=== PATIENT | male | born 1960 | race Caucasian/White ===

== ENCOUNTER 2019-03-26 18:13 | Emergency (ER) | payer MEDICARE ==
[2019-03-26] MEDS ORDERED: methylPREDNISolone SOD SUCCI 125 MG/2 ML VIAL IV STA (19:03)
[2019-03-26] MEDS ORDERED: SODIUM CHLORIDE 0.9% 500 ML 500 ML IV STA (19:03)
[2019-03-26] MEDS ORDERED: ALBUTEROL NEBULIZED 2.5 MG/3 ML INHALATION STA (19:03)
[2019-03-26] MEDS ORDERED: IPRATROPIUM 0.5 MG/2.5 ML NEBU INHALATION STA (19:03)
--- NOTE | 2019-03-26 19:06 | ED ---
General Adult HPI - General Chief complaint: Upper Respiratory Infection Stated complaint: tightness in chest, congestion Time Seen by Provider: 03/26/19 18:43 Source: patient Mode of arrival: ambulatory Limitations: no limitations - History of Present Illness Initial comments: 58-year-old male patient presents to the emergency department today for evalu ation of shortness of breath and cough for the last week. Patient states symptoms have been worsening over the last couple of days. States he is coughing up clear to yellow sputum. Denies any hemoptysis. Patient states he is having substernal chest pain with this. States the pain does radiate through to his back. States he feel short of breath especially with activity. Does have history of COPD. States he did not do any breathing treatments today. States he does still smoke cigarettes. Denies any personal cardiac history. States he has had chills, but denies fever. Patient denies any recent rash, abdominal pain, nausea, vomiting, diarrhea, constipation, numbness, tingling, dizziness, weakness, hematuria, dysuria, urinary urgency, urinary frequency, headache, visual changes, or any other complaints. - Related Data Home Medications Medication Instructions Recorded Confirmed Aspirin/Acetaminophen/Caffeine 1 - 2 tab PO DAILY PRN 03/26/19 03/26/19 [Excedrin Migraine Caplet] Budesonide/Formoterol Fumarate 2 puff INHALATION RT-BID 03/26/19 03/26/19 [Symbicort 160-4.5 Mcg Inhaler] Carisoprodol [Soma] 350 mg PO BID 03/26/19 03/26/19 Fluticasone/Umeclidin/Vilanter 1 puff INHALATION RT-DAILY 03/26/19 03/26/19 [Trelegy Ellipta 100-62.5-25] Gabapentin [Neurontin] 300 mg PO TID 03/26/19 03/26/19 Morphine Sulfate ER [Ms Contin] 30 mg PO Q12H 03/26/19 03/26/19 Morphine Sulfate [Ms Contin] 60 mg PO Q12H 03/26/19 03/26/19 oxyCODONE-APAP 10-325MG [Percocet 1 tab PO TID PRN 03/26/19 03/26/19 10-325 mg] Previous Rx's Medication Instructions Recorded Azithromycin [Zithromax Z-pack] 0 mg PO DIRECTED #6 tab 10/04/19 predniSONE 50 mg PO DAILY #5 tablet 03/26/19 Allergies Allergy/AdvReac Type Severity Reaction Status Date / Time No Known Allergies Allergy Verified 03/26/19 20:48 Review of Systems ROS Statement: Those systems with pertinent positive or pertinent negative responses have been documented in the HPI. ROS Other: All systems not noted in ROS Statement are negative. Past Medical History Past Medical History: Cancer Additional Past Medical History / Comment(s): lung History of Any Multi-Drug Resistant Organisms: None Reported Additional Past Surgical History / Comment(s): right upper lobectomy d/t CA, multiple surgeries on right hand d/t accident Past Psychological History: No Psychological Hx Reported Smoking Status: Current every day smoker Past Alcohol Use History: None Reported Past Drug Use History: None Reported General Exam Limitations: no limitations General appearance: alert, in no apparent distress, other (Physical well- developed, well-nourished adult male patient in no acute distress. Vital signs upon presentation are temperature 98.1F, pulse 76, respirations 18, blood pressure 101/69, pulse ox 93% on room air.) Eye exam: Present: normal appearance, PERRL, EOMI. Absent: scleral icterus, conjunctival injection, periorbital swelling ENT exam: Present: normal exam, normal oropharynx, mucous membranes moist Respiratory exam: Present: wheezes (Tight expiratory and inspiratory wheezing noted in the posterior lung mendes). Absent: normal lung sounds bilaterally, respiratory distress, rales, rhonchi, stridor Cardiovascular Exam: Present: regular rate, normal rhythm, normal heart sounds. Absent: systolic murmur, diastolic murmur, rubs, gallop, clicks GI/Abdominal exam: Present: soft, normal bowel sounds. Absent: distended, tenderness, guarding, rebound, rigid Neurological exam: Present: alert, oriented X3, CN II-XII intact Psychiatric exam: Present: normal affect, normal mood Skin exam: Present: warm, dry, intact, normal color. Absent: rash Course Vital Signs 03/26/19 03/26/19 03/26/19 18:32 18:52 19:22 Temperature 98.1 F Pulse Rate 76 64 Respiratory 18 20 Rate Blood Pressure 101/69 O2 Sat by Pulse 93 L Oximetry 03/26/19 03/26/19 03/26/19 19:36 19:56 20:56 Temperature Pulse Rate 68 86 73 Respiratory 20 20 Rate Blood Pressure 102/55 105/61 O2 Sat by Pulse 90 L 94 L Oximetry 03/26/19 03/26/19 22:00 23:08 Temperature 98.4 F 98.9 F Pulse Rate 66 76 Respiratory 22 18 Rate Blood Pressure 104/60 106/68 O2 Sat by Pulse 93 L 90 L Oximetry EKG Findings - EKG Comments: EKG Findings:: EKG obtained at 1936 shows normal sinus rhythm with a ventricular rate of 71, GA interval 166, QRS duration 74, QT 378, QTC 410. No evidence of ST elevation or depression. Medical Decision Making - Medical Decision Making 58-year-old male patient presented to the emergency department today for chandra luation of shortness of breath and wheezing. Patient states his been sick over the last week with worsening symptoms over the last 2 days. Physical examination did reveal inspiratory and expiratory wheezing in the posterior lung mendes. Labs reviewed and revealed normal white blood cell count. Oxygen saturation was between 90 and 93% on room air. X-ray did reveal pneumonia or recurrent tumor to the right lung. Patient be treated for COPD exacerbation and pneumonia. Given a azithromycin, prednisone burst, and instructed to do breathing treatments at home every 4 hours. He is instructed to follow-up with his lean engineer for further evaluation and review of x-ray abnormalities. He is instructed to follow-up with his primary care physician for recheck in 1-2 days. Return parameters were discussed in detail. He verbalizes understanding and agrees with this plan. Case was discussed with my attending physician Dr. Telles who agreed with my impression and plan. - Lab Data Result diagrams: 03/26/19 19:41 03/26/19 19:41 Lab Results 03/26/19 03/26/19 03/26/19 Range/Units 19:41 19:41 19:41 WBC 10.3 (3.8-10.6) k/uL RBC 3.86 L (4.30-5.90) m/uL Hgb 11.8 L (13.0-17.5) gm/dL Hct 37.8 L (39.0-53.0) % MCV 97.9 (80.0-100.0) fL MCH 30.5 (25.0-35.0) pg MCHC 31.2 (31.0-37.0) g/dL RDW 13.9 (11.5-15.5) % Plt Count 269 (150-450) k/uL Neutrophils % 83 % Lymphocytes % 8 % Monocytes % 6 % Eosinophils % 1 % Basophils % 1 % Neutrophils # 8.6 H (1.3-7.7) k/uL Lymphocytes # 0.9 L (1.0-4.8) k/uL Monocytes # 0.6 (0-1.0) k/uL Eosinophils # 0.1 (0-0.7) k/uL Basophils # 0.1 (0-0.2) k/uL PT 10.0 (9.0-12.0) sec INR 0.9 (<1.2) APTT 29.9 (22.0-30.0) sec D-Dimer 0.37 (<0.60) mg/L FEU Sodium 138 (137-145) mmol/L Potassium 3.7 (3.5-5.1) mmol/L Chloride 99 (98-107) mmol/L Carbon Dioxide 28 (22-30) mmol/L Anion Gap 11 mmol/L BUN 23 H (9-20) mg/dL Creatinine 1.06 (0.66-1.25) mg/dL Est GFR (CKD-EPI)AfAm 90 (>60 ml/min/1.73 sqM) Est GFR (CKD-EPI)NonAf 78 (>60 ml/min/1.73 sqM) Glucose 105 H (74-99) mg/dL Calcium 9.0 (8.4-10.2) mg/dL Total Bilirubin 0.4 (0.2-1.3) mg/dL AST 14 L (17-59) U/L ALT 16 L (21-72) U/L Alkaline Phosphatase 64 (38-126) U/L Troponin I (0.000-0.034) ng/mL Total Protein 6.6 (6.3-8.2) g/dL Albumin 3.6 (3.5-5.0) g/dL 03/26/19 Range/Units 19:41 WBC (3.8-10.6) k/uL RBC (4.30-5.90) m/uL Hgb (13.0-17.5) gm/dL Hct (39.0-53.0) % MCV (80.0-100.0) fL MCH (25.0-35.0) pg MCHC (31.0-37.0) g/dL RDW (11.5-15.5) % Plt Count (150-450) k/uL Neutrophils % % Lymphocytes % % Monocytes % % Eosinophils % % Basophils % % Neutrophils # (1.3-7.7) k/uL Lymphocytes # (1.0-4.8) k/uL Monocytes # (0-1.0) k/uL Eosinophils # (0-0.7) k/uL Basophils # (0-0.2) k/uL PT (9.0-12.0) sec INR (<1.2) APTT (22.0-30.0) sec D-Dimer (<0.60) mg/L FEU Sodium (137-145) mmol/L Potassium (3.5-5.1) mmol/L Chloride (98-107) mmol/L Carbon Dioxide (22-30) mmol/L Anion Gap mmol/L BUN (9-20) mg/dL Creatinine (0.66-1.25) mg/dL Est GFR (CKD-EPI)AfAm (>60 ml/min/1.73 sqM) Est GFR (CKD-EPI)NonAf (>60 ml/min/1.73 sqM) Glucose (74-99) mg/dL Calcium (8.4-10.2) mg/dL Total Bilirubin (0.2-1.3) mg/dL AST (17-59) U/L ALT (21-72) U/L Alkaline Phosphatase (38-126) U/L Troponin I <0.012 (0.000-0.034) ng/mL Total Protein (6.3-8.2) g/dL Albumin (3.5-5.0) g/dL - Radiology Data Radiology results: report reviewed, image reviewed Two-view x-ray of the chest is obtained. Report was reviewed in its entirety. Impression by Dr. Hernandez shows increasing pulmonary interstitial edema on the right lung compared to last exam. I would consider possibilities of acute pneumonia as well as recurrent tumor. No gross heart failure. Disposition Clinical Impression: COPD exacerbation, Pneumonia Disposition: HOME SELF-CARE Condition: Good Instructions (If sedation given, give patient instructions): COPD (Chronic Obstructive Pulmonary Disease) (ED), Pneumonia (ED) Additional Instructions: Do breathing treatments every 4 hours as needed. Complete steroid and antibiotic prescription in full. Follow-up with your lean engineer for further evaluation of abnormalities on your x-ray. Return to the emergency department immediately for any new, worsening, or concerning symptoms. Prescriptions: predniSONE 50 mg PO DAILY #5 tablet Azithromycin [Zithromax Z-pack] 0 mg PO DIRECTED #6 tab Is patient prescribed a controlled substance at d/c from ED?: No Referrals: Royal Cochran MD [Primary Care Provider] - 1-2 days Time of Disposition: 22:54
--- NOTE | 2019-03-26 19:29 | XR ---
EXAMINATION TYPE: XR chest 2V DATE OF EXAM: 03/26/2019 COMPARISON: 08/28/2018 HISTORY: Chest tightness. Cough. TECHNIQUE: Frontal and lateral views of the chest are obtained. FINDINGS: There is extensive coarse infiltrate in the right lung. There is slight coarsening of inte rstitial markings in the left lung. Heart and mediastinum are shifted to the right side. There are heller rgical clips apparently from right upper lobectomy. Heart size is normal. There is no heart failure. IMPRESSION: Increasing pulmonary interstitial edema in the right lung compared to last exam. I would consider possibilities of acute pneumonia as well as recurrent tumor. No gross heart failure.
[2019-03-26] MEDS ORDERED: cefTRIAXone IN SWFI 1,000 MG/10 ML SYRINGE IVP STA (19:45)
[2019-03-26 20:19] LABS: Basophils # (A) 0.1 k/uL (0-0.2); Basophils % (A) 1 %; Eosinophils # (A) 0.1 k/uL (0-0.7); Eosinophils % (A) 1 %; HCT 37.8 % (39.0-53.0); HGB 11.8 gm/dL (13.0-17.5); Lymphocytes # (A) 0.9 k/uL (1.0-4.8); Lymphocytes % (A) 8 %; MCH 30.5 pg (25.0-35.0); MCHC 31.2 g/dL (31.0-37.0); MCV 97.9 fL (80.0-100.0); Mean Platelet Volume 7.3; Monocytes # (A) 0.6 k/uL (0-1.0); Monocytes % (A) 6 %; Neutrophils # (A) 8.6 k/uL (1.3-7.7); Neutrophils % (A) 83 %; Platelet Count 269 k/uL (150-450); RBC 3.86 m/uL (4.30-5.90); RDW 13.9 % (11.5-15.5); WBC 10.3 k/uL (3.8-10.6)
[2019-03-26 20:31] LABS: D-Dimer 0.37 mg/L FEU (<0.60); INR 0.9 (<1.2); Partial Thromboplastin Time 29.9 sec (22.0-30.0)
[2019-03-26 20:34] LABS: Albumin 3.6 g/dL (3.5-5.0); Potassium 3.7 mmol/L (3.5-5.1); Total Bilirubin 0.4 mg/dL (0.2-1.3); Total Protein 6.6 g/dL (6.3-8.2)
[2019-03-26] MEDS ORDERED: AZITHROMYCIN 500 MG in SODIUM CHLORIDE 0.9% 250 ML IVPB ONE (22:15)
[2019-03-26] MEDS ORDERED: AZITHROMYCIN 500 MG TAB PO STA (22:52)
[2019-03-26 23:11] VITALS: BP 106/68; PULSE 76; RESP 18; TEMP 98.9
== END 2019-03-26 23:14 | disposition home or self-care (01) ==
LOC: EC 18:13
DX: J44.1 Chronic obstructive pulmonary disease with (acute) exacerbation (principal); J18.9 Pneumonia, unspecified organism; F17.210 Nicotine dependence, cigarettes, uncomplicated; Z79.51 Long term (current) use of inhaled steroids; Z79.891 Long term (current) use of opiate analgesic; Z79.82 Long term (current) use of aspirin; Z79.899 Other long term (current) drug therapy; Z85.118 Personal history of other malignant neoplasm of bronchus and lung; Z90.2 Acquired absence of lung [part of]
CPT/HCPCS: 36415; 94640; 93005; 85379; 80053; 84484; 85025; 85610; 85730; 87040; 71046; 99284; 96374; 96375; 96361; J2930; J0696

== ENCOUNTER 2019-11-02 12:38 | Inpatient (IN) | payer MEDICARE ==
[2019-11-02] MEDS ORDERED: SODIUM CHLORIDE 0.9% 1,000 ML IV STA ×2 (13:01)
[2019-11-02] MEDS ORDERED: ALBUTEROL HFA INHALER INHALATION STA (13:01)
[2019-11-02] MEDS ORDERED: PANTOPRAZOLE 40 MG/10 ML VIAL IVP STA (13:02)
--- NOTE | 2019-11-02 13:26 | ED ---
General Adult HPI - General Chief complaint: Shortness of Breath Stated complaint: Coughing blood Time Seen by Provider: 11/02/19 12:54 Source: patient, RN notes reviewed, old records reviewed Limitations: no limitations - History of Present Illness Initial comments: This Patient is a 58-year-old male with a history of lung cancer with history of lobectomy with presents the emergency room today with worsening difficulty breathing the past week, and reports that he's been vomiting up coffee ground emesis. He also states that he's had a general productive cough of yellow-green sputum. Patient reports that he wears oxygen at night than during the day. He states that he has some mild epigastric pain. He denies any recent fevers or chills. Patient reports that his finisher cold rolling Dr. Peters. Patient reports he is not currently undergoing any treatment for history of lung cancer with chemotherapy or radiation. - Related Data Home Medications Medication Instructions Recorded Confirmed Aspirin/Acetaminophen/Caffeine 1 - 2 tab PO DAILY PRN 03/26/19 03/26/19 [Excedrin Migraine Caplet] Budesonide/Formoterol Fumarate 2 puff INHALATION RT-BID 03/26/19 03/26/19 [Symbicort 160-4.5 Mcg Inhaler] Carisoprodol [Soma] 350 mg PO BID 03/26/19 03/26/19 Fluticasone/Umeclidin/Vilanter 1 puff INHALATION RT-DAILY 03/26/19 03/26/19 [Trelegy Ellipta 100-62.5-25] Gabapentin [Neurontin] 300 mg PO TID 03/26/19 03/26/19 Morphine Sulfate ER [Ms Contin] 30 mg PO Q12H 03/26/19 03/26/19 Morphine Sulfate [Ms Contin] 60 mg PO Q12H 03/26/19 03/26/19 oxyCODONE-APAP 10-325MG [Percocet 1 tab PO TID PRN 03/26/19 03/26/19 10-325 mg] Previous Rx's Medication Instructions Recorded Azithromycin [Zithromax Z-pack] 0 mg PO DIRECTED #6 tab 03/26/19 predniSONE 50 mg PO DAILY #5 tablet 03/26/19 Allergies Allergy/AdvReac Type Severity Reaction Status Date / Time No Known Allergies Allergy Verified 05/12/20 12:45 Review of Systems ROS Statement: Those systems with pertinent positive or pertinent negative responses have been documented in the HPI. ROS Other: All systems not noted in ROS Statement are negative. Past Medical History Past Medical History: Cancer Additional Past Medical History / Comment(s): lung History of Any Multi-Drug Resistant Organisms: None Reported Additional Past Surgical History / Comment(s): right upper lobectomy d/t CA, multiple surgeries on right hand d/t accident Past Psychological History: No Psychological Hx Reported Smoking Status: Current every day smoker Past Alcohol Use History: None Reported Past Drug Use History: None Reported General Exam - General Exam Comments Initial Comments: Very thin appearing 58-year-old male. Cachectic. Alert and oriented 3. Pleasant. Limitations: no limitations General appearance: alert, in no apparent distress Head exam: Present: atraumatic, normocephalic, normal inspection Eye exam: Present: normal appearance, PERRL, EOMI. Absent: scleral icterus, conjunctival injection, periorbital swelling ENT exam: Present: normal exam, mucous membranes moist Neck exam: Present: normal inspection. Absent: tenderness, meningismus, lymphadenopathy Respiratory exam: Present: decreased breath sounds (decreased lower lung lobe. ). Absent: normal lung sounds bilaterally, respiratory distress, wheezes, rales, rhonchi, stridor Cardiovascular Exam: Present: regular rate, normal rhythm, normal heart sounds. Absent: systolic murmur, diastolic murmur, rubs, gallop, clicks GI/Abdominal exam: Present: soft, normal bowel sounds. Absent: distended, tenderness, guarding, rebound, rigid Extremities exam: Present: normal inspection, full ROM, normal capillary refill. Absent: tenderness, pedal edema, joint swelling, calf tenderness Back exam: Present: normal inspection Neurological exam: Present: alert, oriented X3, CN II-XII intact Psychiatric exam: Present: normal affect, normal mood Skin exam: Present: warm, dry, intact, normal color. Absent: rash Course Vital Signs 11/02/19 11/02/19 12:40 12:45 Temperature 98.7 F Pulse Rate 92 Respiratory 18 20 Rate Blood Pressure 96/67 O2 Sat by Pulse 85 L Oximetry Medical Decision Making - Medical Decision Making 58-year-old male history of lung cancer presents today with worsening dyspnea, and Patient also complains of some episodes of bloody emesis. He's had no vomiting emergency room today. Patient was found to have a pulse ox of 85% on room air prior to arrival and went as low as 80% while in the room and talking. Patient was started on a 4 L of oxygen nasal cannula and oxygen saturation has been normal this time and 90%. Patient has this productive cough with yellow screen sputum. Stat CT chest injury was completed with history of cancer to her initially to rule out PE. There is no evidence of pulmonary embolus and but multiple focal areas of pneumonia. Patient does have evidence of leukocytosis,. Started on Rocephin and azithromycin. Patient was swabbed for COVID at this time and blood cultures were completed. He also is a current smoker and states he is planning to quit today. In regards to the bloody emesis patient's hemoglobin is stable at 11. We will repeat CBCs. He was given a dose of Protonix emergency department has had no nausea or vomiting. At this time with Patient CTs findings of multiple areas of consolidation Patient will be admitted for pneumonia started on Rocephin and azithromycin with consults to Dr. Peters his finisher cold rolling. - Lab Data Result diagrams: 11/02/19 13:21 11/02/19 13:21 Lab Results 11/02/19 11/02/19 11/02/19 Range/Units 13:21 13:21 13:21 WBC 14.8 H (3.8-10.6) k/uL RBC 3.82 L (4.30-5.90) m/uL Hgb 11.6 L (13.0-17.5) gm/dL Hct 36.4 L (39.0-53.0) % MCV 95.4 (80.0-100.0) fL MCH 30.5 (25.0-35.0) pg MCHC 32.0 (31.0-37.0) g/dL RDW 13.2 (11.5-15.5) % Plt Count 402 (150-450) k/uL Neutrophils % 91 % Lymphocytes % 5 % Monocytes % 2 % Eosinophils % 1 % Basophils % 1 % Neutrophils # 13.5 H (1.3-7.7) k/uL Lymphocytes # 0.7 L (1.0-4.8) k/uL Monocytes # 0.3 (0-1.0) k/uL Eosinophils # 0.2 (0-0.7) k/uL Basophils # 0.1 (0-0.2) k/uL PT 10.1 (9.0-12.0) sec INR 1.0 (<1.2) APTT 30.2 H (22.0-30.0) sec Sodium 136 L (137-145) mmol/L Potassium 4.1 (3.5-5.1) mmol/L Chloride 98 (98-107) mmol/L Carbon Dioxide 28 (22-30) mmol/L Anion Gap 10 mmol/L BUN 38 H (9-20) mg/dL Creatinine 1.44 H (0.66-1.25) mg/dL Est GFR (CKD-EPI)AfAm 61 (>60 ml/min/1.73 sqM) Est GFR (CKD-EPI)NonAf 53 (>60 ml/min/1.73 sqM) Glucose 106 H (74-99) mg/dL Plasma Lactic Acid Alber (0.7-2.0) mmol/L Calcium 9.3 (8.4-10.2) mg/dL Magnesium 1.5 L (1.6-2.3) mg/dL Total Bilirubin 0.4 (0.2-1.3) mg/dL AST 18 (17-59) U/L ALT 8 (4-49) U/L Alkaline Phosphatase 64 (38-126) U/L Troponin I (0.000-0.034) ng/mL NT-Pro-B Natriuret Pep pg/mL Total Protein 7.0 (6.3-8.2) g/dL Albumin 3.8 (3.5-5.0) g/dL 11/02/19 11/02/19 11/02/19 Range/Units 13:21 13:21 13:21 WBC (3.8-10.6) k/uL RBC (4.30-5.90) m/uL Hgb (13.0-17.5) gm/dL Hct (39.0-53.0) % MCV (80.0-100.0) fL MCH (25.0-35.0) pg MCHC (31.0-37.0) g/dL RDW (11.5-15.5) % Plt Count (150-450) k/uL Neutrophils % % Lymphocytes % % Monocytes % % Eosinophils % % Basophils % % Neutrophils # (1.3-7.7) k/uL Lymphocytes # (1.0-4.8) k/uL Monocytes # (0-1.0) k/uL Eosinophils # (0-0.7) k/uL Basophils # (0-0.2) k/uL PT (9.0-12.0) sec INR (<1.2) APTT (22.0-30.0) sec Sodium (137-145) mmol/L Potassium (3.5-5.1) mmol/L Chloride (98-107) mmol/L Carbon Dioxide (22-30) mmol/L Anion Gap mmol/L BUN (9-20) mg/dL Creatinine (0.66-1.25) mg/dL Est GFR (CKD-EPI)AfAm (>60 ml/min/1.73 sqM) Est GFR (CKD-EPI)NonAf (>60 ml/min/1.73 sqM) Glucose (74-99) mg/dL Plasma Lactic Acid Alber 1.3 (0.7-2.0) mmol/L Calcium (8.4-10.2) mg/dL Magnesium (1.6-2.3) mg/dL Total Bilirubin (0.2-1.3) mg/dL AST (17-59) U/L ALT (4-49) U/L Alkaline Phosphatase (38-126) U/L Troponin I <0.012 (0.000-0.034) ng/mL NT-Pro-B Natriuret Pep 106 pg/mL Total Protein (6.3-8.2) g/dL Albumin (3.5-5.0) g/dL 11/02/19 13:58 EKG performed at 1344 shows normal sinus rhythm minimal criteria for LVH. Nonspecific ST and T wave abnormality. Abnormal EKG. Ventricular rate of 74 beats were minute period. Intervals 178 ms. QS duration is 80 ms. QT QTc is 390/432 ms. - Radiology Data Radiology results: report reviewed No diagnostic evidence of bony rambles in. Chronic appearing deformity of the right hemithorax with numerous areas of consolidation on the right lung and left lower lobe. Some of this may be chronic however there is no prior CT scans available for comparison. Underlying pneumonia or neoplasm not excluded, correlate clinically. Chest x-ray shows chronic changes and right-sided volume loss with new right mid upper lung infiltrate or edema. Correlate clinically. Disposition Clinical Impression: Multifocal pneumonia, Hx of cancer of lung, History of hematemesis, Hypoxia Disposition: ADMITTED IP TO THIS HOSP Condition: Stable Is patient prescribed a controlled substance at d/c from ED?: No Referrals: Royal Cochran MD [Primary Care Provider] - 1-2 days Time of Disposition: 15:20
[2019-11-02 13:47] LABS: Basophils # (A) 0.1 k/uL (0-0.2); Basophils % (A) 1 %; Eosinophils # (A) 0.2 k/uL (0-0.7); Eosinophils % (A) 1 %; HCT 36.4 % (39.0-53.0); HGB 11.6 gm/dL (13.0-17.5); Lymphocytes # (A) 0.7 k/uL (1.0-4.8); Lymphocytes % (A) 5 %; MCH 30.5 pg (25.0-35.0); MCV 95.4 fL (80.0-100.0); Mean Platelet Volume 8.1; Monocytes # (A) 0.3 k/uL (0-1.0); Monocytes % (A) 2 %; Neutrophils # (A) 13.5 k/uL (1.3-7.7); Neutrophils % (A) 91 %; Platelet Count 402 k/uL (150-450); RBC 3.82 m/uL (4.30-5.90); RDW 13.2 % (11.5-15.5); WBC 14.8 k/uL (3.8-10.6)
[2019-11-02 13:58] LABS: Albumin 3.8 g/dL (3.5-5.0); Calcium 9.3 mg/dL (8.4-10.2); Magnesium 1.5 mg/dL (1.6-2.3); Potassium 4.1 mmol/L (3.5-5.1); Total Bilirubin 0.4 mg/dL (0.2-1.3)
--- NOTE | 2019-11-02 14:28 | XR ---
EXAMINATION TYPE: XR chest 2V DATE OF EXAM: 11/02/2019 COMPARISON: Same day CTA chest study. Prior chest x-ray April 23, 2019. HISTORY: History of lung cancer with hypoxia. TECHNIQUE: Frontal and lateral views of the chest are obtained. FINDINGS: There is prompt chronic parenchymal fibrotic changes with right-sided volume loss and righ t upper lung deformity are all redemonstrated. No new pleural effusion or pneumothorax definitively s een. Increased opacity right upper to midlung on current study. The cardiac silhouette size remains w ithin normal limits. Stimulator device in the right supraclavicular region redemonstrated. IMPRESSION: Chronic changes and right-sided volume loss with new right mid to upper lung acute infil trate and/or edema. Correlate clinically.
[2019-11-02 14:31] LABS: Partial Thromboplastin Time 30.2 sec (22.0-30.0); Prothrombin Time 10.1 sec (9.0-12.0)
[2019-11-02] MEDS ORDERED: AZITHROMYCIN 500 MG in SODIUM CHLORIDE 0.9% 250 ML IVPB STA (14:32)
[2019-11-02] MEDS ORDERED: cefTRIAXone IN SWFI 1,000 MG/10 ML SYRINGE IVP STA (14:32)
--- NOTE | 2019-11-02 14:33 | CT ---
EXAMINATION TYPE: CT chest angio for PE DATE OF EXAM: 11/02/2019 COMPARISON: None HISTORY: cough, lung CA CT DLP: 180.3 mGycm Automated exposure control for dose reduction was used. CONTRAST: CT Chest for pulmonary embolism performed with with IV Contrast, patient injected with 100 mL of Isov ue 370. FINDINGS: There is partial resection or deformity of the right hemithorax. Bilateral emphysematous ch anges are seen. Area of consolidation involving the right lung apex noted. Additional areas of right perihilar consolidation are seen. No prior exams are available for comparison. Subsegmental consolida tions are seen involving both lungs. Basilar bronchiectasis noted. Coronary artery calcification noted. Heart size is normal. Aorta of normal caliber. There is normal e nhancement of the pulmonary arteries bilaterally. Large bulla favored at the right lung apex overt ca vitation. Bronchiectasis noted bilaterally greater on the right. Groundglass changes diffusely throug hout the right lung. Bilateral hilar adenopathy greater on the right measuring short axis of 1.4 cm. Degenerative changes of the vertebral column noted. Hypodensity left kidney is indeterminate and only partially included on exam. Subpleural nodularity right upper lobe measuring 1 cm noted. IMPRESSION: 1. No diagnostic evidence of pulmonary embolism. 2. Chronic appearing deformity of the right hemithorax with numerous areas of consolidation in the ri ght lung and left lower lobe. Some of this may be chronic but there are no prior CT scans available f or comparison. Underlying pneumonia or neoplasm not excluded correlate clinically. 3. Diffuse COPD.
[2019-11-02] MEDS ORDERED: SODIUM CHLORIDE 0.9% 1,000 ML IV ONE ×2 (15:07→20:38)
[2019-11-02] MEDS ORDERED: IBUPROFEN 400 MG TAB PO PRN (15:21)
[2019-11-02] MEDS ORDERED: NALOXONE 0.4 MG/ML 1 ML VIAL IV PRN (15:21)
[2019-11-02] MEDS ORDERED: ACETAMINOPHEN TAB 325 MG TAB PO PRN (15:21)
[2019-11-02] MEDS ORDERED: ONDANSETRON 4 MG/2 ML VIAL IVP PRN (15:21)
[2019-11-02 18:02] LABS: HCT 33.5 % (39.0-53.0); HGB 10.4 gm/dL (13.0-17.5); Hypochromasia Moderate; MCH 30.5 pg (25.0-35.0); MCHC 31.1 g/dL (31.0-37.0); MCV 98.3 fL (80.0-100.0); Mean Platelet Volume 7.9; Platelet Count 355 k/uL (150-450); RBC 3.41 m/uL (4.30-5.90); RDW 13.3 % (11.5-15.5); WBC 13.2 k/uL (3.8-10.6)
[2019-11-02] MEDS: MORPHINE SULFATE 4 MG/ML SYRINGE IV PRN (18:20)
[2019-11-02] MEDS ORDERED: SODIUM CHLORIDE 0.9% 500 ML 500 ML IV ONE (20:38)
[2019-11-03] MEDS ORDERED: IPRATROPIUM-ALBUTEROL 3 ML NEB INHALATION PRN (01:05)
--- NOTE | 2019-11-03 01:25 | P.HPIM ---
History of Present Illness H&P Date: 11/02/19 Chief Complaint: Shortness of breath and blood in the vomit Patient is a 58-year-old male with a known history of lung cancer status post right upper lobectomy and currently everyday smoker came to ER with complaints of worsening shortness of breath for the past 1 week. Patient also having nausea and episodes of vomiting with dark-colored blood for the past 1 month. Patient has been having symptoms for the past few weeks and states that he delayed coming to the hospital. Patient is also having decreased appetite. Patient complains of cough with yellowish to greenish sputum production. Denied any fever or chills. Does have mild epigastric pain. No complaints of chest pain. Denied any dysuria or hematuria. No headache or dizziness or lightheadedness. Patient states that he is having generalized weakness otherwise. COVID-19 swab was sent. Laboratory data showed WBC 14.8, hemoglobin 11.6, lymphocytes 0.7, sodium 136, BUN 38, creatinine 1.44, magnesium 1.5, troponin x1- and proBNP 106. CT angiogram of the chest showed diffuse COPD. No diagnostic evidence of pulmonary embolism. Chronic appearing deformity of the right hemithorax with numerous areas of consolidation in the right lung and left lower lobe. Some of this may be chronic but there is no prior CT scans available for comparison. Underlying pneumonia or neoplasm not excluded correlate clinically. Chest x-ray showed chronic changes and right-sided volume loss with new right mid to upper lung acute infiltrate or edema. Correlate clinically. Review of Systems Constitutional: Patient denies any fever or chills . generalized weakness and weight loss. Abdomen: Nausea vomiting and abdominal pain.No diarrhea. Cardiovascular: Patient denies any chest pain or short of breath no palpitations. Respiratory:y cough with production. + shortness of breath Neurologic: Patient denied any numbness or tingling. Patient does have dizziness and headache and ringing ears. Musculoskeletal: Patient denies any complaints of joint swelling or deformity. Skin: Negative Psychiatric: Negative Endocrine: No heat or cold intolerance. No recent weight gain. Genitourinary: No dysuria or hematuria. All other 14 point ROS negative except the above Past Medical History Past Medical History: Cancer Additional Past Medical History / Comment(s): lung History of Any Multi-Drug Resistant Organisms: None Reported Additional Past Surgical History / Comment(s): right upper lobectomy d/t CA, multiple surgeries on right hand d/t accident Past Psychological History: No Psychological Hx Reported Smoking Status: Current every day smoker Past Alcohol Use History: None Reported Past Drug Use History: None Reported Medications and Allergies Home Medications Medication Instructions Recorded Confirmed Type Carisoprodol [Soma] 350 mg PO BID 03/26/19 11/02/19 History Fluticasone/Umeclidin/Vilanter 1 puff INHALATION RT-DAILY 03/26/19 11/02/19 History [Trelegy Ellipta 100-62.5-25] Gabapentin [Neurontin] 300 mg PO TID 03/26/19 11/02/19 History Morphine Sulfate ER [Ms Contin] 30 mg PO TID 03/26/19 11/02/19 History Morphine Sulfate [Ms Contin] 60 mg PO TID 03/26/19 11/02/19 History oxyCODONE-APAP 10-325MG [Percocet 1 tab PO TID PRN 03/26/19 11/02/19 History 10-325 mg] Topiramate [Topamax] 100 mg PO HS 11/02/19 11/02/19 History Allergies Allergy/AdvReac Type Severity Reaction Status Date / Time No Known Allergies Allergy Verified 11/02/19 20:48 Physical Exam Vitals: Vital Signs Temp Pulse Pulse Resp BP BP Pulse Ox 11/02/19 16:30 68 18 97/71 97 11/02/19 16:00 68 18 97/71 97 11/02/19 15:00 97.5 F L 68 55 L 18 105/63 90 L 11/02/19 14:45 68 18 96/70 97 11/02/19 13:45 66 20 92/64 97 11/02/19 12:45 20 11/02/19 12:40 98.7 F 92 18 96/67 85 L Intake and Output 11/02/19 11/02/19 11/02/19 06:59 14:59 22:59 Other: Weight 45.359 kg 45.359 kg PHYSICAL EXAMINATION: Patient is lying in the bed comfortably, no acute distress, awake alert and oriented.Cachectic. HEENT: Normocephalic. Neck is supple. Pupils reactive. Nostrils clear. Oral cavity is moist. Ears reveal no drainage. Neck reveals no JVD, carotid bruits, or thyromegaly. CHEST EXAMINATION: Trachea is central. Symmetrical expansion.Bibasilar diminished air entry. No wheezing. Scattered rhonchi. CARDIAC: Normal S1, S2 with no gallops. No murmurs ABDOMEN: Soft. Nontender.Bowel sounds normal. No organomegaly. No abdominal bruits. Extremities: reveal no edema. No clubbing or cyanosis Neurologically awake, alert, oriented x3 with well-coordinated movements. No focal deficits noted Skin: No rash or skin lesions. Psychiatric: Coperative. Nonsuicidal Musculoskeletal: No joint swelling or deformity. Normal range of motion. Results CBC & Chem 7: 11/02/19 17:04 11/02/19 13:21 Labs: Abnormal Lab Results - Last 24 Hours (Table) 11/02/19 11/02/19 11/02/19 Range/Units 13:21 13:21 13:21 WBC 14.8 H (3.8-10.6) k/uL RBC 3.82 L (4.30-5.90) m/uL Hgb 11.6 L (13.0-17.5) gm/dL Hct 36.4 L (39.0-53.0) % Neutrophils # 13.5 H (1.3-7.7) k/uL Lymphocytes # 0.7 L (1.0-4.8) k/uL APTT 30.2 H (22.0-30.0) sec Sodium 136 L (137-145) mmol/L BUN 38 H (9-20) mg/dL Creatinine 1.44 H (0.66-1.25) mg/dL Glucose 106 H (74-99) mg/dL Magnesium 1.5 L (1.6-2.3) mg/dL 11/02/19 Range/Units 17:04 WBC 13.2 H (3.8-10.6) k/uL RBC 3.41 L (4.30-5.90) m/uL Hgb 10.4 L (13.0-17.5) gm/dL Hct 33.5 L (39.0-53.0) % Neutrophils # (1.3-7.7) k/uL Lymphocytes # (1.0-4.8) k/uL APTT (22.0-30.0) sec Sodium (137-145) mmol/L BUN (9-20) mg/dL Creatinine (0.66-1.25) mg/dL Glucose (74-99) mg/dL Magnesium (1.6-2.3) mg/dL Thrombosis Risk Factor Assmnt - DVT/VTE Prophylaxis DVT/VTE Prophylaxis: Pharmacologic Prophylaxis ordered Assessment and Plan Assessment: Right lung and left lower lung consolidation due to pneumonia. Underlying malignancy cannot be excluded. History of lung cancer status post right lobectomy Acute kidney injury likely prerenal. Ongoing nicotine addiction COPD not in exacerbation Nausea vomiting and coffee-ground emesis. Possible gastritis. Moderate protein calorie malnutrition. DVT prophylaxis. Plan: Patient was given a dose of ceftriaxone and azithromycin in the ER. Continue with antibiotics and oxygen therapy. Duo nebs and follow-up closely. Pulmonary was consulted. Patient will be continued on PPI. Symptomatic management for nausea and vomiting. Follow-up COVID-19 test report. Denies any exposure to COVID-19 patients.Follow-up blood cultures. Further recommendations based on the clinical course. Prognosis is guarded with multiple medical problems and comorbid conditions. Time with Patient: Greater than 30
[2019-11-03] MEDS: oxyCODONE-APAP 10-325MG 1 EACH TAB PO PRN ×2 (01:35→09:54)
[2019-11-03] MEDS: MAGNESIUM SULFATE-D5W PMX 1 GM in DEXTROSE/WATER 1 100ML.BAG IVPB SCH ×2 (01:35→02:46)
[2019-11-03] MEDS: AZITHROMYCIN 500 MG TAB PO SCH (07:12)
[2019-11-03] MEDS: GABAPENTIN 300 MG CAP PO SCH ×3 (07:12→21:37)
[2019-11-03] MEDS: HEPARIN SODIUM,PORCINE 5,000 UNIT/ML 1 ML VIAL SQ SCH ×3 (07:12→22:50)
[2019-11-03] MEDS: PANTOPRAZOLE 40 MG/10 ML VIAL IV SCH (07:12)
[2019-11-03] MEDS: MORPHINE SULFATE 4 MG/ML SYRINGE IV PRN ×3 (07:20→20:19)
[2019-11-03 07:27] LABS: Basophils % (A) 0 %; Eosinophils % (A) 0 %; HCT 30.6 % (39.0-53.0); HGB 9.2 gm/dL (13.0-17.5); Hypochromasia Moderate; Lymphocytes # (A) 0.7 k/uL (1.0-4.8); Lymphocytes % (A) 8 %; MCH 29.7 pg (25.0-35.0); MCHC 30.2 g/dL (31.0-37.0); MCV 98.3 fL (80.0-100.0); Mean Platelet Volume 7.7; Monocytes # (A) 0.3 k/uL (0-1.0); Monocytes % (A) 4 %; Neutrophils # (A) 7.3 k/uL (1.3-7.7); Neutrophils % (A) 86 %; Platelet Count 280 k/uL (150-450); RBC 3.11 m/uL (4.30-5.90); RDW 13.1 % (11.5-15.5); WBC 8.4 k/uL (3.8-10.6)
[2019-11-03 08:00] LABS: African American GFR (CKD) >90 (>60 ml/min/1.73 sqM); Anion Gap 7 mmol/L; Blood Urea Nitrogen 18 mg/dL (9-20); Calcium 7.7 mg/dL (8.4-10.2); Carbon Dioxide 23 mmol/L (22-30); Chloride 108 mmol/L (98-107); Glucose 91 mg/dL (74-99); Non-African American GFR(CKD) >90 (>60 ml/min/1.73 sqM); Sodium 138 mmol/L (137-145)
[2019-11-03] MEDS: ALBUTEROL HFA INHALER INHALATION SCH ×2 (08:30→11:46)
[2019-11-03] MEDS: TIOTROPIUM 18 MCG/PUFF INHALER INHALATION SCH (08:30)
[2019-11-03] MEDS: SYMBICORT 80-4.5 MCG INHALER INHALATION SCH ×2 (08:30→20:10)
[2019-11-03] MEDS ORDERED: CEFEPIME 2 GM in SODIUM CHLORIDE 0.9% 100 ML IVPB SCH (09:00)
[2019-11-03 13:40] VITALS: BMI 15.2
--- NOTE | 2019-11-03 13:42 | P.CNPUL ---
History of Present Illness Consult date: 11/02/19 Reason for consult: dyspnea History of present illness: This is a 58-year-old male patient with history of non-small cell lung cancer and advanced COPD. The patient is very well-known to me. The patient undergone a previous right upper lobe resection at was no more than 20 years ago. Since then, his course has been complicated by recurrent pneumonias and COPD exacerbations. Note that the patient has not had any significant tumor recurren ce. He is worse condition was back in 2014 and at that time the patient extensive bilateral pneumonia right more than left and he had respiratory failure requiring BiPAP for respiratory support. He was treated extensively with antibiotics and he required PICC line insertion for IV antibiotic therapy. Infectious disease. He was subsequently admitted for complications of pneumonias and ultimately this condition stabilized. Repeat CAT scan of the chest x-ray showed no evidence of any tumor recurrence. I also performed a bronchoscopy on this patient and there were no endobronchial tumors or lesions identified back then. His previous cultures have grown E. coli and Haemophilus back in 2014. He has been followed up on a regular basis with me the office. I was going to help evaluation with him back in September and at that time the patient was doing well. He was utilizing Trelegy Ellipta as maintenance in addition to DuoNeb nebulized treatments around the clock. He takes MS Contin 30 mg twice a day and Percocet 10/325 for pain control. On 11/02/2019, the patient underwent another telehealth evaluation through our office and he had several complaints. For the last couple of days and maybe even longer, he's been having sweats at nighttime, shortness of breath, poor appetite, worsened weight loss, as well as both coughing up dark blood and vomiting up dark blood. Also, he admits to vomiting up bright red blood. for that reason, the patient was referred to the ED Where the initial blood work showed a white cell count of 14.8 with a hemoglobin and a hemoglobin of 11.6 and the patient had an acute kidney injury with a creatinine of 1.44 and the sodium level of 136, bilirubin was 0.4 with normal LFTs, normal troponin I, normal proBNP level, partial resection/deformity of the right hemithorax related to a previous right upper lobe resection. It showed bilateral emphysematous changes. It is of consolidation involving the right lung apex was seen. Additional areas of right perihilar consolidation was also seen. Sinuses segmental consolidations also involving both lungs. There was bibasilar bronchiectatic changes noted. With several areas of consolidation in the right lung and the left lower lobe, the patient was admitted with the diagnosis of pneumonia and it only consultation was requested accordingly. He is currently afebrile. He remains on 4 L of oxygen by nasal cannula with a pulse ox 97%. He does not usually use oxygen on a regular basis. Review of Systems Comprehensive General Adult ROS Reported by Patient Constitutional Constitutional: no fever, no night sweats, no significant weight gain, no significant weight loss, exercise intolerance Eyes Eyes: no dry eyes, no vision change, no irritation ENMT Ears: no difficulty hearing, no ear pain Nose: no frequent nosebleeds, no nose problems, no sinus problems Mouth/Throat: no sore throat, no bleeding gums, no snoring, no dry mouth, no mouth ulcers, no oral abnormalities, no teeth problems Cardiovascular Cardiovascular: no chest pain, no arm pain on exertion, no shortness of breath when lying down, no palpitations, no known heart murmur, shortness of breath whe n walking Respiratory Respiratory: shortness of breathin addition to cough and congestion and worse juliana shortness of breath Gastrointestinal Gastrointestinal: no abdominal pain, no nausea, no vomiting, no constipation, normal appetite, no diarrhea, not vomiting blood, no dyspepsia, no GERD Genitourinary Genitourinary: no incontinence, no difficulty urinating, no hematuria, no increased frequency Musculoskeletal Musculoskeletal: no muscle aches, no muscle weakness, no swelling in the extremities, arthralgias/joint pain, back pain Integumentary Skin: no abnormal mole, no jaundice, no rashes, no laceration Neurologic Neurologic: no loss of consciousness, no weakness, no numbness, no seizures, no dizziness, no migraines, no headaches, no tremor Psychiatric Psych: no depression, no sleep disturbances, feeling safe in a relationship, no alcohol abuse, no anxiety, no hallucinations, no suicidal thoughts Endocrine Endocrine: no fatigue Hematologic/Lymphatic Hematologic/Lymphatic no swollen glands, no bruising, no excessive bleeding Allergic/Immunologic Allergy/Immunologic: no runny nose, no sinus pressure, no itching, no hives, no frequent sneezing Past Medical History Past Medical History: Cancer Additional Past Medical History / Comment(s): history of non-small cell lung cancer with a previous right upper lobe resection, advanced emphysema, chest deformity related to previous thoracic surgery, chronic pain Involving the back in addition to brachial plexus disorder related to previous thoracic surgery. History of Any Multi-Drug Resistant Organisms: None Reported Additional Past Surgical History / Comment(s): right upper lobectomy d/t CA, multiple surgeries on right hand d/t accident Past Psychological History: No Psychological Hx Reported Smoking Status: Current every day smoker Past Alcohol Use History: None Reported Past Drug Use History: None Reported Medications and Allergies Home Medications Medication Instructions Recorded Confirmed Type Carisoprodol [Soma] 350 mg PO BID 03/26/19 11/02/19 History Fluticasone/Umeclidin/Vilanter 1 puff INHALATION RT-DAILY 03/26/19 11/02/19 History [Trelegy Ellipta 100-62.5-25] Gabapentin [Neurontin] 300 mg PO TID 03/26/19 11/02/19 History Morphine Sulfate ER [Ms Contin] 30 mg PO TID 03/26/19 11/02/19 History Morphine Sulfate [Ms Contin] 60 mg PO TID 03/26/19 11/02/19 History oxyCODONE-APAP 10-325MG [Percocet 1 tab PO TID PRN 03/26/19 11/02/19 History 10-325 mg] Topiramate [Topamax] 100 mg PO HS 11/02/19 11/02/19 History Allergies Allergy/AdvReac Type Severity Reaction Status Date / Time No Known Allergies Allergy Verified 11/02/19 20:48 Physical Exam Vitals: Vital Signs Temp Pulse Pulse Resp BP BP Pulse Ox 11/02/19 16:30 68 18 97/71 97 11/02/19 16:00 68 18 97/71 97 11/02/19 15:00 97.5 F L 68 55 L 18 105/63 90 L 11/02/19 14:45 68 18 96/70 97 11/02/19 13:45 66 20 92/64 97 11/02/19 12:45 20 11/02/19 12:40 98.7 F 92 18 96/67 85 L Intake and Output 11/02/19 11/02/19 11/02/19 06:59 14:59 22:59 Other: Weight 45.359 kg 45.359 kg General Appearance no diaphoresis, no respiratory distress, speech not interrupted by breaths, no pallor, not cachectic, dyspnea, appears ill, malnourished HEENT no pursed lip breathing, no jugular venous distention, no mucous membrane cyanosis, no perioral cyanosis, mallampati classification: class 1 Chest no retractions, no sternocleidomastoid muscle contractions, no supraclavicular retractions, no intercostal retractions, there isdecreased air movement, there is hyperinflation, barrel chest, decreased air movement, rhonchi (chest wall deformity), and there is marked diminished breath sounds bilaterally. Heart no right ventricular heave, no distant heart sounds, no s3 gallop, (norm al) jugular vein: jugular venous distention: by 0cm GI bowel sounds: hyperactive (borborygmi), bowel sounds: diminished or absent Extremities no cyanosis, no clubbing, no edema (chronic contractures and deformity of the right upper extremity related to brachial plexopathy.) Neurologic no decreased mental status, no somnolence, no confusion Skin General Appearance normal, (normal) normal except as noted Results - Laboratory Findings CBC and BMP: 11/03/19 06:46 11/03/19 06:46 PT/INR, D-dimer PT 10.1 sec (9.0-12.0) 11/02/19 13:21 INR 1.0 (<1.2) 11/02/19 13:21 Abnormal lab findings: Abnormal Labs 11/02/19 11/02/19 11/02/19 13:21 13:21 13:21 WBC 14.8 H RBC 3.82 L Hgb 11.6 L Hct 36.4 L Neutrophils # 13.5 H Lymphocytes # 0.7 L APTT 30.2 H Sodium 136 L BUN 38 H Creatinine 1.44 H Glucose 106 H Magnesium 1.5 L 11/02/19 17:04 WBC 13.2 H RBC 3.41 L Hgb 10.4 L Hct 33.5 L Neutrophils # Lymphocytes # APTT Sodium BUN Creatinine Glucose Magnesium - Diagnostic Findings Chest x-ray: image reviewed CT scan - chest: image reviewed Assessment and Plan Plan: Assessment & Plan 1 bilateral pneumonia. The patient has various areas of consolidation involving the right lung and left lower lobe and this obviously raises concern for pneumonia. Note that the comparison was not done with a previous CAT scan of the chest. Nevertheless, based on clinical presentation, pneumonia suspected as the patient has previous history of recurrent lung infections and pneumonias. He has advanced COPD with diffuse bilateral emphysematous change with severe obstructive airflow limitation and remote history of lung cancer without any recurrence. Reviewed the chest x-ray. Reviewed the CAT scan of the chest. The patient will need broad-spectrum antibiotics. 2 severe chronic obstructive pulmonary disease, an FEV1 of 41% of predicted, and the patient is on Trelegy Ellipta his latest spirometric evaluation showed that the FEV1 is at 36%, yet again, consistent with severe COPD. 3 non-small cell lung cancer (Right), he remains in remission status post right upper lobe resection back in 2006 4 chronic back pain along with kyphoscoliosis of the spine and the patient has a pain stimulator in place. The patient is on Percocet. He is also taking MS Contin. 5 brachial plexus disorder, involving the right upper extremity related to lung cancer and radiation therapy and surgery. plan Obtain sputum Gram stain and culture Compared to CAT scan with previous CAT scan of the chest as well as done probably through [facility] system Check pro calcitonin level cover the patient a combination of cefepime and Levaquin IV Solu-Medrol DuoNeb nebulized treatments around the clock Covid 19 analysis through nasopharyngeal swab We'll continue to follow
--- NOTE | 2019-11-03 13:45 | P.PN ---
Subjective Progress Note Date: 11/03/19 This is a 58-year-old male patient with history of non-small cell lung cancer and advanced COPD. The patient is very well-known to me. The patient undergone a previous right upper lobe resection at was no more than 20 years ago. Since then, his course has been complicated by recurrent pneumonias and COPD exacerbations. Note that the patient has not had any significant tumor recurrence. He is worse condition was back in 2014 and at that time the patient extensive bilateral pneumonia right more than left and he had respiratory failure requiring BiPAP for respiratory support. He was treated extensively with antibiotics and he required PICC line insertion for IV antibiotic therapy. Infectious disease. He was subsequently admitted for complications of pneumonias and ultimately this condition stabilized. Repeat CAT scan of the chest x-ray showed no evidence of any tumor recurrence. I also performed a bronchoscopy on this patient and there were no endobronchial tumors or lesions identified back then. His previous cultures have grown E. coli and Haemophilus back in 2014. He has been followed up on a regular basis with me the office. I was going to help evaluation with him back in September and at that time the patient was doing well. He was utilizing Trelegy Ellipta as maintenance in addition to DuoNeb nebulized treatments around the clock. He takes MS Contin 30 mg twice a day and Percocet 10/325 for pain control. On 11/02/2019, the patient underwent another telehealth evaluation through our office and he had several complaints. For the last couple of days and maybe even longer, he's been having sweats at nighttime, shortness of breath, poor appetite, worsened weight loss, as well as both coughing up dark blood and vomiting up dark blood. Also, he admits to vomiting up bright red blood. for that reason, the patient was referred to the ED Where the initial blood work showed a white cell count of 14.8 with a hemoglobin and a hemoglobin of 11.6 and the patient had an acute kidney injury with a creatinine of 1.44 and the sodium level of 136, bilirubin was 0.4 with normal LFTs, normal troponin I, normal proBNP level, partial resection/deformity of the right hemithorax related to a previous right upper lobe resection. It showed bilateral emphysematous changes. It is of consolidation involving the right lung apex was seen. Additional areas of right perihilar consolidation was also seen. Sinuses segmental consolidations also involving both lungs. There was bibasilar bronchiectatic changes noted. With several areas of consolidation in the right lung and the left lower lobe, the patient was admitted with the diagnosis of pneumonia and it only consultation was requested accordingly. He is currently afebrile. He remains on 4 L of oxygen by nasal cannula with a pulse ox 97%. He does not usually use oxygen on a regular basis. On 11/03/2019, the patient is being seen for a follow-up. He is currently covered with broad-spectrum antibiotics. Covid 19 evaluation. Nasopharyngeal swab came back negative. The patient is covered with broad-spectrum anti biotics. The patient is currently on a combination of cefepime and Zithromax. He is afebrile. He is hemodynamically stable. Pro-calcitonin level is pending for now. The white cell count is improving is down to 8.4. The rest of the blood work and electrodes are all within normal limits. CAT scan of the chest was again reviewed. No other significant events otherwise for now. No nausea. No vomiting. No emesis. He feels weak. His creatinine is improving and the patient's creatinine is down to 0.9. Objective - Vital Signs Vital signs: Vital Signs Temp 97.7 F 11/03/19 07:00 Pulse 66 11/03/19 07:00 Resp 16 11/03/19 07:00 BP 107/69 11/03/19 07:00 Pulse Ox 97 11/03/19 07:00 Intake & Output 11/02/19 11/03/19 11/03/19 18:59 06:59 18:59 Intake Total 200 Balance 200 Weight 45.359 kg 45.359 kg Intake: IV 200 Magnesium Sulfate-D5w Pmx 200 1 gm In Dextrose/Water 1 100ml.bag @ 100 mls/hr IVPB Q1H [facility] Rx#: [id number] Other: # Voids 3 - Exam General Appearance no diaphoresis, no respiratory distress, speech not interrupted by breaths, no pallor, not cachectic, dyspnea, appears ill, malnourished HEENT no pursed lip breathing, no jugular venous distention, no mucous membrane cyanosis, no perioral cyanosis, mallampati classification: class 1 Chest no retractions, no sternocleidomastoid muscle contractions, no supraclavicular retractions, no intercostal retractions, there isdecreased air movement, there is hyperinflation, barrel chest, decreased air movement, rhonchi (chest wall deformity), and there is marked diminished breath sounds bilaterally. Heart no right ventricular heave, no distant heart sounds, no s3 gallop, (normal) jugular vein: jugular venous distention: by 0cm GI bowel sounds: hyperactive (borborygmi), bowel sounds: diminished or absent Extremities no cyanosis, no clubbing, no edema (chronic contractures and deformity of the right upper extremity related to brachial plexopathy.) Neurologic no decreased mental status, no somnolence, no confusion Skin General Appearance normal, (normal) normal except as noted - Labs CBC & Chem 7: 11/03/19 06:46 11/03/19 06:46 Labs: Abnormal Lab Results - Last 24 Hours (Table) 11/02/19 11/02/19 11/02/19 Range/Units 13:21 13:21 13:21 WBC 14.8 H (3.8-10.6) k/uL RBC 3.82 L (4.30-5.90) m/uL Hgb 11.6 L (13.0-17.5) gm/dL Hct 36.4 L (39.0-53.0) % MCHC (31.0-37.0) g/dL Neutrophils # 13.5 H (1.3-7.7) k/uL Lymphocytes # 0.7 L (1.0-4.8) k/uL APTT 30.2 H (22.0-30.0) sec Sodium 136 L (137-145) mmol/L Chloride (98-107) mmol/L BUN 38 H (9-20) mg/dL Creatinine 1.44 H (0.66-1.25) mg/dL Glucose 106 H (74-99) mg/dL Calcium (8.4-10.2) mg/dL Magnesium 1.5 L (1.6-2.3) mg/dL 11/02/19 11/03/19 11/03/19 Range/Units 17:04 06:46 06:46 WBC 13.2 H (3.8-10.6) k/uL RBC 3.41 L 3.11 L (4.30-5.90) m/uL Hgb 10.4 L 9.2 L (13.0-17.5) gm/dL Hct 33.5 L 30.6 L (39.0-53.0) % MCHC 30.2 L (31.0-37.0) g/dL Neutrophils # (1.3-7.7) k/uL Lymphocytes # 0.7 L (1.0-4.8) k/uL APTT (22.0-30.0) sec Sodium (137-145) mmol/L Chloride 108 H (98-107) mmol/L BUN (9-20) mg/dL Creatinine (0.66-1.25) mg/dL Glucose (74-99) mg/dL Calcium 7.7 L (8.4-10.2) mg/dL Magnesium (1.6-2.3) mg/dL Assessment and Plan Plan: Assessment & Plan 1 bilateral pneumonia. The patient has various areas of consolidation involving the right lung and left lower lobe and this obviously raises concern for pneumonia. Note that the comparison was not done with a previous CAT scan of the chest. Nevertheless, based on clinical presentation, pneumonia suspected as the patient has previous history of recurrent lung infections and pneumonias. He has advanced COPD with diffuse bilateral emphysematous change with severe obstructive airflow limitation and remote history of lung cancer without any recurrence. Reviewed the chest x-ray. Reviewed the CAT scan of the chest. The patient will need broad-spectrum antibiotics. 2 severe chronic obstructive pulmonary disease, an FEV1 of 41% of predicted, and the patient is on Trelegy Ellipta his latest spirometric evaluation showed that the FEV1 is at 36%, yet again, consistent with severe COPD. 3 non-small cell lung cancer (Right), he remains in remission status post right upper lobe resection back in 2006 4 chronic back pain along with kyphoscoliosis of the spine and the patient has a pain stimulator in place. The patient is on Percocet. He is also taking MS Contin. 5 brachial plexus disorder, involving the right upper extremity related to lung cancer and radiation therapy and surgery. 6 acute kidney injury, improved and the creatinine is normalized. 7 leukocytosis, improved plan Obtain sputum Gram stain and culture Compared to CAT scan with previous CAT scan of the chest as well as done probably through [facility] system Awaiting the pro-calcitonin level Continue the combination of cefepime and Zithromax Start the patient IV Solu Medrol 40 mg every 8 hours May start DuoNeb nebulized treatments around the clock and stop the Ventolin HFA Continue Spiriva Covid 19 analysis was negative We'll continue to follow
--- NOTE | 2019-11-03 14:26 | CDI ---
Documentation Clarification Form Date: 11/03/2019 02:14:14 PM From: Porsha BaileyANDREW blevins, CCDS Admit Date: 11/02/2019 04:01:00 PM Patient Name: Twyla Lockett Visit Number: [id number] Discharge Date: ATTENTION: The Clinical Documentation Specialists (CDI) and [facility] Coding Staff appreciate your assistance in clarifying documentation. Please respond to the clarification below the line at the bottom and electronically sign. The CDI & [facility] Coding staff will review the response and follow-up if needed. Please note: Queries are made part of the Legal Health Record. If you have any questions, please contact the author of this message via ITS. Dr. Medardo Peters: The patient presented with the following respiratory symptoms: SOB & coughing blood. Per the 11/01 ED note: "Patient reports that he wears oxygen at night than during the day." Per the 11/01 Pulmonary Consult: "He remains on 4 L of oxygen by nasal cannula with a pulse ox 97%. He does not usually use oxygen on a regular basis." History/Risk Factors: RUL Lung cancer status post lobectomy & radiation. Tobacco use: Current smoker. Home oxygen: Possibly uses O2 at night per ED note. Clinical Indicators: Presented to the ED on 11/01 with the above symptoms, diagnosed with pneumonia & acute renal failure, lung neoplasm is not ruled out. COVID 11/01: Negative. Vital signs: BP 96/67, PO 85 RA LAB 11/01: WBC 14.8^, Neut 14.5^, CO2 (28). Treatment: O2 2-4Lnc, INH Albuterol, IV fluid bolus: 1,000 mls@999/hr x4, IV fluid 1000mls@130/hr, IV Protonix, IV Azithromycin, IV Rocephin, IV Morphine. In your professional opinion, can you please clarify if these findings signify one of the following conditions? Chronic Respiratory Failure Other Diagnosis, please specify Unable to determine Specificity: If known, further specify (if known): With hypercapnia? (pCO2 >50 and pH <7.35) With hypoxia? (pO2 <60 mm Hg or SpO2 <91% on room air) (Last Query Form Revision: February 2019) Chronic hypoxic respiratory failure MTDD
[2019-11-03] MEDS: methylPREDNISolone SOD SUCCI 40 MG/ML 1 ML VIAL IV SCH ×2 (15:04→22:51)
[2019-11-03] MEDS: TOPIRAMATE 100 MG TAB PO SCH (20:19)
[2019-11-04] MEDS: MORPHINE SULFATE 4 MG/ML SYRINGE IV PRN ×5 (00:37→20:18)
[2019-11-04] MEDS: SYMBICORT 80-4.5 MCG INHALER INHALATION SCH ×2 (07:22→19:17)
[2019-11-04] MEDS: TIOTROPIUM 18 MCG/PUFF INHALER INHALATION SCH (07:23)
[2019-11-04] MEDS: CEFEPIME 2 GM in SODIUM CHLORIDE 0.9% 100 ML IVPB SCH (07:49)
[2019-11-04] MEDS: PANTOPRAZOLE 40 MG/10 ML VIAL IV SCH (07:49)
[2019-11-04] MEDS: GABAPENTIN 300 MG CAP PO SCH ×3 (07:50→20:18)
[2019-11-04] MEDS: AZITHROMYCIN 500 MG TAB PO SCH (07:50)
[2019-11-04] MEDS: methylPREDNISolone SOD SUCCI 40 MG/ML 1 ML VIAL IV SCH ×3 (07:50→23:50)
[2019-11-04] MEDS: HEPARIN SODIUM,PORCINE 5,000 UNIT/ML 1 ML VIAL SQ SCH ×3 (07:50→23:50)
--- NOTE | 2019-11-04 10:10 | P.PN ---
Subjective Progress Note Date: 11/03/19 Principal diagnosis: bilateral pneumonia Nausea vomiting and coffee-ground emesis improved. Patient is a 58-year-old male with a known history of lung cancer status post right upper lobectomy and currently everyday smoker came to ER with complaints of worsening shortness of breath for the past 1 week. Patient also having nausea and episodes of vomiting with dark-colored blood for the past 1 month. Patient has been having symptoms for the past few weeks and states that he delayed coming to the hospital. Patient is also having decreased appetite. Patient complains of cough with yellowish to greenish sputum production. Denied any fever or chills. Does have mild epigastric pain. No complaints of chest pain. Denied any dysuria or hematuria. No headache or dizziness or lightheadedness. Patient states that he is having generalized weakness otherwise. COVID-19 swab was sent. Laboratory data showed WBC 14.8, hemoglobin 11.6, lymphocytes 0.7, sodium 136, BUN 38, creatinine 1.44, magnesium 1.5, troponin x1- and proBNP 106. CT angiogram of the chest showed diffuse COPD. No diagnostic evidence of pulmonary embolism. Chronic appearing deformity of the right hemithorax with numerous areas of consolidation in the right lung and left lower lobe. Some of this may be chronic but there is no prior CT scans available for comparison. Underlying pneumonia or neoplasm not excluded correlate clinically. Chest x-ray showed chronic changes and right-sided volume loss with new right mid to upper lung acute infiltrate or edema. Correlate clinically. 11/03/2019 Patient is currently lying in the bed comfortably. Nausea and vomiting improved. Otherwise patient still having loss of appetite and not tolerating very well. Patient is currently on broad-spectrum antibiotics for multifocal pneumonia. Patient does have history of lung cancer status post resection and radiation. Currently on antibiotics in the form of cefepime and Zithromax. Patient has been afebrile. WBC count is improving to 8.4. No complaints of abdominal pain or diarrhea. No chest pain or worsening shortness of breath. They'll function improved as well. Pulmonary is on board. Current medications reviewed. Objective - Vital Signs Vital signs: Vital Signs Temp 98.4 F 11/03/19 19:20 Pulse 83 11/03/19 19:20 Resp 18 11/03/19 19:20 BP 109/69 11/03/19 19:20 Pulse Ox 93 L 11/03/19 19:20 Intake & Output 11/03/19 11/03/19 11/04/19 06:59 18:59 06:59 Intake Total 200 Output Total 590 Balance 200 -590 Weight 45.359 kg Intake: IV 200 Magnesium Sulfate-D5w Pmx 200 1 gm In Dextrose/Water 1 100ml.bag @ 100 mls/hr IVPB Q1H [facility] Rx#: [id number] Output: Urine 590 Other: # Voids 2 - Exam PHYSICAL EXAMINATION: Patient is lying in the bed comfortably, no acute distress, awake alert and oriented.. HEENT: Normocephalic. Neck is supple. Pupils reactive. Nostrils clear. Oral cavity is moist. Ears reveal no drainage. Neck reveals no JVD, carotid bruits, or thyromegaly. CHEST EXAMINATION: Trachea is central. Symmetrical expansion.minimal left basilar crackles. Lung mendes clear to auscultation and percussion. CARDIAC: Normal S1, S2 with no gallops. No murmurs ABDOMEN: Soft. Bowel sounds normal. No organomegaly. No abdominal bruits. Extremities: reveal no edema. No clubbing or cyanosis Neurologically awake, alert, oriented x3 with well-coordinated movements. No focal deficits noted Skin: No rash or skin lesions. Psychiatric: Coperative. Nonsuicidal Musculoskeletal: No joint swelling or deformity. Normal range of motion. - Labs CBC & Chem 7: 11/03/19 06:46 11/03/19 06:46 Labs: Abnormal Lab Results - Last 24 Hours (Table) 11/03/19 11/03/19 11/03/19 Range/Units 06:46 06:46 06:46 RBC 3.11 L (4.30-5.90) m/uL Hgb 9.2 L (13.0-17.5) gm/dL Hct 30.6 L (39.0-53.0) % MCHC 30.2 L (31.0-37.0) g/dL Lymphocytes # 0.7 L (1.0-4.8) k/uL Chloride 108 H (98-107) mmol/L Calcium 7.7 L (8.4-10.2) mg/dL Procalcitonin 6.65 H (0.02-0.09) ng/mL Microbiology - Last 24 Hours (Table) 11/02/19 13:21 Blood Culture - Preliminary Blood No Growth after 24 hours Assessment and Plan Assessment: Right lung and left lower lung consolidation due to pneumonia. Underlying malignancy cannot be excluded. History of lung cancer status post right lobectomy Acute kidney injury likely prerenal. Ongoing nicotine addiction COPD not in exacerbation Nausea vomiting and coffee-ground emesis. Possible gastritis. Moderate protein calorie malnutrition. DVT prophylaxis. Plan: Patient was given a dose of ceftriaxone and azithromycin in the ER. Continue with antibiotics in the form of cefepime and azithromycin and oxygen therapy. Duo nebs and follow-up closely. Pulmonary is on boardd. Patient will be continued on PPI. Symptomatic management for nausea and vomiting. covid 19 test is negative.. Denies any exposure to COVID-19 patients.Follow-up blood cultures.encourage oral intake. Ambulation. Further recommendations based on the clinical course. Prognosis is guarded with multiple medical problems and comorbid conditions. Time with Patient: Greater than 30
[2019-11-04] MEDS: IPRATROPIUM-ALBUTEROL 3 ML NEB INHALATION PRN ×2 (11:09→19:17)
--- NOTE | 2019-11-04 12:48 | P.PN ---
Subjective Progress Note Date: 11/04/19 Principal diagnosis: Shortness of breath This is a 58-year-old male patient with history of non-small cell lung cancer and advanced COPD. The patient is very well-known to me. The patient undergone a previous right upper lobe resection at was no more than 20 years ago. Since then, his course has been complicated by recurrent pneumonias and COPD exacerbations. Note that the patient has not had any significant tumor recurrence. He is worse condition was back in 2014 and at that time the patient extensive bilateral pneumonia right more than left and he had respiratory fa ilure requiring BiPAP for respiratory support. He was treated extensively with antibiotics and he required PICC line insertion for IV antibiotic therapy. Infectious disease. He was subsequently admitted for complications of pneumonias and ultimately this condition stabilized. Repeat CAT scan of the chest x-ray showed no evidence of any tumor recurrence. I also performed a bronchoscopy on this patient and there were no endobronchial tumors or lesions identified back then. His previous cultures have grown E. coli and Haemophilus back in 2014. He has been followed up on a regular basis with me the office. I was going to help evaluation with him back in September and at that time the patient was doing well. He was utilizing Trelegy Ellipta as maintenance in addition to DuoNeb nebulized treatments around the clock. He takes MS Contin 30 mg twice a day and Percocet 10/325 for pain control. On 11/02/2019, the patient underwent another telehealth evaluation through our office and he had several complaints. For the last couple of days and maybe even longer, he's been having sweats at n ighttime, shortness of breath, poor appetite, worsened weight loss, as well as both coughing up dark blood and vomiting up dark blood. Also, he admits to vomiting up bright red blood. for that reason, the patient was referred to the ED Where the initial blood work showed a white cell count of 14.8 with a hemoglobin and a hemoglobin of 11.6 and the patient had an acute kidney injury with a creatinine of 1.44 and the sodium level of 136, bilirubin was 0.4 with normal LFTs, normal troponin I, normal proBNP level, partial resection/deformity of the right hemithorax related to a previous right upper lobe resection. It showed bilateral emphysematous changes. It is of consolidation involving the right lung apex was seen. Additional areas of right perihilar consolidation was also seen. Sinuses segmental consolidations also involving both lungs. There was bibasilar bronchiectatic changes noted. With several areas of consolidation in the right lung and the left lower lobe, the patient was admitted with the diagnosis of pneumonia and it only consultation was requested accordingly. He is currently afebrile. He remains on 4 L of oxygen by nasal cannula with a pulse ox 97%. He does not usually use oxygen on a regular basis. On 11/03/2019, the patient is being seen for a follow-up. He is currently covered with broad-spectrum antibiotics. Covid 19 evaluation. Nasopharyngeal swab came back negative. The patient is covered with broad-spectrum antibiotics. The patient is currently on a combination of cefepime and Zithromax. He is afebrile. He is hemodynamically stable. Pro-calcitonin level is pending for now. The white cell count is improving is down to 8.4. The rest of the blood work and electrodes are all within normal limits. CAT scan of the chest was again reviewed. No other significant events otherwise for now. No nausea. No vomiting. No emesis. He feels weak. His creatinine is improving and the patient's creatinine is down to 0.9. On 11/04/2019 patient is seen in follow-up on vaginal medical floor, he sitting up in the chair, appears to be in no acute distress, his breathing is comfortable, is on 4 L of oxygen with pulse ox of 98%, hemodynamically stable, he is afebrile, and combination of cefepime, and azithromycin, IV steroids, and inhalers. Covid 19 was negative, his pro-calcitonin level came back elevated at 6.65 consistent with bacterial pneumonia, has not been able to produce a sputum sample yet, blood cultures are negative, today's labs reveal improving with blood cell, with white blood cell count of 8.4, hemoglobin of 9.2, B1 of 18 and creatinine 0.90. And unremarkable electrolytes. No nausea or vomiting, patient is tolerating oral intake, no nausea or vomiting, no altered mentation, minimal left basilar crackles on today's exam, no significant wheezing or congestion. Objective - Vital Signs Vital signs: Vital Signs Temp 98.1 F 11/04/19 07:01 Pulse 56 L 11/04/19 11:18 Resp 16 11/04/19 07:01 BP 133/77 05/14/20 07:01 Pulse Ox 98 11/04/19 07:01 Intake & Output 11/03/19 11/04/19 11/04/19 18:59 06:59 18:59 Intake Total 0 Output Total 590 Balance -590 0 Weight 45.359 kg Intake: Oral 0 Output: Urine 590 Other: # Voids 2 2 - Exam GENERAL EXAM: Alert, very pleasant, 58-year-old cachectic white male on 4 L of oxygen and the pulse ox of 98%, comfortable in no apparent distress. HEAD: Normocephalic/atraumatic. EYES: Normal reaction of pupils, equal size. Conjunctiva pink, sclera white. NOSE: Clear with pink turbinates. THROAT: No erythema or exudates. NECK: No masses, no JVD, no thyroid enlargement, no adenopathy. CHEST: No chest wall deformity. Symmetrical expansion. LUNGS: Equal air entry with left basilar crackles, but no wheeze, rhonchi or dullness. CVS: Regular rate and rhythm, normal S1 and S2, no gallops, no murmurs, no rubs ABDOMEN: Soft, nontender. No hepatosplenomegaly, normal bowel sounds, no guarding or rigidity. EXTREMITIES: No clubbing, no edema, no cyanosis, 2+ pulses and upper and lower extremities. MUSCULOSKELETAL: Muscle strength and tone normal. SPINE: No scoliosis or deformity SKIN: No rashes CENTRAL NERVOUS SYSTEM: Alert and oriented -3. No focal deficits, tone is normal in all 4 extremities. PSYCHIATRIC: Alert and oriented -3. Appropriate affect. Intact judgment and insight. - Labs CBC & Chem 7: 11/03/19 06:46 11/03/19 06:46 Labs: Abnormal Lab Results - Last 24 Hours (Table) 11/03/19 Range/Units 06:46 Procalcitonin 6.65 H (0.02-0.09) ng/mL Microbiology - Last 24 Hours (Table) 11/02/19 13:21 Blood Culture - Preliminary Blood No Growth after 24 hours Assessment and Plan Plan: Assessment: 1 bilateral pneumonia. The patient has various areas of consolidation involving the right lung and left lower lobe and this obviously raises concern for pneumonia. Note that the comparison was not done with a previous CAT scan of located within [facility] chest. Nevertheless, based on clinical presentation, pneumonia suspected as the patient has previous history of recurrent lung infections and pneumonias. He has advanced COPD with diffuse bilateral emphysematous change with severe obstructive airflow limitation and remote history of lung cancer without any recurrence. Reviewed the chest x-ray. Reviewed the CAT scan of the chest. The patient will need broad-spectrum antibiotics. 2 severe chronic obstructive pulmonary disease, an FEV1 of 41% of predicted, and the patient is on Trelegy Ellipta his latest spirometric evaluation showed that the FEV1 is at 36%, yet again, consistent with severe COPD. 3 non-small cell lung cancer (Right), he remains in remission status post right upper lobe resection back in 2006 4 chronic back pain along with kyphoscoliosis of the spine and the patient has a pain stimulator in place. The patient is on Percocet. He is also taking MS Contin. 5 brachial plexus disorder, involving the right upper extremity related to lung cancer and radiation therapy and surgery. 6 acute kidney injury, improved and the creatinine is normalized. 7 leukocytosis, improved Plan: Continue current antibiotic coverage, we'll send a sputum culture, patient is afebrile, no altered mentation, no worsening dyspnea, no hemoptysis. Continue inhalers, including Spiriva and Symbicort. Follow-up chest x-ray in the [facility], will follow pro-calcitonin trend. I performed a history & physical examination of the patient and discussed their management with my nurse practitioner, Mariam Jiménez. I reviewed the nurse practitioner's note and agree with the documented findings and plan of care. Lung sounds are positive for diminished breath sounds. The findings and the impression was discussed with the patient. I attest to the documentation by the nurse practitioner. Time with Patient: Less than 30
--- NOTE | 2019-11-04 14:25 | P.PN ---
Subjective Progress Note Date: 11/04/19 Principal diagnosis: bilateral pneumonia Nausea vomiting and coffee-ground emesis improved. Patient is a 58-year-old male with a known history of lung cancer status post right upper lobectomy and currently everyday smoker came to ER with complaints of worsening shortness of breath for the past 1 week. Patient also having nausea and episodes of vomiting with dark-colored blood for the past 1 month. Patient has been having symptoms for the past few weeks and states that he d elayed coming to the hospital. Patient is also having decreased appetite. Patient complains of cough with yellowish to greenish sputum production. Denied any fever or chills. Does have mild epigastric pain. No complaints of chest pain. Denied any dysuria or hematuria. No headache or dizziness or lightheadedness. Patient states that he is having generalized weakness otherwise. COVID-19 swab was sent. Laboratory data showed WBC 14.8, hemoglobin 11.6, lymphocytes 0.7, sodium 136, BUN 38, creatinine 1.44, magnesium 1.5, troponin x1- and proBNP 106. CT angiogram of the chest showed diffuse COPD. No diagnostic evidence of pulmonary embolism. Chronic appearing deformity of the right hemithorax with numerous areas of consolidation in the right lung and left lower lobe. Some of this may be chronic but there is no prior CT scans available for comparison. Underlying pneumonia or neoplasm not excluded correlate clinically. Chest x-ray showed chronic changes and right-sided volume loss with new right mid to upper lung acute infiltrate or edema. Correlate clinically. 11/03/2019 Patient is currently lying in the bed comfortably. Nausea and vomiting improved. Otherwise patient still having loss of appetite and not tolerating very well. Patient is currently on broad-spectrum antibiotics for multifocal pneumonia. Patient does have history of lung cancer status post resection and radiation. Currently on antibiotics in the form of cefepime and Zithromax. Patient has been afebrile. WBC count is improving to 8.4. No complaints of abdominal pain or diarrhea. No chest pain or worsening shortness of breath. They'll function improved as well. Pulmonary is on board. Current medications reviewed. 11/04/2019 Patient is seen and evaluated and follow-up currently sitting up in the chair and remains on 4 L of oxygen via nasal cannula. Patient states he was occasionally using oxygen at home. Patient continues to have some shortness of breath with exertion although is slightly improved from yesterday. His white count trending down and is currently 8.4. Patient's sodium improved in 138 today. Creatinine also improved and is currently 0.90. Covid 19 testing was do ne and was negative. Pulmonary following closely. Patient continues on IV steroids along with Zithromax and cefepime and to continue at this time. Instructed the patient to increase activity as tolerated. Currently no reports of chest pain, worsening shortness of breath, or palpitations. Patient is afebrile. No reports of nausea or vomiting and patient is tolerating diet. Objective - Vital Signs Vital signs: Vital Signs Temp 98.1 F 11/04/19 07:01 Pulse 56 L 11/04/19 11:18 Resp 16 11/04/19 07:01 BP 133/77 11/04/19 07:01 Pulse Ox 98 11/04/19 07:01 Intake & Output 11/03/19 11/04/19 11/04/19 18:59 06:59 18:59 Intake Total 0 Output Total 590 Balance -590 0 Weight 45.359 kg Intake: Oral 0 Output: Urine 590 Other: # Voids 2 2 - Exam Patient is sitting up in the chair comfortably, no acute distress, awake alert and oriented.. HEENT: Normocephalic. Neck is supple. Pupils reactive. Nostrils clear. Oral cavity is moist. Ears reveal no drainage. Neck reveals no JVD, carotid bruits, or thyromegaly. CHEST EXAMINATION: Trachea is central. Symmetrical expansion.minimal left basilar crackles. Lung mendes clear to auscultation and percussion. CARDIAC: Normal S1, S2 with no gallops. No murmurs ABDOMEN: Soft. Bowel sounds normal. No organomegaly. No abdominal bruits. Extremities: reveal no edema. No clubbing or cyanosis Neurologically awake, alert, oriented x3 with well-coordinated movements. No focal deficits noted Skin: No rash or skin lesions. Psychiatric: Cooperative. Non-suicidal Musculoskeletal: No joint swelling or deformity. Normal range of motion. - Labs CBC & Chem 7: 11/03/19 06:46 11/03/19 06:46 Labs: Abnormal Lab Results - Last 24 Hours (Table) 11/03/19 Range/Units 06:46 Procalcitonin 6.65 H (0.02-0.09) ng/mL Microbiology - Last 24 Hours (Table) 11/02/19 13:21 Blood Culture - Preliminary Blood No Growth after 24 hours Assessment and Plan Assessment: Right lung and left lower lung consolidation due to pneumonia. Underlying malignancy cannot be excluded. History of lung cancer status post right lobectomy Acute kidney injury likely prerenal, improved Covid 19 testing negative Ongoing nicotine addiction COPD not in exacerbation Nausea vomiting and coffee-ground emesis. Possible gastritis, improved Moderate protein calorie malnutrition. DVT prophylaxis. Plan: Continue with antibiotics in the form of cefepime and azithromycin and oxygen therapy. Duo nebs and follow-up closely. Pulmonary is following. Patient will be continued on PPI. covid 19 test is negative.. Denies any exposure to COVID-19 patients.Follow-up blood cultures remain negative. Continue to encourage oral intake and increase activity as tolerated. Further recommendations based on the clinical course. Prognosis is guarded with multiple medical problems and comorbid conditions.
[2019-11-04] MEDS: oxyCODONE-APAP 10-325MG 1 EACH TAB PO PRN (14:56)
[2019-11-04] MEDS: TOPIRAMATE 100 MG TAB PO SCH (20:18)
[2019-11-05] MEDS: oxyCODONE-APAP 10-325MG 1 EACH TAB PO PRN ×3 (00:20→19:45)
[2019-11-05] MEDS: MORPHINE SULFATE 4 MG/ML SYRINGE IV PRN ×5 (00:20→19:46)
--- NOTE | 2019-11-05 07:15 | XR ---
EXAMINATION TYPE: XR chest 1V portable DATE OF EXAM: 11/05/2019 COMPARISON: 11/02/2019 HISTORY: Cough TECHNIQUE: Single frontal view of the chest is obtained. FINDINGS: There is prompt chronic parenchymal fibrotic changes with right- sided volume loss and rig ht upper lung deformity are all redemonstrated. No new pleural effusion or pneumothorax definitively seen. Increased opacity right upper to midlung on current study. The cardiac silhouette size remains within normal limits. Stimulator device in the right supraclavicular region redemonstrated. IMPRESSION: 1. Stable chronic changes correlate for chronic interstitial lung disease. Superimposed interstitial pneumonitis not excluded. 2. Nodular right apical pleural thickening could be postinflammatory. Neoplastic process not excluded . No significant interval change.
[2019-11-05] MEDS: methylPREDNISolone SOD SUCCI 40 MG/ML 1 ML VIAL IV SCH ×2 (07:35→15:35)
[2019-11-05] MEDS: HEPARIN SODIUM,PORCINE 5,000 UNIT/ML 1 ML VIAL SQ SCH ×2 (07:35→15:35)
[2019-11-05] MEDS: AZITHROMYCIN 500 MG TAB PO SCH (07:36)
[2019-11-05] MEDS: PANTOPRAZOLE 40 MG/10 ML VIAL IV SCH (07:36)
[2019-11-05] MEDS: CEFEPIME 2 GM in SODIUM CHLORIDE 0.9% 100 ML IVPB SCH (07:36)
[2019-11-05] MEDS: GABAPENTIN 300 MG CAP PO SCH ×3 (07:36→21:29)
[2019-11-05] MEDS: SYMBICORT 80-4.5 MCG INHALER INHALATION SCH ×2 (07:50→19:34)
[2019-11-05] MEDS: IPRATROPIUM-ALBUTEROL 3 ML NEB INHALATION PRN ×3 (07:50→16:10)
[2019-11-05] MEDS: TIOTROPIUM 18 MCG/PUFF INHALER INHALATION SCH (07:50)
--- NOTE | 2019-11-05 11:41 | P.PN ---
Subjective Progress Note Date: 11/05/19 Principal diagnosis: Bilateral pneumonia This is a 58-year-old male patient with history of non-small cell lung cancer and advanced COPD. The patient is very well-known to me. The patient undergone a previous right upper lobe resection at was no more than 20 years ago. Since then, his course has been complicated by recurrent pneumonias and COPD exacerbations. Note that the patient has not had any significant tumor recurrence. He is worse condition was back in 2014 and at that time the patient extensive bilateral pneumonia right more than left and he had respiratory fa ilure requiring BiPAP for respiratory support. He was treated extensively with antibiotics and he required PICC line insertion for IV antibiotic therapy. Infectious disease. He was subsequently admitted for complications of pneumonias and ultimately this condition stabilized. Repeat CAT scan of the chest x-ray showed no evidence of any tumor recurrence. I also performed a bronchoscopy on this patient and there were no endobronchial tumors or lesions identified back then. His previous cultures have grown E. coli and Haemophilus back in 2014. He has been followed up on a regular basis with me the office. I was going to help evaluation with him back in September and at that time the patient was doing well. He was utilizing Trelegy Ellipta as maintenance in addition to DuoNeb nebulized treatments around the clock. He takes MS Contin 30 mg twice a day and Percocet 10/325 for pain control. On 11/02/2019, the patient underwent another telehealth evaluation through our office and he had several complaints. For the last couple of days and maybe even longer, he's been having sweats at n ighttime, shortness of breath, poor appetite, worsened weight loss, as well as both coughing up dark blood and vomiting up dark blood. Also, he admits to vomiting up bright red blood. for that reason, the patient was referred to the ED Where the initial blood work showed a white cell count of 14.8 with a hemoglobin and a hemoglobin of 11.6 and the patient had an acute kidney injury with a creatinine of 1.44 and the sodium level of 136, bilirubin was 0.4 with normal LFTs, normal troponin I, normal proBNP level, partial resection/deformity of the right hemithorax related to a previous right upper lobe resection. It showed bilateral emphysematous changes. It is of consolidation involving the right lung apex was seen. Additional areas of right perihilar consolidation was also seen. Sinuses segmental consolidations also involving both lungs. There was bibasilar bronchiectatic changes noted. With several areas of consolidation in the right lung and the left lower lobe, the patient was admitted with the diagnosis of pneumonia and it only consultation was requested accordingly. He is currently afebrile. He remains on 4 L of oxygen by nasal cannula with a pulse ox 97%. He does not usually use oxygen on a regular basis. On 11/03/2019, the patient is being seen for a follow-up. He is currently covered with broad-spectrum antibiotics. Covid 19 evaluation. Nasopharyngeal swab came back negative. The patient is covered with broad-spectrum antibiotics. The patient is currently on a combination of cefepime and Zithromax. He is afebrile. He is hemodynamically stable. Pro-calcitonin level is pending for now. The white cell count is improving is down to 8.4. The rest of the blood work and electrodes are all within normal limits. CAT scan of the chest was again reviewed. No other significant events otherwise for now. No nausea. No vomiting. No emesis. He feels weak. His creatinine is improving and the patient's creatinine is down to 0.9. On 11/04/2019 patient is seen in follow-up on vaginal medical floor, he sitting up in the chair, appears to be in no acute distress, his breathing is comfortable, is on 4 L of oxygen with pulse ox of 98%, hemodynamically stable, he is afebrile, and combination of cefepime, and azithromycin, IV steroids, and inhalers. Covid 19 was negative, his pro-calcitonin level came back elevated at 6.65 consistent with bacterial pneumonia, has not been able to produce a sputum sample yet, blood cultures are negative, today's labs reveal improving with blood cell, with white blood cell count of 8.4, hemoglobin of 9.2, B1 of 18 and creatinine 0.90. And unremarkable electrolytes. No nausea or vomiting, patient is tolerating oral intake, no nausea or vomiting, no altered mentation, minimal left basilar crackles on today's exam, no significant wheezing or congestion. The patient was seen today 11/05/2019 in follow-up on the regular medical floor. He is awake and alert in no acute distress. He is currently sitting up in a chair at the bedside. Breathing better today compared to yesterday. Chest x- ray revealed stable chronic changes correlated for chronic interstitial lung disease. Superimposed interstitial pneumonitis not excluded. There is nodular right apical pleural thickening. Blood culture reveals no growth. He's been maintained on cefepime and azithromycin along with DuoNeb inhalations, Symbicort, Spiriva, IV Solu-Medrol. Objective - Vital Signs Vital signs: Vital Signs Temp 98.0 F 11/05/19 07:00 Pulse 64 11/05/19 11:33 Resp 16 11/05/19 08:00 BP 160/75 11/05/19 07:00 Pulse Ox 100 11/05/19 07:00 Intake & Output 11/04/19 11/05/19 11/05/19 18:59 06:59 18:59 Intake Total 120 Output Total 590 Balance 120 -590 Weight 45.359 kg Intake: Oral 120 Output: Urine 590 Other: # Voids 1 2 - Exam GENERAL EXAM: Alert, very pleasant, 58-year-old cachectic male patient on 4 L of oxygen and the pulse ox of 100%, comfortable in no apparent distress. HEAD: Normocephalic/atraumatic. EYES: Normal reaction of pupils, equal size. Conjunctiva pink, sclera white. NOSE: Clear with pink turbinates. THROAT: No erythema or exudates. NECK: No masses, no JVD, no thyroid enlargement, no adenopathy. CHEST: No chest wall deformity. Symmetrical expansion. LUNGS: Equal air entry with left basilar crackles, but no wheeze, rhonchi or du llness. CVS: Regular rate and rhythm, normal S1 and S2, no gallops, no murmurs, no rubs ABDOMEN: Soft, nontender. No hepatosplenomegaly, normal bowel sounds, no guarding or rigidity. EXTREMITIES: No clubbing, no edema, no cyanosis, 2+ pulses and upper and lower extremities. MUSCULOSKELETAL: Muscle strength and tone normal. SPINE: No scoliosis or deformity SKIN: No rashes CENTRAL NERVOUS SYSTEM: No focal deficits, tone is normal in all 4 extremities. PSYCHIATRIC: Alert and oriented -3. Appropriate affect. Intact judgment and insight. - Labs CBC & Chem 7: 11/03/19 06:46 11/03/19 06:46 Labs: Microbiology - Last 24 Hours (Table) 11/02/19 13:21 Blood Culture - Preliminary Blood No Growth after 48 hours Assessment and Plan Assessment: 1 bilateral pneumonia. The patient has various areas of consolidation involving the right lung and left lower lobe and this obviously raises concern for pneumonia. Note that the comparison was not done with a previous CAT scan of t he chest. Nevertheless, based on clinical presentation, pneumonia suspected as the patient has previous history of recurrent lung infections and pneumonias. He has advanced COPD with diffuse bilateral emphysematous change with severe obstructive airflow limitation and remote history of lung cancer without any recurrence. 2 severe chronic obstructive pulmonary disease, an FEV1 of 41% of predicted, and the patient is on Trelegy Ellipta his latest spirometric evaluation showed that the FEV1 is at 36%, yet again, consistent with severe COPD. 3 non-small cell lung cancer (Right), he remains in remission status post right upper lobe resection back in 2006 4 chronic back pain along with kyphoscoliosis of the spine and the patient has a pain stimulator in place. The patient is on Percocet. He is also taking MS Contin. 5 brachial plexus disorder, involving the right upper extremity related to lung cancer and radiation therapy and surgery. 6 acute kidney injury, improved and the creatinine is normalized. 7 leukocytosis, improved Plan: The patient was seen and evaluated by Dr. Peters Chest x-ray reviewed Patient is improved clinically Titrate down the FiO2 as tolerated Continue antibiotics and bronchodilators Repeat pro-calcitonin in the a.m. Probable discharge in the a.m. We'll continue to follow I, the cosigning physician, performed a history & physical examination of the patient. Lungs sounds with left basilar crackles. Maintaining good O2 satur ations in the 90s on 4 L/m per nasal cannula. I discussed the assessment and plan of care with my nurse practitioner, Twyla Jennings. I attest to the above note as dictated by her.
--- NOTE | 2019-11-05 11:50 | P.PN ---
Subjective Progress Note Date: 11/05/19 Principal diagnosis: bilateral pneumonia Nausea vomiting and coffee-ground emesis improved. Patient is a 58-year-old male with a known history of lung cancer status post right upper lobectomy and currently everyday smoker came to ER with complaints of worsening shortness of breath for the past 1 week. Patient also having nausea and episodes of vomiting with dark-colored blood for the past 1 month. Patient has been having symptoms for the past few weeks and states that he d elayed coming to the hospital. Patient is also having decreased appetite. Patient complains of cough with yellowish to greenish sputum production. Denied any fever or chills. Does have mild epigastric pain. No complaints of chest pain. Denied any dysuria or hematuria. No headache or dizziness or lightheadedness. Patient states that he is having generalized weakness otherwise. COVID-19 swab was sent. Laboratory data showed WBC 14.8, hemoglobin 11.6, lymphocytes 0.7, sodium 136, BUN 38, creatinine 1.44, magnesium 1.5, troponin x1- and proBNP 106. CT angiogram of the chest showed diffuse COPD. No diagnostic evidence of pulmonary embolism. Chronic appearing deformity of the right hemithorax with numerous areas of consolidation in the right lung and left lower lobe. Some of this may be chronic but there is no prior CT scans available for comparison. Underlying pneumonia or neoplasm not excluded correlate clinically. Chest x-ray showed chronic changes and right-sided volume loss with new right mid to upper lung acute infiltrate or edema. Correlate clinically. 11/03/2019 Patient is currently lying in the bed comfortably. Nausea and vomiting improved. Otherwise patient still having loss of appetite and not tolerating very well. Patient is currently on broad-spectrum antibiotics for multifocal pneumonia. Patient does have history of lung cancer status post resection and radiation. Currently on antibiotics in the form of cefepime and Zithromax. Patient has been afebrile. WBC count is improving to 8.4. No complaints of abdominal pain or diarrhea. No chest pain or worsening shortness of breath. They'll function improved as well. Pulmonary is on board. Current medications reviewed. 11/04/2019 Patient is seen and evaluated and follow-up currently sitting up in the chair and remains on 4 L of oxygen via nasal cannula. Patient states he was occasionally using oxygen at home. Patient continues to have some shortness of breath with exertion although is slightly improved from yesterday. His white count trending down and is currently 8.4. Patient's sodium improved in 138 today. Creatinine also improved and is currently 0.90. Covid 19 testing was do ne and was negative. Pulmonary following closely. Patient continues on IV steroids along with Zithromax and cefepime and to continue at this time. Instructed the patient to increase activity as tolerated. Currently no reports of chest pain, worsening shortness of breath, or palpitations. Patient is afebrile. No reports of nausea or vomiting and patient is tolerating diet. 11/05/2019 Patient is sitting up in the chair status post just showering. Patient has been increasing activity slowly although continues to be slightly dyspneic upon exertion. Instructed the patient to continue increasing activity as tolerated and wean off oxygen as he currently remains on 4 L via nasal cannula. Pulmonary following closely. Patient continues on IV cefepime along with oral Zithromax and will continue at this time. IV steroids have been titrated down and will likely transition to oral prednisone taper upon discharge. Currently no reports of chest pain, worsening shortness of breath, or palpitations. Patient is afebrile. No reports of nausea or vomiting and patient is tolerating a regular diet. Will continue to monitor closely. Objective - Vital Signs Vital signs: Vital Signs Temp 98.0 F 11/05/19 07:00 Pulse 64 11/05/19 11:33 Resp 16 11/05/19 08:00 BP 160/75 11/05/19 07:00 Pulse Ox 100 11/05/19 07:00 Intake & Output 11/04/19 11/05/19 11/05/19 18:59 06:59 18:59 Intake Total 120 Output Total 590 Balance 120 -590 Weight 45.359 kg Intake: Oral 120 Output: Urine 590 Other: # Voids 1 2 - Exam Patient is sitting up in the chair comfortably, no acute distress, awake alert and oriented.. HEENT: Normocephalic. Neck is supple. Pupils reactive. Nostrils clear. Oral cavity is moist. Ears reveal no drainage. Neck reveals no JVD, carotid bruits, or thyromegaly. CHEST EXAMINATION: Trachea is central. Symmetrical expansion.minimal left basilar crackles. No wheezing or rhonchi noted. CARDIAC: Normal S1, S2 with no gallops. No murmurs ABDOMEN: Soft. Bowel sounds normal. No organomegaly. No abdominal bruits. Extremities: reveal no edema. No clubbing or cyanosis Neurologically awake, alert, oriented x3 with well-coordinated movements. No focal deficits noted Skin: No rash or skin lesions. Psychiatric: Cooperative. Non-suicidal Musculoskeletal: No joint swelling or deformity. Normal range of motion. - Labs CBC & Chem 7: 11/03/19 06:46 11/03/19 06:46 Labs: Microbiology - Last 24 Hours (Table) 11/02/19 13:21 Blood Culture - Preliminary Blood No Growth after 48 hours Assessment and Plan Assessment: Right lung and left lower lung consolidation due to pneumonia. Underlying malignancy cannot be excluded. History of lung cancer status post right lobectomy Acute kidney injury likely prerenal, improved Covid 19 testing negative Ongoing nicotine addiction COPD not in exacerbation Nausea vomiting and coffee-ground emesis. Possible gastritis, improved Moderate protein calorie malnutrition. DVT prophylaxis. Plan: Continue with antibiotics in the form of cefepime and azithromycin and oxygen therapy. Duo nebs and follow-up closely. Pulmonary is following. Patient will be continued on PPI. covid 19 test is negative. Continue to encourage oral intake and increase activity as tolerated. Further recommendations based on the clinical course. Prognosis is guarded with multiple medical problems and comorbid conditions. Possible discharge in 24 hours.
[2019-11-05] MEDS: TOPIRAMATE 100 MG TAB PO SCH (21:29)
[2019-11-06] MEDS: HEPARIN SODIUM,PORCINE 5,000 UNIT/ML 1 ML VIAL SQ SCH ×3 (00:06→14:45)
[2019-11-06] MEDS: methylPREDNISolone SOD SUCCI 40 MG/ML 1 ML VIAL IV SCH ×3 (00:06→14:45)
[2019-11-06] MEDS: MORPHINE SULFATE 4 MG/ML SYRINGE IV PRN ×4 (01:06→14:45)
[2019-11-06] MEDS: IPRATROPIUM-ALBUTEROL 3 ML NEB INHALATION PRN ×3 (07:34→15:20)
[2019-11-06] MEDS: SYMBICORT 80-4.5 MCG INHALER INHALATION SCH (07:34)
[2019-11-06] MEDS: TIOTROPIUM 18 MCG/PUFF INHALER INHALATION SCH (07:35)
[2019-11-06] MEDS: AZITHROMYCIN 500 MG TAB PO SCH (07:52)
[2019-11-06] MEDS: PANTOPRAZOLE 40 MG/10 ML VIAL IV SCH (07:52)
[2019-11-06] MEDS: GABAPENTIN 300 MG CAP PO SCH ×2 (07:52→14:44)
[2019-11-06 07:53] LABS: Basophils % (A) 0 %; Eosinophils % (A) 1 %; HCT 30.8 % (39.0-53.0); HGB 9.4 gm/dL (13.0-17.5); Hypochromasia Slight; Lymphocytes # (A) 0.5 k/uL (1.0-4.8); Lymphocytes % (A) 9 %; MCH 29.7 pg (25.0-35.0); MCHC 30.4 g/dL (31.0-37.0); MCV 97.5 fL (80.0-100.0); Mean Platelet Volume 8.3; Monocytes # (A) 0.3 k/uL (0-1.0); Monocytes % (A) 4 %; Neutrophils # (A) 5.2 k/uL (1.3-7.7); Neutrophils % (A) 85 %; Platelet Count 336 k/uL (150-450); RBC 3.16 m/uL (4.30-5.90); RDW 13.3 % (11.5-15.5); WBC 6.2 k/uL (3.8-10.6)
[2019-11-06] MEDS: CEFEPIME 2 GM in SODIUM CHLORIDE 0.9% 100 ML IVPB SCH (07:53)
[2019-11-06 08:04] LABS: African American GFR (CKD) >90 (>60 ml/min/1.73 sqM); Anion Gap 6 mmol/L; Blood Urea Nitrogen 26 mg/dL (9-20); Calcium 9.1 mg/dL (8.4-10.2); Carbon Dioxide 28 mmol/L (22-30); Chloride 105 mmol/L (98-107); Glucose 100 mg/dL (74-99); Non-African American GFR(CKD) >90 (>60 ml/min/1.73 sqM); Potassium 4.7 mmol/L (3.5-5.1); Sodium 139 mmol/L (137-145)
[2019-11-06 09:52] VITALS: BP 155/78; RESP 17; TEMP 98.1
--- NOTE | 2019-11-06 11:05 | P.PN ---
Subjective Progress Note Date: 11/06/19 Principal diagnosis: Bilateral pneumonia This is a 58-year-old male patient with history of non-small cell lung cancer and advanced COPD. The patient is very well-known to me. The patient undergone a previous right upper lobe resection at was no more than 20 years ago. Since then, his course has been complicated by recurrent pneumonias and COPD exacerbations. Note that the patient has not had any significant tumor recurrence. He is worse condition was back in 2014 and at that time the patient extensive bilateral pneumonia right more than left and he had respiratory fa ilure requiring BiPAP for respiratory support. He was treated extensively with antibiotics and he required PICC line insertion for IV antibiotic therapy. Infectious disease. He was subsequently admitted for complications of pneumonias and ultimately this condition stabilized. Repeat CAT scan of the chest x-ray showed no evidence of any tumor recurrence. I also performed a bronchoscopy on this patient and there were no endobronchial tumors or lesions identified back then. His previous cultures have grown E. coli and Haemophilus back in 2014. He has been followed up on a regular basis with me the office. I was going to help evaluation with him back in September and at that time the patient was doing well. He was utilizing Trelegy Ellipta as maintenance in addition to DuoNeb nebulized treatments around the clock. He takes MS Contin 30 mg twice a day and Percocet 10/325 for pain control. On 11/02/2019, the patient underwent another telehealth evaluation through our office and he had several complaints. For the last couple of days and maybe even longer, he's been having sweats at n ighttime, shortness of breath, poor appetite, worsened weight loss, as well as both coughing up dark blood and vomiting up dark blood. Also, he admits to vomiting up bright red blood. for that reason, the patient was referred to the ED Where the initial blood work showed a white cell count of 14.8 with a hemoglobin and a hemoglobin of 11.6 and the patient had an acute kidney injury with a creatinine of 1.44 and the sodium level of 136, bilirubin was 0.4 with normal LFTs, normal troponin I, normal proBNP level, partial resection/deformity of the right hemithorax related to a previous right upper lobe resection. It showed bilateral emphysematous changes. It is of consolidation involving the right lung apex was seen. Additional areas of right perihilar consolidation was also seen. Sinuses segmental consolidations also involving both lungs. There was bibasilar bronchiectatic changes noted. With several areas of consolidation in the right lung and the left lower lobe, the patient was admitted with the diagnosis of pneumonia and it only consultation was requested accordingly. He is currently afebrile. He remains on 4 L of oxygen by nasal cannula with a pulse ox 97%. He does not usually use oxygen on a regular basis. On 11/03/2019, the patient is being seen for a follow-up. He is currently covered with broad-spectrum antibiotics. Covid 19 evaluation. Nasopharyngeal swab came back negative. The patient is covered with broad-spectrum antibiotics. The patient is currently on a combination of cefepime and Zithromax. He is afebrile. He is hemodynamically stable. Pro-calcitonin level is pending for now. The white cell count is improving is down to 8.4. The rest of the blood work and electrodes are all within normal limits. CAT scan of the chest was again reviewed. No other significant events otherwise for now. No nausea. No vomiting. No emesis. He feels weak. His creatinine is improving and the patient's creatinine is down to 0.9. On 11/04/2019 patient is seen in follow-up on vaginal medical floor, he sitting up in the chair, appears to be in no acute distress, his breathing is comfortable, is on 4 L of oxygen with pulse ox of 98%, hemodynamically stable, he is afebrile, and combination of cefepime, and azithromycin, IV steroids, and inhalers. Covid 19 was negative, his pro-calcitonin level came back elevated at 6.65 consistent with bacterial pneumonia, has not been able to produce a sputum sample yet, blood cultures are negative, today's labs reveal improving with blood cell, with white blood cell count of 8.4, hemoglobin of 9.2, B1 of 18 and creatinine 0.90. And unremarkable electrolytes. No nausea or vomiting, patient is tolerating oral intake, no nausea or vomiting, no altered mentation, minimal left basilar crackles on today's exam, no significant wheezing or congestion. The patient was seen today 11/05/2019 in follow-up on the regular medical floor. He is awake and alert in no acute distress. He is currently sitting up in a chair at the bedside. Breathing better today compared to yesterday. Chest x- ray revealed stable chronic changes correlated for chronic interstitial lung disease. Superimposed interstitial pneumonitis not excluded. There is nodular right apical pleural thickening. Blood culture reveals no growth. He's been maintained on cefepime and azithromycin along with DuoNeb inhalations, Symbicort, Spiriva, IV Solu-Medrol. The patient is seen today 11/06/2019 in follow-up on the regular medical floor. He is currently sitting up in a chair at the bedside. Awake and alert in no acute distress. Maintaining good O2 saturations in the high 90s on 4 L/m per nasal cannula. He is afebrile. Blood cultures reveal no growth. White count 6.2. Hemoglobin 9.4. Sodium 139. Potassium 4.7. Creatinine 0.70. Pro- calcitonin down to 2.08. He is continued on cefepime and a Zithromax. Continued on Symbicort, Spiriva, DuoNeb's and IV Solu-Medrol. Objective - Vital Signs Vital signs: Vital Signs Temp 98.1 F 11/06/19 08:32 Pulse 61 11/06/19 08:32 Resp 17 11/06/19 08:32 BP 155/78 11/06/19 08:32 Pulse Ox 98 11/06/19 08:32 Intake & Output 11/05/19 11/06/19 11/06/19 18:59 06:59 18:59 Intake Total 120 200 Output Total 590 590 Balance -470 -390 Intake: Oral 120 200 Output: Urine 590 590 Other: # Voids 3 1 - Exam GENERAL EXAM: Alert, very pleasant, 58-year-old cachectic male patient on 4 L of oxygen and the pulse ox of 98%, comfortable in no apparent distress. HEAD: Normocephalic/atraumatic. EYES: Normal reaction of pupils, equal size. Conjunctiva pink, sclera white. NOSE: Clear with pink turbinates. THROAT: No erythema or exudates. NECK: No masses, no JVD, no thyroid enlargement, no adenopathy. CHEST: No chest wall deformity. Symmetrical expansion. LUNGS: Equal air entry with left basilar crackles, but no wheeze, rhonchi or dullness. CVS: Regular rate and rhythm, normal S1 and S2, no gallops, no murmurs, no rubs ABDOMEN: Soft, nontender. No hepatosplenomegaly, normal bowel sounds, no guarding or rigidity. EXTREMITIES: No clubbing, no edema, no cyanosis, 2+ pulses and upper and lower extremities. MUSCULOSKELETAL: Muscle strength and tone normal. SPINE: No scoliosis or deformity SKIN: No rashes CENTRAL NERVOUS SYSTEM: No focal deficits, tone is normal in all 4 extremities. PSYCHIATRIC: Alert and oriented -3. Appropriate affect. Intact judgment and insight. - Labs CBC & Chem 7: 11/06/19 07:17 11/06/19 07:17 Labs: Abnormal Lab Results - Last 24 Hours (Table) 11/05/19 11/06/19 11/06/19 Range/Units 08:37 07:17 07:17 RBC 3.16 L (4.30-5.90) m/uL Hgb 9.4 L (13.0-17.5) gm/dL Hct 30.8 L (39.0-53.0) % MCHC 30.4 L (31.0-37.0) g/dL Lymphocytes # 0.5 L (1.0-4.8) k/uL BUN 26 H (9-20) mg/dL Glucose 100 H (74-99) mg/dL Procalcitonin 2.08 H (0.02-0.09) ng/mL Microbiology - Last 24 Hours (Table) 11/02/19 13:21 Blood Culture - Preliminary Blood No Growth after 72 hours Assessment and Plan Assessment: 1 bilateral pneumonia. The patient has various areas of consolidation involving the right lung and left lower lobe and this obviously raises concern for pneumonia. Note that the comparison was not done with a previous CAT scan of the chest. Nevertheless, based on clinical presentation, pneumonia suspected as the patient has previous history of recurrent lung infections and pneumonias. He has advanced COPD with diffuse bilateral emphysematous change with severe obstructive airflow limitation and remote history of lung cancer without any recurrence. Follow-up chest x-ray showed stable chronic changes. Maintained on cefepime and azithromycin. 2 severe chronic obstructive pulmonary disease, an FEV1 of 41% of predicted, and the patient is on Trelegy Ellipta his latest spirometric evaluation showed that the FEV1 is at 36%, yet again, consistent with severe COPD. 3 non-small cell lung cancer (Right), he remains in remission status post right upper lobe resection back in 2006 4 chronic back pain along with kyphoscoliosis of the spine and the patient has a pain stimulator in place. The patient is on Percocet. He is also taking MS Contin. 5 brachial plexus disorder, involving the right upper extremity related to lung cancer and radiation therapy and surgery. 6 acute kidney injury, improved and the creatinine is normalized. 7 leukocytosis, improved Plan: The patient was seen and evaluated by Dr. Peters He is stable for discharge from the pulmonary standpoint Complete a course of antibiotics Complete a prednisone taper starting at 40 mg daily for 4 days Continue his home pulmonary medications Follow-up in the office in 1-2 weeks' I, the cosigning physician, performed a history & physical examination of the patient. Lungs sounds with left basilar crackles. Maintaining good O2 saturations in the 90s on 4 L/m per nasal cannula. I discussed the assessment and plan of care with my nurse practitioner, Twyla Jennings. I attest to the above note as dictated by her.
[2019-11-06] MEDS: oxyCODONE-APAP 10-325MG 1 EACH TAB PO PRN (14:44)
[2019-11-06 15:34] VITALS: PULSE 68
[2019-11-07] MEDS ORDERED: PANTOPRAZOLE 40 MG TABLET PO SCH (09:00)
== END 2019-11-06 17:30 | disposition home or self-care (01) | DRG 194 ==
LOC: EC 12:38 → 4SSUR 16:01
PROVIDERS: ADMIT Hospitalist; ATTEND Hospitalist
DX: J18.9 Pneumonia, unspecified organism (principal); R64 Cachexia; E44.0 Moderate protein-calorie malnutrition; J96.11 Chronic respiratory failure with hypoxia; N17.9 Acute kidney failure, unspecified; K92.0 Hematemesis; Z68.1 Body mass index [BMI] 19.9 or less, adult; J43.9 Emphysema, unspecified; G54.0 Brachial plexus disorders; Z99.81 Dependence on supplemental oxygen; Z20.828 Contact with and (suspected) exposure to other viral communicable diseases; K29.70 Gastritis, unspecified, without bleeding; G89.29 Other chronic pain; M54.9 Dorsalgia, unspecified; M95.4 Acquired deformity of chest and rib; M41.9 Scoliosis, unspecified; F17.200 Nicotine dependence, unspecified, uncomplicated; Z79.51 Long term (current) use of inhaled steroids; Z79.891 Long term (current) use of opiate analgesic; Z79.899 Other long term (current) drug therapy; Z85.118 Personal history of other malignant neoplasm of bronchus and lung; Z87.01 Personal history of pneumonia (recurrent); Z96.82 Presence of neurostimulator; Z92.3 Personal history of irradiation; Z71.3 Dietary counseling and surveillance; Z90.2 Acquired absence of lung [part of]; Z98.890 Other specified postprocedural states
CPT/HCPCS: 36415; 71045; 71046; 71275; 80048; 80053; 83605; 83735; 83880; 84145; 84484; 85025; 85027; 85610; 85730; 86850; 86900; 86901; 87040; 87635; 93005; 94640; 96361; 96365; 96375; 99285

== ENCOUNTER → 2020-07-11 | Outpatient (CLI) | payer MEDICARE ==
--- NOTE | 2020-07-11 15:46 | CT ---
EXAMINATION TYPE: CT cervical spine wo/w con DATE OF EXAM: 07/11/2020 COMPARISON: None HISTORY: Branchque Carcinoma CT DLP: 551.00 mGycm CONTRAST: Performed without and with IV Contrast, patient injected with 100 mL of Isovue 300. CT of the cervical spine is performed in the axial plane at 2 mm thick sections. Reconstructed image s in the coronal, and sagittal plane are reviewed on the computer. No acute fractures are evident. Vertebral body alignment is normal. Mild disc space narrowing is present C5-6 C6-7. Vertebral body heights are preserved. Anterior vertebral body spurring is noted at C5 and C6 and supe rior endplate of C7. No spinal canal stenosis is evident Mild foraminal narrowing due to uncovertebral joint hypertrophy may be present at the C4-3-4 level bi laterally mild left C4-5 foraminal narrowing from uncovertebral joint hypertrophy is present. Bilater al foraminal narrowing at C5-6 is present from uncovertebral joint hypertrophy. Mild left C6-7 forami nal narrowing is present from uncovertebral joint hypertrophy. Note is made of extensive emphysematous changes within the minimally visualized left apex. No suspici ous lytic or sclerotic lesions are identified within the humeral bodies. On postcontrast imaging no suspicious enhancement is identified. Incidental note is made of enhanceme nt within the thyroglossal duct tract measuring 1.1 cm. IMPRESSIONS: 1. No suspicious changes to suggest metastatic disease. 2. Mild foraminal narrowing due to uncovertebral joint hypertrophy discussed above.
== END | disposition home or self-care (01) ==
LOC: RADCTMAIN 12:31
PROVIDERS: ATTEND Psychiatry & Neurology Neurology
DX: M48.02 Spinal stenosis, cervical region (principal); D02.20 Carcinoma in situ of unspecified bronchus and lung
CPT/HCPCS: 72127; Q9967

== ENCOUNTER 2020-11-11 19:03 | Observation (INO) | payer MEDICARE ==
[2020-11-11] MEDS ORDERED: METOCLOPRAMIDE 5 MG/ML 2 ML VIAL IVP STA (19:39)
[2020-11-11] MEDS ORDERED: SODIUM CHLORIDE 0.9% 1,000 ML IV STA (19:39)
--- NOTE | 2020-11-11 19:49 | ED ---
Abdominal Pain HPI - General Chief Complaint: Abdominal Pain Stated Complaint: vomiting/weak Time Seen by Provider: 11/11/20 19:15 Source: patient, family, RN notes reviewed Mode of arrival: ambulatory Limitations: no limitations - History of Present Illness Initial Comments: 59-year-old cachectic white male presents to the emergency room alert and orie nted 4 with complaints of 3 weeks of nausea vomiting and diarrhea. Patient states seen his print traffic manager 2 days ago and was put on Levaquin for possible lung infection with brown sputum. Patient does have a history of lung cancer, emphysema, right lobectomy and multiple back surgeries. Patient states did not tell his primary care doctor or his print traffic manager about the nausea vomiting diarrhea for the past 3 weeks. Patient states that he is vomiting probably 10 times a day no blood mostly food and water. Patient states probably 2 times a week he has blood that fills the toilet. Patient states she also has had a weight loss from 113 pounds last month 104 pounds this month. He states he's had a low-grade fever of 100. Patient has an appointment with his primary care doctor Dr. Burrell on November 23. MD Complaint: abdominal pain -: week(s) (3) Location: diffuse Radiation: none Severity scale (1-10): 6 Consistency: constant Improves With: nothing Worsens With: eating, vomiting Context: recent antibiotic use (On Levaquin for 2 days; symptoms started 3 weeks ago; ), recent surgery/procedure (Stimulator for pain control removed from back last week, not working) Associated Symptoms: nausea, vomiting, diarrhea, fever, hematochezia (PMD told him it was hemorrhoids), anorexia - Related Data Home Medications Medication Instructions Recorded Confirmed Gabapentin [Neurontin] 300 mg PO TID PRN 03/26/19 11/11/20 Morphine Sulfate ER [Ms Contin] 30 mg PO BID PRN 03/26/19 11/11/20 Morphine Sulfate [Ms Contin] 60 mg PO BID 03/26/19 11/11/20 oxyCODONE-APAP 10-325MG [Percocet 1 tab PO BID PRN 03/26/19 11/11/20 10-325 mg] Aspirin/Acetaminophen/Caffeine 2 tab PO DAILY PRN 11/11/20 11/11/20 [Excedrin Migraine Caplet] Baclofen [Lioresal] 10 mg PO TID PRN 11/11/20 11/11/20 Fluticasone/Umeclidin/Vilanter 1 puff INHALATION RT-DAILY 11/11/20 11/11/20 [Trelegy Ellipta 100-62.5-25] Ipratropium-Albuterol Nebulize 3 ml INHALATION RT-QID PRN 11/11/20 11/11/20 [Duoneb 0.5 mg-3 mg/3 ml Soln] Levofloxacin [Levaquin] 500 mg PO DAILY 11/11/20 11/11/20 Allergies Allergy/AdvReac Type Severity Reaction Status Date / Time No Known Allergies Allergy Verified 11/11/20 20:43 Review of Systems ROS Statement: Those systems with pertinent positive or pertinent negative responses have been documented in the HPI. ROS Other: All systems not noted in ROS Statement are negative. Past Medical History Past Medical History: Cancer Additional Past Medical History / Comment(s): history of non-small cell lung cancer with a previous right upper lobe resection, advanced emphysema, chest deformity related to previous thoracic surgery, chronic pain Involving the back in addition to brachial plexus disorder related to previous thoracic surgery. History of Any Multi-Drug Resistant Organisms: None Reported Additional Past Surgical History / Comment(s): right upper lobectomy d/t CA, multiple surgeries on right hand d/t accident Past Psychological History: No Psychological Hx Reported Smoking Status: Current every day smoker Past Alcohol Use History: None Reported Past Drug Use History: None Reported General Exam Limitations: no limitations General appearance: alert, in no apparent distress, cachectic Head exam: Present: atraumatic, normocephalic, normal inspection Eye exam: Present: normal appearance, PERRL, EOMI. Absent: scleral icterus, conjunctival injection, periorbital swelling ENT exam: Present: normal oropharynx, mucous membranes moist, other (Poor dentition with multiple missing teeth) Neck exam: Present: normal inspection, full ROM. Absent: tenderness, meningismus, lymphadenopathy Respiratory exam: Present: decreased breath sounds. Absent: respiratory distr ess, wheezes, chest wall tenderness, accessory muscle use Cardiovascular Exam: Present: regular rate, normal rhythm, normal heart sounds. Absent: systolic murmur, diastolic murmur, rubs, gallop, clicks GI/Abdominal exam: Present: soft, tenderness, normal bowel sounds. Absent: distended, guarding, rebound, rigid, mass, hernia Rectal exam: Present: deferred Extremities exam: Present: full ROM, normal capillary refill. Absent: pedal edema, calf tenderness Back exam: Present: other (Dried scaling plaques to site of postop excision of stimulator last week). Absent: tenderness, CVA tenderness (R), CVA tenderness (L), paraspinal tenderness, vertebral tenderness Neurological exam: Present: alert, oriented X3, CN II-XII intact Psychiatric exam: Present: normal affect, normal mood Skin exam: Present: warm, dry, intact, normal color. Absent: rash Course Vital Signs 11/11/20 11/11/20 11/11/20 19:05 21:45 23:12 Temperature 98.3 F 98.3 F Pulse Rate 79 65 64 Respiratory 20 18 18 Rate Blood Pressure 137/73 112/72 123/75 O2 Sat by Pulse 96 90 L 98 Oximetry Medical Decision Making - Medical Decision Making Chest x-ray shows no effusion, no pneumothorax, no pleural effusion, heart size within normal limits. There is right-sided interstitial coarsening with diffuse opacities, patient did have a right lobectomy. CT abdomen and pelvis shows left-sided colonic wall thickening with fat stranding consistent with colitis. Chronic diffuse right-sided obesities. No bowel obstruction hydropic appearance of the gallbladder unable to exclude chronic obstruction. Hemoglobin and hematocrit is 10.4 and 31.5 respectively, WBC count is 3.4 neutrophils 8, platelet count is 5:30, troponin 0.012. With the patient's complaints of rectal bleeding, current use of Levaquin for treatment by print traffic manager for sputum change, and weight loss of 10 pounds in less than one month, will admit patient for colitis and GI bleed with GI consult.. - Lab Data Result diagrams: 11/11/20 20:17 11/11/20 20:17 Lab Results 11/11/20 11/11/20 11/11/20 Range/Units 20:17 20:17 20:17 WBC 9.7 (3.8-10.6) k/uL RBC 3.43 L (4.30-5.90) m/uL Hgb 10.4 L (13.0-17.5) gm/dL Hct 31.5 L (39.0-53.0) % MCV 91.8 (80.0-100.0) fL MCH 30.4 (25.0-35.0) pg MCHC 33.1 (31.0-37.0) g/dL RDW 14.0 (11.5-15.5) % Plt Count 530 H (150-450) k/uL MPV 7.1 Neutrophils % 84 % Lymphocytes % 9 % Monocytes % 5 % Eosinophils % 1 % Basophils % 0 % Neutrophils # 8.2 H (1.3-7.7) k/uL Lymphocytes # 0.9 L (1.0-4.8) k/uL Monocytes # 0.4 (0-1.0) k/uL Eosinophils # 0.1 (0-0.7) k/uL Basophils # 0.0 (0-0.2) k/uL PT 11.1 (9.0-12.0) sec INR 1.0 (<1.2) APTT 27.4 (22.0-30.0) sec Sodium (137-145) mmol/L Potassium (3.5-5.1) mmol/L Chloride (98-107) mmol/L Carbon Dioxide (22-30) mmol/L Anion Gap mmol/L BUN (9-20) mg/dL Creatinine (0.66-1.25) mg/dL Est GFR (CKD-EPI)AfAm (>60 ml/min/1.73 sqM) Est GFR (CKD-EPI)NonAf (>60 ml/min/1.73 sqM) Glucose (74-99) mg/dL Plasma Lactic Acid Alber (0.7-2.0) mmol/L Calcium (8.4-10.2) mg/dL Total Bilirubin (0.2-1.3) mg/dL AST (17-59) U/L ALT (4-49) U/L Alkaline Phosphatase (38-126) U/L Troponin I (0.000-0.034) ng/mL Total Protein (6.3-8.2) g/dL Albumin (3.5-5.0) g/dL Amylase (30-110) U/L Lipase (23-300) U/L Urine Color Yellow Urine Appearance Clear (Clear) Urine pH 5.5 (5.0-8.0) Ur Specific [place] 1.037 H (1.001-1.035) Urine Protein 2+ H (Negative) Urine Glucose (UA) Negative (Negative) Urine Ketones Trace H (Negative) Urine Blood Moderate H (Negative) Urine Nitrite Negative (Negative) Urine Bilirubin Negative (Negative) Urine Urobilinogen 2.0 (<2.0) mg/dL Ur Leukocyte Esterase Negative (Negative) Urine RBC 11 H (0-5) /hpf Urine WBC 1 (0-5) /hpf Hyaline Casts 4 H (0-2) /lpf Urine Mucus Rare H (None) /hpf Coronavirus (PCR) (Not Detectd) 11/11/20 11/11/20 11/11/20 Range/Units 20:17 20:17 20:17 WBC (3.8-10.6) k/uL RBC (4.30-5.90) m/uL Hgb (13.0-17.5) gm/dL Hct (39.0-53.0) % MCV (80.0-100.0) fL MCH (25.0-35.0) pg MCHC (31.0-37.0) g/dL RDW (11.5-15.5) % Plt Count (150-450) k/uL MPV Neutrophils % % Lymphocytes % % Monocytes % % Eosinophils % % Basophils % % Neutrophils # (1.3-7.7) k/uL Lymphocytes # (1.0-4.8) k/uL Monocytes # (0-1.0) k/uL Eosinophils # (0-0.7) k/uL Basophils # (0-0.2) k/uL PT (9.0-12.0) sec INR (<1.2) APTT (22.0-30.0) sec Sodium 142 (137-145) mmol/L Potassium 4.3 (3.5-5.1) mmol/L Chloride 104 (98-107) mmol/L Carbon Dioxide 29 (22-30) mmol/L Anion Gap 9 mmol/L BUN 20 (9-20) mg/dL Creatinine 0.97 (0.66-1.25) mg/dL Est GFR (CKD-EPI)AfAm >90 (>60 ml/min/1.73 sqM) Est GFR (CKD-EPI)NonAf 86 (>60 ml/min/1.73 sqM) Glucose 93 (74-99) mg/dL Plasma Lactic Acid Alber 0.8 (0.7-2.0) mmol/L Calcium 9.0 (8.4-10.2) mg/dL Total Bilirubin 0.2 (0.2-1.3) mg/dL AST 16 L (17-59) U/L ALT 7 (4-49) U/L Alkaline Phosphatase 64 (38-126) U/L Troponin I <0.012 (0.000-0.034) ng/mL Total Protein 6.2 L (6.3-8.2) g/dL Albumin 3.3 L (3.5-5.0) g/dL Amylase <30 L (30-110) U/L Lipase 15 L (23-300) U/L Urine Color Urine Appearance (Clear) Urine pH (5.0-8.0) Ur Specific [place] (1.001-1.035) Urine Protein (Negative) Urine Glucose (UA) (Negative) Urine Ketones (Negative) Urine Blood (Negative) Urine Nitrite (Negative) Urine Bilirubin (Negative) Urine Urobilinogen (<2.0) mg/dL Ur Leukocyte Esterase (Negative) Urine RBC (0-5) /hpf Urine WBC (0-5) /hpf Hyaline Casts (0-2) /lpf Urine Mucus (None) /hpf Coronavirus (PCR) (Not Detectd) 11/11/20 Range/Units 22:34 WBC (3.8-10.6) k/uL RBC (4.30-5.90) m/uL Hgb (13.0-17.5) gm/dL Hct (39.0-53.0) % MCV (80.0-100.0) fL MCH (25.0-35.0) pg MCHC (31.0-37.0) g/dL RDW (11.5-15.5) % Plt Count (150-450) k/uL MPV Neutrophils % % Lymphocytes % % Monocytes % % Eosinophils % % Basophils % % Neutrophils # (1.3-7.7) k/uL Lymphocytes # (1.0-4.8) k/uL Monocytes # (0-1.0) k/uL Eosinophils # (0-0.7) k/uL Basophils # (0-0.2) k/uL PT (9.0-12.0) sec INR (<1.2) APTT (22.0-30.0) sec Sodium (137-145) mmol/L Potassium (3.5-5.1) mmol/L Chloride (98-107) mmol/L Carbon Dioxide (22-30) mmol/L Anion Gap mmol/L BUN (9-20) mg/dL Creatinine (0.66-1.25) mg/dL Est GFR (CKD-EPI)AfAm (>60 ml/min/1.73 sqM) Est GFR (CKD-EPI)NonAf (>60 ml/min/1.73 sqM) Glucose (74-99) mg/dL Plasma Lactic Acid Alber (0.7-2.0) mmol/L Calcium (8.4-10.2) mg/dL Total Bilirubin (0.2-1.3) mg/dL AST (17-59) U/L ALT (4-49) U/L Alkaline Phosphatase (38-126) U/L Troponin I (0.000-0.034) ng/mL Total Protein (6.3-8.2) g/dL Albumin (3.5-5.0) g/dL Amylase (30-110) U/L Lipase (23-300) U/L Urine Color Urine Appearance (Clear) Urine pH (5.0-8.0) Ur Specific [place] (1.001-1.035) Urine Protein (Negative) Urine Glucose (UA) (Negative) Urine Ketones (Negative) Urine Blood (Negative) Urine Nitrite (Negative) Urine Bilirubin (Negative) Urine Urobilinogen (<2.0) mg/dL Ur Leukocyte Esterase (Negative) Urine RBC (0-5) /hpf Urine WBC (0-5) /hpf Hyaline Casts (0-2) /lpf Urine Mucus (None) /hpf Coronavirus (PCR) Not Detected (Not Detectd) - EKG Data EKG shows normal: sinus rhythm, intervals (Ventricular rate of 66, MN interval of 0.18, QRS of 0.84, QTC 0.425) When compared to previous EKG there are: no significant change (11/02/19) Disposition Clinical Impression: Colitis, GI bleeding Disposition: ADMITTED IP TO THIS [facility] Condition: Fair Is patient prescribed a controlled substance at d/c from ED?: No Decision Date: 11/11/20 (.) Decision Time: 22:17
[2020-11-11 20:35] LABS: Basophils % (A) 0 %; Eosinophils # (A) 0.1 k/uL (0-0.7); Eosinophils % (A) 1 %; HCT 31.5 % (39.0-53.0); HGB 10.4 gm/dL (13.0-17.5); Lymphocytes # (A) 0.9 k/uL (1.0-4.8); Lymphocytes % (A) 9 %; MCH 30.4 pg (25.0-35.0); MCHC 33.1 g/dL (31.0-37.0); MCV 91.8 fL (80.0-100.0); Mean Platelet Volume 7.1; Monocytes # (A) 0.4 k/uL (0-1.0); Monocytes % (A) 5 %; Neutrophils # (A) 8.2 k/uL (1.3-7.7); Neutrophils % (A) 84 %; Platelet Count 530 k/uL (150-450); RBC 3.43 m/uL (4.30-5.90); WBC 9.7 k/uL (3.8-10.6)
[2020-11-11 20:45] LABS: ALT 7 U/L (4-49); AST 16 U/L (17-59); African American GFR (CKD) >90 (>60 ml/min/1.73 sqM); Albumin 3.3 g/dL (3.5-5.0); Alkaline Phosphatase 64 U/L (38-126); Amylase <30 U/L (30-110); Anion Gap 9 mmol/L; Blood Urea Nitrogen 20 mg/dL (9-20); Carbon Dioxide 29 mmol/L (22-30); Chloride 104 mmol/L (98-107); Glucose 93 mg/dL (74-99); Lipase 15 U/L (23-300); Non-African American GFR(CKD) 86 (>60 ml/min/1.73 sqM); Potassium 4.3 mmol/L (3.5-5.1); Sodium 142 mmol/L (137-145); Total Bilirubin 0.2 mg/dL (0.2-1.3); Total Protein 6.2 g/dL (6.3-8.2)
[2020-11-11 20:55] LABS: Partial Thromboplastin Time 27.4 sec (22.0-30.0); Prothrombin Time 11.1 sec (9.0-12.0)
[2020-11-11 21:04] LABS: Appearance,Urine Clear (Clear); Bilirubin,Urine Negative (Negative); Blood,Urine Moderate (Negative); Color,Urine Yellow; Glucose,Urine (UA) Negative (Negative); Hyaline Casts,Urine 4 /lpf (0-2); Ketones,Urine Trace (Negative); Leukocyte Esterase,Urine Negative (Negative); Mucus,Urine Rare /hpf; Nitrite,Urine Negative (Negative); PH, Urine 5.5 (5.0-8.0); Protein,Urine 2+ (Negative); RBC,Urine 11 /hpf (0-5); Specific Gravity,Urine 1.037 (1.001-1.035); WBC,Urine 1 /hpf (0-5)
--- NOTE | 2020-11-11 21:48 | CT ---
EXAMINATION TYPE: CT abdomen pelvis wo con DATE OF EXAM: 11/11/2020 COMPARISON: CT chest 11/02/2019. HISTORY: Abdominal pain and vomiting. CT DLP: 291 mGycm Automated exposure control for dose reduction was used. TECHNIQUE: Helical acquisition of images was performed from the lung bases through the pelvis. FINDINGS: LUNG BASES: Chronic diffuse tree in bud pattern opacities with peribronchial thickening in the right lower lobe. LIVER/GB: Hydropic appearance of the gallbladder without gallstones, wall thickening or pericholecyst ic fluid. No acute abnormality of the liver. No significant biliary ductal dilatation. PANCREAS: No significant abnormality is seen. SPLEEN: No significant abnormality is seen. ADRENALS: No significant abnormality is seen. KIDNEYS: No significant abnormality is seen. FREE AIR: No free air is visualized RETROPERITONEAL ADENOPATHY: None visualized REPRODUCTIVE ORGANS: No significant abnormality is seen URINARY BLADDER: No significant abnormality is seen. PELVIC ADENOPATHY: None visualized. OSSEOUS STRUCTURES: No significant abnormality is seen. BOWEL: Moderate wall thickening of the mid to distal descending colon with surrounding fat stranding . No bowel obstruction, free air or fluid. Moderate amount of colonic stool. OTHER: Moderately advanced atherosclerotic disease. IMPRESSION: LEFT-SIDED COLONIC WALL THICKENING WITH SURROUNDING FAT STRANDING MAY REPRESENT COLITIS. RECOMMEND FO LLOW-UP IMAGING AND/OR COLONOSCOPY TO EXCLUDE OTHER ETIOLOGIES. CHRONIC DIFFUSE RIGHT-SIDED OPACITIES. NO BOWEL OBSTRUCTION. Hydropic appearance of the gallbladder, cannot exclude chronic obstruction.
--- NOTE | 2020-11-11 21:56 | XR ---
EXAMINATION TYPE: XR chest 2V DATE OF EXAM: 11/11/2020 COMPARISON: 05/03/2020. HISTORY: Pain. TECHNIQUE: Frontal and lateral views of the chest are obtained. FINDINGS: There is redemonstration of right upper chest wall deformity. There is right-sided interst itial coarsening with diffuse opacity, increased compared to the prior study. No pleural effusion, or pneumothorax seen. The cardiac silhouette size is within normal limits. The osseous structures ar e intact. IMPRESSION: Increased chronic diffuse right opacities may relate to superimposed acute component.
[2020-11-11] MEDS ORDERED: metroNIDAZOLE-NS PMX 500 MG in SALINE 1 100ML.BAG IVPB STA (22:15)
[2020-11-11] MEDS ORDERED: ACETAMINOPHEN TAB 325 MG TAB PO PRN (22:27)
[2020-11-11] MEDS ORDERED: NALOXONE 0.4 MG/ML 1 ML VIAL IV PRN (22:27)
[2020-11-11] MEDS: SODIUM CHLORIDE 0.9% 1,000 ML IV SCH (23:14)
[2020-11-12] MEDS: ONDANSETRON 4 MG/2 ML VIAL IVP PRN ×2 (08:14→15:45)
[2020-11-12] MEDS ORDERED: BACLOFEN 10 MG TAB PO PRN (10:17)
[2020-11-12] MEDS ORDERED: GABAPENTIN 300 MG CAP PO PRN (10:17)
[2020-11-12] MEDS ORDERED: IPRATROPIUM-ALBUTEROL 3 ML NEB INHALATION PRN (10:17)
[2020-11-12] MEDS: metroNIDAZOLE 500 MG TAB PO SCH ×3 (11:14→20:20)
[2020-11-12] MEDS: SODIUM CHLORIDE 0.9% 1,000 ML IV SCH (15:45)
[2020-11-12] MEDS: oxyCODONE-APAP 10-325MG 1 EACH TAB PO PRN (15:46)
[2020-11-12] MEDS ORDERED: PEG 3350-NA SULF,BICARB,CL/KCL 4,000 ML BOTTLE PO ONE (16:00)
--- NOTE | 2020-11-12 16:43 | P.HPIM ---
History of Present Illness 59-year-old cachectic white male presents to the emergency room alert and oriented 4 with complaints of 3 weeks of nausea vomiting and diarrhea. Patient does have a history of lung cancer, emphysema, right lobectomy and multiple back surgeries. 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 Patient states that he is vomiting probably 10 times a day no blood mostly food and water. Patient states probably 2 times a week he has blood that fills the toilet. Patient states she also has had a weight loss of around 6 pounds this month is secondary to poor by mouth intake due to nausea vomiting.. He states he's had a low-grade, does not know the temperature. Patient is found to have left-sided colitis and the computed tomography scan. Review of Systems REVIEW OF SYSTEMS: CONSTITUTIONAL: No fever, no malaise, no fatigue. HEENT: No recent visual problems or hearing problems. Denied any sore throat. CARDIOVASCULAR: No chest pain, orthopnea, PND, no palpitations, no syncope. PULMONARY: No shortness of breath, no cough, no hemoptysis. GASTROINTESTINAL: As mentioned in HPI NEUROLOGICAL: No headaches, no weakness, no numbness. HEMATOLOGICAL: Denies any bleeding or petechiae. GENITOURINARY: Denies any burning micturition, frequency, or urgency. MUSCULOSKELETAL/RHEUMATOLOGICAL: Denies any joint pain, swelling, or any muscle pain. ENDOCRINE: Denies any polyuria or polydipsia. The rest of the 14-point review of systems is negative. Past Medical History Past Medical History: Cancer Additional Past Medical History / Comment(s): history of non-small cell lung cancer with a previous right upper lobe resection, advanced emphysema, chest deformity related to previous thoracic surgery, chronic pain Involving the back in addition to brachial plexus disorder related to previous thoracic surgery. History of Any Multi-Drug Resistant Organisms: None Reported Additional Past Surgical History / Comment(s): right upper lobectomy d/t CA, multiple surgeries on right hand d/t accident Past Psychological History: No Psychological Hx Reported Smoking Status: Current every day smoker Past Alcohol Use History: None Reported Past Drug Use History: None Reported Medications and Allergies Home Medications Medication Instructions Recorded Confirmed Type Gabapentin [Neurontin] 300 mg PO TID PRN 03/26/19 11/11/20 History Morphine Sulfate ER [Ms Contin] 30 mg PO BID PRN 03/26/19 11/11/20 History Morphine Sulfate [Ms Contin] 60 mg PO BID 03/26/19 11/11/20 History oxyCODONE-APAP 10-325MG [Percocet 1 tab PO BID PRN 03/26/19 11/11/20 History 10-325 mg] Aspirin/Acetaminophen/Caffeine 2 tab PO DAILY PRN 11/11/20 11/11/20 History [Excedrin Migraine Caplet] Baclofen [Lioresal] 10 mg PO TID PRN 11/11/20 11/11/20 History Fluticasone/Umeclidin/Vilanter 1 puff INHALATION RT-DAILY 11/11/20 11/11/20 History [Trelegy Ellipta 100-62.5-25] Ipratropium-Albuterol Nebulize 3 ml INHALATION RT-QID PRN 11/11/20 11/11/20 H istory [Duoneb 0.5 mg-3 mg/3 ml Soln] Levofloxacin [Levaquin] 500 mg PO DAILY 11/11/20 11/11/20 History Allergies Allergy/AdvReac Type Severity Reaction Status Date / Time No Known Allergies Allergy Verified 11/11/20 20:43 Physical Exam Vitals: Vital Signs Temp Pulse Pulse Resp BP BP Pulse Ox 11/12/20 12:39 98.3 F 52 L 15 124/73 97 11/12/20 05:03 98.2 F 57 L 14 127/70 96 11/12/20 01:05 97.9 F 57 L 14 160/78 96 11/11/20 23:12 64 18 123/75 98 11/11/20 21:45 98.3 F 65 18 112/72 90 L 11/11/20 19:05 98.3 F 79 20 137/73 96 Intake and Output 11/12/20 11/12/20 11/12/20 06:59 14:59 22:59 Intake Total 900 Balance 900 Intake: Intake, IV Titration 900 Amount Sodium Chloride 0.9% 1, 900 000 ml @ 75 mls/hr IV . [id number] [facility] Rx#:[id number] Other: # Voids 1 Weight 47.174 kg PHYSICAL EXAMINATION: GENERAL: The patient is alert and oriented x3, not in any acute distress. Thin built cachectic male HEENT: Pupils are round and equally reacting to light. EOMI. No scleral icterus. No conjunctival pallor. Normocephalic, atraumatic. No pharyngeal erythema. No thyromegaly. CARDIOVASCULAR: S1 and S2 present. No murmurs, rubs, or gallops. PULMONARY: Chest is clear to auscultation, no wheezing or crackles. ABDOMEN: Soft, nontender, nondistended, normoactive bowel sounds. No palpable organomegaly. MUSCULOSKELETAL: No joint swelling or deformity. EXTREMITIES: No cyanosis, clubbing, or pedal edema. NEUROLOGICAL: Gross neurological examination did not reveal any focal deficits. SKIN: No rashes. Results CBC & Chem 7: 11/11/20 20:17 11/11/20 20:17 Labs: Abnormal Lab Results - Last 24 Hours (Table) 11/11/20 11/11/20 11/11/20 Range/Units 20:17 20:17 20:17 RBC 3.43 L (4.30-5.90) m/uL Hgb 10.4 L (13.0-17.5) gm/dL Hct 31.5 L (39.0-53.0) % Plt Count 530 H (150-450) k/uL Neutrophils # 8.2 H (1.3-7.7) k/uL Lymphocytes # 0.9 L (1.0-4.8) k/uL AST 16 L (17-59) U/L Total Protein 6.2 L (6.3-8.2) g/dL Albumin 3.3 L (3.5-5.0) g/dL Amylase <30 L (30-110) U/L Lipase 15 L (23-300) U/L Ur Specific [place] 1.037 H (1.001-1.035) Urine Protein 2+ H (Negative) Urine Ketones Trace H (Negative) Urine Blood Moderate H (Negative) Urine RBC 11 H (0-5) /hpf Hyaline Casts 4 H (0-2) /lpf Urine Mucus Rare H (None) /hpf Thrombosis Risk Factor Assmnt - Choose All That Apply Each Factor Represents 1 point: Abnormal pulmonary function (COPD), Age 41-60 years Each Risk Factor Represents 2 Points: Malignancy Thrombosis Risk Factor Assessment Total Risk Factor Score: 4 Thrombosis Risk Factor Assessment Level: Moderate Risk Assessment and Plan Plan: -Nausea vomiting: Probably secondary to esophagitis and gastritis may be gastroenteritis. Patient was started on Protonix continue with IV fluids gastroenterology will be consulted for possible upper GI endoscopy -Possibility of left-sided colitis for which I'll start him on Rocephin and metronidazole. His diarrhea resolved at this time -COPD with without any significant exacerbation patient has minimal wheeze will start him on inhaled steroids inhalational treatments. -Continued nicotine use: Counseling was provided -History of non-small cell lung cancer in remission for many years. -Recent weight loss seconded to poor by mouth intake secondary to nausea vomiting. -Recent bronchitis for which patient is on levofloxacin which were discontinued as patient is going to be on Rocephin and metronidazole. -Cachexia due to smoking and poor by mouth intake -DVT prophylaxis with Lovenox
[2020-11-12] MEDS ORDERED: bisacodyL 5 MG TABLET.DR PO ONE (17:00)
--- NOTE | 2020-11-12 18:02 | P.CONS ---
History of Present Illness - Reason for Consult Consult date: 11/12/20 GI bleed Requesting physician: Kyler Palomino - Chief Complaint nausea, vomiting, diarrhea - History of Present Illness 59-year-old male with multiple medical comorbidities including a history of lung cancer status post lobectomy in the past, emphysema, chronic back pain with multiple back surgeries in the past she presented to the hospital with a constellation of symptoms including nausea, vomiting and diarrhea. Patient reports symptoms which have been present for approximately 3 weeks. He reports episodes of nausea and vomiting occurring almost daily. He reports the sensation of a sick feeling in his abdomen worse with eating and associated nausea. Patient has also been having loose bowel movements. He reports his bowel movements have been occurring every 2-3 days. He has seen some bright red blood per rectum in association with these loose bowel movements. He believes it is been a long time, likely over 10 years since his last colonoscopy and he denies any prior EGD in the past. No family history of inflammatory bowel disease or colon cancer. Laboratory evaluation significant for WBC 9.7, hemoglobin 10.4, platelet count 530,000 with computed tomography scan of the abdomen showing left-sided colonic wall thickening with no bowel obstruction noted and a hydropic gallbladder seen. Review of Systems REVIEW OF SYSTEMS: CONSTITUTIONAL: Denies any fevers, chills, weight change or fatigue. CARDIOVASCULAR: Denies any chest pain, palpitations high or low blood pressures RESPIRATORY: Denies any shortness of breath, hemoptysis or cough. GENITOURINARY: No dysuria or hematuria. MUSCULOSKELETAL: No weakness reported. SKIN: Denies any new rashes or lesions, jaundice or pallor. PSYCHIATRIC: Denies any depression or anxiety. NEUROLOGY: Denies headache, denies any new focal deficits. EARS/NOSE/THROAT: No recent hearing change, congestion, nasal discharge or sore throat. EYES: No pain in eyes, discharge or change in vision. GASTROINTESTINAL: As per HPI. Past Medical History Past Medical History: Cancer Additional Past Medical History / Comment(s): history of non-small cell lung cancer with a previous right upper lobe resection, advanced emphysema, chest deformity related to previous thoracic surgery, chronic pain Involving the back in addition to brachial plexus disorder related to previous thoracic surgery. History of Any Multi-Drug Resistant Organisms: None Reported Additional Past Surgical History / Comment(s): right upper lobectomy d/t CA, multiple surgeries on right hand d/t accident Past Psychological History: No Psychological Hx Reported Smoking Status: Current every day smoker Past Alcohol Use History: None Reported Past Drug Use History: None Reported Additional History: family history: Reviewed with the patient noncontributory to current medical presentation Medications and Allergies Home Medications Medication Instructions Recorded Confirmed Type Gabapentin [Neurontin] 300 mg PO TID PRN 03/26/19 11/11/20 History Morphine Sulfate ER [Ms Contin] 30 mg PO BID PRN 03/26/19 11/11/20 History Morphine Sulfate [Ms Contin] 60 mg PO BID 03/26/19 11/11/20 History oxyCODONE-APAP 10-325MG [Percocet 1 tab PO BID PRN 03/26/19 11/11/20 History 10-325 mg] Aspirin/Acetaminophen/Caffeine 2 tab PO DAILY PRN 11/11/20 11/11/20 History [Excedrin Migraine Caplet] Baclofen [Lioresal] 10 mg PO TID PRN 11/11/20 11/11/20 History Fluticasone/Umeclidin/Vilanter 1 puff INHALATION RT-DAILY 11/11/20 11/11/20 History [Trelegy Ellipta 100-62.5-25] Ipratropium-Albuterol Nebulize 3 ml INHALATION RT-QID PRN 11/11/20 11/11/20 History [Duoneb 0.5 mg-3 mg/3 ml Soln] Levofloxacin [Levaquin] 500 mg PO DAILY 11/11/20 11/11/20 History Allergies Allergy/AdvReac Type Severity Reaction Status Date / Time No Known Allergies Allergy Verified 11/11/20 20:43 Physical Exam Vitals: Vital Signs Temp Pulse Pulse Resp BP BP Pulse Ox 11/12/20 12:39 98.3 F 52 L 15 124/73 97 11/12/20 05:03 98.2 F 57 L 14 127/70 96 11/12/20 01:05 97.9 F 57 L 14 160/78 96 11/11/20 23:12 64 18 123/75 98 11/11/20 21:45 98.3 F 65 18 112/72 90 L 11/11/20 19:05 98.3 F 79 20 137/73 96 Intake and Output 11/12/20 11/12/20 11/12/20 06:59 14:59 22:59 Intake Total 900 Balance 900 Intake: Intake, IV Titration 900 Amount Sodium Chloride 0.9% 1, 900 000 ml @ 75 mls/hr IV . [id number] COUNT INCLUDES THE [facility] Rx#:[id number] Other: # Voids 1 Weight 47.174 kg On physical examination, patient appears comfortable in no apparent distress. HEAD: Normocephalic, atraumatic. EYES: No scleral icterus. No conjunctival injection. MOUTH: No lesions, tongue midline. NECK: Trachea midline, no gross abnormalities. CHEST: decreased air entry in all lung mendes. HEART: S1-S2 appreciated. ABDOMEN: Soft, thin and nontender. Bowel sounds are positive. No organomegaly. No guarding or rigidity. EXTREMITIES: No pedal edema. SKIN: No rashes, no jaundice. NEUROLOGIC: Alert and oriented x3. No focal deficits. Results CBC & Chem 7: 11/11/20 20:17 11/11/20 20:17 Labs: Abnormal Lab Results - Last 24 Hours (Table) 11/11/20 11/11/20 11/11/20 Range/Units 20:17 20:17 20:17 RBC 3.43 L (4.30-5.90) m/uL Hgb 10.4 L (13.0-17.5) gm/dL Hct 31.5 L (39.0-53.0) % Plt Count 530 H (150-450) k/uL Neutrophils # 8.2 H (1.3-7.7) k/uL Lymphocytes # 0.9 L (1.0-4.8) k/uL AST 16 L (17-59) U/L Total Protein 6.2 L (6.3-8.2) g/dL Albumin 3.3 L (3.5-5.0) g/dL Amylase <30 L (30-110) U/L Lipase 15 L (23-300) U/L Ur Specific [place] 1.037 H (1.001-1.035) Urine Protein 2+ H (Negative) Urine Ketones Trace H (Negative) Urine Blood Moderate H (Negative) Urine RBC 11 H (0-5) /hpf Hyaline Casts 4 H (0-2) /lpf Urine Mucus Rare H (None) /hpf CT scan - abdomen: report reviewed (computed tomography scan of the abdomen showing left-sided colonic wall thickening with no bowel obstruction noted and a hydropic gallbladder seen.) Assessment and Plan (1) Colitis Narrative/Plan: 59-year-old male with multiple medical comorbidities presenting to the hospital for evaluation of nausea and vomiting, loose stool and intermittent bright red blood per rectum occurring over the past 3 weeks. Patient reports loose bowel movements every few days with associated nausea, episodes of vomiting and decreased oral intake. Computed tomography scan of the abdomen with findings of left colonic wall thickening suggestive of colitis. Patient is a remote history of colonoscopy over 10 years ago. He denies any family history of colon cancer or inflammatory bowel disease. Currently on broad-spectrum antibiotic therapy. Unclear etiology, differential includes inflammatory process, ischemic colitis, infectious etiology or other pathology with plan for EGD and colonoscopy for further evaluation. Current Visit: Yes Status: Acute Code(s): K52.9 - NONINFECTIVE GASTROENTERITIS AND COLITIS, UNSPECIFIED SNOMED Code(s): 83549874 (2) Nausea and vomiting Current Visit: Yes Status: Acute Code(s): R11.2 - NAUSEA WITH VOMITING, UNSPECIFIED SNOMED Code(s): 46545286 (3) GI bleeding Current Visit: Yes Status: Acute Code(s): K92.2 - GASTROINTESTINAL HEMORRHAGE, UNSPECIFIED SNOMED Code(s): 19847558 Plan: supportive care Clear liquid diet Bowel prep ordered Extensive discussion with the patient regarding risks, benefits, possible complications of EGD and colonoscopy with all of the patient's questions answered to his satisfaction, plan is for endoscopic evaluation tomorrow Continue broad-spectrum antibiotic therapy Continue other medical management Thank you for allowing us to participate in the care of the patient
[2020-11-12] MEDS: PANTOPRAZOLE 40 MG/10 ML VIAL IVP SCH (20:21)
[2020-11-12] MEDS: MORPHINE SULFATE ER 60 MG TABLET PO SCH (20:24)
[2020-11-12] MEDS: BUDESONIDE 0.5 MG/2 ML NEBU INHALATION SCH (20:25)
[2020-11-13 06:12] LABS: HCT 31.4 % (39.0-53.0); HGB 9.6 gm/dL (13.0-17.5); Hypochromasia Slight; MCH 28.7 pg (25.0-35.0); MCHC 30.5 g/dL (31.0-37.0); MCV 94.1 fL (80.0-100.0); Mean Platelet Volume 7.2; Platelet Count 487 k/uL (150-450); RBC 3.34 m/uL (4.30-5.90); RDW 14.4 % (11.5-15.5); WBC 5.3 k/uL (3.8-10.6)
[2020-11-13] MEDS: ENOXAPARIN 30 MG/0.3 ML SYRINGE SQ SCH ×2 (07:43→08:55)
[2020-11-13] MEDS: metroNIDAZOLE 500 MG TAB PO SCH ×3 (08:04→21:13)
[2020-11-13] MEDS: MORPHINE SULFATE ER 60 MG TABLET PO SCH ×2 (08:04→21:12)
[2020-11-13] MEDS: PANTOPRAZOLE 40 MG/10 ML VIAL IVP SCH ×2 (08:05→21:13)
[2020-11-13] MEDS: IPRATROPIUM 0.5 MG/2.5 ML NEBU INHALATION SCH ×4 (08:07→21:03)
[2020-11-13] MEDS: BUDESONIDE 0.5 MG/2 ML NEBU INHALATION SCH ×2 (08:08→21:03)
[2020-11-13 09:24] LABS: African American GFR (CKD) 113.3 (60.0-200.0); Anion Gap 11.4 mmol/L (4.00-12.00); BUN/Creat Ratio 16.25 Ratio (12.00-20.00); Calcium 7.9 mg/dL (8.7-10.3); Carbon Dioxide 27.6 mmol/L (21.6-31.8); Non-African American GFR(CKD) 97.8 (60.0-200.0); Potassium 4.1 mmol/L (3.5-5.5)
[2020-11-13] MEDS: SODIUM CHLORIDE 0.9% 1,000 ML IV SCH ×2 (11:27→15:36)
[2020-11-13 14:07] VITALS: BMI 15.7
[2020-11-13] MEDS: NICOTINE 14MG/24HR PATCH TRANSDERM SCH (15:21)
[2020-11-13] MEDS: MORPHINE SULFATE ER 30 MG TABLET PO PRN (16:11)
--- NOTE | 2020-11-13 16:17 | P.PN ---
Subjective Progress Note Date: 11/13/20 Principal diagnosis: GI bleed Yuval is seen and examined lying in bed, he was scheduled for an upper and lower endoscopy today for GI bleed. He was unable to finish his prep yesterday and had his first bowel movement which was completely formed this morning. He denies any abdominal pain, nausea, or vomiting. He does state he is having blood per rectum with bowel movements. Objective - Vital Signs Vital signs: Vital Signs Temp 97.6 F 11/13/20 04:58 Pulse 68 11/13/20 08:23 Resp 16 11/13/20 04:58 BP 138/78 11/13/20 04:58 Pulse Ox 97 11/13/20 04:58 Intake & Output 11/12/20 11/13/20 11/13/20 18:59 06:59 18:59 Intake Total 580 Balance 580 Intake: Oral 580 Other: # Voids 2 2 - Exam General appearance: The patient is alert, oriented, appears in no acute distress. HET: Head is normocephalic and atraumatic. Conjunctiva pink. Sclera anicteric. Neck: Supple without lymphadenopathy. Abdomen: Soft, nontender, nondistended with bowel sounds. No guarding or rigidity. Extremities: Normal skin color and turgor. No pedal edema Skin: No rashes, no jaundice Neurological: No focal deficits. Alert and oriented 3. - Labs CBC & Chem 7: 11/13/20 05:45 11/13/20 05:45 Labs: Abnormal Lab Results - Last 24 Hours (Table) 11/13/20 11/13/20 Range/Units 05:45 05:45 RBC 3.34 L (4.30-5.90) m/uL Hgb 9.6 L (13.0-17.5) gm/dL Hct 31.4 L (39.0-53.0) % MCHC 30.5 L (31.0-37.0) g/dL Plt Count 487 H (150-450) k/uL Calcium 7.9 L (8.7-10.3) mg/dL Assessment and Plan (1) Colitis Narrative/Plan: 59-year-old male with multiple medical comorbidities presenting to the hospital for evaluation of nausea and vomiting, loose stool and intermittent bright red blood per rectum occurring over the past 3 weeks. Patient reports loose bowel movements every few days with associated nausea, episodes of vomiting and decreased oral intake. Computed tomography scan of the abdomen with findings of left colonic wall thickening suggestive of colitis. Patient is a remote history of colonoscopy over 10 years ago. He denies any family history of colon cancer or inflammatory bowel disease. Currently on broad-spectrum antibiotic therapy. Unclear etiology, differential includes inflammatory process, ischemic colitis, infectious etiology or other pathology with plan for EGD and colonoscopy for further evaluation. Current Visit: Yes Status: Acute Code(s): K52.9 - NONINFECTIVE GASTROENTERITIS AND COLITIS, UNSPECIFIED SNOMED Code(s): 01732963 (2) GI bleeding Current Visit: Yes Status: Acute Code(s): K92.2 - GASTROINTESTINAL HE MORRHAGE, UNSPECIFIED SNOMED Code(s): 78462281 (3) Nausea and vomiting Current Visit: Yes Status: Acute Code(s): R11.2 - NAUSEA WITH VOMITING, UNSPECIFIED SNOMED Code(s): 89015699 Plan: supportive care Clear liquid diet, nothing by mouth after midnight Continue Bowel prep Extensive discussion with the patient regarding risks, benefits, possible complications of EGD and colonoscopy with all of the patient's questions answered to his satisfaction, plan is for endoscopic evaluation tomorrow Continue broad-spectrum antibiotic therapy Continue other medical management Thank you for this consultation, we will continue to follow Dr. Jean Paul Yan I agree with the dictator's note, documented as a scribe by Vanessa Cook.
[2020-11-13] MEDS: ONDANSETRON 4 MG/2 ML VIAL IVP PRN (18:41)
--- NOTE | 2020-11-13 22:21 | P.PN ---
Subjective Progress Note Date: 11/13/20 Pt was not able to complete his bowel prep yesterday and endoscopy rescheduled. He continues to note blood tinged BM, denies abdominal pain, dizziness, shortness of breath. Hgb 9.6 today. Objective - Vital Signs Vital signs: Vital Signs Temp 98.7 F 11/13/20 20:14 Pulse 76 11/13/20 21:18 Resp 16 11/13/20 20:14 BP 160/84 11/13/20 20:14 Pulse Ox 96 11/13/20 20:14 Intake & Output 11/13/20 11/13/20 11/14/20 06:59 18:59 06:59 Intake Total 900 Balance 900 Weight 47.174 kg Intake: Intake, IV Titration 900 Amount Sodium Chloride 0.9% 1, 900 000 ml @ 75 mls/hr IV . [id number] [facility] Rx#:[id number] Other: # Voids 2 1 # Bowel Movements 1 - Exam Gen: well developed, well nourished, NAD CV: RRR, no murmur Lungs: clear throughout Abd: soft, nontender - Labs CBC & Chem 7: 11/13/20 05:45 11/13/20 05:45 Labs: Abnormal Lab Results - Last 24 Hours (Table) 11/13/20 11/13/20 Range/Units 05:45 05:45 RBC 3.34 L (4.30-5.90) m/uL Hgb 9.6 L (13.0-17.5) gm/dL Hct 31.4 L (39.0-53.0) % MCHC 30.5 L (31.0-37.0) g/dL Plt Count 487 H (150-450) k/uL Calcium 7.9 L (8.7-10.3) mg/dL Assessment and Plan (1) GI bleeding Current Visit: Yes Status: Acute Code(s): K92.2 - GASTROINTESTINAL HEMORRHAGE, UNSPECIFIED SNOMED Code(s): 50120040 (2) History of hematemesis Current Visit: No Status: Acute Code(s): Z87.19 - PERSONAL HISTORY OF OTHER DISEASES OF THE DIGESTIVE SYSTEM SNOMED Code(s): 226396175 (3) Hx of cancer of lung Current Visit: No Status: Acute Code(s): Z85.118 - PERSONAL HISTORY OF MALIGNANT NEOPLASM OF BRONCHUS AND LUNG SNOMED Code(s): 387006895 Plan: Continue with IV protonix, rocephin. GI following. Complete bowel prep and plan for endoscopy. Monitor hemoglobin
[2020-11-14] MEDS: SODIUM CHLORIDE 0.9% 1,000 ML IV SCH (02:39)
[2020-11-14] MEDS: oxyCODONE-APAP 10-325MG 1 EACH TAB PO PRN (05:58)
[2020-11-14] MEDS: MORPHINE SULFATE ER 30 MG TABLET PO PRN (05:59)
[2020-11-14] MEDS ORDERED: MAGNESIUM CITRATE 296 ML BOTTLE PO ONE (06:00)
[2020-11-14 06:35] LABS: Basophils % (A) 1 %; Eosinophils # (A) 0.1 k/uL (0-0.7); Eosinophils % (A) 2 %; HCT 31.5 % (39.0-53.0); HGB 9.9 gm/dL (13.0-17.5); Lymphocytes # (A) 1.1 k/uL (1.0-4.8); Lymphocytes % (A) 22 %; MCH 28.8 pg (25.0-35.0); MCHC 31.2 g/dL (31.0-37.0); MCV 92.1 fL (80.0-100.0); Mean Platelet Volume 7.2; Monocytes # (A) 0.3 k/uL (0-1.0); Monocytes % (A) 7 %; Neutrophils # (A) 3.2 k/uL (1.3-7.7); Neutrophils % (A) 66 %; Platelet Count 544 k/uL (150-450); RBC 3.43 m/uL (4.30-5.90); RDW 14.1 % (11.5-15.5); WBC 4.8 k/uL (3.8-10.6)
[2020-11-14] MEDS ORDERED: LACTATED RINGERS 1,000 ML IV SCH (07:46)
[2020-11-14] MEDS: ENOXAPARIN 30 MG/0.3 ML SYRINGE SQ SCH (08:07)
[2020-11-14] MEDS: PANTOPRAZOLE 40 MG/10 ML VIAL IVP SCH (08:10)
[2020-11-14] MEDS: MORPHINE SULFATE ER 60 MG TABLET PO SCH (08:10)
[2020-11-14] MEDS: NICOTINE 14MG/24HR PATCH TRANSDERM SCH (08:10)
[2020-11-14] MEDS: metroNIDAZOLE 500 MG TAB PO SCH (08:11)
[2020-11-14] MEDS: IPRATROPIUM 0.5 MG/2.5 ML NEBU INHALATION SCH ×3 (08:32→15:19)
[2020-11-14] MEDS: BUDESONIDE 0.5 MG/2 ML NEBU INHALATION SCH (08:32)
[2020-11-14] MEDS ORDERED: IV FLUID CONTINUATION 1,000 ML IV ONE (11:26)
[2020-11-14] MEDS ORDERED: LIDOCAINE 1% INJ 10MG/ML (20 ML MDV) ONE (11:27)
[2020-11-14] MEDS ORDERED: PROPOFOL 10 MG/ML 20 ML VIAL IV ONE (11:27)
[2020-11-14] MEDS ORDERED: SODIUM CHLORIDE 0.9% 500 ML 500 ML IV ONE (11:48)
--- NOTE | 2020-11-14 12:21 | P.PCN ---
Date of Procedure: 11/14/20 Description of Procedure: Brief history: 59-year-old male with multiple medical comorbidities including a history of lung cancer status post lobectomy in the past, emphysema, chronic back pain with multiple back surgeries in the past she presented to the hospital with a constellation of symptoms including nausea, vomiting and diarrhea. Patient reports symptoms which have been present for approximately 3 weeks. He reports episodes of nausea and vomiting occurring almost daily. He reports the sensation of a sick feeling in his abdomen worse with eating and associated nausea. Patient has also been having loose bowel movements. He reports his bowel movements have been occurring every 2-3 days. He has seen some bright red blood per rectum in association with these loose bowel movements. He believes it is been a long time, likely over 10 years since his last colonoscopy and he denies any prior EGD in the past. No family history of inflammatory bowel disease or colon cancer. Computed tomography scan of the abdomen showing left- sided colonic wall thickening with no bowel obstruction noted and a hydropic gallbladder seen. Procedure performed: Esophagogastroduodenoscopy with biopsy Colonoscopy with polypectomy and biopsy Estimated blood loss: Minimal. Preoperative diagnosis: GI bleed, diarrhea, abnormal computed tomography scan abdomen Anesthesia: MAC Procedure: After informed consent was obtained from the patient was brought into the endoscopy unit and IV sedation was administered by anesthesia under continuous monitoring. Initially upper endoscopy was done. The Olympus GF 190 video endoscope was inserted into the mouth and esophagus intubated without any difficulty and was gradually advanced into the stomach and duodenum and carefully examined. The bulb and second part of the duodenum appeared normal, with biopsies taken. The scope was then withdrawn into the stomach adequately insufflated with air and upon careful examination the antrum and body, cardia and fundus appeared normal, except for some mild scattered erythema in the antrum and body suggestive of mild gastritis with biopsies taken. The scope was then withdrawn into the esophagus. The GE junction was located at 36 cm to the incisors, with 3 cm hiatal hernia noted. Biopsies of the lower esophagus taken. It appeared regular with no erythema erosions or ulcerations. Rest of the esophagus appeared normal. Patient tolerated the procedure well. At this time the patient continued to remain sedation. Initial digital rectal examination was normal. Olympus CF 190 video colonoscope was then inserted into the rectum and gradually advanced to the cecum without any difficulty. Careful examination was performed as the scope was gradually being withdrawn. The prep was fair with a large amount of liquid stool throughout the colon. The cecum, ascending colon, transverse colon, descending colon, sigmoid colon and rectum appeared normal, with no findings consistent with CT findings of colitiswith random biopsies of the left colon for evaluation of symptoms diarrhea. Some mild left colonic diverticulosis noted. A small transverse colon polyp was removed with cold forcep polypectomy measuring 1-2 mm in size. Retroflexion was performed in the rectum and no lesions were noted. Patient tolerated the procedure well. Impression: 1. Mild gastritis. Moderate size hiatal hernia. Biopsies of the duodenum, antrum body and lower esophagus. 2. Fair prep. Diminutive transverse colon removed with cold forcep polypectomy. Mild left colonic diverticulosis. Normal-appearing colon from rectum to cecum although complete visualization prohibited by fair prep. Recommendations: Findings of this examination were discussed with the patient as well as the medical team. Okay for diet. Okay to resume medications. Await pathology from biopsies. Recommend repeat colonoscopy in one year due to fair prep if medically stable at that time and stable from a pulmonary perspective.
[2020-11-14 13:24] VITALS: BP 156/84; PULSE 58; RESP 16; TEMP 97.4
--- NOTE | 2020-11-14 13:54 | P.DS ---
Providers Date of admission: 11/11/20 23:49 Attending physician: Terrance Murdock MD Consults: 11/11/20 22:28 Consult Physician Urgent Consulting Provider: Carlos Alberto Zuluaga Consult Reason/Comments: GI bleed Do you want consulting provider notified?: Yes Primary care physician: Cindy Murdock [facility] Course: Final Diagnoses: (1) GI bleeding, status post EGD and colonoscopy reporting mild gastritis, moderate size hiatal hernia, biopsies obtained. Mild left colonic diverticulosis. Current Visit: Yes Status: Acute Code(s): K92.2 - GASTROINTESTINAL HEMORRHAGE, UNSPECIFIED SNOMED Code(s): 95123512 (2) History of hematemesis Current Visit: No Status: Acute Code(s): Z87.19 - PERSONAL HISTORY OF OTHER DISEASES OF THE DIGESTIVE SYSTEM SNOMED Code(s): 127446048 (3) Hx of cancer of lung Current Visit: No Status: Acute Code(s): Z85.118 - PERSONAL HISTORY OF MALIGNANT NEOPLASM OF BRONCHUS AND LUNG SNOMED Code(s): 965241473 Hospital course: This a 59-year-old gentleman who presented to the ER with initially 3 weeks and nausea vomiting and diarrhea and multiple other medical issues. Evaluated by GI. Maintained on PPI, antibiotics .Completed both EGD and colonoscopy reporting mild gastritis, moderate size hiatal hernia with biop sies of duodenum entry on body and lower esophagus obtained. Mild left colonic diverticulosis, normal-appearing colon from rectum to cecum complete visualization prohibited by fair prep. Cleared for discharge by GI with no further antibiotics recommended. Patient will be discharged home today in a stable condition with guarded prognosis. The impression and plan of care has been dictated as directed. : I performed a history and examination of this patient, discussed the same with the dictator. I agree with the dictator's note ,documented as a scribe. Any additional findings or plans will be noted. Patient Condition at Discharge: Stable Plan - Discharge Summary Discharge Rx Participant: No New Discharge Prescriptions: New Nicotine 14Mg/24Hr Patch [Habitrol] 1 patch TRANSDERM DAILY #30 patch Pantoprazole Sodium [Protonix] 40 mg PO DAILY #30 tablet. Continue oxyCODONE-APAP 10-325MG [Percocet 10-325 mg] 1 tab PO BID PRN PRN Reason: Breakthrough Pain Morphine Sulfate [Ms Contin] 60 mg PO BID Morphine Sulfate ER [Ms Contin] 30 mg PO BID PRN PRN Reason: Pain Gabapentin [Neurontin] 300 mg PO TID PRN PRN Reason: Pain Baclofen [Lioresal] 10 mg PO TID PRN PRN Reason: Muscle Spasm Aspirin/Acetaminophen/Caffeine [Excedrin Migraine Caplet] 2 tab PO DAILY PRN PRN Reason: Migraine Headache Fluticasone/Umeclidin/Vilanter [Trelegy Ellipta 100-62.5-25] 1 puff INHALATION RT-DAILY Levofloxacin [Levaquin] 500 mg PO DAILY Ipratropium-Albuterol Nebulize [Duoneb 0.5 mg-3 mg/3 ml Soln] 3 ml INHALATION RT-QID PRN PRN Reason: Shortness Of Breath Discharge Medication List Gabapentin [Neurontin] 300 mg PO TID PRN 03/26/19 [History] Morphine Sulfate ER [Ms Contin] 30 mg PO BID PRN 03/26/19 [History] Morphine Sulfate [Ms Contin] 60 mg PO BID 03/26/19 [History] oxyCODONE-APAP 10-325MG [Percocet 10-325 mg] 1 tab PO BID PRN 03/26/19 [History] Aspirin/Acetaminophen/Caffeine [Excedrin Migraine Caplet] 2 tab PO DAILY PRN 11/11/20 [History] Baclofen [Lioresal] 10 mg PO TID PRN 11/11/20 [History] Fluticasone/Umeclidin/Vilanter [Trelegy Ellipta 100-62.5-25] 1 puff INHALATION RT-DAILY 11/11/20 [History] Ipratropium-Albuterol Nebulize [Duoneb 0.5 mg-3 mg/3 ml Soln] 3 ml INHALATION RT-QID PRN 11/11/20 [History] Levofloxacin [Levaquin] 500 mg PO DAILY 11/11/20 [History] Nicotine 14Mg/24Hr Patch [Habitrol] 1 patch TRANSDERM DAILY #30 patch 11/14/20 [Rx] Pantoprazole Sodium [Protonix] 40 mg PO DAILY #30 tablet. 11/14/20 [Rx] Follow up Appointment(s)/Referral(s): Terrance Murdock MD [STAFF PHYSICIAN] - 1 Week Carlos Alberto Zuluaga MD [STAFF PHYSICIAN] - 2 Weeks Activity/Diet/Wound Care/Special Instructions: Pending and final DC recommendations clearance from GI
== END 2020-11-14 15:26 | disposition home or self-care (01) ==
LOC: EC 19:03 → 5NMEDONC 23:49
PROVIDERS: ADMIT Family Medicine; ATTEND Family Medicine
DX: K57.30 Diverticulosis of large intestine without perforation or abscess without bleeding (principal); K29.70 Gastritis, unspecified, without bleeding; K20.90 Esophagitis, unspecified without bleeding; K92.2 Gastrointestinal hemorrhage, unspecified; Z20.822 Contact with and (suspected) exposure to COVID-19; R63.0 Anorexia; R64 Cachexia; J43.9 Emphysema, unspecified; J40 Bronchitis, not specified as acute or chronic; K44.9 Diaphragmatic hernia without obstruction or gangrene; K63.5 Polyp of colon; K64.9 Unspecified hemorrhoids; F17.200 Nicotine dependence, unspecified, uncomplicated; Z79.899 Other long term (current) drug therapy; Z90.2 Acquired absence of lung [part of]; Z85.118 Personal history of other malignant neoplasm of bronchus and lung
CPT/HCPCS: 43239; 45380; 96376; 96361 ×3; 96366; 96367; 96372; 96375 ×2; 96365; 99285; 36415; 94640 ×4; 93005; 80053; 80048; 82150; 83605; 83690; 84484; 85025 ×2; 85027; 85610; 85730; 81001; 87635; 71046; 74176; G0378 ×3; S4990 ×2; J2765; J2405 ×2; J0696 ×3; J2001; J1650; J2704; C9113 ×3; 88305; 88312

== ENCOUNTER 2023-05-12 11:19 | Inpatient (IN) | payer MEDICARE ==
[2023-05-12] MEDS ORDERED: NITROGLYCERIN SL TABS 0.4 MG TAB SUBLINGUAL STA (11:41)
[2023-05-12] MEDS ORDERED: ASPIRIN 81 MG PO STA (11:41)
--- NOTE | 2023-05-12 11:43 | ED ---
General Adult HPI - General Chief complaint: Chest Pain Stated complaint: Chest Pain, low O2 Time Seen by Provider: 05/12/23 11:27 Source: patient, family, RN notes reviewed Mode of arrival: ambulatory Limitations: no limitations - History of Present Illness Initial comments: Patient is a pleasant 62-year-old male presenting to the emergency department with concern with chest discomfort. Onset of symptoms was around 4 days ago. Discomfort is left chest. Discomfort feels a pressure. Discomfort has been coming and going. Discomfort is worse with exertion. Patient does have associated dyspnea. Patient is having some leg swelling. No calf pain. Dyspnea has been constant. No cough. No nausea. No diaphoresis. - Related Data Home Medications Medication Instructions Recorded Confirmed Gabapentin [Neurontin] 300 mg PO TID PRN 03/26/19 11/11/20 Morphine Sulfate ER [Ms Contin] 30 mg PO BID PRN 03/26/19 11/11/20 Morphine Sulfate [Ms Contin] 60 mg PO BID 03/26/19 11/11/20 oxyCODONE-APAP 10-325MG [Percocet 1 tab PO BID PRN 03/26/19 11/11/20 10-325 mg] Aspirin/Acetaminophen/Caffeine 2 tab PO DAILY PRN 11/11/20 11/11/20 [Excedrin Migraine Caplet] Baclofen [Lioresal] 10 mg PO TID PRN 11/11/20 11/11/20 Fluticasone/Umeclidin/Vilanter 1 puff INHALATION RT-DAILY 11/11/20 11/11/20 [Trelegy Ellipta 100-62.5-25] Ipratropium-Albuterol Nebulize 3 ml INHALATION RT-QID PRN 11/11/20 11/11/20 [Duoneb 0.5 mg-3 mg/3 ml Soln] Levofloxacin [Levaquin] 500 mg PO DAILY 11/11/20 11/11/20 Previous Rx's Medication Instructions Recorded Nicotine 14Mg/24Hr Patch [Habitrol] 1 patch TRANSDERM DAILY #30 patch 11/14/20 Pantoprazole Sodium [Protonix] 40 mg PO DAILY #30 tablet. 11/14/20 Allergies Allergy/AdvReac Type Severity Reaction Status Date / Time No Known Allergies Allergy Verified 05/12/23 12:05 Review of Systems ROS Statement: Those systems with pertinent positive or pertinent negative responses have been documented in the HPI. ROS Other: All systems not noted in ROS Statement are negative. Constitutional: Denies: fever Eyes: Denies: eye pain ENT: Denies: ear pain Respiratory: Reports: as per HPI, dyspnea Cardiovascular: Reports: as per HPI, chest pain Past Medical History Past Medical History: Cancer Additional Past Medical History / Comment(s): history of non-small cell lung cancer with a previous right upper lobe resection, advanced emphysema, chest deformity related to previous thoracic surgery, chronic pain Involving the back in addition to brachial plexus disorder related to previous thoracic surgery. History of Any Multi-Drug Resistant Organisms: None Reported Additional Past Surgical History / Comment(s): right upper lobectomy d/t CA, multiple surgeries on right hand d/t accident Past Psychological History: No Psychological Hx Reported Smoking Status: Current every day smoker Past Alcohol Use History: None Reported Past Drug Use History: None Reported General Exam Limitations: no limitations General appearance: alert, in no apparent distress Eye exam: Present: normal appearance Neck exam: Present: normal inspection Respiratory exam: Present: rhonchi, accessory muscle use Cardiovascular Exam: Present: regular rate, normal rhythm Expanded Peripheral pulses: 2+: Radial (R), Radial (L), Dorsalis Pedis (R), Dorsalis Pedis (L) GI/Abdominal exam: Present: soft. Absent: tenderness Extremities exam: Present: pedal edema (Trace bilateral). Absent: calf tenderness Back exam: Present: normal inspection Neurological exam: Present: alert Psychiatric exam: Present: normal affect, normal mood Skin exam: Present: normal color Course Vital Signs 05/12/23 05/12/23 11:23 11:55 Temperature 98.6 F Pulse Rate 83 70 Respiratory 22 18 Rate Blood Pressure 92/57 109/72 O2 Sat by Pulse 79 L 91 L Oximetry EKG Findings - EKG Results: EKG: interpreted by ERMD (Diffuse mild ST change.), sinus rhythm, normal axis, normal QRS Medical Decision Making - Medical Decision Making Was pt. sent in by a medical professional or institution (, PA, SHREDDING MACHINE TENDER, urgent care, hospital, or residential...) When possible be specific @ -No Did you speak to anyone other than the patient for history (EMS, parent, family, police, friend...)? What history was obtained from this source @ - is present and helps provide history including previous history of pain stimuli Did you review nursing and triage notes (agree or disagree)? Why? @ -I reviewed and agree with nursing and triage notes Were old charts reviewed (outside hosp., previous admission, EMS record, old EKG, old radiological studies, urgent care reports/EKG's, residential records)? Report findings @ -Previous EKGs reviewed Differential Diagnosis (chest pain, altered mental status, abdominal pain women, abdominal pain men, vaginal bleeding, weakness, fever, dyspnea, syncope, headache, dizziness, GI bleed, back pain, seizure, CVA, palpatations, mental health, musculoskeletal)? @ -Differential Chest Pain: Stable Angina, Unstable Angina, STEMI, NSTEMI Aortic Dissection, Pneumothorax, Musculoskeletal, Esophageal Spasm GERD, Cholecystitis, Pancreatitis, Zoster, this is not meant to be an all-inclusive list. EKG interpreted by me (3pts min.). @ -As above X-rays interpreted by me (1pt min.). @ -Chest x-ray interpreted by myself shows postoperative changes. CT interpreted by me (1pt min.). @ -None done U/S interpreted by me (1pt. min.). @ -None done What testing was considered but not performed or refused? (CT, X-rays, U/S, labs)? Why? @ -None What meds were considered but not given or refused? Why? @ -None Did you discuss the management of the patient with other professionals (professionals i.e. , PA, SHREDDING MACHINE TENDER, lab, RT, psych nurse, oncology social work, event staff, teacher, disability insurance hearing officer, case assembler)? Give summary @ -Case was discussed with Dr. Molina who also has concerns with EKG. He will take patient to Guest Service Manager. STEMI is called at noon. Was smoking cessation discussed for >3mins.? @ -No Was critical care preformed (if so, how long)? @ -31 minutes critical care time Were there social determinants of health that impacted care today? How? (Homelessness, low income, unemployed, alcoholism, drug addiction, lorenzo sportation, low edu. Level, literacy, decrease access to med. care, snf, rehab)? @ -No Was there de-escalation of care discussed even if they declined (Discuss DNR or withdrawal of care, Hospice)? DNR status @ -No What co-morbidities impacted this encounter? (DM, HTN, Smoking, COPD, CAD, Cancer, CVA, ARF, Chemo, Hep., AIDS, mental health diagnosis, sleep apnea, morbid obesity)? @ -None Was patient admitted / discharged? Hospital course, mention meds given and route, prescriptions, significant lab abnormalities, going to OR and other pertinent info. @ -Patient will be admitted. Dr. Murdock has also been paged for admission. will go to [facility] Service [facility] secondary to chest pain with EKG changes. Undiagnosed new problem with uncertain prognosis? @ -No Drug Therapy requiring intensive monitoring for toxicity (Heparin, Nitro, Insulin, Cardizem)? @ -No Were any procedures done? @ -No Diagnosis/symptom? @ -STEMI Acute, or Chronic, or Acute on Chronic? @ -Acute Uncomplicated (without systemic symptoms) or Complicated (systemic symptoms)? @ -Complicated with dyspnea and tach round of pulmonary disease. Side effects of treatment? @ -No Exacerbation, Progression, or Severe Exacerbation? @ -No Poses a threat to life or bodily function? How? (Chest pain, [place], [place], pneumonia, PE, COPD, DKA, ARF, appy, cholecystitis, CVA, Diverticulitis, Homicidal, Suicidal, threat to staff... and all critical care pts) @ -Potential threat to life and cardiac function. Critical Care Time Critical Care Time: Yes Total Critical Care Time: 31 Disposition Clinical Impression: ST elevation myocardial infarction (STEMI) Disposition: ADMITTED IP TO THIS HOSP Condition: Serious Is patient prescribed a controlled substance at d/c from ED?: No Referrals: Terrance Murdock MD [Primary Care Provider] - 1-2 days Time of Disposition: 12:01
[2023-05-12] MEDS ORDERED: HEPARIN SODIUM 1,000 UN/ML (10ML VL) IV ONE ×2 (12:03→12:43)
[2023-05-12] MEDS ORDERED: ATORVASTATIN 40 MG TAB PO STA (12:03)
[2023-05-12] MEDS ORDERED: HEPARIN SODIUM 1,000 UN/ML (10ML VL) IV PRN (12:03)
--- NOTE | 2023-05-12 12:09 | XR ---
EXAMINATION TYPE: XR chest 1V DATE OF EXAM: 05/12/2023 HISTORY: Shortness of breath. COMPARISON: 11/11/2020 TECHNIQUE: Single view of the chest is submitted. FINDINGS: Right-sided chronic parenchymal change and postoperative changes with diminution of the right lung an d hyperinflation of the left lung as seen previously. No new infiltrates or masses appreciated. The heart is stable. Hilar and mediastinal structures are within normal limits. Degenerative changes are seen of the dorsal spine. IMPRESSION: 1. Chronic changes without evidence for acute pulmonary disease.
[2023-05-12 12:14] LABS: Basophils % (A) 0 %; Eosinophils # (A) 0.1 k/uL (0-0.7); Eosinophils % (A) 1 %; HGB 11.9 gm/dL (13.0-17.5); Lymphocytes # (A) 1.4 k/uL (1.0-4.8); Lymphocytes % (A) 15 %; MCH 30.9 pg (25.0-35.0); MCHC 31.3 g/dL (31.0-37.0); MCV 98.8 fL (80.0-100.0); Mean Platelet Volume 8.1; Monocytes # (A) 0.6 k/uL (0-1.0); Monocytes % (A) 6 %; Neutrophils # (A) 7.2 k/uL (1.3-7.7); Neutrophils % (A) 75 %; Platelet Count 356 k/uL (150-450); RBC 3.84 m/uL (4.30-5.90); RDW 14.4 % (11.5-15.5); WBC 9.5 k/uL (3.8-10.6)
[2023-05-12] MEDS ORDERED: HEPARIN SOD,PORK IN 0.45% NACL 25,000 UNIT in 0.45% NACL 1 250ML.BAG IV SCH (12:15)
[2023-05-12 12:17] LABS: ALT 51 U/L (4-49); AST 53 U/L (17-59); African American GFR (CKD) >90 (>60 ml/min/1.73 sqM); Albumin 3.1 g/dL (3.5-5.0); Alkaline Phosphatase 91 U/L (38-126); Anion Gap 7 mmol/L; Blood Urea Nitrogen 35 mg/dL (9-20); Calcium 8.7 mg/dL (8.4-10.2); Carbon Dioxide 32 mmol/L (22-30); Chloride 98 mmol/L (98-107); Glucose 79 mg/dL (74-99); Magnesium 1.6 mg/dL (1.6-2.3); Non-African American GFR(CKD) >90 (>60 ml/min/1.73 sqM); Potassium 4.5 mmol/L (3.5-5.1); Prothrombin Time 10.7 sec (10.0-12.5); Sodium 137 mmol/L (137-145); Total Bilirubin 0.4 mg/dL (0.2-1.3); Total Protein 6.1 g/dL (6.3-8.2)
[2023-05-12] MEDS ORDERED: MIDAZOLAM 2 MG/2 ML VIAL IVP ONE (12:23)
[2023-05-12] MEDS ORDERED: HEPARIN SODIUM 1,000 UN/ML (10ML VL) ONE (12:23)
[2023-05-12 12:25] LABS: NT-Pro-B-Type Natriuretic Pept 9320 pg/mL
[2023-05-12] MEDS ORDERED: SODIUM CHLORIDE 0.9% 1,000 ML IV ONE (12:25)
[2023-05-12] MEDS ORDERED: LIDOCAINE 1% INJ 10MG/ML (30 ML VIAL-PF) SQ ONE (12:28)
[2023-05-12] MEDS ORDERED: VERAPAMIL SYRINGE (5 MG/10 ML) INTRAARTER ONE (12:29)
[2023-05-12] MEDS ORDERED: FLUMAZENIL 0.1 MG/ML 5 ML VIAL IVP ONE ×2 (12:38→12:42)
[2023-05-12] MEDS ORDERED: PHENYLEPHRINE-0.9% NACL SYG 1,000 MCG/10 ML SYRINGE IVP ONE (12:40)
[2023-05-12] MEDS ORDERED: IOPAMIDOL-370 100ML BTL INJ ONE (12:52)
[2023-05-12] MEDS ORDERED: RX INFO: IV CONTRAST WAS GIVEN 1 EACH MISC MISCELLANE PRN (12:55)
--- NOTE | 2023-05-12 12:58 | P.PCN ---
Date of Procedure: 05/12/23 Operative Findings: CARDIAC CATHETERIZATION PERFORMING PHYSICIAN: Juan Manuel Molina MD, RPVI PROCEDURE PERFORMED: 1. Selective right and left coronary angiogram 2. Left heart catheterization 3. iFRof the RCA 4. Ultrasound-guided access of the right radial artery INDICATION: Unstable angina COMPLICATION: None APPROACH: Right radial artery LEVEL OF SEDATION: Moderate with a sedation length of 27 minutes PROCEDURE DESCRIPTION: After obtaining an informed consent, the patient was brought to cardiac dock or pier laborer. Local anesthesia was performed using lidocaine subcutaneously. The right radial artery was cannulated using Seldinger technique, the guidewire passed easily, following that we advanced a 5-[place] sheath dilator assembly, the wire and dilator were removed and sheath was flushed. Following that, 2 mg of verapamil along with 5000 unit heparin were given. Selective right and left coronary angiogram using a 6-[place] JR4 and JL 3.5 catheters. Following that we did left heart catheterization using 6-[place]wand[place] pigtail catheter. After that we decided to do an FFR of the RCA. After zeroing the Doppler wire and equalizing between the Doppler wire and guiding catheter we did iFR and that came in to be nonischemic at 0.90 The procedure was completed there was no complication. SELECTIVE CORONARY ANGIOGRAM: The right coronary artery: large-caliber vessel and a dominant vessel. The mid RCA has intermediate lesion documented to be nonflow limiting by Doppler wire Left main: is angiographically normal The left circumflex: large-caliber vessel and nondominant vessel. The LCx after the bifurcation of a large OM appears to be occluded and becomes a small-caliber vessel in the AV groove The left anterior descending artery: large-caliber vessel was mild disease only. It gives rises into multiple diagonal branches appears to be angiographically normal HEMODYNAMICS: the LVEDP was 10 mmHg was no significant gradient across aortic valve CONCLUSION: 1. Intermediate disease involving the mid RCA documented to be nonflow limiting by Doppler wire 2. Probably occluded small left circumflex in the AV groove POSTPROCEDURE MANAGEMENT: medical treatment
[2023-05-12] MEDS ORDERED: SODIUM CHLORIDE 0.9% 1,000 ML IV SCH (13:00)
--- NOTE | 2023-05-12 13:01 | P.CRDCN ---
History of Present Illness Consult date: 05/12/23 Chief complaint: chest pain and shortness of breath History of present illness: the patient is 6-year-old gentleman with history of smoking and COPD who presented to the hospital complaining of chest discomfort for the last 24 hours associated with shortness of breath and bilateral lower extremities edema. He underwent further workup including a chest x-ray which showed chronic changes and EKG showing ST segment elevation inferiorly with T-wave inversion anteriorly concerning for severe underlying coronary artery disease. In the light of that heart catheterization was advised. The heart catheterization revealed intermediate disease involving the mid right coronary artery which documented to be nonflow limiting by Doppler wire and also what it seems to be occluded distal left circumflex in the AV groove. The patient underwent the procedure from right radial approach and tolerated the procedure very well. He was chest pain- free by the end of the procedure. He will be admitted to the hospital. He would be evaluated by obtaining an echocardiogram was Doppler. The rest of blood work including CBC and BNP came in to be unremarkable. No prior cardiac history. He does have COPD. No hypertension or dyslipidemia according to him. The examination is remarkable for diminished breathing sounds bilaterally with a regular rhythm and systolic and diastolic murmur at the right and left upper sternal border with soft nontender abdomen Assessment Chest discomfort and shortness of breath Intermediate disease involving the right coronary artery and occluded distal left circumflex coronary artery History of smoking COPD Plan Conservative medical approach at this point Add aspirin and statin to her current medical regimen Obtain an echocardiogram was Doppler Follow-up with the patient Past Medical History Past Medical History: Cancer Additional Past Medical History / Comment(s): history of non-small cell lung cancer with a previous right upper lobe resection, advanced emphysema, chest deformity related to previous thoracic surgery, chronic pain Involving the back in addition to brachial plexus disorder related to previous thoracic surgery. History of Any Multi-Drug Resistant Organisms: None Reported Additional Past Surgical History / Comment(s): right upper lobectomy d/t CA, multiple surgeries on right hand d/t accident Past Psychological History: No Psychological Hx Reported Smoking Status: Current every day smoker Past Alcohol Use History: None Reported Past Drug Use History: None Reported Medications and Allergies Home Medications Medication Instructions Recorded Confirmed Type Gabapentin [Neurontin] 300 mg PO TID 03/26/19 05/12/23 History Morphine Sulfate ER [Ms Contin] 30 mg PO BID 03/26/19 05/12/23 History Morphine Sulfate [Ms Contin] 60 mg PO BID 03/26/19 05/12/23 History oxyCODONE-APAP 10-325MG [Percocet 1 tab PO BID PRN 03/26/19 05/12/23 History 10-325 mg] Baclofen [Lioresal] 10 mg PO TID PRN 11/11/20 05/12/23 History Fluticasone/Umeclidin/Vilanter 1 puff INHALATION RT-DAILY 11/11/20 05/12/23 History [Treleestefania Ellipta 100-62.5-25] Ipratropium-Albuterol Nebulize 3 ml INHALATION RT-DAILY@1800 11/11/20 05/12/23 History [Duoneb 0.5 mg-3 mg/3 ml Soln] Butalb/APAP/Caff 50-325-40Mg 1 tab PO TID PRN 05/12/23 05/12/23 History [Fioricet 50-325-40] Allergies Allergy/AdvReac Type Severity Reaction Status Date / Time No Known Allergies Allergy Verified 05/12/23 12:05 Physical Exam Vitals: Vital Signs Temp Pulse Resp BP Pulse Ox 05/12/23 12:07 71 20 99/71 92 L 05/12/23 11:55 70 18 109/72 91 L 05/12/23 11: 98.6 F 83 22 92/57 79 L Intake and Output 05/11/23 05/12/23 05/12/23 22:59 06:59 14:59 Other: Weight 68.039 kg Results 05/12/23 11:50 05/12/23 11:50 Cardiac Enzymes 05/12/23 05/12/23 Range/Units 11:50 11:50 AST 53 (17-59) U/L Troponin I 0.074 H* (0.000-0.034) ng/mL Coagulation 05/12/23 Range/Units 11:50 PT 10.7 (10.0-12.5) sec APTT 24.0 (22.0-30.0) sec CBC 05/12/23 Range/Units 11:50 WBC 9.5 (3.8-10.6) k/uL RBC 3.84 L (4.30-5.90) m/uL Hgb 11.9 L (13.0-17.5) gm/dL Hct 38.0 L (39.0-53.0) % Plt Count 356 (150-450) k/uL Comprehensive Metabolic Panel 05/12/23 Range/Units 11:50 Sodium 137 (137-145) mmol/L Potassium 4.5 (3.5-5.1) mmol/L Chloride 98 (98-107) mmol/L Carbon Dioxide 32 H (22-30) mmol/L BUN 35 H (9-20) mg/dL Creatinine 0.90 (0.66-1.25) mg/dL Glucose 79 (74-99) mg/dL Calcium 8.7 (8.4-10.2) mg/dL AST 53 (17-59) U/L ALT 51 H (4-49) U/L Alkaline Phosphatase 91 (38-126) U/L Total Protein 6.1 L (6.3-8.2) g/dL Albumin 3.1 L (3.5-5.0) g/dL Current Medications Generic Name Dose Route Start Last Admin Trade Name Freq PRN Reason Stop Dose Admin Heparin Sodium (Porcine) 0 unit 05/12/23 12:03 Heparin Sodium 1,000 Un/Ml (10ml Vl) IV PER PROTOCOL PRN Low PTT Protocol Heparin Sodium/Sodium Chloride 250 mls @ 8.165 mls/hr 05/12/23 12:15 25,000 unit/ Sodium Chloride IV .Q24H [facility] Protocol 12 UNITS/KG/HR Sodium Chloride 1,000 mls @ 75 mls/hr 05/12/23 13:00 Saline 0.9% IV 05/12/23 18:01 .[id number] [facility] Miscellaneous Information 1 each 05/12/23 12:55 Rx Info: Iv Contrast Was Given 1 Each Misc MISCELLANE 05/14/23 12:55 DAILY PRN Per Protocol Intake and Output 05/11/23 05/12/23 05/12/23 22:59 06:59 14:59 Other: Weight 68.039 kg Patient Weight 05/13/23 06:59 Weight 68.039 kg 05/12/23 11:50 05/12/23 11:50
[2023-05-12 13:16] LABS: Glucose,Whole Blood 56 mg/dL (70-110)
[2023-05-12 13:52] LABS: Glucose,Whole Blood 66 mg/dL (70-110)
[2023-05-12] MEDS: oxyCODONE-APAP 10-325MG 1 EACH TAB PO PRN (14:09)
[2023-05-12] MEDS: BUTALB/APAP/CAFF 50-325-40MG TAB PO PRN (14:09)
[2023-05-12] MEDS: GABAPENTIN 300 MG CAP PO SCH ×2 (16:02→20:36)
[2023-05-12] MEDS ORDERED: IPRATROPIUM-ALBUTEROL 3 ML NEB INHALATION PRN (16:50)
--- NOTE | 2023-05-12 16:52 | P.CNPUL ---
History of Present Illness Consult date: 05/12/23 Requesting physician: Terrance Murdock Reason for consult: chest pain, other (Critical care management) Chief complaint: Chest pain, lower extremity edema History of present illness: This is a pleasant 62-year-old male patient with a known history of oxygen dependent chronic obstructive pulmonary disease, chronic tobacco dependence, non-small cell lung cancer with previous right upper lobe resection, chronic pain syndrome. He presented to the emergency room this morning with concerns of stabbing sharp left-sided chest pain and shortness of breath. Pain was worse with inhalation. He was also having issues with lower extremity edema. He was felt to be ST segment elevation myocardial infarction inferiorly with T-wave inversions anteriorly. He went directly to the cardiac chemical laboratory assistant and was found to have an intermediate disease involving the right coronary artery and an occluded distal left circumflex coronary artery. Recommended medical therapy. Added aspirin and statin. Echocardiogram is pending. Chest x-ray reveals evidence of COPD but no acute pulmonary process. White count 9.5. Hemoglobin 11.9. Platelets 356. D-dimer 1.55. Sodium 137. Potassium 4.5. Bicarb 32. BUN 35. Creatinine 0.90. AST 53. ALT 51. Troponin 0.074. ProBNP 9320. Normal saline at 75 ML's per hour. He is seen in consultation in the intensive care unit. He is sitting up in bed. Awake and alert in no acute distress. He is still having some lower extremity edema. Still with some mild pain on inhalation. He is currently in sinus rhythm. Maintaining O2 saturations in the 90s on 3 L/m per nasal cannula. He is afebrile. Review of Systems REVIEW OF SYSTEMS: CONSTITUTIONAL: Denies any recent significant weight loss or weight gain. EYES: Denies change in vision. EARS, NOSE, MOUTH, THROAT: Denies headaches, denies sore throat. CARDIOVASCULAR: Positive for chest pain, no palpitations or syncopal episodes. RESPIRATORY: Positive for shortness of breath, no cough, congestion or hemoptysis. GASTROINTESTINAL: Denies change in appetite, denies abdominal pain GENITOURINARY: Denies hematuria, denies infections. MUSKULOSKELETAL: Positive for lower extremity swelling. INTEGUMENTARY: Denies rash, denies eczema. NEUROLOGICAL: Denies recent memory loss, no recent seizure activity. PSYCHIATRIC: Denies anxiety, denies depression. HEMATOLOGIC/LYMPHATIC: Denies anemia, denies enlarged lymph nodes. Past Medical History Past Medical History: Cancer Additional Past Medical History / Comment(s): history of non-small cell lung cancer with a previous right upper lobe resection, advanced emphysema, chest deformity related to previous thoracic surgery, chronic pain Involving the back in addition to brachial plexus disorder related to previous thoracic surgery. History of Any Multi-Drug Resistant Organisms: None Reported Additional Past Surgical History / Comment(s): right upper lobectomy d/t CA, multiple surgeries on right hand d/t accident Past Anesthesia/Blood Transfusion Reactions: No Reported Reaction Past Psychological History: No Psychological Hx Reported Smoking Status: Current every day smoker Past Alcohol Use History: None Reported Past Drug Use History: None Reported Medications and Allergies Home Medications Medication Instructions Recorded Confirmed Type Gabapentin [Neurontin] 300 mg PO TID 03/26/19 05/12/23 History Morphine Sulfate ER [Ms Contin] 30 mg PO BID 03/26/19 05/12/23 History Morphine Sulfate [Ms Contin] 60 mg PO BID 03/26/19 05/12/23 History oxyCODONE-APAP 10-325MG [Percocet 1 tab PO BID PRN 03/26/19 05/12/23 History 10-325 mg] Baclofen [Lioresal] 10 mg PO TID PRN 11/11/20 05/12/23 History Fluticasone/Umeclidin/Vilanter 1 puff INHALATION RT-DAILY 11/11/20 05/12/23 History [Trelegy Ellipta 100-62.5-25] Ipratropium-Albuterol Nebulize 3 ml INHALATION RT-DAILY@1800 11/11/20 05/12/23 History [Duoneb 0.5 mg-3 mg/3 ml Soln] Butalb/APAP/Caff 50-325-40Mg 1 tab PO TID PRN 05/12/23 05/12/23 History [Fioricet 50-325-40] Allergies Allergy/AdvReac Type Severity Reaction Status Date / Time No Known Allergies Allergy Verified 05/12/23 12:05 Physical Exam Vitals: Vital Signs Temp Pulse Resp BP Pulse Ox 05/12/23 16:00 97.6 F 62 12 85/65 92 L 05/12/23 15:50 63 14 90 L 05/12/23 15:40 64 27 H 93 L 05/12/23 15:30 66 14 85/62 92 L 05/12/23 15:20 61 14 85/62 92 L 05/12/23 15:10 61 14 85/62 92 L 05/12/23 15:00 63 12 87/65 92 L 05/12/23 14:50 65 12 87/65 92 L 05/12/23 14:40 67 9 L 87/65 93 L 05/12/23 14:30 70 19 110/79 95 05/12/23 14:20 70 18 110/79 86 L 05/12/23 14:10 70 20 110/79 91 L 05/12/23 14:00 69 16 106/72 91 L 05/12/23 13:50 62 14 106/72 94 L 05/12/23 13:40 64 7 L 106/72 92 L 05/12/23 13:30 60 12 112/74 92 L 05/12/23 13:20 97.8 F 68 14 106/72 91 L 05/12/23 13:13 23 05/12/23 12:07 71 20 99/71 92 L 05/12/23 11:55 70 18 109/72 91 L 05/12/23 11:23 98.6 F 83 22 92/57 79 L Intake and Output 05/12/23 05/12/23 05/12/23 06:59 14:59 22:59 Intake Total 75 Output Total 0 Balance 75 Intake: IV 75 Sodium Chloride 0.9% 1, 75 000 ml @ 75 mls/hr IV . [id number] [facility] Rx#:[id number] Output: Urine 0 Other: Weight 68.039 kg GENERAL EXAM: Alert, frail, cachectic 62-year-old male patient, on 3 L nasal cannula, fairly comfortable in no apparent distress. HEAD: Normocephalic. EYES: Normal reaction of pupils, equal size. NOSE: Clear with pink turbinates. THROAT: No erythema or exudates. NECK: No masses, no JVD. CHEST: No chest wall deformity. LUNGS: Equal air entry with no crackles, wheeze, rhonchi or dullness. CVS: S1 and S2 normal with no audible murmur, regular rhythm. ABDOMEN: No hepatosplenomegaly, normal bowel sounds, no guarding or rigidity. SPINE: No scoliosis or deformity SKIN: No rashes CENTRAL NERVOUS SYSTEM: No focal deficits, tone is normal in all 4 extremities. EXTREMITIES: There is 1+ peripheral edema. Positive clubbing, no cyanosis. deformity of the right upper extremity. Right radial approach dressing dry and intact. Peripheral pulses are intact. Results - Laboratory Findings CBC and BMP: 05/12/23 11:50 05/12/23 11:50 PT/INR, D-dimer PT 10.7 sec (10.0-12.5) 05/12/23 11:50 INR 1.0 (<1.2) 05/12/23 11:50 D-Dimer 1.55 mg/L FEU (<0.60) H 05/12/23 11:50 Abnormal lab findings: Abnormal Labs 05/12/23 05/12/23 05/12/23 11:50 11:50 11:50 RBC 3.84 L Hgb 11.9 L Hct 38.0 L D-Dimer 1.55 H Carbon Dioxide 32 H BUN 35 H POC Glucose (mg/dL) ALT 51 H Troponin I Total Protein 6.1 L Albumin 3.1 L 05/12/23 05/12/23 05/12/23 11:50 13:14 13:50 RBC Hgb Hct D-Dimer Carbon Dioxide BUN POC Glucose (mg/dL) 56 L 66 L ALT Troponin I 0.074 H* Total Protein Albumin - Diagnostic Findings Chest x-ray: image reviewed Assessment and Plan Assessment: Chest pain in a patient found to have an intermediate disease involving the right coronary artery and occluded distal left circumflex coronary artery. Plan is to treat medically. ST elevation myocardial infarction Severe oxygen dependent chronic obstructive pulmonary disease. FEV1 41% of predicted.Maintained on Trilogy and DuoNeb inhalations Chronic and ongoing tobacco dependence of 50 years History of non-small cell lung cancer status post right upper lobe lobectomy and radiation back in 2006 Chronic thoracic pain and brachial plexus disorder secondary to above Plan: The patient was seen and evaluated Chest x-ray, labs, EKG and medications reviewed Obtain a Doppler of the lower extremities Titrate the FiO2 as tolerated Add Symbicort, DuoNeb inhalations Continue aspirin and statin We will continue to follow and make further recommendations based on his clinical status I have personally seen and examined the patient, performed the documentation and the assessment and plan as written. Number of minutes spent on the visit: 20.
--- NOTE | 2023-05-12 18:14 | US ---
EXAMINATION TYPE: US venous doppler duplex LE BI DATE OF EXAM: 05/12/2023 4:31 PM COMPARISON: NONE CLINICAL INDICATION: Male, 62 years old with history of pain; No hx of DVT. Not on blood thinners. SIDE PERFORMED: Bilateral TECHNIQUE: The lower extremity deep venous system is examined utilizing real time linear array sonog lesley with graded compression, doppler sonography and color-flow sonography. VESSELS IMAGED: Common Femoral Vein Deep Femoral Vein Greater Saphenous Vein * Femoral Vein Popliteal Vein Small Saphenous Vein * Proximal Calf Veins (* superficial vessels) Right Leg: No evidence for DVT Left Leg: No evidence for DVT IMPRESSION: Grayscale, color doppler, spectral doppler imaging performed of the deep veins of the lo wer extremities. There is normal flow, compressibility, vascular waveforms.
[2023-05-12] MEDS: SYMBICORT 160-4.5 MCG INHALER INHALATION SCH (20:15)
[2023-05-12] MEDS: IPRATROPIUM-ALBUTEROL 3 ML NEB INHALATION SCH (20:15)
[2023-05-12] MEDS: MORPHINE SULFATE ER 30 MG TABLET PO SCH (20:36)
[2023-05-12] MEDS ORDERED: MORPHINE SULFATE ER 30 MG TABLET PO ONE (21:00)
[2023-05-13] MEDS: oxyCODONE-APAP 10-325MG 1 EACH TAB PO PRN (03:46)
[2023-05-13 04:26] LABS: Basophils % (A) 1 %; Eosinophils # (A) 0.1 k/uL (0-0.7); Eosinophils % (A) 1 %; HCT 36.9 % (39.0-53.0); HGB 11.6 gm/dL (13.0-17.5); Hypochromasia Slight; Lymphocytes # (A) 1.2 k/uL (1.0-4.8); Lymphocytes % (A) 17 %; MCH 31.4 pg (25.0-35.0); MCHC 31.4 g/dL (31.0-37.0); MCV 99.8 fL (80.0-100.0); Macrocytosis Slight; Mean Platelet Volume 8.3; Monocytes # (A) 0.6 k/uL (0-1.0); Monocytes % (A) 9 %; Neutrophils # (A) 5.1 k/uL (1.3-7.7); Neutrophils % (A) 71 %; Platelet Count 346 k/uL (150-450); RDW 14.1 % (11.5-15.5); WBC 7.2 k/uL (3.8-10.6)
[2023-05-13 04:31] LABS: African American GFR (CKD) >90 (>60 ml/min/1.73 sqM); Anion Gap 4 mmol/L; Blood Urea Nitrogen 26 mg/dL (9-20); Calcium 8.2 mg/dL (8.4-10.2); Carbon Dioxide 33 mmol/L (22-30); Chloride 99 mmol/L (98-107); Glucose 71 mg/dL (74-99); Non-African American GFR(CKD) >90 (>60 ml/min/1.73 sqM); Potassium 4.9 mmol/L (3.5-5.1); Sodium 136 mmol/L (137-145)
--- NOTE | 2023-05-13 07:17 | P.PN ---
Subjective Progress Note Date: 05/13/23 Principal diagnosis: Chest discomfort The patient is a 62-year-old gentleman with smoking and COPD who presented to the hospital with a chest discomfort and he underwent a heart catheterization and was found to have intermediate disease involving the RCA was not flow- limiting. May [id number] The patient was seen and evaluated this morning. He is chest pain-free. He khan s have shortness of breath but he does have COPD and currently the intensive care/pulmonary team is on the case. I am going to order an echocardiogram to assess the LV systolic function. His pressure has been marginal. He is not on any blood pressure medications. He is on aspirin as well as a statin. The examination is remarkable for severe diminished breathing sounds bilaterally and bilateral rhonchi. Assessment Chest discomfort which has resolved Intermediate nonobstructive CAD COPD exacerbation Margin the low blood pressure Plan Continue the aspirin and statin Obtain NT proBNP Obtain an echocardiogram with Doppler Follow-up with the patient Objective - Vital Signs Vital signs: Vital Signs Temp 98.9 F 05/13/23 04:00 Pulse 63 05/13/23 04:00 Resp 16 05/13/23 04:00 BP 92/65 05/13/23 04:00 Pulse Ox 96 05/13/23 02:00 FiO2 Intake & Output 05/12/23 05/13/23 05/13/23 18:59 06:59 18:59 Intake Total 75 0 Output Total 0 500 Balance 75 -500 Weight 68.039 kg 51.6 kg Intake: IV 75 0 Sodium Chloride 0.9% 1, 75 0 000 ml @ 75 mls/hr IV . [id number] [facility] Rx#:[id number] Output: Urine 0 500 Other: Voiding Method Urinal Urinal # Voids 0 - Labs CBC & Chem 7: 05/13/23 03:17 05/13/23 03:17 Labs: Abnormal Lab Results - Last 24 Hours (Table) 05/12/23 05/12/23 05/12/23 Range/Units 11:50 11:50 11:50 RBC 3.84 L (4.30-5.90) m/uL Hgb 11.9 L (13.0-17.5) gm/dL Hct 38.0 L (39.0-53.0) % D-Dimer 1.55 H (<0.60) mg/L FEU Sodium (137-145) mmol/L Carbon Dioxide 32 H (22-30) mmol/L BUN 35 H (9-20) mg/dL Creatinine (0.66-1.25) mg/dL Glucose (74-99) mg/dL POC Glucose (mg/dL) (70-110) mg/dL Calcium (8.4-10.2) mg/dL ALT 51 H (4-49) U/L Troponin I (0.000-0.034) ng/mL Total Protein 6.1 L (6.3-8.2) g/dL Albumin 3.1 L (3.5-5.0) g/dL 05/12/23 05/12/23 05/12/23 Range/Units 11:50 13:14 13:50 RBC (4.30-5.90) m/uL Hgb (13.0-17.5) gm/dL Hct (39.0-53.0) % D-Dimer (<0.60) mg/L FEU Sodium (137-145) mmol/L Carbon Dioxide (22-30) mmol/L BUN (9-20) mg/dL Creatinine (0.66-1.25) mg/dL Glucose (74-99) mg/dL POC Glucose (mg/dL) 56 L 66 L (70-110) mg/dL Calcium (8.4-10.2) mg/dL ALT (4-49) U/L Troponin I 0.074 H* (0.000-0.034) ng/mL Total Protein (6.3-8.2) g/dL Albumin (3.5-5.0) g/dL 05/13/23 05/13/23 Range/Units 03:17 03:17 RBC 3.70 L (4.30-5.90) m/uL Hgb 11.6 L (13.0-17.5) gm/dL Hct 36.9 L (39.0-53.0) % D-Dimer (<0.60) mg/L FEU Sodium 136 L (137-145) mmol/L Carbon Dioxide 33 H (22-30) mmol/L BUN 26 H (9-20) mg/dL Creatinine 0.61 L (0.66-1.25) mg/dL Glucose 71 L (74-99) mg/dL POC Glucose (mg/dL) (70-110) mg/dL Calcium 8.2 L (8.4-10.2) mg/dL ALT (4-49) U/L Troponin I (0.000-0.034) ng/mL Total Protein (6.3-8.2) g/dL Albumin (3.5-5.0) g/dL
[2023-05-13] MEDS: SYMBICORT 160-4.5 MCG INHALER INHALATION SCH ×2 (07:32→20:59)
[2023-05-13] MEDS: IPRATROPIUM-ALBUTEROL 3 ML NEB INHALATION SCH ×4 (07:32→20:59)
[2023-05-13 08:03] LABS: Magnesium 1.7 mg/dL (1.6-2.3)
[2023-05-13] MEDS: MORPHINE SULFATE ER 60 MG TABLET PO SCH ×2 (09:17→20:52)
[2023-05-13] MEDS: MORPHINE SULFATE ER 30 MG TABLET PO SCH ×2 (09:18→20:51)
[2023-05-13] MEDS: GABAPENTIN 300 MG CAP PO SCH ×3 (09:19→21:00)
--- NOTE | 2023-05-13 11:08 | CA ---
Transthoracic Echo Report Name: Twyla Lockett Age: 62 Gender: M : 1960 Exam Date: 05/13/2023 08:08 Exam Location: [facility] Ht (in): 68 Wt (lb): 113 Ordering Physician: Juan Manuel Molina MD ([id number]) Attending/Referring Phys: Mathematical Scientist Cyndi Pompa RDCS Procedure CPT: Indications: ACS Cardiac Hx: Technical Quality: Fair Contrast 1: Total Dose (mL): Contrast 2: Total Dose (mL): MEASUREMENTS (Male / Female) Normal Values 2D ECHO LV Diastolic Diameter PLAX 3.1 cm 4.2 - 5.9 / 3.9 - 5.3 cm LV Systolic Diameter PLAX 2.1 cm IVS Diastolic Thickness 1.0 cm 0.6 - 1.0 / 0.6 - 0.9 cm LVPW Diastolic Thickness 1.2 cm 0.6 - 1.0 / 0.6 - 0.9 cm LV Relative Wall Thickness 0.7 RV Internal Dim ED PLAX 4.2 cm LA Systolic Diameter LX 3.1 cm 3.0 - 4.0 / 2.7 - 3.8 cm M-MODE Aortic Root Diameter MM 3.3 cm MV E Point Septal Separation 0.5 cm AV Cusp Separation MM 2.1 cm DOPPLER AV Peak Velocity 142.3 cm/s AV Peak Gradient 8.1 mmHg MV Area PHT 3.1 cm??? Mitral E Point Velocity 63.7 cm/s Mitral A Point Velocity 69.6 cm/s Mitral E to A Ratio 0.9 MV Deceleration Time 248.6 ms TR Peak Velocity 301.1 cm/s TR Peak Gradient 36.3 mmHg Right Ventricular Systolic Press 51.3 mmHg FINDINGS Left Ventricle Left ventricular ejection fraction is estimated at 55-60 %. Small left ventricular cavity. Left ventricular wall thickness normal. Right Ventricle Severe right ventricular dilatation. Moderate pulmonary hypertension. Right ventricular systolic pressure estimated at 51 mm hg. Right Atrium Right atrium not well visualized. Left Atrium Normal left atrial size. Mitral Valve Structurally normal mitral valve. No mitral stenosis, regurgitation or prolapse. Aortic Valve Trileaflet aortic valve. No aortic valve stenosis or regurgitation. Tricuspid Valve Structurally normal tricuspid valve. Mild tricuspid regurgitation. Pulmonic Valve Structurally normal pulmonic valve. No pulmonic regurgitation. Pericardium No pericardial effusion. Aorta Normal size aortic root and proximal ascending aorta. CONCLUSIONS Normal LV systolic function Dilated right ventricle with RV systolic dysfunction Moderate pulmonary hypertension Previewed by: Dr. Lefty Yan MD (Electronically Signed) Final Date: 13 May 2023 11:07
--- NOTE | 2023-05-13 12:03 | P.HPIM ---
History of Present Illness H&P Date: 05/13/23 Chief Complaint: Chest pain This is a 62-year-old gentleman with past medical history significant for ongoing nicotine dependence, non-small cell lung cancer status post right upper lobectomy/radiation, oxygen dependent COPD, chronic back pain with multiple back surgeries, chronic pain syndrome, diverticulosis, hiatal hernia and multiple other medical issues presented to the ER with sharp midsternal/ left-sided chest pain accompanied by shortness of breath, nausea, vomiting, lower extremity edema without calf pain that progressed over 4 days, while raking leaves. Worsened with deep inspiration. Denies cough, congestion. Denies diaphoresis. EKG evaluated by cardiology, diagnosed with STEMI with anterior T-wave inversions. Underwent cardiac catheterization reporting intermediate disease involving the RCA and an occluded distal left circumflex with recommendations of maximizing medical therapy. Telemetry sinus rhythm. Blood pressures soft. Maintaining O2 sats in the 90s on 3 L nasal cannula. Venous Doppler's of bilateral lower extremities reported no evidence for DVT. Currently denies chest pain, palpitations or increased shortness of breath. Echo pending. Continues on aspirin and statin. Review of Systems ROS Statement: Those systems with pertinent positive or pertinent negative responses have been documented in the HPI. ROS Other: All systems not noted in ROS Statement are negative. Past Medical History Past Medical History: Cancer Additional Past Medical History / Comment(s): history of non-small cell lung cancer with a previous right upper lobe resection, advanced emphysema, chest deformity related to previous thoracic surgery, chronic pain Involving the back in addition to brachial plexus disorder related to previous thoracic surgery. History of Any Multi-Drug Resistant Organisms: None Reported Additional Past Surgical History / Comment(s): right upper lobectomy d/t CA, multiple surgeries on right hand d/t accident Past Anesthesia/Blood Transfusion Reactions: No Reported Reaction Past Psychological History: No Psychological Hx Reported Smoking Status: Current every day smoker Past Alcohol Use History: None Reported Past Drug Use History: None Reported Medications and Allergies Home Medications Medication Instructions Recorded Confirmed Type Gabapentin [Neurontin] 300 mg PO TID 03/26/19 05/12/23 History Morphine Sulfate ER [Ms Contin] 30 mg PO BID 03/26/19 05/12/23 History Morphine Sulfate [Ms Contin] 60 mg PO BID 03/26/19 05/12/23 History oxyCODONE-APAP 10-325MG [Percocet 1 tab PO BID PRN 03/26/19 05/12/23 History 10-325 mg] Baclofen [Lioresal] 10 mg PO TID PRN 11/11/20 05/12/23 History Fluticasone/Umeclidin/Vilanter 1 puff INHALATION RT-DAILY 11/11/20 05/12/23 History [Trelegy Ellipta 100-62.5-25] Ipratropium-Albuterol Nebulize 3 ml INHALATION RT-DAILY@1800 11/11/20 05/12/23 History [Duoneb 0.5 mg-3 mg/3 ml Soln] Butalb/APAP/Caff 50-325-40Mg 1 tab PO TID PRN 05/12/23 05/12/23 History [Fioricet 50-325-40] Allergies Allergy/AdvReac Type Severity Reaction Status Date / Time No Known Allergies Allergy Verified 05/12/23 12:05 Physical Exam Vitals: Vital Signs Temp Pulse Resp BP Pulse Ox 05/13/23 11:23 74 05/13/23 11:14 71 05/13/23 07:59 74 05/13/23 07:32 76 05/13/23 04:00 98.9 F 63 16 92/65 05/13/23 02:00 98.2 F 63 19 93/68 96 05/13/23 00:00 62 12 99/67 05/12/23 22:54 61 16 91/66 05/12/23 22:00 64 17 90/61 05/12/23 20:33 67 05/12/23 20:16 64 05/12/23 20:00 98.2 F 63 18 92/62 05/12/23 19:00 66 15 103/70 05/12/23 18:50 66 12 05/12/23 18:40 66 14 05/12/23 18:30 66 14 05/12/23 18:20 67 14 05/12/23 18:10 69 14 103/70 05/12/23 18:00 67 16 104/72 05/12/23 17:50 73 25 H 104/72 05/12/23 17:40 67 19 104/72 05/12/23 17:30 65 5 L 137/63 05/12/23 17:20 69 25 H 137/63 05/12/23 17:10 69 22 137/63 05/12/23 17:00 67 9 L 83 L 05/12/23 16:50 59 L 12 105/74 92 L 05/12/23 16:40 61 12 90 L 05/12/23 16:30 61 18 93 L 05/12/23 16:20 62 12 85/65 94 L 05/12/23 16:10 61 20 93 L 05/12/23 16:00 97.6 F 62 12 85/65 92 L 05/12/23 15:50 63 14 90 L 05/12/23 15:40 64 27 H 93 L 05/12/23 15:30 66 14 85/62 92 L 05/12/23 15:20 61 14 85/62 92 L 05/12/23 15:10 61 14 85/62 92 L 05/12/23 15:00 63 12 87/65 92 L 05/12/23 14:50 65 12 87/65 92 L 05/12/23 14:40 67 9 L 87/65 93 L 05/12/23 14:30 70 19 110/79 95 05/12/23 14:20 70 18 110/79 86 L 05/12/23 14:10 70 20 110/79 91 L 05/12/23 14:00 69 16 106/72 91 L 05/12/23 13:50 62 14 106/72 94 L 05/12/23 13:40 64 7 L 106/72 92 L 05/12/23 13:30 60 12 112/74 92 L 05/12/23 13:20 97.8 F 68 14 106/72 91 L 05/12/23 13:13 23 05/12/23 12:07 71 20 99/71 92 L 05/12/23 11:55 70 18 109/72 91 L Intake and Output 05/12/23 05/13/23 05/13/23 22:59 06:59 14:59 Intake Total 0 Output Total 500 Balance 0 -500 Intake: IV 0 Sodium Chloride 0.9% 1, 0 000 ml @ 75 mls/hr IV . [id number] [facility] Rx#:[id number] Output: Urine 500 Other: Voiding Method Urinal Urinal # Voids 0 Weight 51.6 kg PHYSICAL EXAM: VITAL SIGNS: As above GENERAL: Sitting up in bed, no acute distress HEENT: Normocephalic, Conjunctivae pink, sclera nonicteric NECK: Supple, No JVD. No thyroid enlargement. No lymphadenopathy. CARDIOVASCULAR: S1, S2 regular. No murmur RESPIRATION: Breath sounds diminished in the bases. No rhonchi or crackles. No bronchial breathing. ABDOMEN: Soft, nontender . No guarding. no masses palpable. No ascites, No hepatosplenomegaly.Bowel sounds heard. LEGS: No edema. no swelling PSYCHIATRY: Alert and oriented X3, mood and affect normal. NERVOUS SYSTEM: Cranial N 2-12 grossly normal.No focal deficits. Strength and sensation grossly intact. Skin: Warm and dry, no rash Results CBC & Chem 7: 05/13/23 03:17 05/13/23 03:17 Labs: Abnormal Lab Results - Last 24 Hours (Table) 05/12/23 05/12/23 05/12/23 Range/Units 11:50 11:50 11:50 RBC 3.84 L (4.30-5.90) m/uL Hgb 11.9 L (13.0-17.5) gm/dL Hct 38.0 L (39.0-53.0) % D-Dimer 1.55 H (<0.60) mg/L FEU Sodium (137-145) mmol/L Carbon Dioxide 32 H (22-30) mmol/L BUN 35 H (9-20) mg/dL Creatinine (0.66-1.25) mg/dL Glucose (74-99) mg/dL POC Glucose (mg/dL) (70-110) mg/dL Calcium (8.4-10.2) mg/dL ALT 51 H (4-49) U/L Troponin I (0.000-0.034) ng/mL Total Protein 6.1 L (6.3-8.2) g/dL Albumin 3.1 L (3.5-5.0) g/dL 05/12/23 05/12/23 05/12/23 Range/Units 11:50 13:14 13:50 RBC (4.30-5.90) m/uL Hgb (13.0-17.5) gm/dL Hct (39.0-53.0) % D-Dimer (<0.60) mg/L FEU Sodium (137-145) mmol/L Carbon Dioxide (22-30) mmol/L BUN (9-20) mg/dL Creatinine (0.66-1.25) mg/dL Glucose (74-99) mg/dL POC Glucose (mg/dL) 56 L 66 L (70-110) mg/dL Calcium (8.4-10.2) mg/dL ALT (4-49) U/L Troponin I 0.074 H* (0.000-0.034) ng/mL Total Protein (6.3-8.2) g/dL Albumin (3.5-5.0) g/dL 05/13/23 05/13/23 Range/Units 03:17 03:17 RBC 3.70 L (4.30-5.90) m/uL Hgb 11.6 L (13.0-17.5) gm/dL Hct 36.9 L (39.0-53.0) % D-Dimer (<0.60) mg/L FEU Sodium 136 L (137-145) mmol/L Carbon Dioxide 33 H (22-30) mmol/L BUN 26 H (9-20) mg/dL Creatinine 0.61 L (0.66-1.25) mg/dL Glucose 71 L (74-99) mg/dL POC Glucose (mg/dL) (70-110) mg/dL Calcium 8.2 L (8.4-10.2) mg/dL ALT (4-49) U/L Troponin I (0.000-0.034) ng/mL Total Protein (6.3-8.2) g/dL Albumin (3.5-5.0) g/dL Thrombosis Risk Factor Assmnt - Choose All That Apply Each Factor Represents 1 point: Medical pt on bed rest Each Risk Factor Represents 2 Points: Age 61-74 years Thrombosis Risk Factor Assessment Total Risk Factor Score: 3 Thrombosis Risk Factor Assessment Level: Moderate Risk Assessment and Plan Assessment: Chest pain ,Acute STEMI, status post cardiac catheterization reporting intermediate disease involving the RCA and an occluded distal left circumflex with recommendations of maximizing medical therapy. Marginal blood pressures Chronic hypoxic respiratory failure secondary to severe COPD History of non-small cell lung CA status post right upper lobe lobectomy, radiation, 2007 Ongoing nicotine dependence Chronic pain syndrome Plan: Continue on current medication regime ,monitoring and symptomatic treatment. Echo pending. Maximizing medical therapy as per cardiology, continue aspirin and statin. Aggressive pulmonary toileting with nebulized bronchodilators, Symbicort. Increase activity as tolerated. Smoking cessation reinforced. The impression and plan of care has been dictated as directed. : I performed a history and examination of this patient, discussed the same with the dictator. I agree with the dictator's note ,documented as a scribe. Any additional findings or plans will be noted.
--- NOTE | 2023-05-13 15:11 | P.PN ---
Subjective Progress Note Date: 05/13/23 Principal diagnosis: Chest pain with intermediate nonobstructive coronary artery disease This is a pleasant 62-year-old male patient with a known history of oxygen dependent chronic obstructive pulmonary disease, chronic tobacco dependence, non-small cell lung cancer with previous right upper lobe resection, chronic pain syndrome. He presented to the emergency room this morning with concerns of stabbing sharp left-sided chest pain and shortness of breath. Pain was worse w ith inhalation. He was also having issues with lower extremity edema. He was felt to be ST segment elevation myocardial infarction inferiorly with T-wave inversions anteriorly. He went directly to the cardiac clam bed laborer and was found to have an intermediate disease involving the right coronary artery and an occluded distal left circumflex coronary artery. Recommended medical therapy. Added aspirin and statin. Echocardiogram is pending. Chest x-ray reveals evidence of COPD but no acute pulmonary process. White count 9.5. Hemoglobin 11.9. Platelets 356. D-dimer 1.55. Sodium 137. Potassium 4.5. Bicarb 32. BUN 35. Creatinine 0.90. AST 53. ALT 51. Troponin 0.074. ProBNP 9320. Cherry l saline at 75 ML's per hour. He is seen in consultation in the intensive care unit. He is sitting up in bed. Awake and alert in no acute distress. He is still having some lower extremity edema. Still with some mild pain on inhalation. He is currently in sinus rhythm. Maintaining O2 saturations in the 90s on 3 L/m per nasal cannula. He is afebrile. Patient was reevaluated today on 05/13/20, patient is in the ICU as an overflow, he is on 3 L nasal cannula, his cardiac catheterization report was reviewed patient has nonocclusive coronary artery disease, and the recommendation was to treat medically. Patient had negative venous Doppler, his COPD is relatively severe, and he is on bronchodilators for his COPD. Today the patient seems to be doing well, some vague chest discomfort, he has chronic shortness of breath, no fever no chills no hemoptysis. CBC is relatively normal basic metabolic profile is normal renal profile is normal, BNP level is trending down to 4540 Objective - Vital Signs Vital signs: Vital Signs Temp 97.8 F 05/13/23 12:00 Pulse 76 05/13/23 12:00 Resp 12 05/13/23 12:00 BP 106/85 05/13/23 12:00 Pulse Ox 92 L 05/13/23 12:00 FiO2 Intake & Output 05/12/23 05/13/23 05/13/23 18:59 06:59 18:59 Intake Total 75 0 Output Total 0 500 Balance 75 -500 Weight 68.039 kg 51.6 kg Intake: IV 75 0 Sodium Chloride 0.9% 1, 75 0 000 ml @ 75 mls/hr IV . [id number] [facility] Rx#:[id number] Output: Urine 0 500 Other: Voiding Method Urinal Urinal Urinal # Voids 0 - Exam Physical Exam: Revealed a 62-year-old white male in no distress, on 3 L nasal cannula. Head: Atraumatic, normocephalic. HEENT:[Neck is supple.] [No neck masses.] [No thyromegaly.] [No JVD.] Chest: [Diminished breath sound bilaterally no crackles or rhonchi or wheezes Cardiac Exam: [Normal S1 and S2, no S3 gallop, no murmur.] Abdomen: [Soft, nontender, no megaly, no rebound, no guarding, normal bowel sounds.] Extremities: [No clubbing, no edema, no cyanosis.] Chronic deformity noted in the right hand Neurological Exam: [No focal neurologic deficit.] Psychiatric: Normal mood affect and normal mental status examination. Skin: No rashes - Labs CBC & Chem 7: 05/13/23 03:17 05/13/23 03:17 Labs: Abnormal Lab Results - Last 24 Hours (Table) 05/13/23 05/13/23 Range/Units 03:17 03:17 RBC 3.70 L (4.30-5.90) m/uL Hgb 11.6 L (13.0-17.5) gm/dL Hct 36.9 L (39.0-53.0) % Sodium 136 L (137-145) mmol/L Carbon Dioxide 33 H (22-30) mmol/L BUN 26 H (9-20) mg/dL Creatinine 0.61 L (0.66-1.25) mg/dL Glucose 71 L (74-99) mg/dL Calcium 8.2 L (8.4-10.2) mg/dL Assessment and Plan Assessment: Impression: Chest pain in a patient found to have an intermediate disease involving the right coronary artery and occluded distal left circumflex coronary artery. Plan is to treat medically. ST elevation myocardial infarction, apparently has been ruled out by cardiology Severe oxygen dependent chronic obstructive pulmonary disease. FEV1 41% of pr edicted.Maintained on Trilogy and DuoNeb inhalations Chronic and ongoing tobacco dependence of 50 years History of non-small cell lung cancer status post right upper lobe lobectomy and radiation back in 2006 Chronic thoracic pain and brachial plexus disorder secondary to above Recommendation: Continue present supportive care measures Continue bronchodilators for his COPD including Symbicort and DuoNeb Continue aspirin and statins Transfer patient out of the ICU once a bed is available on the cardiac floor Consider discharge planning in the next 24 hours assuming the patient is cleared by cardiology We'll continue to follow Time with Patient: Less than 30
[2023-05-14] MEDS ORDERED: PANTOPRAZOLE 40 MG TABLET PO STA (02:18)
[2023-05-14] MEDS: oxyCODONE-APAP 10-325MG 1 EACH TAB PO PRN (02:25)
[2023-05-14] MEDS: ONDANSETRON 4 MG/2 ML VIAL IVP PRN (02:58)
[2023-05-14] MEDS: SYMBICORT 160-4.5 MCG INHALER INHALATION SCH ×2 (07:54→20:26)
[2023-05-14] MEDS: IPRATROPIUM-ALBUTEROL 3 ML NEB INHALATION SCH ×4 (07:54→20:26)
[2023-05-14] MEDS: MORPHINE SULFATE ER 60 MG TABLET PO SCH ×2 (09:10→23:39)
[2023-05-14] MEDS: GABAPENTIN 300 MG CAP PO SCH ×3 (09:10→20:56)
[2023-05-14] MEDS: MORPHINE SULFATE ER 30 MG TABLET PO SCH ×2 (09:18→20:55)
--- NOTE | 2023-05-14 11:44 | P.PN ---
Subjective Progress Note Date: 05/14/23 Principal diagnosis: Chest discomfort The patient is a 62-year-old gentleman with smoking and COPD who presented to the hospital with a chest discomfort and he underwent a heart catheterization and was found to have intermediate disease involving the RCA was not flow- limiting. May [id number] The patient was seen and evaluated this morning. He is chest pain-free. He khan s have shortness of breath but he does have COPD and currently the intensive care/pulmonary team is on the case. I am going to order an echocardiogram to assess the LV systolic function. His pressure has been marginal. He is not on any blood pressure medications. He is on aspirin as well as a statin. The examination is remarkable for severe diminished breathing sounds bilaterally and bilateral rhonchi. May 142019 The patient was seen and evaluated this morning. No chest pain or chest discomfort but continues to have shortness of breath related to COPD. The echo showed preserved LV systolic function was dilated the right ventricle and pulmonary hypertension. Hemodynamically he is stable. Assessment Chest discomfort which has resolved Intermediate nonobstructive CAD COPD exacerbation Plan Continue the aspirin and statin Objective - Vital Signs Vital signs: Vital Signs Temp 97.7 F 05/14/23 09:44 Pulse 67 05/14/23 09:44 Resp 14 05/14/23 09:44 BP 123/68 05/14/23 09:44 Pulse Ox 96 05/14/23 09:44 FiO2 Intake & Output 05/13/23 05/14/23 05/14/23 18:59 06:59 18:59 Intake Total 1500 Output Total 1200 1200 Balance 300 -1200 Weight 51 kg Intake: Oral 1500 Output: Urine 1200 1200 Other: Voiding Method Urinal Urinal Urinal - Labs CBC & Chem 7: 05/13/23 03:17 05/13/23 03:17
[2023-05-14] MEDS: BUTALB/APAP/CAFF 50-325-40MG TAB PO PRN (11:50)
--- NOTE | 2023-05-14 12:56 | P.PN ---
Subjective Progress Note Date: 05/14/23 Principal diagnosis: Chest pain with intermediate nonobstructive coronary artery disease This is a pleasant 62-year-old male patient with a known history of oxygen dependent chronic obstructive pulmonary disease, chronic tobacco dependence, non-small cell lung cancer with previous right upper lobe resection, chronic pain syndrome. He presented to the emergency room this morning with concerns of stabbing sharp left-sided chest pain and shortness of breath. Pain was worse w ith inhalation. He was also having issues with lower extremity edema. He was felt to be ST segment elevation myocardial infarction inferiorly with T-wave inversions anteriorly. He went directly to the cardiac scientific laboratory supervisor and was found to have an intermediate disease involving the right coronary artery and an occluded distal left circumflex coronary artery. Recommended medical therapy. Added aspirin and statin. Echocardiogram is pending. Chest x-ray reveals evidence of COPD but no acute pulmonary process. White count 9.5. Hemoglobin 11.9. Platelets 356. D-dimer 1.55. Sodium 137. Potassium 4.5. Bicarb 32. BUN 35. Creatinine 0.90. AST 53. ALT 51. Troponin 0.074. ProBNP 9320. Cherry l saline at 75 ML's per hour. He is seen in consultation in the intensive care unit. He is sitting up in bed. Awake and alert in no acute distress. He is still having some lower extremity edema. Still with some mild pain on inhalation. He is currently in sinus rhythm. Maintaining O2 saturations in the 90s on 3 L/m per nasal cannula. He is afebrile. Patient was reevaluated today on 05/13/20, patient is in the ICU as an overflow, he is on 3 L nasal cannula, his cardiac catheterization report was reviewed patient has nonocclusive coronary artery disease, and the recommendation was to treat medically. Patient had negative venous Doppler, his COPD is relatively severe, and he is on bronchodilators for his COPD. Today the patient seems to be doing well, some vague chest discomfort, he has chronic shortness of breath, no fever no chills no hemoptysis. CBC is relatively normal basic metabolic profile is normal renal profile is normal, BNP level is trending down to 4540 Reevaluated today on 05/15, patient remains in the ICU as an overflow, doing fairly well, relatively asymptomatic except for symptoms of GERD. Patient has chronic shortness of breath related to his underlying COPD, his echocardiogram showed preserved LV systolic function and pulmonary hypertension related to his underlying COPD. His chest discomfort and pain has resolved. I believe the patient could be transferred out of the ICU to a monitor bed on selective. Or possibly a medical surgical bed with telemetry. Objective - Vital Signs Vital signs: Vital Signs Temp 97.7 F 05/14/23 09:44 Pulse 67 05/14/23 09:44 Resp 14 05/14/23 09:44 BP 123/68 05/14/23 09:44 Pulse Ox 96 05/14/23 09:44 FiO2 Intake & Output 05/13/23 05/14/23 05/14/23 18:59 06:59 18:59 Intake Total 1500 Output Total 1200 1200 Balance 300 -1200 Weight 51 kg Intake: Oral 1500 Output: Urine 1200 1200 Other: Voiding Method Urinal Urinal Urinal - Exam Physical Exam: Revealed a 62-year-old white male in no distress, on 6 L nasal cannula. Head: Atraumatic, normocephalic. HEENT:[Neck is supple.] [No neck masses.] [No thyromegaly.] [No JVD.] Chest: [Diminished breath sound bilaterally no crackles or rhonchi or wheezes Cardiac Exam: [Normal S1 and S2, no S3 gallop, no murmur.] Abdomen: [Soft, nontender, no megaly, no rebound, no guarding, normal bowel sounds.] Extremities: [No clubbing, no edema, no cyanosis.] Chronic deformity noted in the right hand Neurological Exam: [No focal neurologic deficit.] Psychiatric: Normal mood affect and normal mental status examination. Skin: No rashes - Labs CBC & Chem 7: 05/13/23 03:17 05/13/23 03:17 Assessment and Plan Assessment: Impression: Chest pain in a patient found to have an intermediate disease involving the right coronary artery and occluded distal left circumflex coronary artery. Medical therapy was recommended ST elevation myocardial infarction, apparently has been ruled out by cardiology Severe oxygen dependent chronic obstructive pulmonary disease. FEV1 41% of predicted.Maintained on Trilogy and DuoNeb inhalations Chronic and ongoing tobacco dependence of 50 years History of non-small cell lung cancer status post right upper lobe lobectomy and radiation back in 2006 Chronic thoracic pain and brachial plexus disorder secondary to above Recommendation: Continue present supportive care measures Continue bronchodilators for his COPD including Symbicort and DuoNeb Continue aspirin and statins Patient to follow-up with Dr. Peters post discharge Consider discharge planning, if cleared by cardiology We'll continue to follow Time with Patient: Less than 30
--- NOTE | 2023-05-14 19:19 | P.PN ---
Subjective Progress Note Date: 05/14/23 This is a 62-year-old gentleman with past medical history significant for ongoing nicotine dependence, non-small cell lung cancer status post right upper lobectomy/radiation, oxygen dependent COPD, chronic back pain with multiple back surgeries, chronic pain syndrome, diverticulosis, hiatal hernia and multiple other medical issues presented to the ER with sharp midsternal/ left-sided chest pain accompanied by shortness of breath, nausea, vomiting, lower extremity edema without calf pain that progressed over 4 days, while raking leaves. Worsened with deep inspiration. Denies cough, congestion. Denies diaphoresis. EKG evaluated by cardiology, diagnosed with STEMI with anterior T-wave inversions. Underwent cardiac catheterization reporting intermediate disease involving the RCA and an occluded distal left circumflex with recommendations of maximizing medical therapy. Telemetry sinus rhythm. Blood pressures soft. Maintaining O2 sats in the 90s on 3 L nasal cannula. Venous Doppler's of bilateral lower extremities reported no evidence for DVT. Currently denies chest pain, palpitations or increased shortness of breath. Echo pending. Continues on aspirin and statin. 05/14/2023 Patient is seen in follow-up today continues to be an overflow in the ICU with cardiology and pulmonary following. STEMI was ruled out and found to have a nonocclusive coronary artery disease recommending maximizing medical management. Patient is continued on breathing inhalational treatments as well as chronic oxygen that he wears outpatient for his COPD. patient reports he was recently just instructed to continue with continuous oxygen secondary to his advanced COPD and was previously only using it as needed. Patient does use nebulize treatments outpatient and reports having a nebulizer with necessary supplies. Patient encouraged to increase activity as tolerated as he continues to report s ignificant shortness of breath. Patient was requiring 6 L of oxygen and reports normally only has been using 2-3 L. Review of systems: Constitutional: No reports of fatigue, fever, or chills Cardiovascular: No reports of chest pain or palpitations Respiratory: No reports of worsening shortness of breath although continues to have increased shortness of breath with exertion GI: No reports of nausea, vomiting, or diarrhea : No reports of dysuria or retention Neurovascular: reports of generalized weakness All medications have been reviewed Physical exam: Gen: This is a 62-year-old male who is awake, alert and oriented 3, cachectic, emaciated, extremely thin build, appears older than stated age HEENT: Head is atraumatic, normocephalic. Pupils equal, round. Sclerae is anicteric. NECK: Supple. No JVD. No lymphadenopathy. No thyromegaly. LUNGS: Diminished breath sounds bilaterally with coarse scattered rhonchi. No intercostal retractions. HEART: Regular rate and rhythm. No murmur. ABDOMEN: Soft. Bowel sounds are present. No masses. No tenderness. EXTREMITIES: No pedal edema. No calf tenderness. NEUROLOGICAL: Patient is awake, alert and oriented x3. Cranial nerves 2 through 12 are grossly intact. Assessment: Chest pain ,Acute STEMI was ruled out, status post cardiac catheterization reporting intermediate disease involving the RCA and an occluded distal left circumflex with recommendations of maximizing medical therapy. Chronic hypoxic respiratory failure secondary to severe COPD. Reports has been recently instructed to wear 3 L continuously outpatient History of non-small cell lung CA status post right upper lobe lobectomy, radiation, 2006 Continued Ongoing nicotine dependence Moderate protein calorie malnutrition with a BMI of 17.1 Chronic pain syndrome GI prophylaxis DVT prophylaxis Full code Plan: Continue on current medication regimen with pulmonary and cardiology following. Patient is status post cardiac catheterization recommending maximizing medical management Pulmonary following as well is patient with significant COPD maintained on nebulize treatments Patient encouraged and instructed to increase activity as tolerated as patient reports significant shortness of breath with exertion Patient was recently placed on continuous oxygen at 3 L via nasal cannula in the outpatient setting and currently requiring 6 L and recommend wean FiO2 as tolerated Patient is a downgrade out of the ICU currently awaiting a bed and doing well would recommend possible discharge planning in the next 24-48 hours once cleared by pulmonary and cardiology Complete smoking cessation was extensively discussed The impression and plan of care has been dictated by Yasemin Padilal, Nurse Practitioner as directed. Dr. Georgette MD I have performed a history and examination and MDM of this patient, discussed the same with the dictator, and agree with the dictator's assessment and plan as written ,documented as a scribe. Based on total visit time, I have performed more than 50% of the visit. Objective - Vital Signs Vital signs: Vital Signs Temp 97.7 F 05/14/23 09:44 Pulse 67 05/14/23 09:44 Resp 14 05/14/23 09:44 BP 123/68 05/14/23 09:44 Pulse Ox 96 05/14/23 09:44 FiO2 Intake & Output 05/13/23 05/14/23 05/14/23 18:59 06:59 18:59 Intake Total 1500 Output Total 1200 1200 Balance 300 -1200 Weight 51 kg Intake: Oral 1500 Output: Urine 1200 1200 Other: Voiding Method Urinal Urinal Urinal - Labs CBC & Chem 7: 05/13/23 03:17 05/13/23 03:17
[2023-05-14 22:52] LABS: Glucose,Whole Blood 132 mg/dL (70-110)
[2023-05-15] MEDS: ONDANSETRON 4 MG/2 ML VIAL IVP PRN (03:38)
[2023-05-15] MEDS: oxyCODONE-APAP 10-325MG 1 EACH TAB PO PRN (03:48)
[2023-05-15] MEDS ORDERED: PANTOPRAZOLE 40 MG TABLET PO SCH (07:30)
[2023-05-15 08:16] VITALS: BP 113/75; RESP 16; TEMP 98.6
[2023-05-15] MEDS: MORPHINE SULFATE ER 60 MG TABLET PO SCH (08:29)
[2023-05-15] MEDS: MORPHINE SULFATE ER 30 MG TABLET PO SCH (08:29)
[2023-05-15] MEDS: GABAPENTIN 300 MG CAP PO SCH (08:29)
[2023-05-15] MEDS: IPRATROPIUM-ALBUTEROL 3 ML NEB INHALATION SCH ×2 (09:25→12:21)
[2023-05-15] MEDS: SYMBICORT 160-4.5 MCG INHALER INHALATION SCH (09:25)
[2023-05-15] MEDS ORDERED: ASPIRIN 81 MG PO SCH (10:45)
--- NOTE | 2023-05-15 11:50 | P.PN ---
Subjective Progress Note Date: 05/15/23 This is a pleasant 62-year-old male patient with a known history of oxygen dependent chronic obstructive pulmonary disease, chronic tobacco dependence, non-small cell lung cancer with previous right upper lobe resection, chronic pain syndrome. He presented to the emergency room this morning with concerns of stabbing sharp left-sided chest pain and shortness of breath. Pain was worse with inhalation. He was also having issues with lower extremity edema. He was felt to be ST segment elevation myocardial infarction inferiorly with T-wave inversions anteriorly. He went directly to the cardiac slab installer and was found to have an intermediate disease involving the right coronary artery and an occluded distal left circumflex coronary artery. Recommended medical therapy. Added aspirin and statin. Echocardiogram is pending. Chest x-ray reveals evidence of COPD but no acute pulmonary process. White count 9.5. Hemoglobin 11.9. Platelets 356. D-dimer 1.55. Sodium 137. Potassium 4.5. Bicarb 32. BUN 35. Creatinine 0.90. AST 53. ALT 51. Troponin 0.074. ProBNP 9320. Normal saline at 75 ML's per hour. He is seen in consultation in the intensive care unit. He is sitting up in bed. Awake and alert in no acute distress. He is still having some lower extremity edema. Still with some mild pain on inhalation. He is currently in sinus rhythm. Maintaining O2 saturations in the 90s on 3 L/m per nasal cannula. He is afebrile. Patient was reevaluated today on 05/13/20, patient is in the ICU as an overflow, he is on 3 L nasal cannula, his cardiac catheterization report was reviewed odell tirado has nonocclusive coronary artery disease, and the recommendation was to treat medically. Patient had negative venous Doppler, his COPD is relatively severe, and he is on bronchodilators for his COPD. Today the patient seems to be doing well, some vague chest discomfort, he has chronic shortness of breath, no fever no chills no hemoptysis. CBC is relatively normal basic metabolic profile is normal renal profile is normal, BNP level is trending down to 4540 Reevaluated today on 05/15, patient remains in the ICU as an overflow, doing fairly well, relatively asymptomatic except for symptoms of GERD. Patient has chronic shortness of breath related to his underlying COPD, his echocardiogram showed preserved LV systolic function and pulmonary hypertension related to his underlying COPD. His chest discomfort and pain has resolved. I believe the patient could be transferred out of the ICU to a monitor bed on selective. Or possibly a medical surgical bed with telemetry. The patient is seen today 05/15/2023 in follow-up on the regular medical floor. He is currently sitting up in bed. Awake and alert in no acute distress. He did have some issues with nausea last evening. No worsening shortness of breath, cough or congestion. Maintaining O2 saturations in the 90s on 3 L/m per nasal cannula. He is continued on DuoNeb inhalations, Symbicort. Protonix for GI prophylaxis. Zofran as needed. Objective - Vital Signs Vital signs: Vital Signs Temp 98.6 F 05/15/23 06:50 Pulse 76 05/15/23 09:37 Resp 16 05/15/23 06:50 BP 113/75 05/15/23 06:50 Pulse Ox 91 L 05/15/23 09:25 FiO2 Intake & Output 05/14/23 05/15/23 05/15/23 18:59 06:59 18:59 Intake Total 800 Output Total 650 Balance 150 Intake: Oral 800 Output: Urine 650 Other: Voiding Method Urinal - Exam GENERAL EXAM: Alert, 62-year-old male, frail, cachectic, and 3 L nasal cannula, fairly comfortable in no apparent distress. HEAD: Normocephalic. EYES: Normal reaction of pupils, equal size. NOSE: Clear with pink turbinates. THROAT: No erythema or exudates. NECK: No masses, no JVD. CHEST: Noted chest wall deformity. LUNGS: Equal air entry with complicated rhonchi over the right lung. CVS: S1 and S2 normal with no audible murmur, regular rhythm. ABDOMEN: No hepatosplenomegaly, normal bowel sounds, no guarding or rigidity. SPINE: No scoliosis or deformity SKIN: No rashes CENTRAL NERVOUS SYSTEM: No focal deficits, tone is normal in all 4 extremities. EXTREMITIES: There is no peripheral edema. No clubbing, no cyanosis. Peripheral pulses are intact. - Labs CBC & Chem 7: 05/13/23 03:17 05/13/23 03:17 Labs: Abnormal Lab Results - Last 24 Hours (Table) 05/14/23 05/14/23 Range/Units 22:45 23:38 POC Glucose (mg/dL) 132 H (70-110) mg/dL Troponin I 0.035 H* (0.000-0.034) ng/mL Assessment and Plan Assessment: Chest pain in a patient found to have an intermediate disease involving the right coronary artery and occluded distal left circumflex coronary artery. Plan is to treat medically. ST elevation myocardial infarction Severe oxygen dependent chronic obstructive pulmonary disease. FEV1 41% of predicted.Maintained on Trilogy and DuoNeb inhalations Chronic and ongoing tobacco dependence of 50 years History of non-small cell lung cancer status post right upper lobe lobectomy and radiation back in 2006 Chronic thoracic pain and brachial plexus disorder secondary to above Plan: The patient was seen and evaluated Medications reviewed Cleared for discharge from the pulmonary standpoint Continue his home pulmonary medications, oxygen Follow-up in the office in 1 week I have personally seen and examined the patient, performed the documentation and the assessment and plan as written. Number of minutes spent on the visit: 10.
--- NOTE | 2023-05-15 12:15 | P.PN ---
Subjective Progress Note Date: 05/15/23 Principal diagnosis: Chest discomfort The patient is a 62-year-old gentleman with smoking and COPD who presented to the hospital with a chest discomfort and he underwent a heart catheterization and was found to have intermediate disease involving the RCA was not flow- limiting. May 132022 The patient was seen and evaluated this morning. He is chest pain-free. He khan s have shortness of breath but he does have COPD and currently the intensive care/pulmonary team is on the case. I am going to order an echocardiogram to assess the LV systolic function. His pressure has been marginal. He is not on any blood pressure medications. He is on aspirin as well as a statin. The examination is remarkable for severe diminished breathing sounds bilaterally and bilateral rhonchi. May 142022 The patient was seen and evaluated this morning. No chest pain or chest discomfort but continues to have shortness of breath related to COPD. The echo showed preserved LV systolic function was dilated the right ventricle and pulmonary hypertension. Hemodynamically he is stable. 05/15/2023 The patient was seen this morning. He is feeling better. The shortness of breath has improved. No pain in the chest. He is hemodynamically stable. The echo showed preserved LV systolic function was no significant valvular abnormalities. From a cardiovascular standpoint of view, the patient is a stable to be discharged home. Assessment Chest discomfort which has resolved Intermediate nonobstructive CAD COPD exacerbation Plan Continue the aspirin and statin The patient can be discharged home Objective - Vital Signs Vital signs: Vital Signs Temp 98.6 F 05/15/23 06:50 Pulse 76 05/15/23 09:37 Resp 16 05/15/23 06:50 BP 113/75 05/15/23 06:50 Pulse Ox 91 L 05/15/23 09:25 FiO2 Intake & Output 05/14/23 05/15/23 05/15/23 18:59 06:59 18:59 Intake Total 800 Output Total 650 Balance 150 Intake: Oral 800 Output: Urine 650 Other: Voiding Method Urinal - Labs CBC & Chem 7: 05/13/23 03:17 05/13/23 03:17 Labs: Abnormal Lab Results - Last 24 Hours (Table) 05/14/23 05/14/23 Range/Units 22:45 23:38 POC Glucose (mg/dL) 132 H (70-110) mg/dL Troponin I 0.035 H* (0.000-0.034) ng/mL
[2023-05-15 12:44] VITALS: PULSE 75
--- NOTE | 2023-05-15 13:27 | P.DS ---
Providers Date of admission: 05/12/23 12:10 Expected date of discharge: 05/15/23 Attending physician: Terrance Murdock MD Consults: 05/12/23 12:08 Consult Physician Stat Consulting Provider: Juan Manuel Molina Consult Reason/Comments: stemi Do you want consulting provider notified?: Already Contacted Consult Physician Urgent Consulting Provider: Ana De Leon Consult Reason/Comments: dyspnea Do you want consulting provider notified?: Yes Primary care physician: Terrance Murdock MD Hospital Course: Discharge diagnoses; Chest pain ,Acute STEMI was ruled out, status post cardiac catheterization reporting intermediate disease involving the RCA and an occluded distal left circumflex with recommendations of maximizing medical therapy. Chronic hypoxic respiratory failure secondary to severe COPD. Reports has been recently instructed to wear 3 L continuously outpatient History of non-small cell lung CA status post right upper lobe lobectomy, radiation, 2006 Continued Ongoing nicotine dependence Moderate protein calorie malnutrition with a BMI of 17.1 Chronic pain syndrome Hospital course; This is a 62-year-old gentleman with past medical history significant for ongoing nicotine dependence, non-small cell lung cancer status post right upper lobectomy/radiation, oxygen dependent COPD, chronic back pain with multiple back surgeries, chronic pain syndrome, diverticulosis, hiatal hernia and multiple other medical issues presented to the ER with sharp midsternal/ left-sided chest pain accompanied by shortness of breath, nausea, vomiting, lower extremity edema without calf pain that progressed over 4 days, while raking leaves. Worsened with deep inspiration. Denies cough, congestion. Denies diaphoresis. EKG evaluated by cardiology, diagnosed with STEMI with anterior T-wave inversions. Underwent cardiac catheterization reporting intermediate disease involving the RCA and an occluded distal left circumflex with recommendations of maximizing medical therapy. Telemetry sinus rhythm. Blood pressures soft. Maintaining O2 sats in the 90s on 3 L nasal cannula. Venous Doppler's of bilateral lower extremities reported no evidence for DVT. Currently denies chest pain, palpitations or increased shortness of breath. Echo pending. Continues on aspirin and statin. 05/14/2023 Patient is seen in follow-up today continues to be an overflow in the ICU with cardiology and pulmonary following. STEMI was ruled out and found to have a nonocclusive coronary artery disease recommending maximizing medical management. Patient is continued on breathing inhalational treatments as well as chronic oxygen that he wears outpatient for his COPD. patient reports he was recently just instructed to continue with continuous oxygen secondary to his advanced COPD and was previously only using it as needed. Patient does use nebulize treatments outpatient and reports having a nebulizer with necessary supplies. Patient encouraged to increase activity as tolerated as he continues to report significant shortness of breath. Patient was requiring 6 L of oxygen and reports normally only has been using 2-3 L. 05/15. Patient seen and examined. Currently on his home O2 oxygen levels of 3 L. Pulmonology and cardiology has cleared the patient for discharge PHYSICAL EXAMINATION: GENERAL: The patient is alert and oriented x3, not in any acute distress. Cachectic, chronically ill-looking HEENT: Pupils are round and equally reacting to light. EOMI. No scleral icterus. No conjunctival pallor. Normocephalic, atraumatic. No pharyngeal erythema. No thyromegaly. CARDIOVASCULAR: S1 and S2 present. No murmurs, rubs, or gallops. PULMONARY: Chest is clear to auscultation, no wheezing or crackles. ABDOMEN: Soft, nontender, nondistended, normoactive bowel sounds. No palpable organomegaly. MUSCULOSKELETAL: No joint swelling or deformity. EXTREMITIES: No cyanosis, clubbing, or pedal edema. NEUROLOGICAL: Gross neurological examination did not reveal any focal deficits. SKIN: No rashes. Dictation was produced using [employer] dictation software. please excuse any grammatical, word or spelling errors. Patient Condition at Discharge: Good Plan - Discharge Summary New Discharge Prescriptions: New Aspirin 81 mg PO DAILY 30 Days #30 tab Atorvastatin [Lipitor] 40 mg PO HS 30 Days #30 tab Continue oxyCODONE-APAP 10-325MG [Percocet 10-325 mg] 1 tab PO BID PRN PRN Reason: Breakthrough Pain Morphine Sulfate [Ms Contin] 60 mg PO BID Morphine Sulfate ER [Ms Contin] 30 mg PO BID Gabapentin [Neurontin] 300 mg PO TID Baclofen [Lioresal] 10 mg PO TID PRN PRN Reason: Muscle Spasm Butalb/APAP/Caff 50-325-40Mg [Fioricet 50-325-40] 1 tab PO TID PRN PRN Reason: Migraine Headache Fluticasone/Umeclidin/Vilanter [Trelegy Ellipta 100-62.5-25] 1 puff INHALATION RT-DAILY Ipratropium-Albuterol Nebulize [Duoneb 0.5 mg-3 mg/3 ml Soln] 3 ml INHALATION RT-DAILY@1800 Discharge Medication List Gabapentin [Neurontin] 300 mg PO TID 03/26/19 [History] Morphine Sulfate ER [Ms Contin] 30 mg PO BID 03/26/19 [History] Morphine Sulfate [Ms Contin] 60 mg PO BID 03/26/19 [History] oxyCODONE-APAP 10-325MG [Percocet 10-325 mg] 1 tab PO BID PRN 03/26/19 [History] Baclofen [Lioresal] 10 mg PO TID PRN 11/11/20 [History] Fluticasone/Umeclidin/Vilanter [Trelegy Ellipta 100-62.5-25] 1 puff INHALATION RT-DAILY 11/11/20 [History] Ipratropium-Albuterol Nebulize [Duoneb 0.5 mg-3 mg/3 ml Soln] 3 ml INHALATION RT-DAILY@1800 11/11/20 [History] Butalb/APAP/Caff 50-325-40Mg [Fioricet 50-325-40] 1 tab PO TID PRN 05/12/23 [History] Aspirin 81 mg PO DAILY 30 Days #30 tab 05/15/23 [Rx] Atorvastatin [Lipitor] 40 mg PO HS 30 Days #30 tab 05/15/23 [Rx] Follow up Appointment(s)/Referral(s): Terrance Murdock MD [Primary Care Provider] - 1-2 days Juan Manuel Molina MD [STAFF PHYSICIAN] - 1 Week Ana De Leon MD [STAFF PHYSICIAN] - 1 Week Discharge Disposition: HOME SELF-CARE
[2023-05-15] MEDS ORDERED: ATORVASTATIN 40 MG TAB PO SCH (21:00)
== END 2023-05-15 13:43 | disposition home or self-care (01) | DRG 281 ==
LOC: EC 11:19 → 2SICU 12:10 → 4SSUR 05-14 18:37
PROVIDERS: ADMIT Family Medicine; ATTEND Family Medicine
PROC: 4A033BC Measurement of Arterial Pressure, Coronary, Percutaneous Approach (ICD-10-PCS; principal; 2023-05-12 13:25)
PROC: 4A023N7 Measurement of Cardiac Sampling and Pressure, Left Heart, Percutaneous Approach (ICD-10-PCS; principal; 2023-05-12 13:25)
PROC: B2111ZZ Fluoroscopy of Multiple Coronary Arteries using Low Osmolar Contrast (ICD-10-PCS; principal; 2023-05-12 13:25)
DX: I21.09 ST elevation (STEMI) myocardial infarction involving other coronary artery of anterior wall (principal); E44.0 Moderate protein-calorie malnutrition; J96.11 Chronic respiratory failure with hypoxia; J44.1 Chronic obstructive pulmonary disease with (acute) exacerbation; Z68.1 Body mass index [BMI] 19.9 or less, adult; I27.20 Pulmonary hypertension, unspecified; G54.0 Brachial plexus disorders; J43.9 Emphysema, unspecified; I25.110 Atherosclerotic heart disease of native coronary artery with unstable angina pectoris; G89.4 Chronic pain syndrome; M95.4 Acquired deformity of chest and rib; M54.6 Pain in thoracic spine; K21.9 Gastro-esophageal reflux disease without esophagitis; K44.9 Diaphragmatic hernia without obstruction or gangrene; K57.90 Diverticulosis of intestine, part unspecified, without perforation or abscess without bleeding; F17.210 Nicotine dependence, cigarettes, uncomplicated; Z71.6 Tobacco abuse counseling; Z99.81 Dependence on supplemental oxygen; Z79.51 Long term (current) use of inhaled steroids; Z79.891 Long term (current) use of opiate analgesic; Z79.899 Other long term (current) drug therapy; Z92.3 Personal history of irradiation; Z85.118 Personal history of other malignant neoplasm of bronchus and lung; Z90.2 Acquired absence of lung [part of]
CPT/HCPCS: 36415; 71045; 76937; 80048; 80053; 83735; 83880; 84484; 85025; 85379; 85610; 85730; 93005; 93306; 93458; 93799; 93970; 94640; 94760; 96374; 99285; 99291

== ENCOUNTER 2023-05-16 13:12 | Inpatient (IN) | payer MEDICARE ==
--- NOTE | 2023-05-16 13:59 | XR ---
EXAMINATION TYPE: XR chest 1V portable DATE OF EXAM: 05/16/2023 HISTORY: Shortness of breath. COMPARISON: 05/12/2023 TECHNIQUE: Single view of the chest is submitted. FINDINGS: Demonstrated are scattered senescent parenchymal change. Right-sided chronic parenchymal change and postoperative changes with diminution of the right lung and hyperinflation of the left lung as seen p reviously. Scattered patchy density right lung may reflect underlying infiltrate. Correlate clinically. The heart is stable. Hilar and mediastinal structures are within normal limits. Degenerative changes are seen of the dorsal spine. IMPRESSION: 1. Scattered patchy density right lung may reflect underlying infiltrate. Correlate clinically.
[2023-05-16 14:02] LABS: INR 1.4 (<1.2); Partial Thromboplastin Time 23.6 sec (22.0-30.0)
[2023-05-16 14:03] LABS: Basophils % (A) 0 %; Eosinophils # (A) 0.1 k/uL (0-0.7); Eosinophils % (A) 1 %; HCT 38.2 % (39.0-53.0); HGB 12.1 gm/dL (13.0-17.5); Lymphocytes # (A) 0.4 k/uL (1.0-4.8); Lymphocytes % (A) 4 %; MCHC 31.7 g/dL (31.0-37.0); MCV 97.7 fL (80.0-100.0); Macrocytosis Slight; Mean Platelet Volume 8.3; Monocytes # (A) 0.3 k/uL (0-1.0); Monocytes % (A) 3 %; Neutrophils # (A) 9.2 k/uL (1.3-7.7); Neutrophils % (A) 91 %; Platelet Count 325 k/uL (150-450); RBC 3.91 m/uL (4.30-5.90); RDW 14.9 % (11.5-15.5); WBC 10.1 k/uL (3.8-10.6)
[2023-05-16 14:05] LABS: VBG PH 7.43 (7.31-7.41)
[2023-05-16 14:06] LABS: African American GFR (CKD) 64 (>60 ml/min/1.73 sqM); Albumin 3.3 g/dL (3.5-5.0); Alkaline Phosphatase 113 U/L (38-126); Blood Urea Nitrogen 51 mg/dL (9-20); Calcium 8.3 mg/dL (8.4-10.2); Chloride 89 mmol/L (98-107); Glucose 84 mg/dL (74-99); Non-African American GFR(CKD) 55 (>60 ml/min/1.73 sqM); Sodium 138 mmol/L (137-145); Total Bilirubin 0.7 mg/dL (0.2-1.3); Total Protein 6.4 g/dL (6.3-8.2)
[2023-05-16 14:14] LABS: Anion Gap 8 mmol/L
[2023-05-16 14:24] LABS: Potassium 6.4 mmol/L (3.5-5.1)
[2023-05-16 14:25] LABS: Carbon Dioxide 41 mmol/L (22-30)
--- NOTE | 2023-05-16 14:26 | ED ---
General Adult HPI - General Chief complaint: Altered Mental Status Stated complaint: SOB Time Seen by Provider: 05/16/23 13:19 Source: EMS Mode of arrival: EMS Limitations: altered mental status, physical limitation - History of Present Illness Initial comments: 62-year-old male with past medical history of lung cancer status post lobectomy, COPD on 3 L home O2 who presents to the emergency department for altered mental status. Patient was just discharged from our facility yesterday after he had a heart cath for chest pain. states that he went home and wore his oxygen to bed. In the middle the night the oxygen ended up falling off and the patient refused to put it back on. He has been known to be noncompliant oxygen. reported that he became more confused until he was unresponsive. EMS arrived to the house to find him to have an oxygen saturation in the 50s. He was placed on a nonrebreather brought into the hospital. He had increase in his mentation. Upon arrival the patient appears lethargic. His oxygen is 100% on 3 L. Over time he does become more arousable. He denies any chest pain or shortness of breath. Does admit to chronic back pain. No abdominal pain and no changes in his bowel or bladder habits. No report of any fevers. No other alleviating, precipitating or modifying factors - Related Data Home Medications Medication Instructions Recorded Confirmed Gabapentin [Neurontin] 300 mg PO TID 03/26/19 05/16/23 Morphine Sulfate ER [Ms Contin] 30 mg PO BID 03/26/19 05/16/23 Morphine Sulfate [Ms Contin] 60 mg PO BID 03/26/19 05/16/23 oxyCODONE-APAP 10-325MG [Percocet 1 tab PO BID PRN 03/26/19 05/16/23 10-325 mg] Baclofen [Lioresal] 10 mg PO TID PRN 11/11/20 05/16/23 Fluticasone/Umeclidin/Vilanter 1 puff INHALATION RT-DAILY 11/11/20 05/16/23 [Trelegy Ellipta 100-62.5-25] Ipratropium-Albuterol Nebulize 3 ml INHALATION RT-DAILY@1800 11/11/20 05/16/23 [Duoneb 0.5 mg-3 mg/3 ml Soln] Butalb/APAP/Caff 50-325-40Mg 1 tab PO TID PRN 05/12/23 05/16/23 [Fioricet 50-325-40] Previous Rx's Medication Instructions Recorded Aspirin 81 mg PO DAILY 30 Days #30 tab 05/15/23 Atorvastatin [Lipitor] 40 mg PO HS 30 Days #30 tab 05/15/23 Allergies Allergy/AdvReac Type Severity Reaction Status Date / Time No Known Allergies Allergy Verified 05/16/23 16:08 Review of Systems ROS Statement: Those systems with pertinent positive or pertinent negative responses have been documented in the HPI. ROS Other: All systems not noted in ROS Statement are negative. Past Medical History Past Medical History: Cancer Additional Past Medical History / Comment(s): history of non-small cell lung cancer with a previous right upper lobe resection, advanced emphysema, chest deformity related to previous thoracic surgery, chronic pain Involving the back in addition to brachial plexus disorder related to previous thoracic surgery. History of Any Multi-Drug Resistant Organisms: None Reported Additional Past Surgical History / Comment(s): right upper lobectomy d/t CA, multiple surgeries on right hand d/t accident Past Anesthesia/Blood Transfusion Reactions: No Reported Reaction Past Psychological History: No Psychological Hx Reported Smoking Status: Current every day smoker Past Alcohol Use History: None Reported Past Drug Use History: None Reported General Exam Limitations: altered mental status, physical limitation General appearance: lethargic Head exam: Present: atraumatic, normocephalic, normal inspection Eye exam: Present: normal appearance, PERRL, EOMI. Absent: scleral icterus, conjunctival injection, periorbital swelling ENT exam: Present: mucous membranes dry, mucous membranes moist Neck exam: Present: normal inspection. Absent: tenderness, meningismus, lymphadenopathy Respiratory exam: Present: normal lung sounds bilaterally. Absent: respiratory distress, wheezes, rales, rhonchi, stridor Cardiovascular Exam: Present: regular rate, normal rhythm, normal heart sounds. Absent: systolic murmur, diastolic murmur, rubs, gallop, clicks GI/Abdominal exam: Present: soft, normal bowel sounds. Absent: distended, te nderness, guarding, rebound, rigid Extremities exam: Present: normal inspection, full ROM, normal capillary refill. Absent: tenderness, pedal edema, joint swelling, calf tenderness Neurological exam: Present: altered Skin exam: Present: pallor Course Vital Signs 05/16/23 05/16/23 05/16/23 13:19 15:30 17:06 Temperature 98.2 F Pulse Rate 81 72 70 Respiratory 12 18 16 Rate Blood Pressure 125/79 123/84 131/84 O2 Sat by Pulse 74 L 96 95 Oximetry 05/16/23 05/16/23 17:46 18:33 Temperature Pulse Rate 71 73 Respiratory 18 18 Rate Blood Pressure 150/90 141/87 O2 Sat by Pulse 96 96 Oximetry Procedures - ABG Interpretation Ph: 7.4 PCO2: 65 PO2: 120 Bicarbonate: 42.5 Interpretation: respiratory acidosis Additional Comments: compensated Medical Decision Making - Medical Decision Making Was pt. sent in by a medical professional or institution (, PA, HOUSE MOVER HELPER, urgent care, hospital, or snf...) When possible be specific @ -No Did you speak to anyone other than the patient for history (EMS, parent, family, police, friend...)? What history was obtained from this source @ -EMS and Did you review nursing and triage notes (agree or disagree)? Why? @ -I reviewed and agree with nursing and triage notes Were old charts reviewed (outside hosp., previous admission, EMS record, old EKG, old radiological studies, urgent care reports/EKG's, snf records)? Report findings @ -I reviewed patient's discharge summary from yesterday Differential Diagnosis (chest pain, altered mental status, abdominal pain women, abdominal pain men, vaginal bleeding, weakness, fever, dyspnea, syncope, headache, dizziness, GI bleed, back pain, seizure, CVA, palpatations, mental health, musculoskeletal)? @ -Differential Altered Mental Status: Hypoglycemia, DKA, hypercapnia, ETOH, overdose, CO poisoning, trauma, myxedema coma, HTN encephalopathy, infection, encephalitis, psychosis, intercranial hemorrhage, hepatic encephalopathy, meningitis, CVA, this is not meant to be an all-inclusive list EKG interpreted by me (3pts min.). @ -yes and demonstrates sinus rhythm with a rate of 79. RI interval 156. QRS 73. QTC of 404. No ST segment elevation. Deep inverted T-wave lead V3 which was seen on previous EKG X-rays interpreted by me (1pt min.). @ -Yes and demonstrates right lower lobe infiltrate - known to patient and r ecently treated for CT interpreted by me (1pt min.). @ -Yes and demonstrates no acute intracranial process. CT of abdomen and pelvis demonstrates heterogeneous liver U/S interpreted by me (1pt. min.). @ -Yes and demonstrates normal gallbladder What testing was considered but not performed or refused? (CT, X-rays, U/S, labs)? Why? @ -None What meds were considered but not given or refused? Why? @ -None Did you discuss the management of the patient with other professionals (professionals i.e. , PA, HOUSE MOVER HELPER, lab, RT, psych nurse, licensed social worker, vice president financial, teacher, aoc airspace control officer, case finishing machine adjuster)? Give summary @ -Spoke with Yasemin from [facility]. Agreeable to admit patient without GI on staff Was smoking cessation discussed for >3mins.? @ -No Was critical care preformed (if so, how long)? @ -No Were there social determinants of health that impacted care today? How? (Homelessness, low income, unemployed, alcoholism, drug addiction, transportation, low edu. Level, literacy, decrease access to med. care, usp, rehab)? @ -No Was there de-escalation of care discussed even if they declined (Discuss DNR or withdrawal of care, Hospice)? DNR status @ -Yes dates that the patient is a DO NOT INTUBATE What co-morbidities impacted this encounter? (DM, HTN, Smoking, COPD, CAD, Cancer, CVA, ARF, Chemo, Hep., AIDS, mental health diagnosis, sleep apnea, morbid obesity)? @ -Lung cancer, protein calorie malnutrition, COPD on home O2 Was patient admitted / discharged? Hospital course, mention meds given and route, prescriptions, significant lab abnormalities, going to OR and other pertinent info. @ -Upon arrival patient is placed in room 5. Thorough history and physical exam was performed. Patient is 100% on his oxygen. He does have improvement in his mental status. Laboratory studies are obtained. ABG is obtained for which the patient is compensated. Laboratory studies are reviewed and demonstrated an elevated liver enzyme. CT of the abdomen and pelvis as well as ultrasound is ordered. Patient is hyperkalemic and therefore hyperkalemia protocol is ordered. CT of the brain is ordered due to altered mental status which demonstrates no acute intracranial findings. Patient's does become more alert. I discussed the case with him and his family at bedside. Spoke with Yasemin from [facility] who was agreeable keeping the patient in our facility with known transaminitis as we do not have GI capabilities. They will be trended. Troponin is elevated however patient had recent cath therefore we will hold off on heparinization and trend his troponins. Patient awaiting a bed on the floor in stable condition Undiagnosed new problem with uncertain prognosis? @ -yes Drug Therapy requiring intensive monitoring for toxicity (Heparin, Nitro, Insulin, Cardizem)? @ -No Were any procedures done? @ -No Diagnosis/symptom? @ -Acute encephalopathy, acute hypoxia, chronic respiratory failure, medical noncompliance, acute transaminitis Acute, or Chronic, or Acute on Chronic? @ -acute Uncomplicated (without systemic symptoms) or Complicated (systemic symptoms)? @ -complicated Side effects of treatment? @ -No Exacerbation, Progression, or Severe Exacerbation? @ -yes Poses a threat to life or bodily function? How? (Chest pain, [place], [place], pneumonia, PE, COPD, DKA, ARF, appy, cholecystitis, CVA, Diverticulitis, Homicidal, Suicidal, threat to staff... and all critical care pts) @ -yes patient markedly hypoxic when EMS found patient - Lab Data Result diagrams: 05/16/23 13:44 05/16/23 19:13 Lab Results 05/16/23 05/16/23 05/16/23 Range/Units 13:44 13:44 13:44 WBC 10.1 (3.8-10.6) k/uL RBC 3.91 L (4.30-5.90) m/uL Hgb 12.1 L (13.0-17.5) gm/dL Hct 38.2 L (39.0-53.0) % MCV 97.7 (80.0-100.0) fL MCH 31.0 (25.0-35.0) pg MCHC 31.7 (31.0-37.0) g/dL RDW 14.9 (11.5-15.5) % Plt Count 325 (150-450) k/uL MPV 8.3 Neutrophils % 91 % Lymphocytes % 4 % Monocytes % 3 % Eosinophils % 1 % Basophils % 0 % Neutrophils # 9.2 H (1.3-7.7) k/uL Lymphocytes # 0.4 L (1.0-4.8) k/uL Monocytes # 0.3 (0-1.0) k/uL Eosinophils # 0.1 (0-0.7) k/uL Basophils # 0.0 (0-0.2) k/uL Macrocytosis Slight PT 15.0 H (10.0-12.5) sec INR 1.4 H (<1.2) APTT 23.6 (22.0-30.0) sec Sample Site ABG pH (7.35-7.45) ABG pCO2 (35-45) mmHg ABG pO2 (83-108) mmHg ABG HCO3 (21-25) mmol/L ABG Total CO2 (19-24) mmol/L ABG O2 Saturation (94-97) % ABG Base Excess mmol/L Matt Test VBG pH (7.31-7.41) VBG pCO2 (37-51) mmHg VBG HCO3 (24-28) mmol/L FiO2 % Sodium 138 (137-145) mmol/L Potassium 6.4 H* (3.5-5.1) mmol/L Chloride 89 L (98-107) mmol/L Carbon Dioxide 41 H* (22-30) mmol/L Anion Gap 8 mmol/L BUN 51 H (9-20) mg/dL Creatinine 1.36 H (0.66-1.25) mg/dL Est GFR (CKD-EPI)AfAm 64 (>60 ml/min/1.73 sqM) Est GFR (CKD-EPI)NonAf 55 (>60 ml/min/1.73 sqM) Glucose 84 (74-99) mg/dL POC Glucose (mg/dL) (70-110) mg/dL POC Glu Finish Molder ID Plasma Lactic Acid Alber (0.7-2.0) mmol/L Calcium 8.3 L (8.4-10.2) mg/dL Total Bilirubin 0.7 (0.2-1.3) mg/dL AST 78937 H (17-59) U/L ALT 4214 H (4-49) U/L Alkaline Phosphatase 113 (38-126) U/L Troponin I (0.000-0.034) ng/mL Total Protein 6.4 (6.3-8.2) g/dL Albumin 3.3 L (3.5-5.0) g/dL Lipase (23-300) U/L Acetaminophen ug/mL Serum Alcohol mg/dL 05/16/23 05/16/23 05/16/23 Range/Units 13:44 13:44 13:44 WBC (3.8-10.6) k/uL RBC (4.30-5.90) m/uL Hgb (13.0-17.5) gm/dL Hct (39.0-53.0) % MCV (80.0-100.0) fL MCH (25.0-35.0) pg MCHC (31.0-37.0) g/dL RDW (11.5-15.5) % Plt Count (150-450) k/uL MPV Neutrophils % % Lymphocytes % % Monocytes % % Eosinophils % % Basophils % % Neutrophils # (1.3-7.7) k/uL Lymphocytes # (1.0-4.8) k/uL Monocytes # (0-1.0) k/uL Eosinophils # (0-0.7) k/uL Basophils # (0-0.2) k/uL Macrocytosis PT (10.0-12.5) sec INR (<1.2) APTT (22.0-30.0) sec Sample Site ABG pH (7.35-7.45) ABG pCO2 (35-45) mmHg ABG pO2 (83-108) mmHg ABG HCO3 (21-25) mmol/L ABG Total CO2 (19-24) mmol/L ABG O2 Saturation (94-97) % ABG Base Excess mmol/L Matt Test VBG pH 7.43 H (7.31-7.41) VBG pCO2 63 H (37-51) mmHg VBG HCO3 41 H (24-28) mmol/L FiO2 % Sodium (137-145) mmol/L Potassium (3.5-5.1) mmol/L Chloride (98-107) mmol/L Carbon Dioxide (22-30) mmol/L Anion Gap mmol/L BUN (9-20) mg/dL Creatinine (0.66-1.25) mg/dL Est GFR (CKD-EPI)AfAm (>60 ml/min/1.73 sqM) Est GFR (CKD-EPI)NonAf (>60 ml/min/1.73 sqM) Glucose (74-99) mg/dL POC Glucose (mg/dL) (70-110) mg/dL POC Glu Finish Molder ID Plasma Lactic Acid Alber 2.0 (0.7-2.0) mmol/L Calcium (8.4-10.2) mg/dL Total Bilirubin (0.2-1.3) mg/dL AST (17-59) U/L ALT (4-49) U/L Alkaline Phosphatase (38-126) U/L Troponin I 0.120 H* (0.000-0.034) ng/mL Total Protein (6.3-8.2) g/dL Albumin (3.5-5.0) g/dL Lipase (23-300) U/L Acetaminophen ug/mL Serum Alcohol mg/dL 05/16/23 05/16/23 05/16/23 Range/Units 14:33 14:55 16:08 WBC (3.8-10.6) k/uL RBC (4.30-5.90) m/uL Hgb (13.0-17.5) gm/dL Hct (39.0-53.0) % MCV (80.0-100.0) fL MCH (25.0-35.0) pg MCHC (31.0-37.0) g/dL RDW (11.5-15.5) % Plt Count (150-450) k/uL MPV Neutrophils % % Lymphocytes % % Monocytes % % Eosinophils % % Basophils % % Neutrophils # (1.3-7.7) k/uL Lymphocytes # (1.0-4.8) k/uL Monocytes # (0-1.0) k/uL Eosinophils # (0-0.7) k/uL Basophils # (0-0.2) k/uL Macrocytosis PT (10.0-12.5) sec INR (<1.2) APTT (22.0-30.0) sec Sample Site rrad ABG pH 7.42 (7.35-7.45) ABG pCO2 65 H (35-45) mmHg ABG pO2 120 H (83-108) mmHg ABG HCO3 43 H* (21-25) mmol/L ABG Total CO2 45 H (19-24) mmol/L ABG O2 Saturation 94.3 (94-97) % ABG Base Excess 18.1 mmol/L Matt Test Yes VBG pH (7.31-7.41) VBG pCO2 (37-51) mmHg VBG HCO3 (24-28) mmol/L FiO2 32 % Sodium (137-145) mmol/L Potassium (3.5-5.1) mmol/L Chloride (98-107) mmol/L Carbon Dioxide (22-30) mmol/L Anion Gap mmol/L BUN (9-20) mg/dL Creatinine (0.66-1.25) mg/dL Est GFR (CKD-EPI)AfAm (>60 ml/min/1.73 sqM) Est GFR (CKD-EPI)NonAf (>60 ml/min/1.73 sqM) Glucose (74-99) mg/dL POC Glucose (mg/dL) 81 (70-110) mg/dL POC Glu Finish Molder ID Miguel Lopez Plasma Lactic Acid Alber (0.7-2.0) mmol/L Calcium (8.4-10.2) mg/dL Total Bilirubin (0.2-1.3) mg/dL AST (17-59) U/L ALT (4-49) U/L Alkaline Phosphatase (38-126) U/L Troponin I (0.000-0.034) ng/mL Total Protein (6.3-8.2) g/dL Albumin (3.5-5.0) g/dL Lipase 102 (23-300) U/L Acetaminophen <10.0 ug/mL Serum Alcohol <10 mg/dL Disposition Clinical Impression: Hyperammonemia, Hypoxia, COPD (chronic obstructive pulmonary disease), Medical non-compliance Disposition: ADMITTED IP TO THIS [facility] Condition: Stable Is patient prescribed a controlled substance at d/c from ED?: No Time of Disposition: 18:52 Decision to Admit Reason: Admit from EC Decision Date: 05/16/23 Decision Time: 18:52
[2023-05-16] MEDS ORDERED: INSULIN REGULAR 100 UNIT/ML VIAL (IV) IV ONE (14:28)
[2023-05-16] MEDS ORDERED: SODIUM CHLORIDE 0.9% 1,000 ML IV ONE (14:29)
[2023-05-16] MEDS ORDERED: DEXTROSE 50% SYRINGE 50 ML IVP STA ×2 (14:29→19:34)
[2023-05-16 14:37] LABS: ABG Base Excess 18.1 mmol/L; ABG Oxygen Saturation 94.3 % (94-97); ABG PCO2 65 mmHg (35-45); ABG PH 7.42 (7.35-7.45); ABG PO2 120 mmHg (83-108); ABG TCO2 45 mmol/L (19-24); Allen Test Performed? Yes
[2023-05-16 14:42] LABS: ABG HCO3 43 mmol/L (21-25)
[2023-05-16 14:56] LABS: Glucose,Whole Blood 81 mg/dL (70-110)
[2023-05-16 15:22] LABS: AST 10340 U/L (17-59)
[2023-05-16 15:23] LABS: ALT 4214 U/L (4-49)
--- NOTE | 2023-05-16 16:08 | US ---
EXAMINATION TYPE: US gallbladder DATE OF EXAM: 05/16/2023 COMPARISON: NONE CLINICAL INDICATION: Male, 62 years old with history of transaminitis; transaminitis limitations rafael ent unable to roll. TECHNIQUE: Multiple sonographic images of the right upper quadrant are obtained. FINDINGS: EXAM MEASUREMENTS: Liver Length: 21.1 cm Gallbladder Wall: .3 cm CBD: .6 cm Right Kidney: 9.3 x 4.5 x 3.5 cm VETERINARY ASSISTANT NOTES: Pancreas: Obscured by bowel gas Liver: Hepatomegaly Gallbladder: No stones seen Evidence for sonographic Robles's sign: No CBD: wnl Right Kidney: wnl IMPRESSION: No evidence for acute process.
[2023-05-16 16:19] LABS: Acetaminophen <10.0 ug/mL; Alcohol <10 mg/dL; Lipase 102 U/L (23-300)
[2023-05-16] MEDS ORDERED: MORPHINE SULFATE 4 MG/ML SYRINGE IVP STA (17:34)
--- NOTE | 2023-05-16 18:05 | CT ---
EXAMINATION TYPE: CT brain wo con CT DLP: 1167.4 mGycm, Automated exposure control for dose reduction was used. DATE OF EXAM: 05/16/2023 5:06 PM COMPARISON: . CLINICAL INDICATION:Male, 62 years old with history of ams, AMS TECHNIQUE: Brain: Axial CT images of the brain were obtained with coronal and sagittal reformats created and rev iewed. Contrast used: None. Oral contrast used: None. FINDINGS: Brain: Extra-axial spaces: No abnormal extra-axial fluid collections. Ventricular system: Appear dilated in proportion to the degree of cerebral atrophy. Cerebral parenchyma: No increased attenuation to suggest acute intraparenchymal hemorrhage. The gra y-white matter interface appears maintained. Mild generalized brain atrophy. White matter unremarka ble by CT. Cerebellum: No acute abnormality. Mass effect: No evidence of mass effect or midline shift. Intracranial vasculature: Atherosclerotic calcifications of the larger arteries near the skull base. Soft tissues: Unremarkable. Visualized orbits: Orbital contents appear grossly intact. Radiodensity at the posterior superior asp ect of the right retina could reflect calcification or possibly foreign body. Small area of curviline ar gas attenuation in the superior aspect of the left orbit, could be within superior ophthalmic vein ; cause uncertain but may have been introduced by venous access. Calvarium/osseous structures: No evidence of calvarial fracture. Paranasal sinuses and mastoid air cells: Mild mucosal thickening and possibly trace fluid in the righ t maxillary sinus. Tiny focus of mucosal thickening in the left maxillary sinus. MRI is more sensitive for detecting acute processes such as infarct, and may be considered if clinica lly warranted. IMPRESSION: 1. No acute intracranial CT abnormality. 2. Atrophy. 3. Mild paranasal sinus disease.
--- NOTE | 2023-05-16 18:23 | CT ---
EXAMINATION TYPE: CT abdomen pelvis w con CT DLP: 1167.4 mGycm, Automated exposure control for dose reduction was used. DATE OF EXAM: 05/16/2023 5:06 PM COMPARISON: Same day ultrasound gallbladder CLINICAL INDICATION:Male, 62 years old with history of elevated liver enzymes; Elevated liver enzymes . TECHNIQUE: Axial CT of the abdomen and pelvis. Sagittal and coronal reformats were created on a [employer] workstation. Contrast used:80 ml mL of Isovue 300 with IV Contrast, (none if empty) Oral contrast used: without Oral Contrast (none if empty) FINDINGS: Some limitations by beam hardening artifact and patient condition. Also limitations by lack of body w all and intraperitoneal fat. LOWER CHEST: Heart is moderately enlarged with coronary arterial calcifications. Moderate size right pleural effusion. Peribronchial thickening, patchy consolidative opacities and in creased interstitial markings at the right lower lobe. A couple of cystic areas likely reflect underl alex emphysema. Minimal left basilar opacity, likely subsegmental atelectasis or scarring. No left pl eural effusion seen. ABDOMEN LIVER: GALLBLADDER AND BILE DUCTS: Liver appears somewhat enlarged measuring 18 cm in craniocaudal di mension. Slightly heterogeneous appearance of the hepatic parenchyma without evidence of focal mass. Mild periportal edema suggested, can be seen with fluid resuscitation status. Portal veins and spleni c vein are enhancing. Gallbladder appears mildly prominent but not overtly distended. No calcified ga llstones are seen. Biliary tree does not appear dilated. PANCREAS: Not well seen, grossly unremarkable. SPLEEN: Unremarkable. ADRENAL GLANDS: No evidence of mass.. KIDNEYS AND URETERS: Kidneys enhance symmetrically. A couple small low-attenuation nodules in the lef t kidney, most likely cysts. No hydronephrosis or visible urinary tract calculi. PELVIS BLADDER: Moderately distended. REPRODUCTIVE: Prostate not well seen, not grossly enlarged. ABDOMEN & PELVIS STOMACH AND BOWEL: Stomach and small bowel do not appear significantly distended to suggest obstructi on. Appendix is not visualized. There is a moderate to large amount of stool seen throughout the colo n with intermixed hyperattenuation likely suggesting presence of previously ingested contrast PERITONEUM/RETROPERITONEUM: No evidence of pneumoperitoneum. Diffuse hazy appearance of the mesenteri c fat with possible small amount of ascites, however if so this does not seem readily drainable. VASCULATURE: Moderate to severe mostly calcified atherosclerotic plaque throughout the aorta and alexei r branches. Mild narrowing of the proximal celiac and superior mesenteric arteries. At least moderate stenosis of the proximal right renal artery, mild/moderate stenosis of the left. No evidence of AAA. Diffuse atherosclerotic calcifications throughout the iliac arterial trees with multifocal stenoses. There are numerous pelvic phleboliths. MUSCULOSKELETAL: No acute osseous abnormality. Mild degenerative changes. LYMPH NODES: No gross evidence for lymphadenopathy. SOFT TISSUE/ABDOMINAL WALL: Unremarkable for acute process. IMPRESSION: 1. Hepatomegaly, with heterogeneous appearance of the hepatic parenchyma but no focal mass detected. 2. Mildly prominent gallbladder. No calcified gallstones or biliary ductal dilatation seen. 3. Moderately distended urinary bladder. 4. Moderate size right pleural effusion, with adjacent lung opacities likely combination of atelecta sis with infectious/inflammatory process. 5. Other chronic and likely incidental findings, as described above.
[2023-05-16] MEDS ORDERED: NALOXONE 0.4 MG/ML 1 ML VIAL IV PRN (18:53)
[2023-05-16 19:13] LABS: Glucose,Whole Blood 78 mg/dL (70-110)
[2023-05-16 19:41] LABS: African American GFR (CKD) 82 (>60 ml/min/1.73 sqM); Blood Urea Nitrogen 51 mg/dL (9-20); Chloride 93 mmol/L (98-107); Glucose 74 mg/dL (74-99); Non-African American GFR(CKD) 71 (>60 ml/min/1.73 sqM); Potassium 5.6 mmol/L (3.5-5.1); Sodium 139 mmol/L (137-145)
[2023-05-16] MEDS: SODIUM CHLORIDE 0.9% 1,000 ML IV SCH (19:45)
[2023-05-16 19:47] LABS: Anion Gap 9 mmol/L
[2023-05-16 20:00] LABS: Carbon Dioxide 37 mmol/L (22-30)
[2023-05-16 20:17] LABS: Glucose,Whole Blood 144 mg/dL (70-110)
[2023-05-16] MEDS ORDERED: ASPIRIN 81 MG PO STA (20:17)
[2023-05-16] MEDS ORDERED: SODIUM ZIRCONIUM CYCLOSILICATE 10 GM PACKET PO ONE (20:17)
[2023-05-16] MEDS ORDERED: oxyCODONE-APAP 10-325MG 1 EACH TAB PO PRN (22:09)
[2023-05-16] MEDS ORDERED: BACLOFEN 10 MG TAB PO PRN (22:09)
[2023-05-16] MEDS ORDERED: ATORVASTATIN 40 MG TAB PO SCH (22:15)
[2023-05-17] MEDS: MORPHINE SULFATE ER 30 MG TABLET PO SCH ×6 (00:57→20:46)
[2023-05-17 03:26] LABS: Glucose,Whole Blood 82 mg/dL (70-110)
[2023-05-17] MEDS: SODIUM CHLORIDE 0.9% 1,000 ML IV SCH ×3 (03:43→20:46)
[2023-05-17 07:31] LABS: Basophils % (A) 0 %; Eosinophils # (A) 0.1 k/uL (0-0.7); Eosinophils % (A) 1 %; HCT 36.7 % (39.0-53.0); HGB 11.8 gm/dL (13.0-17.5); Hypochromasia Slight; Lymphocytes # (A) 0.5 k/uL (1.0-4.8); Lymphocytes % (A) 6 %; MCH 31.7 pg (25.0-35.0); MCHC 32.1 g/dL (31.0-37.0); MCV 98.8 fL (80.0-100.0); Macrocytosis Slight; Monocytes # (A) 0.2 k/uL (0-1.0); Monocytes % (A) 3 %; Neutrophils # (A) 6.7 k/uL (1.3-7.7); Neutrophils % (A) 89 %; Platelet Count 241 k/uL (150-450); RBC 3.71 m/uL (4.30-5.90); RDW 14.7 % (11.5-15.5); WBC 7.5 k/uL (3.8-10.6)
[2023-05-17 07:49] LABS: African American GFR (CKD) >90 (>60 ml/min/1.73 sqM); Calcium 7.7 mg/dL (8.4-10.2); Chloride 97 mmol/L (98-107); Non-African American GFR(CKD) >90 (>60 ml/min/1.73 sqM); Potassium 4.6 mmol/L (3.5-5.1)
[2023-05-17] MEDS: SYMBICORT 80-4.5 MCG INHALER INHALATION SCH ×2 (08:05→19:34)
[2023-05-17 08:18] LABS: Anion Gap 5 mmol/L; Blood Urea Nitrogen 44 mg/dL (9-20); Carbon Dioxide 38 mmol/L (22-30); Glucose 56 mg/dL (74-99); Sodium 140 mmol/L (137-145)
[2023-05-17] MEDS: GABAPENTIN 300 MG CAP PO SCH ×3 (08:39→20:46)
[2023-05-17] MEDS: ASPIRIN 81 MG PO SCH (08:44)
[2023-05-17] MEDS ORDERED: DEXTROSE 50% SYRINGE 50 ML IVP ONE (08:47)
[2023-05-17] MEDS ORDERED: INSULIN REGULAR 100 UNIT/ML VIAL (IV) IV ONE (08:47)
[2023-05-17] MEDS ORDERED: SODIUM ZIRCONIUM CYCLOSILICATE 10 GM PACKET PO ONE (08:47)
[2023-05-17 09:51] LABS: INR 1.5 (<1.2); Prothrombin Time 15.2 sec (10.0-12.5)
[2023-05-17 09:55] LABS: Glucose,Whole Blood 66 mg/dL (70-110)
[2023-05-17 11:20] LABS: Glucose,Whole Blood 94 mg/dL (70-110)
--- NOTE | 2023-05-17 11:32 | US ---
EXAMINATION TYPE: US liver DATE OF EXAM: 05/17/2023 COMPARISON: NONE CLINICAL INDICATION: Male, 62 years old with history of Elevated liver enzymes; no symptoms, abn labs TECHNIQUE: Multiple sonographic images of the right upper quadrant are obtained. FINDINGS: EXAM MEASUREMENTS: Liver Length: 19.8 cm Gallbladder Wall: 0.6 cm CBD: 0.6 cm Right Kidney: 9.2 x 4.3 x 4.8 cm Pancreas: prominent duct = 0.3cm Liver: enlarged Gallbladder: 10.0cm in length, dependant echoes with tiny foci that may represent stones, wall thick ening with worsening cholecystic gutter fluid from previous exam yesterday Evidence for sonographic Robles's sign: no CBD: wnl Right Kidney: cortex is isoechoic when compared to the liver IMPRESSION: 1. Hepatomegaly. 2. Gallbladder wall thickening with a hydropic change and internal echoes. Acute cholecystitis is not excluded.
[2023-05-17 12:20] LABS: Glucose,Whole Blood 85 mg/dL (70-110)
--- NOTE | 2023-05-17 12:37 | P.CRDCN ---
History of Present Illness Consult date: 05/17/23 Chief complaint: Shortness of breath History of present illness: The patient is a 62-year-old gentleman who was just discharged from the hospital a few days ago after he presented with shortness of breath and the chest discomfort. At that point he underwent a heart catheterization that intermediate nonobstructive coronary artery disease. He was diagnosed with COPD exacerbation and was admitted to the intensive care unit and subsequently was discharged in stable medical condition. He does have a past medical history significant for severe COPD on home oxygen. This time he presented to the hospital after he was brought with his . The patient is somewhat is a poor historian. Apparently his oxygen has fell during the night. His noticed that he was hypoxic. His oxygen saturation was in the 60s. She brought into the emergency department. He underwent further workup including EKG showing sinus mechanism with T-wave inversion appeared to be the same as before. Troponin was mildly elevated but it was mildly elevated before. He was hypoxic when he presented which could explain the abnormal troponin. Recent heart cath showed no obstructive CAD. He also was found to have severely elevated liver function tests. He was on Lipitor and that has stopped. He underwent a computed tomography scan of the brain which showed no acute abnormalities and computed tomography scan of the abdomen and pelvis also showed no acute abnormalities. He seems slightly slow in response. For that reason he underwent a computed tomography scan of the brain which showed no acute abnormalities. On examination he does have distant heart sounds with diminished breathing sounds bilaterally and no edema in the lower extremities and no carotid bruit noted. Assessment Severe COPD Evidence of myocardial injury with no ischemia likely related to type II myocardial infarction Coronary artery disease as described above Change in mental status Plan Continue the current medical regimen Hold Lipitor in the light of elevated liver function test Obtain carotid duplex study Further evaluation to be performed by the pulmonary/critical care 15 Follow-up with the patient Past Medical History Past Medical History: Cancer Additional Past Medical History / Comment(s): history of non-small cell lung cancer with a previous right upper lobe resection, advanced emphysema, chest deformity related to previous thoracic surgery, chronic pain Involving the back in addition to brachial plexus disorder related to previous thoracic surgery. History of Any Multi-Drug Resistant Organisms: None Reported Additional Past Surgical History / Comment(s): right upper lobectomy d/t CA, multiple surgeries on right hand d/t accident Past Anesthesia/Blood Transfusion Reactions: No Reported Reaction Past Psychological History: No Psychological Hx Reported Smoking Status: Current every day smoker Past Alcohol Use History: None Reported Past Drug Use History: None Reported Medications and Allergies Home Medications Medication Instructions Recorded Confirmed Type Gabapentin [Neurontin] 300 mg PO TID 03/26/19 05/16/23 History Morphine Sulfate ER [Ms Contin] 30 mg PO BID 03/26/19 05/16/23 History Morphine Sulfate [Ms Contin] 60 mg PO BID 03/26/19 05/16/23 History oxyCODONE-APAP 10-325MG [Percocet 1 tab PO BID PRN 03/26/19 05/16/23 History 10-325 mg] Baclofen [Lioresal] 10 mg PO TID PRN 11/11/20 05/16/23 History Fluticasone/Umeclidin/Vilanter 1 puff INHALATION RT-DAILY 11/11/20 05/16/23 History [Trelegy Ellipta 100-62.5-25] Ipratropium-Albuterol Nebulize 3 ml INHALATION RT-DAILY@1800 11/11/20 05/16/23 History [Duoneb 0.5 mg-3 mg/3 ml Soln] Butalb/APAP/Caff 50-325-40Mg 1 tab PO TID PRN 05/12/23 05/16/23 History [Fioricet 50-325-40] Aspirin 81 mg PO DAILY 30 Days #30 tab 05/15/23 05/16/23 Rx Atorvastatin [Lipitor] 40 mg PO HS 30 Days #30 tab 05/15/23 05/16/23 Rx Allergies Allergy/AdvReac Type Severity Reaction Status Date / Time No Known Allergies Allergy Verified 05/16/23 16:08 Physical Exam Vitals: Vital Signs Temp Pulse Resp BP Pulse Ox 05/17/23 12:00 97.6 F 60 18 109/73 98 05/17/23 11:49 100 05/17/23 08:38 58 L 18 117/66 96 05/17/23 08:07 97 05/17/23 06:00 91 18 132/80 97 05/17/23 04:00 58 L 22 135/90 98 05/17/23 00:00 64 22 145/83 97 05/16/23 20:00 71 21 138/80 96 05/16/23 18:33 73 18 141/87 96 05/16/23 17:46 71 18 150/90 96 05/16/23 17:06 70 16 131/84 95 05/16/23 15:30 72 18 123/84 96 05/16/23 13:19 98.2 F 81 12 125/79 74 L Results 05/17/23 06:27 05/17/23 06:27 Cardiac Enzymes 05/16/23 05/16/23 05/16/23 Range/Units 13:44 13:44 19:13 AST 39058 H (17-59) U/L Troponin I 0.120 H* 0.171 H* (0.000-0.034) ng/mL 05/16/23 05/17/23 Range/Units 23:41 09:16 AST 3378 H (17-59) U/L Troponin I 0.104 H* (0.000-0.034) ng/mL Coagulation 05/16/23 05/17/23 Range/Units 13:44 09:16 PT 15.0 H 15.2 H (10.0-12.5) sec APTT 23.6 (22.0-30.0) sec CBC 05/16/23 05/17/23 Range/Units 13:44 06:27 WBC 10.1 7.5 (3.8-10.6) k/uL RBC 3.91 L 3.71 L (4.30-5.90) m/uL Hgb 12.1 L 11.8 L (13.0-17.5) gm/dL Hct 38.2 L 36.7 L (39.0-53.0) % Plt Count 325 241 (150-450) k/uL Comprehensive Metabolic Panel 05/16/23 05/16/23 05/17/23 Range/Units 13:44 19:13 06:27 Sodium 138 139 140 (137-145) mmol/L Potassium 6.4 H* 5.6 H 4.6 (3.5-5.1) mmol/L Chloride 89 L 93 L 97 L (98-107) mmol/L Carbon Dioxide 41 H* 37 H 38 H (22-30) mmol/L BUN 51 H 51 H 44 H (9-20) mg/dL Creatinine 1.36 H 1.11 0.85 (0.66-1.25) mg/dL Glucose 84 74 56 L (74-99) mg/dL Calcium 8.3 L 8.0 L 7.7 L (8.4-10.2) mg/dL AST 56805 H (17-59) U/L ALT 4214 H (4-49) U/L Alkaline Phosphatase 113 (38-126) U/L Total Protein 6.4 (6.3-8.2) g/dL Albumin 3.3 L (3.5-5.0) g/dL 05/17/23 Range/Units 09:16 Sodium (137-145) mmol/L Potassium (3.5-5.1) mmol/L Chloride (98-107) mmol/L Carbon Dioxide (22-30) mmol/L BUN (9-20) mg/dL Creatinine (0.66-1.25) mg/dL Glucose (74-99) mg/dL Calcium (8.4-10.2) mg/dL AST 3378 H (17-59) U/L ALT 3403 H (4-49) U/L Alkaline Phosphatase 113 (38-126) U/L Total Protein (6.3-8.2) g/dL Albumin (3.5-5.0) g/dL Current Medications Generic Name Dose Route Start Last Admin Trade Name Freq PRN Reason Stop Dose Admin Albuterol/Ipratropium 3 ml 05/17/23 18:00 Ipratropium-Albuterol 3 Ml Neb INHALATION RT-DAILY@1800 FABI Aspirin 81 mg 05/17/23 09:00 05/17/23 08:44 Aspirin 81 Mg PO 81 mg DAILY FABI Administration Baclofen 10 mg 05/16/23 22:09 Baclofen 10 Mg Tab PO TID PRN Muscle Spasm Budesonide/Formoterol Fumarate 2 puff 05/17/23 08:00 05/17/23 08:05 Symbicort 80-4.5 Mcg Inhaler INHALATION 2 puff RT-BID FABI Administration Gabapentin 300 mg 05/17/23 09:00 05/17/23 08:40 Gabapentin 300 Mg Cap PO 300 mg TID FABI Administration Sodium Chloride 1,000 mls @ 130 mls/hr 05/16/23 19:00 05/17/23 03:43 Saline 0.9% IV 130 mls/hr .[id number] FABI Administration Morphine Sulfate 60 mg 05/16/23 22:15 05/17/23 08:39 Morphine Sulfate Er 30 Mg Tablet PO 60 mg BID FABI Administration Protocol Morphine Sulfate 30 mg 05/16/23 22:15 05/17/23 08:40 Morphine Sulfate Er 30 Mg Tablet PO 30 mg BID FABI Administration Protocol Naloxone HCl 0.2 mg 05/16/23 18:53 Naloxone 0.4 Mg/Ml 1 Ml Vial IV Q2M PRN Opioid Reversal 05/17/23 06:27 05/17/23 06:27
--- NOTE | 2023-05-17 13:14 | P.HPIM ---
History of Present Illness H&P Date: 05/17/23 History of present illness; 62-year-old gentleman with past medical history significant for ongoing nicotine dependence, non-small cell lung cancer status post right upper lobectomy/radiation, oxygen dependent COPD, chronic back pain with multiple back surgeries, chronic pain syndrome, diverticulosis, hiatal hernia brought to the ER for altered mental status. Patient was recently discharged from facility after being admitted for chest discomfort and a cardiac catheterization at that time that showed intermediate disease involving the right coronary artery, ca rdiology at that time recommended medical management. Patient apparently was all right when he went to bed but in the middle of night patient had his oxygen removed and refused to put it back on. noted the patient was more and more confused. There was no complain of any slurred speech. No complain of weakness of any extremity. No seizure-like movements. Patient was more short of breath than usual. Denied any chest pain. No: No fever or chills. Because of this acute confusion, EMS was called and patient was found to be in low 50s on his oxygen saturation, patient was placed on nonrebreather and brought to the ER. While in the ER, patient mental status improved. Initial lab work done in the ER showed WBC 10.1, hemoglobin 12.1, platelet count 325, sodium 138, potassium 6.4, BUN 51, creatinine 1.36, AST 39031, ALT 4214 troponin 0.12 Ultrasound abdominal done showed no evidence for acute process EKG done in the ER showed heart rate of 79, no ST segment elevation, T-wave inversion seen in leads V2 V3, V4 V5 and V6 unchanged from previous EKG Chest x-ray done in the ER showed scattered patchy density right lung base may reflect underlying infiltrate, correlate clinically Patient admitted to medicine service REVIEW OF SYSTEMS: CONSTITUTIONAL: No fever, complaining of lethargy and weakness HEENT: No recent visual problems or hearing problems. Denied any sore throat. CARDIOVASCULAR: No chest pain, orthopnea, PND, no palpitations, no syncope. PULMONARY: As mentioned above GASTROINTESTINAL: No diarrhea, no nausea, no vomiting, no abdominal pain. NEUROLOGICAL: No headaches, no weakness, no numbness. Confusion is improving HEMATOLOGICAL: Denies any bleeding or petechiae. GENITOURINARY: Denies any burning micturition, frequency, or urgency. MUSCULOSKELETAL/RHEUMATOLOGICAL: Denies any joint pain, swelling, or any muscle pain. ENDOCRINE: Denies any polyuria or polydipsia. The rest of the 14-point review of systems is negative. PHYSICAL EXAMINATION: GENERAL: The patient is alert and oriented x3, not in any acute distress. Chronically ill-looking HEENT: Pupils are round and equally reacting to light. EOMI. No scleral icterus. No conjunctival pallor. Normocephalic, atraumatic. No pharyngeal erythema. No thyromegaly. CARDIOVASCULAR: S1 and S2 present. No murmurs, rubs, or gallops. PULMONARY: Coarse breath sounds bilaterally, no wheezing or crackles. ABDOMEN: Soft, nontender, nondistended, normoactive bowel sounds. No palpable organomegaly. MUSCULOSKELETAL: No joint swelling or deformity. EXTREMITIES: No cyanosis, clubbing, or pedal edema. NEUROLOGICAL: Gross neurological examination did not reveal any focal deficits. SKIN: No rashes. Assessment and plan Acute metabolic encephalopathy Acute on chronic hypoxic respiratory failure Acute transaminitis Hyperkalemia Acute kidney injury Elevated troponins, chronically elevated Chronic hypoxic respiratory failure secondary to severe COPD. Reports has been recently instructed to wear 3 L continuously outpatient History of non-small cell lung CA status post right upper lobe lobectomy, radiation, 2006 Continued Ongoing nicotine dependence Moderate protein calorie malnutrition with a BMI of 17.1 Chronic pain syndrome Monitor vital signs Monitor CBC Monitor CMP Continue telemetry monitoring Trend troponins. Avoid hepatotoxic agents Ordered repeat LFTs Ordered ultrasound duplex of liver DC statin DC Percocet Continue breathing treatments Hyperkalemia protocol initiated Consult cardiology for elevated troponins Consult pulmonary Consult nephrology Resume home meds Labs and medication were reviewed.. Continue same treatment. Continue with symptomatic treatment. Resume home medication. Monitor labs and vitals. DVT and GI prophylaxis. Further recommendations as per clinical course of the patient Dictation was produced using [employer] dictation software. please excuse any grammatical, word or spelling errors. Past Medical History Past Medical History: Cancer Additional Past Medical History / Comment(s): history of non-small cell lung can cer with a previous right upper lobe resection, advanced emphysema, chest deformity related to previous thoracic surgery, chronic pain Involving the back in addition to brachial plexus disorder related to previous thoracic surgery. History of Any Multi-Drug Resistant Organisms: None Reported Additional Past Surgical History / Comment(s): right upper lobectomy d/t CA, multiple surgeries on right hand d/t accident Past Anesthesia/Blood Transfusion Reactions: No Reported Reaction Past Psychological History: No Psychological Hx Reported Smoking Status: Current every day smoker Past Alcohol Use History: None Reported Past Drug Use History: None Reported Medications and Allergies Home Medications Medication Instructions Recorded Confirmed Type Gabapentin [Neurontin] 300 mg PO TID 03/26/19 05/16/23 History Morphine Sulfate ER [Ms Contin] 30 mg PO BID 03/26/19 05/16/23 History Morphine Sulfate [Ms Contin] 60 mg PO BID 03/26/19 05/16/23 History oxyCODONE-APAP 10-325MG [Percocet 1 tab PO BID PRN 03/26/19 05/16/23 History 10-325 mg] Baclofen [Lioresal] 10 mg PO TID PRN 11/11/20 05/16/23 History Fluticasone/Umeclidin/Vilanter 1 puff INHALATION RT-DAILY 11/11/20 05/16/23 History [Treleestefania Ellipta 100-62.5-25] Ipratropium-Albuterol Nebulize 3 ml INHALATION RT-DAILY@1800 11/11/20 05/16/23 History [Duoneb 0.5 mg-3 mg/3 ml Soln] Butalb/APAP/Caff 50-325-40Mg 1 tab PO TID PRN 05/12/23 05/16/23 History [Fioricet 50-325-40] Aspirin 81 mg PO DAILY 30 Days #30 tab 05/15/23 05/16/23 Rx Atorvastatin [Lipitor] 40 mg PO HS 30 Days #30 tab 05/15/23 05/16/23 Rx Allergies Allergy/AdvReac Type Severity Reaction Status Date / Time No Known Allergies Allergy Verified 05/16/23 16:08 Physical Exam Vitals: Vital Signs Temp Pulse Resp BP Pulse Ox 05/17/23 08:38 58 L 18 117/66 96 05/17/23 08:07 97 05/17/23 06:00 91 18 132/80 97 05/17/23 04:00 58 L 22 135/90 98 05/17/23 00:00 64 22 145/83 97 05/16/23 20:00 71 21 138/80 96 05/16/23 18:33 73 18 141/87 96 05/16/23 17:46 71 18 150/90 96 05/16/23 17:06 70 16 131/84 95 05/16/23 15:30 72 18 123/84 96 05/16/23 13:19 98.2 F 81 12 125/79 74 L Results CBC & Chem 7: 05/17/23 06:27 05/17/23 06:27 Labs: Abnormal Lab Results - Last 24 Hours (Table) 05/16/23 05/16/23 05/16/23 Range/Units 13:44 13:44 13:44 RBC 3.91 L (4.30-5.90) m/uL Hgb 12.1 L (13.0-17.5) gm/dL Hct 38.2 L (39.0-53.0) % Neutrophils # 9.2 H (1.3-7.7) k/uL Lymphocytes # 0.4 L (1.0-4.8) k/uL PT 15.0 H (10.0-12.5) sec INR 1.4 H (<1.2) ABG pCO2 (35-45) mmHg ABG pO2 (83-108) mmHg ABG HCO3 (21-25) mmol/L ABG Total CO2 (19-24) mmol/L VBG pH (7.31-7.41) VBG pCO2 (37-51) mmHg VBG HCO3 (24-28) mmol/L Potassium 6.4 H* (3.5-5.1) mmol/L Chloride 89 L (98-107) mmol/L Carbon Dioxide 41 H* (22-30) mmol/L BUN 51 H (9-20) mg/dL Creatinine 1.36 H (0.66-1.25) mg/dL Glucose (74-99) mg/dL POC Glucose (mg/dL) (70-110) mg/dL Calcium 8.3 L (8.4-10.2) mg/dL AST 45797 H (17-59) U/L ALT 4214 H (4-49) U/L Troponin I (0.000-0.034) ng/mL Albumin 3.3 L (3.5-5.0) g/dL 05/16/23 05/16/23 05/16/23 Range/Units 13:44 13:44 14:33 RBC (4.30-5.90) m/uL Hgb (13.0-17.5) gm/dL Hct (39.0-53.0) % Neutrophils # (1.3-7.7) k/uL Lymphocytes # (1.0-4.8) k/uL PT (10.0-12.5) sec INR (<1.2) ABG pCO2 65 H (35-45) mmHg ABG pO2 120 H (83-108) mmHg ABG HCO3 43 H* (21-25) mmol/L ABG Total CO2 45 H (19-24) mmol/L VBG pH 7.43 H (7.31-7.41) VBG pCO2 63 H (37-51) mmHg VBG HCO3 41 H (24-28) mmol/L Potassium (3.5-5.1) mmol/L Chloride (98-107) mmol/L Carbon Dioxide (22-30) mmol/L BUN (9-20) mg/dL Creatinine (0.66-1.25) mg/dL Glucose (74-99) mg/dL POC Glucose (mg/dL) (70-110) mg/dL Calcium (8.4-10.2) mg/dL AST (17-59) U/L ALT (4-49) U/L Troponin I 0.120 H* (0.000-0.034) ng/mL Albumin (3.5-5.0) g/dL 05/16/23 05/16/23 05/16/23 Range/Units 19:13 19:13 20:16 RBC (4.30-5.90) m/uL Hgb (13.0-17.5) gm/dL Hct (39.0-53.0) % Neutrophils # (1.3-7.7) k/uL Lymphocytes # (1.0-4.8) k/uL PT (10.0-12.5) sec INR (<1.2) ABG pCO2 (35-45) mmHg ABG pO2 (83-108) mmHg ABG HCO3 (21-25) mmol/L ABG Total CO2 (19-24) mmol/L VBG pH (7.31-7.41) VBG pCO2 (37-51) mmHg VBG HCO3 (24-28) mmol/L Potassium 5.6 H (3.5-5.1) mmol/L Chloride 93 L (98-107) mmol/L Carbon Dioxide 37 H (22-30) mmol/L BUN 51 H (9-20) mg/dL Creatinine (0.66-1.25) mg/dL Glucose (74-99) mg/dL POC Glucose (mg/dL) 144 H (70-110) mg/dL Calcium 8.0 L (8.4-10.2) mg/dL AST (17-59) U/L ALT (4-49) U/L Troponin I 0.171 H* (0.000-0.034) ng/mL Albumin (3.5-5.0) g/dL 05/16/23 05/17/23 05/17/23 Range/Units 23:41 06:27 06:27 RBC 3.71 L (4.30-5.90) m/uL Hgb 11.8 L (13.0-17.5) gm/dL Hct 36.7 L (39.0-53.0) % Neutrophils # (1.3-7.7) k/uL Lymphocytes # 0.5 L (1.0-4.8) k/uL PT (10.0-12.5) sec INR (<1.2) ABG pCO2 (35-45) mmHg ABG pO2 (83-108) mmHg ABG HCO3 (21-25) mmol/L ABG Total CO2 (19-24) mmol/L VBG pH (7.31-7.41) VBG pCO2 (37-51) mmHg VBG HCO3 (24-28) mmol/L Potassium (3.5-5.1) mmol/L Chloride 97 L (98-107) mmol/L Carbon Dioxide 38 H (22-30) mmol/L BUN 44 H (9-20) mg/dL Creatinine (0.66-1.25) mg/dL Glucose 56 L (74-99) mg/dL POC Glucose (mg/dL) (70-110) mg/dL Calcium 7.7 L (8.4-10.2) mg/dL AST (17-59) U/L ALT (4-49) U/L Troponin I 0.104 H* (0.000-0.034) ng/mL Albumin (3.5-5.0) g/dL
[2023-05-17 13:33] LABS: African American GFR (CKD) >90 (>60 ml/min/1.73 sqM); Albumin 2.9 g/dL (3.5-5.0); Alkaline Phosphatase 105 U/L (38-126); Blood Urea Nitrogen 45 mg/dL (9-20); Calcium 7.7 mg/dL (8.4-10.2); Chloride 97 mmol/L (98-107); Glucose 77 mg/dL (74-99); Non-African American GFR(CKD) >90 (>60 ml/min/1.73 sqM); Potassium 4.4 mmol/L (3.5-5.1); Sodium 141 mmol/L (137-145); Total Bilirubin 0.9 mg/dL (0.2-1.3); Total Protein 5.6 g/dL (6.3-8.2)
[2023-05-17 13:39] LABS: Anion Gap 9 mmol/L; Carbon Dioxide 35 mmol/L (22-30)
--- NOTE | 2023-05-17 13:53 | P.NPCON ---
History of Present Illness - Reason for Consult Consult date: 05/17/23 hyperkalemia - Chief Complaint Altered mental status - History of Present Illness Admitted to the hospital with altered mental status. Workup showed acute kidney injury with a creatinine of 1.3 and hyperkalemia with a potassium of 6.4. No documented hypotensive episodes. He also developed acute transaminitis with AST ALT in thousand's. No nausea vomiting diarrhea. Not on any potassium suppl ements or antihypertensives at home. No previous history of chronic kidney disease. Hyperkalemia was treated medically and creatinine and potassium back to normal. He also takes oxycodone, morphine at home Review of Systems Constitutional: Reports as per HPI Past Medical History Past Medical History: Cancer Additional Past Medical History / Comment(s): history of non-small cell lung cancer with a previous right upper lobe resection, advanced emphysema, chest deformity related to previous thoracic surgery, chronic pain Involving the back in addition to brachial plexus disorder related to previous thoracic surgery. History of Any Multi-Drug Resistant Organisms: None Reported Additional Past Surgical History / Comment(s): right upper lobectomy d/t CA, multiple surgeries on right hand d/t accident Past Anesthesia/Blood Transfusion Reactions: No Reported Reaction Past Psychological History: No Psychological Hx Reported Smoking Status: Current every day smoker Past Alcohol Use History: None Reported Past Drug Use History: None Reported Medications and Allergies Home Medications Medication Instructions Recorded Confirmed Type Gabapentin [Neurontin] 300 mg PO TID 03/26/19 05/16/23 History Morphine Sulfate ER [Ms Contin] 30 mg PO BID 03/26/19 05/16/23 History Morphine Sulfate [Ms Contin] 60 mg PO BID 03/26/19 05/16/23 History oxyCODONE-APAP 10-325MG [Percocet 1 tab PO BID PRN 03/26/19 05/16/23 History 10-325 mg] Baclofen [Lioresal] 10 mg PO TID PRN 11/11/20 05/16/23 History Fluticasone/Umeclidin/Vilanter 1 puff INHALATION RT-DAILY 11/11/20 05/16/23 History [Trelegy Ellipta 100-62.5-25] Ipratropium-Albuterol Nebulize 3 ml INHALATION RT-DAILY@1800 11/11/20 05/16/23 History [Duoneb 0.5 mg-3 mg/3 ml Soln] Butalb/APAP/Caff 50-325-40Mg 1 tab PO TID PRN 05/12/23 05/16/23 History [Fioricet 50-325-40] Aspirin 81 mg PO DAILY 30 Days #30 tab 05/15/23 05/16/23 Rx Atorvastatin [Lipitor] 40 mg PO HS 30 Days #30 tab 05/15/23 05/16/23 Rx Allergies Allergy/AdvReac Type Severity Reaction Status Date / Time No Known Allergies Allergy Verified 05/16/23 16:08 Physical Exam Vitals: Vital Signs Temp Pulse Resp BP Pulse Ox 05/17/23 12:00 97.6 F 60 18 109/73 98 05/17/23 11:49 100 05/17/23 08:38 58 L 18 117/66 96 05/17/23 08:07 97 05/17/23 06:00 91 18 132/80 97 05/17/23 04:00 58 L 22 135/90 98 05/17/23 00:00 64 22 145/83 97 05/16/23 20:00 71 21 138/80 96 05/16/23 18:33 73 18 141/87 96 05/16/23 17:46 71 18 150/90 96 05/16/23 17:06 70 16 131/84 95 05/16/23 15:30 72 18 123/84 96 No acute distress S1-S2 heard Lungs clear Abdomen soft No edema Results - Lab Results Most recent lab results ABG pH 7.42 (7.35-7.45) 05/16/23 14:33 ABG pCO2 65 mmHg (35-45) H 05/16/23 14:33 ABG pO2 120 mmHg (83-108) H 05/16/23 14:33 ABG HCO3 43 mmol/L (21-25) H* 05/16/23 14:33 ABG O2 Saturation 94.3 % (94-97) 05/16/23 14:33 Calcium 7.7 mg/dL (8.4-10.2) L 05/17/23 06:27 05/17/23 06:27 05/17/23 06:27 Assessment and Plan Assessment: #1 acute kidney injury with hyperkalemia suspect hemodynamics -Baseline creatinine 0.8 MG per DL. #2 transaminitis, rule out hepatitis and congestive hepatopathy. #3 metabolic alkalosis Plan: #1 potassium back to normal with medical management. #2 renal function close to baseline. #3 continue with normal saline. #4 workup from primary. #5 we'll follow as needed
--- NOTE | 2023-05-17 14:14 | US ---
EXAMINATION TYPE: US carotid duplex BILAT DATE OF EXAM: 05/17/2023 COMPARISON: NONE CLINICAL INDICATION: Male, 62 years old with history of ordered by Cardiology Dr. Jacob; patient has AMS, no h/o stroke TECHNIQUE: Carotid duplex ultrasound examination. Indirect Doppler criteria was utilized. FINDINGS: EXAM MEASUREMENTS: RIGHT: Peak Systolic Velocity (PSV) cm/sec ----- Right CCA: 78.6 ----- Right ICA: 86.8 ----- Right ECA: 72.1 ICA/CCA ratio: 1.1 RIGHT: End Diastole cm/sec ----- Right CCA: 18.8 ----- Right ICA: 24.3 ----- Right ECA: 9.2 LEFT: Peak Systolic Velocity (PSV) cm/sec ----- Left CCA: 82.2 ----- Left ICA: 83.2 ----- Left ECA: 80.7 ICA/CCA ratio: 1.0 LEFT: End Diastole cm/sec ----- Left CCA: 18.5 ----- Left ICA: 20.6 ----- Left ECA: 4.1 VERTEBRALS (direction of flow): Right Vertebral: Antegrade Left Vertebral: Antegrade Rhythm: Normal There is mild atheromatous plaque in the carotid bulbs and origins of the internal carotid arteries b ilaterally but no significant stenosis by color or grayscale imaging. IMPRESSION: Mild plaque in the carotid bulbs and proximal internal carotid arteries without significant stenosis based on peak systolic velocities and ratios and color and grayscale imaging. Criteria for Assigning % of Stenosis / Diameter reduction (Estimation based on the indirect measurements of the internal carotid artery velocities (ICA PSV). 1. Normal (no stenosis)=ICA PSV < 125 cm/s: ratio < 2.0: ICA EDV<40 cm/s. 2. Less than 50% stenosis=ICA PSV < 125 cm/s: ratio < 2.0: ICA EDV<40 cm/s. 3. 50 to 69% stenosis=ICA PSV of 125 to 230 cm/s: ration 2.0 ? 4.0: ICA EDV 40-100 cm/s. 4. Greater than 70% stenosis to near occlusion= ICA PSV > 230 cm/s: ratio > 4.0: ICA EDV > 100 cm/s. 5. Near occlusion= ICA PSV velocities may be low or undetectable: variable ratio and ICA EDV. 6. Total occlusion=unable to detect flow.
[2023-05-17 14:23] LABS: ALT 3060 U/L (4-49); AST 2677 U/L (17-59)
--- NOTE | 2023-05-17 14:31 | P.CNPUL ---
History of Present Illness Consult date: 05/17/23 Requesting physician: Alfredo Recinos Reason for consult: abnormal CXR/CT Chief complaint: Abdominal discomfort History of present illness: This is a 62-year-old male patient with a known history of oxygen dependent chronic obstructive pulmonary disease, chronic tobacco dependence, non-small cell lung cancer with previous right upper lobe resection, chronic pain syndrome. He was just discharged on 05/14/[address] segment elevation myocardial infarction inferiorly with T-wave inversions anteriorly. He went directly to the cardiac director labor standards and was found to have an intermediate disease involving the right coronary artery and an occluded distal left circumflex coronary artery. Recommended medical therapy. He was discharged in stable condition. He came back to the emergency room on 05/16/2023 with complaints of altered mental status and minimally responsive. He is to be on home oxygen however had chemo throughout the evening and the patient had been noncompliant wearing it according to his . EMS arrived and found him to have O2 saturations in the 50s. He became more arousable throughout his emergency room stay. Labs revealed white count of 7.5. Hemoglobin 11.8. INR 1.5. Sodium 141. Potassium 4.4. Bicarb 35. BUN 45. Creatinine 0.70. Initial AST 10,340, currently 3378. Initial a LT 4214. Currently 3403. Troponin 0.104. Acetaminophen level negative. Serum alcohol level negative. Lipase 102. He is seen today in consultation in the ED. He is awake and alert. A bit drowsy. He had already received this morning has 90 mg of MS Contin which he takes at home along with Percocet, Fioricet and baclofen. He is quite frail and cachectic. His BMI is 22.8 kg per metered squared. X-ray reveals scattered patchy density in the right lung which is unchanged compared to previous. He has some chronic changes due to his previous right upper lobe resection. Computed tomography scan of the brain revealed no acute intracranial abnormalities. Carotid Dopplers revealed no significant stenosis. Ultrasound of the gallbladder revealed no acute process. CT angiogram revealed hepatomegaly with heterogenous appearance of the hepatic parenchymal but no focal mass detected. Ultrasound of the liver revealed hepatomegaly. There is gallbladder wall thickening with hydropic changes and internal echoes. Acute cystitis is not excluded. Review of Systems REVIEW OF SYSTEMS: CONSTITUTIONAL: Altered mental status. Denies any recent significant weight loss or weight gain. EYES: Denies change in vision. EARS, NOSE, MOUTH, THROAT: Denies headaches, denies sore throat. CARDIOVASCULAR: Denies chest pain, palpitations or syncopal episodes. RESPIRATORY: Positive for shortness of breath, cough, congestion or hemoptysis. GASTROINTESTINAL: Positive for constipation GENITOURINARY: Denies hematuria, denies infections. MUSKULOSKELETAL: Denies pain, denies swelling. INTEGUMENTARY: Denies rash, denies eczema. NEUROLOGICAL: Denies recent memory loss, no recent seizure activity. PSYCHIATRIC: Denies anxiety, denies depression. HEMATOLOGIC/LYMPHATIC: Denies anemia, denies enlarged lymph nodes. Past Medical History Past Medical History: Cancer Additional Past Medical History / Comment(s): history of non-small cell lung cancer with a previous right upper lobe resection, advanced emphysema, chest deformity related to previous thoracic surgery, chronic pain Involving the back in addition to brachial plexus disorder related to previous thoracic surgery. History of Any Multi-Drug Resistant Organisms: None Reported Additional Past Surgical History / Comment(s): right upper lobectomy d/t CA, multiple surgeries on right hand d/t accident Past Anesthesia/Blood Transfusion Reactions: No Reported Reaction Past Psychological History: No Psychological Hx Reported Smoking Status: Current every day smoker Past Alcohol Use History: None Reported Past Drug Use History: None Reported Medications and Allergies Home Medications Medication Instructions Recorded Confirmed Type Gabapentin [Neurontin] 300 mg PO TID 03/26/19 05/16/23 History Morphine Sulfate ER [Ms Contin] 30 mg PO BID 03/26/19 05/16/23 History Morphine Sulfate [Ms Contin] 60 mg PO BID 03/26/19 05/16/23 History oxyCODONE-APAP 10-325MG [Percocet 1 tab PO BID PRN 03/26/19 05/16/23 History 10-325 mg] Baclofen [Lioresal] 10 mg PO TID PRN 11/11/20 05/16/23 History Fluticasone/Umeclidin/Vilanter 1 puff INHALATION RT-DAILY 11/11/20 05/16/23 History [Treleestefania Ellipta 100-62.5-25] Ipratropium-Albuterol Nebulize 3 ml INHALATION RT-DAILY@1800 11/11/20 05/16/23 History [Duoneb 0.5 mg-3 mg/3 ml Soln] Butalb/APAP/Caff 50-325-40Mg 1 tab PO TID PRN 05/12/23 05/16/23 History [Fioricet 50-325-40] Aspirin 81 mg PO DAILY 30 Days #30 tab 05/15/23 05/16/23 Rx Atorvastatin [Lipitor] 40 mg PO HS 30 Days #30 tab 05/15/23 05/16/23 Rx Allergies Allergy/AdvReac Type Severity Reaction Status Date / Time No Known Allergies Allergy Verified 05/16/23 16:08 Physical Exam Vitals: Vital Signs Temp Pulse Resp BP Pulse Ox 05/17/23 12:00 97.6 F 60 18 109/73 98 05/17/23 11:49 100 05/17/23 08:38 58 L 18 117/66 96 05/17/23 08:07 97 05/17/23 06:00 91 18 132/80 97 05/17/23 04:00 58 L 22 135/90 98 05/17/23 00:00 64 22 145/83 97 05/16/23 20:00 71 21 138/80 96 05/16/23 18:33 73 18 141/87 96 05/16/23 17:46 71 18 150/90 96 05/16/23 17:06 70 16 131/84 95 05/16/23 15:30 72 18 123/84 96 GENERAL EXAM: Alert, drowsy frail cachectic 62-year-old male, 4 L nasal cannula, fairly comfortable in no apparent distress. HEAD: Normocephalic. EYES: Normal reaction of pupils, equal size. NOSE: Clear with pink turbinates. THROAT: No erythema or exudates. NECK: No masses, no JVD. CHEST: No chest wall deformity. LUNGS: Equal air entry with scattered rhonchi over the right lung. CVS: S1 and S2 normal with no audible murmur, regular rhythm. ABDOMEN: No hepatosplenomegaly, normal bowel sounds, no guarding or rigidity. SPINE: No scoliosis or deformity SKIN: No rashes CENTRAL NERVOUS SYSTEM: No focal deficits, tone is normal in all 4 extremities. EXTREMITIES: There is no peripheral edema. No clubbing, no cyanosis. Peripheral pulses are intact. Results - Laboratory Findings CBC and BMP: 05/17/23 06:27 05/17/23 12:58 ABG ABG pH 7.42 (7.35-7.45) 05/16/23 14:33 ABG pCO2 65 mmHg (35-45) H 05/16/23 14:33 ABG pO2 120 mmHg (83-108) H 05/16/23 14:33 ABG O2 Saturation 94.3 % (94-97) 05/16/23 14:33 PT/INR, D-dimer PT 15.2 sec (10.0-12.5) H 05/17/23 09:16 INR 1.5 (<1.2) H 05/17/23 09:16 Abnormal lab findings: Abnormal Labs 05/16/23 05/16/23 05/16/23 13:44 13:44 13:44 RBC 3.91 L Hgb 12.1 L Hct 38.2 L Neutrophils # 9.2 H Lymphocytes # 0.4 L PT 15.0 H INR 1.4 H ABG pCO2 ABG pO2 ABG HCO3 ABG Total CO2 VBG pH VBG pCO2 VBG HCO3 Potassium 6.4 H* Chloride 89 L Carbon Dioxide 41 H* BUN 51 H Creatinine 1.36 H Glucose POC Glucose (mg/dL) Calcium 8.3 L AST 92505 H ALT 4214 H Troponin I Total Protein Albumin 3.3 L 05/16/23 05/16/23 05/16/23 13:44 13:44 14:33 RBC Hgb Hct Neutrophils # Lymphocytes # PT INR ABG pCO2 65 H ABG pO2 120 H ABG HCO3 43 H* ABG Total CO2 45 H VBG pH 7.43 H VBG pCO2 63 H VBG HCO3 41 H Potassium Chloride Carbon Dioxide BUN Creatinine Glucose POC Glucose (mg/dL) Calcium AST ALT Troponin I 0.120 H* Total Protein Albumin 05/16/23 05/16/23 05/16/23 19:13 19:13 20:16 RBC Hgb Hct Neutrophils # Lymphocytes # PT INR ABG pCO2 ABG pO2 ABG HCO3 ABG Total CO2 VBG pH VBG pCO2 VBG HCO3 Potassium 5.6 H Chloride 93 L Carbon Dioxide 37 H BUN 51 H Creatinine Glucose POC Glucose (mg/dL) 144 H Calcium 8.0 L AST ALT Troponin I 0.171 H* Total Protein Albumin 05/16/23 05/17/23 05/17/23 23:41 06:27 06:27 RBC 3.71 L Hgb 11.8 L Hct 36.7 L Neutrophils # Lymphocytes # 0.5 L PT INR ABG pCO2 ABG pO2 ABG HCO3 ABG Total CO2 VBG pH VBG pCO2 VBG HCO3 Potassium Chloride 97 L Carbon Dioxide 38 H BUN 44 H Creatinine Glucose 56 L POC Glucose (mg/dL) Calcium 7.7 L AST ALT Troponin I 0.104 H* Total Protein Albumin 05/17/23 05/17/23 05/17/23 09:16 09:16 09:51 RBC Hgb Hct Neutrophils # Lymphocytes # PT 15.2 H INR 1.5 H ABG pCO2 ABG pO2 ABG HCO3 ABG Total CO2 VBG pH VBG pCO2 VBG HCO3 Potassium Chloride Carbon Dioxide BUN Creatinine Glucose POC Glucose (mg/dL) 66 L Calcium AST 3378 H ALT 3403 H Troponin I Total Protein Albumin 05/17/23 12:58 RBC Hgb Hct Neutrophils # Lymphocytes # PT INR ABG pCO2 ABG pO2 ABG HCO3 ABG Total CO2 VBG pH VBG pCO2 VBG HCO3 Potassium Chloride 97 L Carbon Dioxide 35 H BUN 45 H Creatinine Glucose POC Glucose (mg/dL) Calcium 7.7 L AST ALT Troponin I Total Protein 5.6 L Albumin 2.9 L - Diagnostic Findings Chest x-ray: image reviewed Assessment and Plan Assessment: Acute on chronic hypoxemic respiratory failure in a patient found to be noncompliant with home oxygen Transaminitis of unclear etiology, possibly related to cholecystitis Severe chronic obstructive pulmonary disease with an FEV1 value of 41% of predicted History of non-small cell lung cancer status post right upper lobe lobectomy and radiation back in 2006 Chronic thoracic pain and brachial plexus disorder secondary to above History of chronic and ongoing tobacco dependence of 50 years Recent admission for ST segment elevation myocardial infarction found to have intermediate disease involving the RCA and occluded distal left circumflex artery. Treated medically Failure to thrive, BMI 22.8 kg per metered squared Poor overall functional performance based on the above-mentioned multiple comorbidities Plan: The patient was seen and evaluated Chest x-ray, computed tomography scan of the brain, computed tomography scan of the abdomen pelvis, liver ultrasound, carotid Dopplers, labs and medications all reviewed Cardiology, nephrology consulted May need surgical consultation Continue with DuoNeb inhalations, Symbicort Titrate the FiO2 as tolerated We will continue to follow and make further recommendations based on his clinical status I have personally seen and examined the patient, performed the documentation and the assessment and plan as written. Number of minutes spent on the visit: 20.
[2023-05-17 17:40] LABS: Glucose,Whole Blood 61 mg/dL (70-110)
[2023-05-17 18:01] LABS: Glucose,Whole Blood 55 mg/dL (70-110)
[2023-05-17 18:23] LABS: Glucose,Whole Blood 82 mg/dL (70-110)
[2023-05-17] MEDS: IPRATROPIUM-ALBUTEROL 3 ML NEB INHALATION SCH (19:34)
[2023-05-17 20:12] LABS: Glucose,Whole Blood 205 mg/dL (70-110)
[2023-05-17 23:49] LABS: Hepatitis A Antibody IgM Nonreactive; Hepatitis B Core IgM Nonreactive; Hepatitis B Surface Antigen Nonreactive; Hepatitis C IgG Antibody Nonreactive
[2023-05-18] MEDS ORDERED: ZINC OXIDE PASTE (Z-GUARD) 1 APPLIC APPLIC TOPICAL PRN (01:38)
[2023-05-18] MEDS: SODIUM CHLORIDE 0.9% 1,000 ML IV SCH ×2 (04:17→20:54)
[2023-05-18 06:06] LABS: Glucose,Whole Blood 72 mg/dL (70-110)
[2023-05-18] MEDS: SYMBICORT 80-4.5 MCG INHALER INHALATION SCH (07:27)
[2023-05-18] MEDS: ASPIRIN 81 MG PO SCH (10:05)
[2023-05-18] MEDS: MORPHINE SULFATE ER 30 MG TABLET PO SCH ×4 (10:05→21:04)
[2023-05-18] MEDS: GABAPENTIN 300 MG CAP PO SCH ×3 (10:05→21:04)
--- NOTE | 2023-05-18 11:37 | P.GSCN ---
History of Present Illness Consult date: 05/18/23 Reason for Consult: cholecystitis History of present illness: is a 62-year-old male who is noted to have elevated liver enzymes. Patient's gallbladder is hydropic with evidence of internal echoes on his liver ultrasound. Patient states he has minimal complaints of abdominal pain. He states he has had pain in the past which is colicky in nature. Past Medical History Past Medical History: Cancer Additional Past Medical History / Comment(s): history of non-small cell lung c ancer with a previous right upper lobe resection/radiation, advanced emphysema, chest deformity related to previous thoracic surgery, chronic pain Involving the back in addition to brachial plexus disorder related to previous thoracic surgery. History of Any Multi-Drug Resistant Organisms: None Reported Past Surgical History: Appendectomy Additional Past Surgical History / Comment(s): right upper lobectomy d/t CA, multiple surgeries on right hand d/t accident, pain stimulator left lower back Past Anesthesia/Blood Transfusion Reactions: No Reported Reaction Past Psychological History: No Psychological Hx Reported Smoking Status: Current every day smoker Past Alcohol Use History: None Reported Past Drug Use History: None Reported - Past Family History Mother Family Medical History: Diabetes Mellitus, Hypertension Medications and Allergies Home Medications Medication Instructions Recorded Confirmed Type Gabapentin [Neurontin] 300 mg PO TID 03/26/19 05/16/23 History Morphine Sulfate ER [Ms Contin] 30 mg PO BID 03/26/19 05/16/23 History Morphine Sulfate [Ms Contin] 60 mg PO BID 03/26/19 05/16/23 History oxyCODONE-APAP 10-325MG [Percocet 1 tab PO BID PRN 03/26/19 05/16/23 History 10-325 mg] Baclofen [Lioresal] 10 mg PO TID PRN 11/11/20 05/16/23 History Fluticasone/Umeclidin/Vilanter 1 puff INHALATION RT-DAILY 11/11/20 05/16/23 History [Trelegy Ellipta 100-62.5-25] Ipratropium-Albuterol Nebulize 3 ml INHALATION RT-DAILY@1800 11/11/20 05/16/23 History [Duoneb 0.5 mg-3 mg/3 ml Soln] Butalb/APAP/Caff 50-325-40Mg 1 tab PO TID PRN 05/12/23 05/16/23 History [Fioricet 50-325-40] Aspirin 81 mg PO DAILY 30 Days #30 tab 05/15/23 05/16/23 Rx Atorvastatin [Lipitor] 40 mg PO HS 30 Days #30 tab 05/15/23 05/16/23 Rx Allergies Allergy/AdvReac Type Severity Reaction Status Date / Time No Known Allergies Allergy Verified 05/16/23 16:08 Surgical - Exam Vital Signs Temp Pulse Resp BP Pulse Ox 98.2 F 81 12 125/79 74 L 05/16/23 13:19 05/16/23 13:19 05/16/23 13:19 05/16/23 13:19 05/16/23 13:19 - General well developed, no distress - Eyes PERRL - ENT normal pinna - Neck no masses - Cardiovascular Rhythm: regular - Abdomen Abdomen: soft, non tender Results - Labs 05/17/23 06:27 05/17/23 12:58 Abnormal Lab Results - Last 24 Hours (Table) 05/17/23 05/17/23 05/17/23 Range/Units 09:16 12:58 17:36 Chloride 97 L (98-107) mmol/L Carbon Dioxide 35 H (22-30) mmol/L BUN 45 H (9-20) mg/dL POC Glucose (mg/dL) 61 L (70-110) mg/dL Calcium 7.7 L (8.4-10.2) mg/dL AST 3378 H 2677 H (17-59) U/L ALT 3403 H 3060 H (4-49) U/L Total Protein 5.6 L (6.3-8.2) g/dL Albumin 2.9 L (3.5-5.0) g/dL 05/17/23 05/17/23 Range/Units 18:00 20:07 Chloride (98-107) mmol/L Carbon Dioxide (22-30) mmol/L BUN (9-20) mg/dL POC Glucose (mg/dL) 55 L 205 H (70-110) mg/dL Calcium (8.4-10.2) mg/dL AST (17-59) U/L ALT (4-49) U/L Total Protein (6.3-8.2) g/dL Albumin (3.5-5.0) g/dL Diabetes panel 05/17/23 05/17/23 Range/Units 09:16 12:58 Sodium 141 (137-145) mmol/L Potassium 4.4 (3.5-5.1) mmol/L Chloride 97 L (98-107) mmol/L Carbon Dioxide 35 H (22-30) mmol/L BUN 45 H (9-20) mg/dL Creatinine 0.70 (0.66-1.25) mg/dL Glucose 77 (74-99) mg/dL Calcium 7.7 L (8.4-10.2) mg/dL AST 3378 H 2677 H (17-59) U/L ALT 3403 H 3060 H (4-49) U/L Alkaline Phosphatase 113 105 (38-126) U/L Total Protein 5.6 L (6.3-8.2) g/dL Albumin 2.9 L (3.5-5.0) g/dL Calcium panel 05/17/23 Range/Units 12:58 Calcium 7.7 L (8.4-10.2) mg/dL Albumin 2.9 L (3.5-5.0) g/dL Pituitary panel 05/17/23 Range/Units 12:58 Sodium 141 (137-145) mmol/L Potassium 4.4 (3.5-5.1) mmol/L Chloride 97 L (98-107) mmol/L Carbon Dioxide 35 H (22-30) mmol/L BUN 45 H (9-20) mg/dL Creatinine 0.70 (0.66-1.25) mg/dL Glucose 77 (74-99) mg/dL Calcium 7.7 L (8.4-10.2) mg/dL Adrenal panel 05/17/23 05/17/23 Range/Units 09:16 12:58 Sodium 141 (137-145) mmol/L Potassium 4.4 (3.5-5.1) mmol/L Chloride 97 L (98-107) mmol/L Carbon Dioxide 35 H (22-30) mmol/L BUN 45 H (9-20) mg/dL Creatinine 0.70 (0.66-1.25) mg/dL Glucose 77 (74-99) mg/dL Calcium 7.7 L (8.4-10.2) mg/dL Total Bilirubin 1.0 0.9 (0.2-1.3) mg/dL AST 3378 H 2677 H (17-59) U/L ALT 3403 H 3060 H (4-49) U/L Alkaline Phosphatase 113 105 (38-126) U/L Total Protein 5.6 L (6.3-8.2) g/dL Albumin 2.9 L (3.5-5.0) g/dL Assessment and Plan Assessment: elevated transaminases. Hydropic gallbladder. Patient will need further workup. We will plan for laparoscopic cholecystectomy once he is medically stable.
[2023-05-18 11:44] LABS: Glucose,Whole Blood 97 mg/dL (70-110)
[2023-05-18 11:44] LABS: INR 1.2 (<1.2); Prothrombin Time 13.2 sec (10.0-12.5)
[2023-05-18 12:07] LABS: Basophils % (A) 1 %; Eosinophils # (A) 0.1 k/uL (0-0.7); Eosinophils % (A) 2 %; HCT 36.9 % (39.0-53.0); HGB 11.6 gm/dL (13.0-17.5); Hypochromasia Moderate; Lymphocytes # (A) 0.4 k/uL (1.0-4.8); Lymphocytes % (A) 8 %; MCH 31.8 pg (25.0-35.0); MCHC 31.4 g/dL (31.0-37.0); MCV 101.2 fL (80.0-100.0); Macrocytosis Slight; Mean Platelet Volume 7.9; Monocytes # (A) 0.3 k/uL (0-1.0); Monocytes % (A) 5 %; Neutrophils # (A) 4.2 k/uL (1.3-7.7); Neutrophils % (A) 82 %; Platelet Count 228 k/uL (150-450); RBC 3.64 m/uL (4.30-5.90); RDW 14.4 % (11.5-15.5); WBC 5.1 k/uL (3.8-10.6)
--- NOTE | 2023-05-18 12:14 | P.PN ---
Subjective Progress Note Date: 05/18/23 Principal diagnosis: CAD The patient is a 62-year-old gentleman who was just discharged from the hospital a few days ago after he presented with shortness of breath and the chest discomfort. At that point he underwent a heart catheterization that intermediate nonobstructive coronary artery disease. He was diagnosed with COPD exacerbation and was admitted to the intensive care unit and subsequently was discharged in stable medical condition. He does have a past medical history significant for severe COPD on home oxygen. This time he presented to the hospital after he was brought with his . The patient is somewhat is a poor historian. Apparently his oxygen has fell during the night. His noticed that he was hypoxic. His oxygen saturation was in the 60s. She brought into the emergency department. He underwent further workup including EKG showing sinus mechanism with T-wave inversion appeared to be the same as before. Troponin was mildly elevated but it was mildly elevated before. He was hypoxic when he presented which could explain the abnormal troponin. Recent heart cath showed no obstructive CAD. He also was found to have severely elevated liver function tests. He was on Lipitor and that has stopped. He underwent a computed tomography scan of the brain which showed no acute abnormalities and computed tomography scan of the abdomen and pelvis also showed no acute abnormalities. He seems slightly slow in response. For that reason he underwent a computed tomography scan of the brain which showed no acute abnormalities. On examination he does have distant heart sounds with diminished breathing sounds bilaterally and no edema in the lower extremities and no carotid bruit noted. 05/18/2023 The patient was seen and evaluated this morning. He is looking better. The shortness of breath has improved. No pain in the chest and no dizziness or lightheadedness and no feeling of heart racing or fluttering and no presyncope or syncope. His change in mental status has improved as well. The examination is remarkable for diminished breathing sounds bilaterally only. From the cardiovascular standpoint of view, the patient can be transferred out of the third floor Assessment Severe COPD Evidence of myocardial injury with no ischemia likely related to type II myocardial infarction Coronary artery disease as described above Change in mental status Plan Continue the current medical regimen Continue holding Lipitor The patient Be transferred out of the third floor Objective - Vital Signs Vital signs: Vital Signs Temp 97.4 F L 05/18/23 08:10 Pulse 58 L 05/18/23 08:10 Resp 17 05/18/23 08:10 BP 122/71 05/18/23 08:10 Pulse Ox 100 05/18/23 08:10 FiO2 Intake & Output 05/17/23 05/18/23 05/18/23 18:59 06:59 18:59 Intake Total 480 1160 Output Total 350 325 0 Balance 130 835 0 Weight 68 kg Intake: IV 20 Invasive Line 1 20 Intake, IV Titration 600 Amount Sodium Chloride 0.9% 1, 600 000 ml @ 130 mls/hr IV . Q7H42M REPLACED BY [facility] Rx#:[id number] Oral 480 540 Output: Urine 350 325 0 Stool 0 Urine/Stool Mix 0 Emesis 0 Oral Regurgitation 0 Other 0 Other: Voiding Method Urinal Urinal # Voids 1 # Bowel Movements 0 - Labs CBC & Chem 7: 05/18/23 10:53 05/17/23 12:58 Labs: Abnormal Lab Results - Last 24 Hours (Table) 05/17/23 05/17/23 05/17/23 Range/Units 12:58 17:36 18:00 RBC (4.30-5.90) m/uL Hgb (13.0-17.5) gm/dL Hct (39.0-53.0) % MCV (80.0-100.0) fL Lymphocytes # (1.0-4.8) k/uL PT (10.0-12.5) sec INR (<1.2) Chloride 97 L (98-107) mmol/L Carbon Dioxide 35 H (22-30) mmol/L BUN 45 H (9-20) mg/dL POC Glucose (mg/dL) 61 L 55 L (70-110) mg/dL Calcium 7.7 L (8.4-10.2) mg/dL AST 2677 H (17-59) U/L ALT 3060 H (4-49) U/L Total Protein 5.6 L (6.3-8.2) g/dL Albumin 2.9 L (3.5-5.0) g/dL 05/17/23 05/18/23 05/18/23 Range/Units 20:07 10:53 10:53 RBC 3.64 L (4.30-5.90) m/uL Hgb 11.6 L (13.0-17.5) gm/dL Hct 36.9 L (39.0-53.0) % MCV 101.2 H (80.0-100.0) fL Lymphocytes # 0.4 L (1.0-4.8) k/uL PT 13.2 H (10.0-12.5) sec INR 1.2 H (<1.2) Chloride (98-107) mmol/L Carbon Dioxide (22-30) mmol/L BUN (9-20) mg/dL POC Glucose (mg/dL) 205 H (70-110) mg/dL Calcium (8.4-10.2) mg/dL AST (17-59) U/L ALT (4-49) U/L Total Protein (6.3-8.2) g/dL Albumin (3.5-5.0) g/dL
[2023-05-18 12:21] LABS: African American GFR (CKD) >90 (>60 ml/min/1.73 sqM); Anion Gap 5 mmol/L; Blood Urea Nitrogen 30 mg/dL (9-20); Calcium 7.6 mg/dL (8.4-10.2); Carbon Dioxide 32 mmol/L (22-30); Chloride 101 mmol/L (98-107); Glucose 107 mg/dL (74-99); Non-African American GFR(CKD) >90 (>60 ml/min/1.73 sqM); Sodium 138 mmol/L (137-145)
[2023-05-18 12:25] LABS: Potassium 4.5 mmol/L (3.5-5.1)
--- NOTE | 2023-05-18 12:50 | P.PN ---
Subjective Progress Note Date: 05/18/23 62-year-old gentleman with past medical history significant for ongoing nicotine dependence, non-small cell lung cancer status post right upper lobectomy/radiation, oxygen dependent COPD, chronic back pain with multiple back surgeries, chronic pain syndrome, diverticulosis, hiatal hernia brought to the ER for altered mental status. 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 Patient apparently was all right when he went to bed but in the middle of night patient had his oxygen removed and refused to put it back on. noted the patient was more and more confused. There was no complain of any slurred speech. No complain of weakness of any extremity. No seizure-like movements. Patient was more short of breath than usual. Denied any chest pain. No: No fever or chills. Because of this acute confusion, EMS was called and patient was found to be in low 50s on his oxygen saturation, patient was placed on nonrebreather and brought to the ER. While in the ER, patient mental status improved. Initial lab work done in the ER showed WBC 10.1, hemoglobin 12.1, platelet count 325, sodium 138, potassium 6.4, BUN 51, creatinine 1.36, AST 43962, ALT 4214 troponin 0.12 Ultrasound abdominal done showed no evidence for acute process EKG done in the ER showed heart rate of 79, no ST segment elevation, T-wave inversion seen in leads V2 V3, V4 V5 and V6 unchanged from previous EKG Chest x-ray done in the ER showed scattered patchy density right lung base may reflect underlying infiltrate, correlate clinically Patient admitted to medicine service 05/18. Patient seen and examined. Ultrasound abdomen showed hepatomegaly, gallbladder wall thickening with hydropic change. Denies abdominal pain. Denies nausea or vomiting. Vital signs stable REVIEW OF SYSTEMS: CONSTITUTIONAL: No fever, no malaise,. CARDIOVASCULAR: No chest pain, no palpitations, no syncope. PULMONARY: No shortness of breath, no cough, GASTROINTESTINAL: No diarrhea, no nausea, no vomiting, no abdominal pain. NEUROLOGICAL: No headaches, no weakness, PHYSICAL EXAMINATION: GENERAL: The patient is alert and oriented x3, not in any acute distress. Well developed, well nourished. HEENT: Pupils are round and equally reacting to light. EOMI. No scleral icterus. No conjunctival pallor. Normocephalic, atraumatic. No pharyngeal erythema. No thyromegaly. CARDIOVASCULAR: S1 and S2 present. No murmurs, rubs, or gallops. PULMONARY: Chest is clear to auscultation, no wheezing or crackles. ABDOMEN: Soft, nontender, nondistended, normoactive bowel sounds. No palpable organomegaly. MUSCULOSKELETAL: No joint swelling or deformity. EXTREMITIES: No cyanosis, clubbing, or pedal edema. NEUROLOGICAL: Gross neurological examination did not reveal any focal deficits. SKIN: No rashes. Assessment and plan Acute metabolic encephalopathy Acute on chronic hypoxic respiratory failure Acute transaminitis Hyperkalemia Acute kidney injury Elevated troponins, chronically elevated Chronic hypoxic respiratory failure secondary to severe COPD. Reports has been recently instructed to wear 3 L continuously outpatient History of non-small cell lung CA status post right upper lobe lobectomy, radiation, 2006 Continued Ongoing nicotine dependence Moderate protein calorie malnutrition with a BMI of 17.1 Chronic pain syndrome Monitor CBC Monitor CMP Continue telemetry monitoring Avoid hepatotoxic agents Trend LFTs Ordered ultrasound duplex of liver Continue breathing treatments Hyperkalemia protocol initiated Results of ultrasound abdominal noted, consult general surgery Cardiology following nephrology following Labs and medication were reviewed.. Continue same treatment. Continue with symptomatic treatment. Resume home medication. Monitor labs and vitals. DVT and GI prophylaxis. Further recommendations as per clinical course of the patient Dictation was produced using [employer] dictation software. please excuse any grammatical, word or spelling errors. Objective - Vital Signs Vital signs: Vital Signs Temp 97.4 F L 05/18/23 08:10 Pulse 58 L 05/18/23 08:10 Resp 17 05/18/23 08:10 BP 122/71 05/18/23 08:10 Pulse Ox 100 05/18/23 08:10 FiO2 Intake & Output 05/17/23 05/18/23 05/18/23 18:59 06:59 18:59 Intake Total 480 1160 Output Total 350 325 0 Balance 130 835 0 Weight 68 kg Intake: IV 20 Invasive Line 1 20 Intake, IV Titration 600 Amount Sodium Chloride 0.9% 1, 600 000 ml @ 130 mls/hr IV . Q7H42M [facility] Rx#:[id number] Oral 480 540 Output: Urine 350 325 0 Stool 0 Urine/Stool Mix 0 Emesis 0 Oral Regurgitation 0 Other 0 Other: Voiding Method Urinal Urinal # Voids 1 # Bowel Movements 0 - Labs CBC & Chem 7: 05/18/23 10:53 05/18/23 10:53 Labs: Abnormal Lab Results - Last 24 Hours (Table) 05/17/23 05/17/23 05/17/23 Range/Units 09:16 12:58 17:36 Chloride 97 L (98-107) mmol/L Carbon Dioxide 35 H (22-30) mmol/L BUN 45 H (9-20) mg/dL POC Glucose (mg/dL) 61 L (70-110) mg/dL Calcium 7.7 L (8.4-10.2) mg/dL AST 3378 H 2677 H (17-59) U/L ALT 3403 H 3060 H (4-49) U/L Total Protein 5.6 L (6.3-8.2) g/dL Albumin 2.9 L (3.5-5.0) g/dL 05/17/23 05/17/23 Range/Units 18:00 20:07 Chloride (98-107) mmol/L Carbon Dioxide (22-30) mmol/L BUN (9-20) mg/dL POC Glucose (mg/dL) 55 L 205 H (70-110) mg/dL Calcium (8.4-10.2) mg/dL AST (17-59) U/L ALT (4-49) U/L Total Protein (6.3-8.2) g/dL Albumin (3.5-5.0) g/dL
--- NOTE | 2023-05-18 14:49 | P.PN ---
Subjective Progress Note Date: 05/18/23 Follow-up for acute kidney injury and hyperkalemia. Doing well. Denies any nausea vomiting diarrhea. Much alert and oriented. Objective - Vital Signs Vital signs: Vital Signs Temp 98.3 F 05/18/23 12:00 Pulse 58 L 05/18/23 14:00 Resp 17 05/18/23 14:00 BP 111/66 05/18/23 12:00 Pulse Ox 93 L 05/18/23 12:00 FiO2 Intake & Output 05/17/23 05/18/23 05/18/23 18:59 06:59 18:59 Intake Total 480 1160 140 Output Total 350 325 0 Balance 130 835 140 Weight 68 kg Intake: IV 20 20 Invasive Line 1 20 20 Intake, IV Titration 600 Amount Sodium Chloride 0.9% 1, 600 000 ml @ 130 mls/hr IV . Q7H42M [facility] Rx#:[id number] Oral 480 540 120 Output: Urine 350 325 0 Stool 0 Urine/Stool Mix 0 Emesis 0 Oral Regurgitation 0 Other 0 Other: Voiding Method Urinal Urinal Urinal # Voids 1 # Bowel Movements 0 - Exam No acute distress S1-S2 heard Lungs clear No edema - Labs CBC & Chem 7: 05/18/23 10:53 05/18/23 10:53 Labs: Abnormal Lab Results - Last 24 Hours (Table) 05/17/23 05/17/23 05/17/23 Range/Units 17:36 18:00 20:07 RBC (4.30-5.90) m/uL Hgb (13.0-17.5) gm/dL Hct (39.0-53.0) % MCV (80.0-100.0) fL Lymphocytes # (1.0-4.8) k/uL PT (10.0-12.5) sec INR (<1.2) Carbon Dioxide (22-30) mmol/L BUN (9-20) mg/dL Creatinine (0.66-1.25) mg/dL Glucose (74-99) mg/dL POC Glucose (mg/dL) 61 L 55 L 205 H (70-110) mg/dL Calcium (8.4-10.2) mg/dL 05/18/23 05/18/23 05/18/23 Range/Units 10:53 10:53 10:53 RBC 3.64 L (4.30-5.90) m/uL Hgb 11.6 L (13.0-17.5) gm/dL Hct 36.9 L (39.0-53.0) % MCV 101.2 H (80.0-100.0) fL Lymphocytes # 0.4 L (1.0-4.8) k/uL PT 13.2 H (10.0-12.5) sec INR 1.2 H (<1.2) Carbon Dioxide 32 H (22-30) mmol/L BUN 30 H (9-20) mg/dL Creatinine 0.49 L (0.66-1.25) mg/dL Glucose 107 H (74-99) mg/dL POC Glucose (mg/dL) (70-110) mg/dL Calcium 7.6 L (8.4-10.2) mg/dL Assessment and Plan Assessment: #1 acute kidney injury with hyperkalemia suspect hemodynamics -Baseline creatinine 0.8 MG per DL. #2 transaminitis, suspected shock liver. -Tylenol and hepatitis screen negative #3 metabolic alkalosis Plan: #1 potassium back to normal with medical management. #2 renal function close to baseline. #3 continue with normal saline. #4 no further workup from nephrology will sign off.
--- NOTE | 2023-05-18 15:55 | P.PN ---
Subjective Progress Note Date: 05/18/23 This is a 62-year-old male patient with a known history of oxygen dependent chronic obstructive pulmonary disease, chronic tobacco dependence, non-small cell lung cancer with previous right upper lobe resection, chronic pain syndrome. He was just discharged on 05/14/[address] segment elevation myocardial infarction inferiorly with T-wave inversions anteriorly. 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 Recommended medical therapy. He was discharged in stable condition. He came back to the emergency room on 05/16/2023 with complaints of altered mental status and minimally responsive. He is to be on home oxygen however had chemo throughout the evening and the patient had been noncompliant wearing it according to his . EMS arrived and found him to have O2 saturations in the 50s. He became more arousable throughout his emergency room stay. Labs revealed white count of 7.5. Hemoglobin 11.8. INR 1.5. Sodium 141. Potassium 4.4. Bicarb 35. BUN 45. Creatinine 0.70. Initial AST 10,340, currently 3378. Initial a LT 4214. Currently 3403. Troponin 0.104. Acetaminophen level negative. Serum alcohol level negative. Lipase 102. He is seen today in consultation in the ED. He is awake and alert. A bit drowsy. He had already received this morning has 90 mg of MS Contin which he takes at home along with Percocet, Fioricet and baclofen. He is quite frail and cachectic. His BMI is 22.8 kg per metered squared. X-ray reveals scattered patchy density in the right lung which is unchanged compared to previous. He has some chronic changes due to his previous right upper lobe resection. Computed tomography scan of the brain revealed no acute intracranial abnormalities. Carotid Dopplers revealed no significant stenosis. Ultrasound of the gallbladder revealed no acute process. CT angiogram revealed hepatomegaly with heterogenous appearance of the hepatic parenchymal but no focal mass detected. Ultrasound of the liver revealed hepatomegaly. There is gallbladder wall thickening with hydropic changes and internal echoes. Acute cystitis is not excluded. The patient is seen today in 05/18/2023 in follow-up on the selective care unit. He is awake and alert in no acute distress. He is up ambulating in his room. Up in the shower. Denies any worsening shortness of breath, cough or congestion. He is maintaining good O2 saturations in the 90s on 4 L/m per nasal cannula. He's been afebrile. Hemodynamically stable. White count 5.1. Hemoglobin 11.6. Platelets 228. Sodium 138. Potassium 4.5. Bicarb 32. BUN 30. Creatinine 0.49. Glucose 107. He did have some episodes of confusion yesterday of unclear etiology. He continues to require morphine for his chronic pain which may be a contributing factor. Today he is alert and oriented 3. He is continued on saline at 130 ML's per hour. Symbicort and DuoNeb inhalations. Objective - Vital Signs Vital signs: Vital Signs Temp 98.3 F 05/18/23 12:00 Pulse 58 L 05/18/23 14:00 Resp 17 05/18/23 14:00 BP 111/66 05/18/23 12:00 Pulse Ox 93 L 05/18/23 12:00 FiO2 Intake & Output 05/17/23 05/18/23 05/18/23 18:59 06:59 18:59 Intake Total 480 1160 140 Output Total 350 325 0 Balance 130 835 140 Weight 68 kg Intake: IV 20 20 Invasive Line 1 20 20 Intake, IV Titration 600 Amount Sodium Chloride 0.9% 1, 600 000 ml @ 130 mls/hr IV . Q7H42M [facility] Rx#:[id number] Oral 480 540 120 Output: Urine 350 325 0 Stool 0 Urine/Stool Mix 0 Emesis 0 Oral Regurgitation 0 Other 0 Other: Voiding Method Urinal Urinal Urinal # Voids 1 # Bowel Movements 0 - Exam GENERAL EXAM: Alert, oriented cachectic 62-year-old male, 4 L nasal cannula, comfortable in no apparent distress. HEAD: Normocephalic. EYES: Normal reaction of pupils, equal size. NOSE: Clear with pink turbinates. THROAT: No erythema or exudates. NECK: No masses, no JVD. CHEST: No chest wall deformity. LUNGS: Equal air entry with scattered rhonchi over the right lung. CVS: S1 and S2 normal with no audible murmur, regular rhythm. ABDOMEN: No hepatosplenomegaly, normal bowel sounds, no guarding or rigidity. SPINE: No scoliosis or deformity SKIN: No rashes CENTRAL NERVOUS SYSTEM: No focal deficits, tone is normal in all 4 extremities. EXTREMITIES: There is no peripheral edema. No clubbing, no cyanosis. Peripheral pulses are intact. - Labs CBC & Chem 7: 05/18/23 10:53 05/18/23 10:53 Labs: Abnormal Lab Results - Last 24 Hours (Table) 05/17/23 05/17/23 05/17/23 Range/Units 17:36 18:00 20:07 RBC (4.30-5.90) m/uL Hgb (13.0-17.5) gm/dL Hct (39.0-53.0) % MCV (80.0-100.0) fL Lymphocytes # (1.0-4.8) k/uL PT (10.0-12.5) sec INR (<1.2) Carbon Dioxide (22-30) mmol/L BUN (9-20) mg/dL Creatinine (0.66-1.25) mg/dL Glucose (74-99) mg/dL POC Glucose (mg/dL) 61 L 55 L 205 H (70-110) mg/dL Calcium (8.4-10.2) mg/dL 05/18/23 05/18/23 05/18/23 Range/Units 10:53 10:53 10:53 RBC 3.64 L (4.30-5.90) m/uL Hgb 11.6 L (13.0-17.5) gm/dL Hct 36.9 L (39.0-53.0) % MCV 101.2 H (80.0-100.0) fL Lymphocytes # 0.4 L (1.0-4.8) k/uL PT 13.2 H (10.0-12.5) sec INR 1.2 H (<1.2) Carbon Dioxide 32 H (22-30) mmol/L BUN 30 H (9-20) mg/dL Creatinine 0.49 L (0.66-1.25) mg/dL Glucose 107 H (74-99) mg/dL POC Glucose (mg/dL) (70-110) mg/dL Calcium 7.6 L (8.4-10.2) mg/dL Assessment and Plan Assessment: Acute on chronic hypoxemic respiratory failure in a patient found to be noncompliant with home oxygen Transaminitis of unclear etiology, possibly related to cholecystitis Severe chronic obstructive pulmonary disease with an FEV1 value of 41% of predicted History of non-small cell lung cancer status post right upper lobe lobectomy and radiation back in 2007 Chronic thoracic pain and brachial plexus disorder secondary to above History of chronic and ongoing tobacco dependence of 50 years Recent admission for ST segment elevation myocardial infarction found to have intermediate disease involving the RCA and occluded distal left circumflex luna ry. Treated medically Failure to thrive, BMI 22.8 kg per metered squared Poor overall functional performance based on the above-mentioned multiple comorbidities Plan: The patient was seen and evaluated Labs and medications all reviewed Alert and oriented today Continue with DuoNeb inhalations, Symbicort Titrate the FiO2 as tolerated We will continue to follow I have personally seen and examined the patient, performed the documentation and the assessment and plan as written. Number of minutes spent on the visit: 10.
[2023-05-18 16:36] LABS: Glucose,Whole Blood 113 mg/dL (70-110)
[2023-05-18 20:09] LABS: Glucose,Whole Blood 125 mg/dL (70-110)
[2023-05-18 20:37] LABS: Glucose,Whole Blood 121 mg/dL (70-110)
[2023-05-19] MEDS: SYMBICORT 80-4.5 MCG INHALER INHALATION SCH ×2 (00:11→08:24)
[2023-05-19] MEDS: IPRATROPIUM-ALBUTEROL 3 ML NEB INHALATION SCH (00:11)
[2023-05-19] MEDS: SODIUM CHLORIDE 0.9% 1,000 ML IV SCH ×2 (01:15→11:22)
[2023-05-19 01:36] VITALS: PULSE 65
[2023-05-19 05:57] LABS: Glucose,Whole Blood 70 mg/dL (70-110)
[2023-05-19 07:26] VITALS: BP 126/73; RESP 19; TEMP 98
[2023-05-19] MEDS ORDERED: PANTOPRAZOLE 40 MG TABLET PO SCH (07:30)
[2023-05-19] MEDS: MORPHINE SULFATE ER 30 MG TABLET PO SCH ×2 (08:15→10:04)
[2023-05-19] MEDS: ASPIRIN 81 MG PO SCH (08:15)
[2023-05-19] MEDS: GABAPENTIN 300 MG CAP PO SCH (08:17)
[2023-05-19 08:53] LABS: Basophils # (A) 0.03 X 10*3/uL (0.00-0.10); Basophils % (A) 0.7 %; Eosinophils # (A) 0.12 X 10*3/uL (0.04-0.35); Eosinophils % (A) 2.9 %; HCT 37.3 % (39.6-50.0); HGB 11.3 g/dL (13.0-17.0); Lymphocytes % (A) 16.7 %; MCH 30.9 pg (27.0-32.0); MCHC 30.3 g/dL (32.0-37.0); MCV 101.9 FL (80.0-97.0); Mean Platelet Volume 11.1 FL (9.5-12.2); Monocytes # (A) 0.53 X 10*3/uL (0.20-1.00); Monocytes % (A) 12.7 %; NRBC Per 100 WBC 0 X 10*3/uL (0.00-0.01); Neutrophils # (A) 2.79 X 10*3/uL (1.80-7.70); Neutrophils % (A) 66.8 %; Platelet Count 188 X 10*3/uL (140-440); RBC 3.66 X 10*6/uL (4.40-5.60); RDW 15.4 % (11.5-14.5); WBC 4.18 X 10*3/uL (4.50-10.00)
[2023-05-19 09:54] LABS: Blood Urea Nitrogen 18.3 mg/dL (9.0-27.0); Chloride 104 mmol/L (96-109); Glucose 72 mg/dL (70-110); Potassium 4.6 mmol/L (3.5-5.5); Sodium 143 mmol/L (135-145)
[2023-05-19 09:55] LABS: ALT 1608 U/L (10-49); AST 533 U/L (14-35); Albumin 2.8 g/dL (3.8-4.9); Albumin/Globulin Ratio 1.17 Ratio (1.60-3.17); Alkaline Phosphatase 107 U/L (41-126); Calcium 8.1 mg/dL (8.7-10.3); Carbon Dioxide 33.2 mmol/L (21.6-31.8); Globulin 2.4 g/dL (1.6-3.3); Total Bilirubin 0.7 mg/dL (0.3-1.2); Total Protein 5.2 g/dL (6.2-8.2)
[2023-05-19] MEDS ORDERED: ONDANSETRON 4 MG/2 ML VIAL IVP STA (11:25)
[2023-05-19 11:29] LABS: Glucose,Whole Blood 81 mg/dL (70-110)
--- NOTE | 2023-05-19 11:41 | P.PN ---
Subjective Progress Note Date: 05/19/23 CHIEF COMPLAINT: Cholecystitis HISTORY OF PRESENT ILLNESS: Patient denies any abdominal pain. Denies any nausea or vomiting. Appetite has been decreased. Was able to eat a small amount of eggs this morning. He is scheduled for discharge today. Afebrile. WBC 4.18 Hgb 11.3. Elevated liver enzymes trending down. Total bilirubin remains normal at 0.7 PHYSICAL EXAM: VITAL SIGNS: Reviewed. GENERAL: Well-developed in no acute distress. ABDOMEN: Soft. Nondistended. Nontender. NEUROLOGIC: Alert and oriented. Cranial nerves II through XII grossly intact. ASSESSMENT: 1. Hydropic gallbladder with thickened gallbladder wall 2. Elevated liver enzymes PLAN: -Patient can be discharged from surgical standpoint -Recommend outpatient follow-up Physician Milk Sampler note has been reviewed by physician. Signing provider agrees with the documented findings, assessment, and plan of care. Objective - Vital Signs Vital signs: Vital Signs Temp 98.0 F 05/19/23 06:59 Pulse 65 05/19/23 08:00 Resp 19 05/19/23 06:59 BP 126/73 05/19/23 06:59 Pulse Ox 98 05/19/23 08:23 FiO2 Intake & Output 05/18/23 05/19/23 05/19/23 18:59 06:59 18:59 Intake Total 260 Output Total 0 Balance 260 Intake: IV 20 Invasive Line 1 20 Oral 240 Output: Urine 0 Stool 0 Urine/Stool Mix 0 Emesis 0 Oral Regurgitation 0 Other 0 Other: Voiding Method Urinal Urinal # Voids 2 1 # Bowel Movements 0 - Labs CBC & Chem 7: 05/19/23 04:31 05/19/23 04:31 Labs: Abnormal Lab Results - Last 24 Hours (Table) 05/18/23 05/18/23 05/18/23 Range/Units 10:53 10:53 10:53 WBC (4.50-10.00) X 10*3/uL RBC 3.64 L (4.30-5.90) m/uL Hgb 11.6 L (13.0-17.5) gm/dL Hct 36.9 L (39.0-53.0) % MCV 101.2 H (80.0-100.0) fL MCHC (32.0-37.0) g/dL RDW (11.5-14.5) % Lymphocytes # 0.4 L (1.0-4.8) k/uL PT 13.2 H (10.0-12.5) sec INR 1.2 H (<1.2) Carbon Dioxide 32 H (22-30) mmol/L BUN 30 H (9-20) mg/dL Creatinine 0.49 L (0.66-1.25) mg/dL BUN/Creatinine Ratio (12.00-20.00) Ratio Glucose 107 H (74-99) mg/dL POC Glucose (mg/dL) (70-110) mg/dL Calcium 7.6 L (8.4-10.2) mg/dL AST (14-35) U/L ALT (10-49) U/L Total Protein (6.2-8.2) g/dL Albumin (3.8-4.9) g/dL Albumin/Globulin Ratio (1.60-3.17) Ratio 05/18/23 05/18/23 05/18/23 Range/Units 16:33 20:07 20:36 WBC (4.50-10.00) X 10*3/uL RBC (4.30-5.90) m/uL Hgb (13.0-17.5) gm/dL Hct (39.0-53.0) % MCV (80.0-100.0) fL MCHC (32.0-37.0) g/dL RDW (11.5-14.5) % Lymphocytes # (1.0-4.8) k/uL PT (10.0-12.5) sec INR (<1.2) Carbon Dioxide (22-30) mmol/L BUN (9-20) mg/dL Creatinine (0.66-1.25) mg/dL BUN/Creatinine Ratio (12.00-20.00) Ratio Glucose (74-99) mg/dL POC Glucose (mg/dL) 113 H 125 H 121 H (70-110) mg/dL Calcium (8.4-10.2) mg/dL AST (14-35) U/L ALT (10-49) U/L Total Protein (6.2-8.2) g/dL Albumin (3.8-4.9) g/dL Albumin/Globulin Ratio (1.60-3.17) Ratio 05/19/23 05/19/23 Range/Units 04:31 04:31 WBC 4.18 L (4.50-10.00) X 10*3/uL RBC 3.66 L (4.30-5.90) m/uL Hgb 11.3 L (13.0-17.5) gm/dL Hct 37.3 L (39.0-53.0) % MCV 101.9 H (80.0-100.0) fL MCHC 30.3 L (32.0-37.0) g/dL RDW 15.4 H (11.5-14.5) % Lymphocytes # 0.70 L (1.0-4.8) k/uL PT (10.0-12.5) sec INR (<1.2) Carbon Dioxide 33.2 H (22-30) mmol/L BUN (9-20) mg/dL Creatinine 0.5 L (0.66-1.25) mg/dL BUN/Creatinine Ratio 36.60 H (12.00-20.00) Ratio Glucose (74-99) mg/dL POC Glucose (mg/dL) (70-110) mg/dL Calcium 8.1 L (8.4-10.2) mg/dL AST 533 H (14-35) U/L ALT 1608 H (10-49) U/L Total Protein 5.2 L (6.2-8.2) g/dL Albumin 2.8 L (3.8-4.9) g/dL Albumin/Globulin Ratio 1.17 L (1.60-3.17) Ratio
--- NOTE | 2023-05-19 14:03 | P.PN ---
Subjective Progress Note Date: 05/19/23 This is a 62-year-old male patient with a known history of oxygen dependent chronic obstructive pulmonary disease, chronic tobacco dependence, non-small cell lung cancer with previous right upper lobe resection, chronic pain syndrome. He was just discharged on 05/14/[address] segment elevation myocardial infarction inferiorly with T-wave inversions anteriorly. He went directly to the cardiac candlemaking laborer and was found to have an intermediate disease involving the right coronary artery and an occluded distal left circumflex coronary artery. Recommended medical therapy. He was discharged in stable condition. He came back to the emergency room on 05/16/2023 with complaints of altered mental status and minimally responsive. He is to be on home oxygen however had chemo throughout the evening and the patient had been noncompliant wearing it according to his . EMS arrived and found him to have O2 saturations in the 50s. He became more arousable throughout his emergency room stay. Labs revealed white count of 7.5. Hemoglobin 11.8. INR 1.5. Sodium 141. Potassium 4.4. Bicarb 35. BUN 45. Creatinine 0.70. Initial AST 10,340, currently 3378. Initial a LT 4214. Currently 3403. Troponin 0.104. Acetaminophen level negative. Serum alcohol level negative. Lipase 102. He is seen today in consultation in the ED. He is awake and alert. A bit drowsy. He had already received this morning has 90 mg of MS Contin which he takes at home along with Percocet, Fioricet and baclofen. He is quite frail and cachectic. His BMI is 22.8 kg per metered squared. X-ray reveals scattered patchy density in the right lung which is unchanged compared to previous. He has some chronic changes due to his previous right upper lobe resection. Computed tomography scan of the brain revealed no acute intracranial abnormalities. Carotid Dopplers revealed no significant stenosis. Ultrasound of the gallbladder revealed no acute process. CT angiogram revealed hepatomegaly with heterogenous appearance of the hepatic parenchymal but no focal mass detected. Ultrasound of the liver revealed hepatomegaly. There is gallbladder wall thickening with hydropic changes and internal echoes. Acute cystitis is not excluded. The patient is seen today in 05/18/2023 in follow-up on the selective care unit. He is awake and alert in no acute distress. He is up ambulating in his room. Up in the shower. Denies any worsening shortness of breath, cough or congestion. He is maintaining good O2 saturations in the 90s on 4 L/m per nasal cannula. He's been afebrile. Hemodynamically stable. White count 5.1. Hemoglobin 11.6. Platelets 228. Sodium 138. Potassium 4.5. Bicarb 32. BUN 30. Creatinine 0.49. Glucose 107. He did have some episodes of confusion yesterday of unclear etiology. He continues to require morphine for his chronic pain which may be a contributing factor. Today he is alert and oriented 3. He is continued on saline at 130 ML's per hour. Symbicort and DuoNeb inhalations. The patient is seen today 05/19/2023 in follow-up on the regular medical floor. He is currently sitting up at the bedside. Awake and alert in no acute distress. He is maintaining O2 saturations in the 90s on 3 L/m per nasal cannula. White count 4.1. Hemoglobin 11.3. Platelets 188. Sodium 143. Potassium 4.6. Bicarb 33. BUN 18. Creatinine 0.5. Glucose 72. AST 533. ALT 1608. He is continued on Symbicort and the neb inhalation. Objective - Vital Signs Vital signs: Vital Signs Temp 98.0 F 05/19/23 06:59 Pulse 65 05/19/23 08:00 Resp 19 05/19/23 06:59 BP 126/73 05/19/23 06:59 Pulse Ox 98 05/19/23 08:23 FiO2 Intake & Output 05/18/23 05/19/23 05/19/23 18:59 06:59 18:59 Intake Total 260 Output Total 0 Balance 260 Intake: IV 20 Invasive Line 1 20 Oral 240 Output: Urine 0 Stool 0 Urine/Stool Mix 0 Emesis 0 Oral Regurgitation 0 Other 0 Other: Voiding Method Urinal Urinal # Voids 2 1 # Bowel Movements 0 - Exam GENERAL EXAM: Alert, cachectic 62-year-old male, 3 L nasal cannula, comfortable in no apparent distress. HEAD: Normocephalic. EYES: Normal reaction of pupils, equal size. NOSE: Clear with pink turbinates. THROAT: No erythema or exudates. NECK: No masses, no JVD. CHEST: No chest wall deformity. LUNGS: Equal air entry with scattered rhonchi over the right lung. CVS: S1 and S2 normal with no audible murmur, regular rhythm. ABDOMEN: No hepatosplenomegaly, normal bowel sounds, no guarding or rigidity. SPINE: No scoliosis or deformity SKIN: No rashes CENTRAL NERVOUS SYSTEM: No focal deficits, tone is normal in all 4 extremities. EXTREMITIES: There is no peripheral edema. No clubbing, no cyanosis. Peripheral pulses are intact. - Labs CBC & Chem 7: 05/19/23 04:31 05/19/23 04:31 Labs: Abnormal Lab Results - Last 24 Hours (Table) 05/18/23 05/18/23 05/18/23 Range/Units 16:33 20:07 20:36 WBC (4.50-10.00) X 10*3/uL RBC (4.40-5.60) X 10*6/uL Hgb (13.0-17.0) g/dL Hct (39.6-50.0) % MCV (80.0-97.0) FL MCHC (32.0-37.0) g/dL RDW (11.5-14.5) % Lymphocytes # (0.90-5.00) X 10*3/uL Carbon Dioxide (21.6-31.8) mmol/L Creatinine (0.6-1.5) mg/dL BUN/Creatinine Ratio (12.00-20.00) Ratio POC Glucose (mg/dL) 113 H 125 H 121 H (70-110) mg/dL Calcium (8.7-10.3) mg/dL AST (14-35) U/L ALT (10-49) U/L Total Protein (6.2-8.2) g/dL Albumin (3.8-4.9) g/dL Albumin/Globulin Ratio (1.60-3.17) Ratio 05/19/23 05/19/23 Range/Units 04:31 04:31 WBC 4.18 L (4.50-10.00) X 10*3/uL RBC 3.66 L (4.40-5.60) X 10*6/uL Hgb 11.3 L (13.0-17.0) g/dL Hct 37.3 L (39.6-50.0) % MCV 101.9 H (80.0-97.0) FL MCHC 30.3 L (32.0-37.0) g/dL RDW 15.4 H (11.5-14.5) % Lymphocytes # 0.70 L (0.90-5.00) X 10*3/uL Carbon Dioxide 33.2 H (21.6-31.8) mmol/L Creatinine 0.5 L (0.6-1.5) mg/dL BUN/Creatinine Ratio 36.60 H (12.00-20.00) Ratio POC Glucose (mg/dL) (70-110) mg/dL Calcium 8.1 L (8.7-10.3) mg/dL AST 533 H (14-35) U/L ALT 1608 H (10-49) U/L Total Protein 5.2 L (6.2-8.2) g/dL Albumin 2.8 L (3.8-4.9) g/dL Albumin/Globulin Ratio 1.17 L (1.60-3.17) Ratio Assessment and Plan Assessment: Acute on chronic hypoxemic respiratory failure in a patient found to be noncompliant with home oxygen Transaminitis of unclear etiology, possibly related to cholecystitis Severe chronic obstructive pulmonary disease with an FEV1 value of 41% of predicted History of non-small cell lung cancer status post right upper lobe lobectomy and radiation back in 2006 Chronic thoracic pain and brachial plexus disorder secondary to above History of chronic and ongoing tobacco dependence of 50 years Recent admission for ST segment elevation myocardial infarction found to have intermediate disease involving the RCA and occluded distal left circumflex artery. Treated medically Failure to thrive, BMI 22.8 kg per metered squared Poor overall functional performance based on the above-mentioned multiple comorbidities Plan: The patient was seen and evaluated Labs and medications reviewed Alert and oriented today Continue with DuoNeb inhalations, Symbicort Titrate the FiO2 as tolerated This patient was seen independently by the nurse practitioner I have personally seen and examined the patient, performed the documentation and the assessment and plan as written. Number of minutes spent on the visit: 22.
== END 2023-05-19 13:01 | disposition home or self-care (01) | DRG 189 ==
LOC: EC 13:12 → 3SCARD 18:53 → 4SSUR 05-18 19:52
PROVIDERS: ADMIT Family Medicine; ATTEND Family Medicine
DX: J96.21 Acute and chronic respiratory failure with hypoxia (principal); G93.41 Metabolic encephalopathy; I21.21 ST elevation (STEMI) myocardial infarction involving left circumflex coronary artery; I21.A1 Myocardial infarction type 2; K82.1 Hydrops of gallbladder; E44.0 Moderate protein-calorie malnutrition; N17.9 Acute kidney failure, unspecified; E87.29 Other acidosis; E87.3 Alkalosis; Z68.1 Body mass index [BMI] 19.9 or less, adult; N30.00 Acute cystitis without hematuria; J44.9 Chronic obstructive pulmonary disease, unspecified; K81.9 Cholecystitis, unspecified; G54.0 Brachial plexus disorders; R62.7 Adult failure to thrive; R16.0 Hepatomegaly, not elsewhere classified; R54 Age-related physical debility; J43.9 Emphysema, unspecified; G89.4 Chronic pain syndrome; I25.10 Atherosclerotic heart disease of native coronary artery without angina pectoris; F17.210 Nicotine dependence, cigarettes, uncomplicated; E87.5 Hyperkalemia; T41.5X6A Underdosing of therapeutic gases, initial encounter; M95.4 Acquired deformity of chest and rib; Z99.81 Dependence on supplemental oxygen; Z79.891 Long term (current) use of opiate analgesic; Z79.82 Long term (current) use of aspirin; Z79.899 Other long term (current) drug therapy; Z82.49 Family history of ischemic heart disease and other diseases of the circulatory system; Z85.118 Personal history of other malignant neoplasm of bronchus and lung; Z90.2 Acquired absence of lung [part of]; Z92.3 Personal history of irradiation; Z79.51 Long term (current) use of inhaled steroids; Z87.19 Personal history of other diseases of the digestive system
CPT/HCPCS: 36415; 36600; 70450; 71045; 74177; 76705; 80048; 80053; 80074; 80143; 80320; 82140; 82247; 82803; 82805; 83605; 83690; 84075; 84450; 84460; 84484; 85025; 85610; 85730; 93005; 93880; 94640; 94664; 94760; 96361; 96374; 96375; 96376; 99285

== ENCOUNTER 2023-05-23 13:31 | Inpatient (IN) | payer MEDICARE ==
--- NOTE | 2023-05-23 14:07 | ED ---
SOB HPI - General Chief Complaint: Shortness of Breath Stated Complaint: Low O2 Time Seen by Provider: 05/23/23 13:57 Source: patient, RN notes reviewed, old records reviewed Mode of arrival: wheelchair Limitations: no limitations - History of Present Illness Initial Comments: This is a 62-year-old female presents the emergency department today with com plaints was severe shortness of breath. Patient is showing severe hypoxia in the 70s despite supplemental O2, patient given increasing breathing treatments and nonrebreather with improvement in oxygenation is complaining of severe shortness of breath occasional chest pain severe abdominal pain back pain with history of gallbladder disease. Patient states he was sent to the ER for evaluation regards to severely low oxygen MD Complaint: shortness of breath, cough, chest pain, "asthma attack" -: hour(s) Severity: moderate Severity scale (1-10): 7 Quality: sharp Consistency: constant Improves With: nothing Worsens With: nothing Known History Of: COPD Context: recent URI, recent illness Associated Symptoms: chest pain, cough Treatments Prior to Arrival: none - Related Data Home Medications Medication Instructions Recorded Confirmed Gabapentin [Neurontin] 300 mg PO TID 03/26/19 05/25/23 Morphine Sulfate ER [Ms Contin] 30 mg PO BID 03/26/19 05/25/23 Morphine Sulfate [Ms Contin] 60 mg PO BID 03/26/19 05/25/23 oxyCODONE-APAP 10-325MG [Percocet 1 tab PO BID PRN 03/26/19 05/25/23 10-325 mg] Baclofen [Lioresal] 10 mg PO TID PRN 11/11/20 05/25/23 Fluticasone/Umeclidin/Vilanter 1 puff INHALATION RT-DAILY 11/11/20 05/25/23 [Trelegy Ellipta 100-62.5-25] Ipratropium-Albuterol Nebulize 3 ml INHALATION RT-DAILY@1800 11/11/20 05/25/23 [Duoneb 0.5 mg-3 mg/3 ml Soln] Butalb/APAP/Caff 50-325-40Mg 1 tab PO TID PRN 05/12/23 05/25/23 [Fioricet 50-325-40] Megestrol Acetate 20 mg PO DAILY 05/23/23 05/25/23 Previous Rx's Medication Instructions Recorded Aspirin 81 mg PO DAILY 30 Days #30 tab 05/15/23 Atorvastatin [Lipitor] 40 mg PO HS 30 Days #30 tab 05/15/23 Allergies Allergy/AdvReac Type Severity Reaction Status Date / Time No Known Allergies Allergy Verified 05/25/23 14:27 Review of Systems ROS Statement: Those systems with pertinent positive or pertinent negative responses have been documented in the HPI. ROS Other: All systems not noted in ROS Statement are negative. Past Medical History Past Medical History: Cancer, COPD, Myocardial Infarction ([place]) Additional Past Medical History / Comment(s): history of non-small cell lung cancer with a previous right upper lobe resection/radiation, advanced emphysema, chest deformity related to previous thoracic surgery, chronic pain Involving the back in addition to brachial plexus disorder related to previous thoracic surgery. History of Any Multi-Drug Resistant Organisms: None Reported Past Surgical History: Appendectomy, Heart Catheterization Additional Past Surgical History / Comment(s): right upper lobectomy d/t CA, multiple surgeries on right hand d/t accident, pain stimulator left lower back Past Anesthesia/Blood Transfusion Reactions: No Reported Reaction Past Psychological History: No Psychological Hx Reported Smoking Status: Current every day smoker Past Alcohol Use History: None Reported Past Drug Use History: None Reported - Past Family History Mother Family Medical History: Diabetes Mellitus, Hypertension General Exam Limitations: no limitations General appearance: alert, in no apparent distress, anxious Head exam: Present: atraumatic, normocephalic, normal inspection Eye exam: Present: normal appearance, PERRL, EOMI. Absent: scleral icterus, conjunctival injection, periorbital swelling ENT exam: Present: normal exam, mucous membranes dry Neck exam: Present: normal inspection. Absent: tenderness, meningismus, lymphadenopathy Respiratory exam: Present: respiratory distress, wheezes, rhonchi, decreased breath sounds, prolonged expiratory. Absent: rales, stridor Cardiovascular Exam: Present: tachycardia, normal heart sounds. Absent: systolic murmur, diastolic murmur, rubs, gallop, clicks GI/Abdominal exam: Present: soft, normal bowel sounds. Absent: distended, tenderness, guarding, rebound, rigid Extremities exam: Present: normal inspection, full ROM, normal capillary refill. Absent: tenderness, pedal edema, joint swelling, calf tenderness Back exam: Present: normal inspection Neurological exam: Present: alert, oriented X3, CN II-XII intact Psychiatric exam: Present: normal affect, normal mood Skin exam: Present: warm, dry, intact, normal color. Absent: rash Course Vital Signs 05/23/23 05/23/23 05/23/23 13:43 13:53 14:05 Temperature 99.6 F Pulse Rate 88 68 Pulse Rate [ Left Sitting Pulse Oximetery ] Respiratory 32 H 18 18 Rate Blood Pressure 81/47 95/56 Blood Pressure [Left Arm Sitting] O2 Sat by Pulse 92 L 99 Oximetry 05/23/23 05/23/23 05/23/23 14:39 14:49 15:37 Temperature 97.9 F Pulse Rate 55 L 64 68 Pulse Rate [ Left Sitting Pulse Oximetery ] Respiratory 18 18 18 Rate Blood Pressure 102/59 Blood Pressure [Left Arm Sitting] O2 Sat by Pulse 97 Oximetry 05/23/23 05/23/23 05/23/23 16:40 16:48 16:51 Temperature Pulse Rate 68 61 61 Pulse Rate [ Left Sitting Pulse Oximetery ] Respiratory 18 18 18 Rate Blood Pressure 92/55 Blood Pressure [Left Arm Sitting] O2 Sat by Pulse 97 Oximetry 05/23/23 05/23/23 05/23/23 18:33 20:00 21:00 Temperature 98.8 F Pulse Rate 67 66 61 Pulse Rate [ Left Sitting Pulse Oximetery ] Respiratory 18 18 18 Rate Blood Pressure 98/70 121/79 103/65 Blood Pressure [Left Arm Sitting] O2 Sat by Pulse 94 L 94 L 94 L Oximetry 05/23/23 05/23/23 05/24/23 22:00 23:00 00:00 Temperature Pulse Rate 61 60 57 L Pulse Rate [ Left Sitting Pulse Oximetery ] Respiratory 12 12 13 Rate Blood Pressure 103/65 101/56 107/69 Blood Pressure [Left Arm Sitting] O2 Sat by Pulse 97 91 L 94 L Oximetry 05/24/23 05/24/23 05/24/23 00:02 01:00 02:00 Temperature Pulse Rate 58 L 56 L 65 Pulse Rate [ Left Sitting Pulse Oximetery ] Respiratory 16 15 14 Rate Blood Pressure 95/64 95/64 116/72 Blood Pressure [Left Arm Sitting] O2 Sat by Pulse 95 92 L 92 L Oximetry 05/24/23 05/24/23 05/24/23 03:00 04:00 04:10 Temperature Pulse Rate 81 104 H 104 H Pulse Rate [ Left Sitting Pulse Oximetery ] Respiratory 26 H 24 Rate Blood Pressure 111/68 134/77 Blood Pressure [Left Arm Sitting] O2 Sat by Pulse 90 L 74 L Oximetry 05/24/23 05/24/23 05/24/23 04:18 04:50 05:00 Temperature 97.8 F Pulse Rate 108 H 87 Pulse Rate [ 86 Left Sitting Pulse Oximetery ] Respiratory 20 20 Rate Blood Pressure 121/60 Blood Pressure 100/61 [Left Arm Sitting] O2 Sat by Pulse 88 L 92 L Oximetry 05/24/23 06:00 Temperature Pulse Rate 85 Pulse Rate [ Left Sitting Pulse Oximetery ] Respiratory 20 Rate Blood Pressure 110/57 Blood Pressure [Left Arm Sitting] O2 Sat by Pulse 90 L Oximetry - Reevaluation(s) Reevaluation #1: 05/23/23 17:24 Record is reviewed Reevaluation #2: 05/23/23 17:24 Patient symptoms mildly improved with persistent breathing treatments and supplemental oxygen, pain control Reevaluation #3: 05/23/23 17:24 Patient informed results and questions answered Reevaluation #4: 05/23/23 17:24 Was pt. sent in by a medical professional or institution (, PA, FOSTER CARE THERAPIST, urgent care, hospital, or jail...) When possible be specific @ -no Did you speak to anyone other than the patient for history (EMS, parent, family, police, friend...)? What history was obtained from this source @ -no Did you review nursing and triage notes (agree or disagree)? Why? @ -agree Are old charts reviewed (outside hosp., previous admission, EMS record, old EKG, old radiological studies, urgent care reports/EKG's, jail records)? Report findings @ -yes Differential Diagnosis (chest pain, altered mental status, abdominal pain women, abdominal pain men, vaginal bleeding, weakness, fever, dyspnea, syncope, headache, dizziness, GI bleed, back pain, seizure, CVA, palpatations, mental health, musculoskeletal)? @ -prior EKG interpreted by me (3pts min.). @ -yes X-rays interpreted by me (1pt min.). @ -yes negative for acute disease CT interpreted by me (1pt min.). @ -yes negative for acute disease U/S interpreted by me (1pt. min.). @ -no What testing was considered but not performed or refused? (CT, X-rays, U/S, labs)? Why? @ -none What meds were considered but not given or refused? Why? @ -none Did you discuss the management of the patient with other professionals (professionals i.e. , PA, FOSTER CARE THERAPIST, lab, RT, psych nurse, social media campaign manager, floatlight powder mixer, teacher, aoc director combat operations officer, field case manager)? Give summary @ -no Was smoking cessation discussed for >3mins.? @ -no Was critical care preformed (if so, how long)? @ -no Were there social determinants of health that impacted care today? How? (Homele ssness, low income, unemployed, alcoholism, drug addiction, transportation, low edu. Level, literacy, decrease access to med. care, long term, rehab)? @ -none Was there de-escalation of care discussed even if they declined (Discuss DNR or withdrawal of care, Hospice)? DNR status @ -no What co-morbidities impacted this encounter? (DM, HTN, Smoking, COPD, CAD, Cancer, CVA, ARF, Chemo, Hep., AIDS, mental health diagnosis, sleep apnea, morbid obesity)? @ -none Was patient admitted / discharged? Hospital course, mention meds given and route, prescriptions, significant lab abnormalities, going to OR and other pertinent info. @ - 62 male with severe shortness of breath hypoxia, patient be admitted for breathing treatments supportive care supple oxygen and evaluation of gallbladder Admitted Undiagnosed new problem with uncertain prognosis? @ -no Drug Therapy requiring intensive monitoring for toxicity (Heparin, Nitro, Insulin, Cardizem)? @ -no Were any procedures done? @ -no Diagnosis/symptom? @ -End-stage COPD with hypoxia and respiratory failure, paying gallbladder disease, debility, anorexia Acute, or Chronic, or Acute on Chronic? @ -Acute Uncomplicated (without systemic symptoms) or Complicated (systemic symptoms)? @ -Complicated Side effects of treatment? @ -no Exacerbation, Progression, or Severe Exacerbation? @ -exacerbation Poses a threat to life or bodily function? How? (Chest pain, [place], [place], pneumonia, PE, COPD, DKA, ARF, appy, cholecystitis, CVA, Diverticulitis, Homicidal, Suicidal, threat to staff... and all critical care pts) @ -yes with debilitating disease, cancer malnutrition, end-stage COPD with gallbladder disease Reevaluation #5: 05/23/23 17:24 Differential Dyspnea: Coronary syndrome, arrhythmia, tamponade, asthma, COPD, pulmonary embolism, pneumonia, pneumothorax, pulmonary effusion, anaphylaxis, diabetic ketoacidosis, flailed chest, pulmonary contusion, diaphragmatic rupture, anemia, neuromuscular, this is not meant to be an all-inclusive list. - Consultations Consultation #1: Spoke with Dr. Murdock agrees to admit this patient Medical Decision Making - Medical Decision Making 62 male with severe shortness of breath hypoxia, patient be admitted for breathing treatments supportive care supple oxygen and evaluation of gallbladder - Lab Data Result diagrams: 05/24/23 09:56 05/24/23 09:56 Lab Results 05/23/23 05/23/23 05/23/23 Range/Units 14:16 14:16 14:16 WBC 8.4 (3.8-10.6) k/uL RBC 3.85 L (4.30-5.90) m/uL Hgb 12.3 L (13.0-17.5) gm/dL Hct 38.2 L (39.0-53.0) % MCV 99.2 (80.0-100.0) fL MCH 32.0 (25.0-35.0) pg MCHC 32.2 (31.0-37.0) g/dL RDW 14.2 (11.5-15.5) % Plt Count 229 (150-450) k/uL MPV 8.6 Neutrophils % 86 % Lymphocytes % 6 % Monocytes % 6 % Eosinophils % 1 % Basophils % 0 % Neutrophils # 7.2 (1.3-7.7) k/uL Lymphocytes # 0.5 L (1.0-4.8) k/uL Monocytes # 0.5 (0-1.0) k/uL Eosinophils # 0.1 (0-0.7) k/uL Basophils # 0.0 (0-0.2) k/uL Hypochromasia Slight PT 11.5 (10.0-12.5) sec INR 1.1 (<1.2) APTT 26.2 (22.0-30.0) sec Sodium 137 (137-145) mmol/L Potassium 4.4 (3.5-5.1) mmol/L Chloride 93 L (98-107) mmol/L Carbon Dioxide 36 H (22-30) mmol/L Anion Gap 8 mmol/L BUN 28 H (9-20) mg/dL Creatinine 0.76 (0.66-1.25) mg/dL Est GFR (CKD-EPI)AfAm >90 (>60 ml/min/1.73 sqM) Est GFR (CKD-EPI)NonAf >90 (>60 ml/min/1.73 sqM) Glucose 83 (74-99) mg/dL Lactic Ac Sepsis Rflx Plasma Lactic Acid Alber (0.7-2.0) mmol/L Calcium 9.0 (8.4-10.2) mg/dL Magnesium 1.5 L (1.6-2.3) mg/dL Total Bilirubin 0.8 (0.2-1.3) mg/dL AST 45 (17-59) U/L ALT 582 H (4-49) U/L Alkaline Phosphatase 100 (38-126) U/L Troponin I (0.000-0.034) ng/mL NT-Pro-B Natriuret Pep 3430 pg/mL Total Protein 6.4 (6.3-8.2) g/dL Albumin 3.4 L (3.5-5.0) g/dL Amylase <30 L (30-110) U/L Lipase 19 L (23-300) U/L 05/23/23 05/23/23 05/23/23 Range/Units 14:16 14:16 14:57 WBC (3.8-10.6) k/uL RBC (4.30-5.90) m/uL Hgb (13.0-17.5) gm/dL Hct (39.0-53.0) % MCV (80.0-100.0) fL MCH (25.0-35.0) pg MCHC (31.0-37.0) g/dL RDW (11.5-15.5) % Plt Count (150-450) k/uL MPV Neutrophils % % Lymphocytes % % Monocytes % % Eosinophils % % Basophils % % Neutrophils # (1.3-7.7) k/uL Lymphocytes # (1.0-4.8) k/uL Monocytes # (0-1.0) k/uL Eosinophils # (0-0.7) k/uL Basophils # (0-0.2) k/uL Hypochromasia PT (10.0-12.5) sec INR (<1.2) APTT (22.0-30.0) sec Sodium (137-145) mmol/L Potassium (3.5-5.1) mmol/L Chloride (98-107) mmol/L Carbon Dioxide (22-30) mmol/L Anion Gap mmol/L BUN (9-20) mg/dL Creatinine (0.66-1.25) mg/dL Est GFR (CKD-EPI)AfAm (>60 ml/min/1.73 sqM) Est GFR (CKD-EPI)NonAf (>60 ml/min/1.73 sqM) Glucose (74-99) mg/dL Lactic Ac Sepsis Rflx Y Plasma Lactic Acid Alber 2.1 H* (0.7-2.0) mmol/L Calcium (8.4-10.2) mg/dL Magnesium (1.6-2.3) mg/dL Total Bilirubin (0.2-1.3) mg/dL AST (17-59) U/L ALT (4-49) U/L Alkaline Phosphatase (38-126) U/L Troponin I <0.012 (0.000-0.034) ng/mL NT-Pro-B Natriuret Pep pg/mL Total Protein (6.3-8.2) g/dL Albumin (3.5-5.0) g/dL Amylase (30-110) U/L Lipase (23-300) U/L - EKG Data -: EKG Interpreted by Me (EKG is sinus 60 WA 171 QRS 81 QTC 384) - Radiology Data Radiology results: report reviewed (CHest x-ray CT chest negative for new significant acute disease), image reviewed Disposition Clinical Impression: COPD (chronic obstructive pulmonary disease), Hx of cancer of lung, Nausea and vomiting, Hypoxia, Acute exacerbation of chronic obstructive pulmonary disease Disposition: ADMITTED IP TO THIS HOSP Condition: Serious Is patient prescribed a controlled substance at d/c from ED?: No Time of Disposition: 17:25
[2023-05-23] MEDS ORDERED: IPRATROPIUM-ALBUTEROL 3 ML NEB INHALATION STA ×2 (14:08→15:47)
[2023-05-23] MEDS ORDERED: PANTOPRAZOLE 40 MG/10 ML VIAL IVP STA (14:08)
[2023-05-23] MEDS ORDERED: SODIUM CHLORIDE 0.9% 1,000 ML IV STA ×2 (14:08)
[2023-05-23 14:36] LABS: INR 1.1 (<1.2); Partial Thromboplastin Time 26.2 sec (22.0-30.0); Prothrombin Time 11.5 sec (10.0-12.5)
[2023-05-23 14:37] LABS: ALT 582 U/L (4-49); AST 45 U/L (17-59); African American GFR (CKD) >90 (>60 ml/min/1.73 sqM); Albumin 3.4 g/dL (3.5-5.0); Alkaline Phosphatase 100 U/L (38-126); Anion Gap 8 mmol/L; Blood Urea Nitrogen 28 mg/dL (9-20); Carbon Dioxide 36 mmol/L (22-30); Chloride 93 mmol/L (98-107); Glucose 83 mg/dL (74-99); Lipase 19 U/L (23-300); Magnesium 1.5 mg/dL (1.6-2.3); Non-African American GFR(CKD) >90 (>60 ml/min/1.73 sqM); Potassium 4.4 mmol/L (3.5-5.1); Sodium 137 mmol/L (137-145); Total Bilirubin 0.8 mg/dL (0.2-1.3); Total Protein 6.4 g/dL (6.3-8.2)
[2023-05-23 14:38] LABS: Basophils % (A) 0 %; Eosinophils # (A) 0.1 k/uL (0-0.7); Eosinophils % (A) 1 %; HCT 38.2 % (39.0-53.0); HGB 12.3 gm/dL (13.0-17.5); Hypochromasia Slight; Lymphocytes # (A) 0.5 k/uL (1.0-4.8); Lymphocytes % (A) 6 %; MCHC 32.2 g/dL (31.0-37.0); MCV 99.2 fL (80.0-100.0); Mean Platelet Volume 8.6; Monocytes # (A) 0.5 k/uL (0-1.0); Monocytes % (A) 6 %; Neutrophils # (A) 7.2 k/uL (1.3-7.7); Neutrophils % (A) 86 %; Platelet Count 229 k/uL (150-450); RBC 3.85 m/uL (4.30-5.90); RDW 14.2 % (11.5-15.5); WBC 8.4 k/uL (3.8-10.6)
[2023-05-23 14:45] LABS: NT-Pro-B-Type Natriuretic Pept 3430 pg/mL
--- NOTE | 2023-05-23 14:45 | XR ---
EXAMINATION TYPE: XR chest 1V portable DATE OF EXAM: 05/23/2023 COMPARISON: 05/16/2023. HISTORY: Shortness of breath. TECHNIQUE: Single frontal view of the chest is obtained. IMPRESSION: Rightward rotation somewhat limits evaluation. There does appear to be some worsening parenchymal gina nges and airspace opacity throughout the right lung, however markedly limited as there is volume loss and possibly some chest wall deformity. Small right pleural effusion. Unchanged interstitial changes on the left. The cardiac silhouette is stable.
[2023-05-23 14:55] LABS: Amylase <30 U/L (30-110)
[2023-05-23] MEDS ORDERED: methylPREDNISolone SOD SUCCI 125 MG/2 ML VIAL IV STA (15:47)
[2023-05-23] MEDS ORDERED: SODIUM CHLORIDE 0.9% 500 ML 500 ML IV STA (15:47)
--- NOTE | 2023-05-23 16:32 | CT ---
Exam: CT Angiography of the Chest. Date: 05/23/2023. Comparison: 11/02/2019. History: Shortness of breath. Technique: CT examination of the chest was performed following the intravenous administration of hypo homa with history of lung cancer.. CT dose lowering techniques were used, to include: automated exposu re control, adjustment for patient size, and/or use of iterative reconstruction. FINDINGS: Mediastinum and Swathi: There is no axillary, mediastinal or hilar lymphadenopathy. Pleural and Pericardial spaces: There is a small right pleural effusion. Upper Abdomen: The visualized upper abdomen is unremarkable. Cardiovascular: The thoracic aorta is normal in size without evidence of aneurysm or dissection. Pulmonary Artery: There are no filling defects in the pulmonary arteries. Lung Parenchyma and Airways: There appears to been a prior right upper lobectomy. There is extensive consolidative changes throughout the right lung which is most likely related to pn eumonia. Centrilobular and paraseptal emphysematous changes are seen within the aerated portion of th e left lung which appears mild. Motion somewhat limits the evaluation in this region. There is some m ild patchy airspace disease in the left lung base which could represent a developing pneumonia as wel l. Bones: Please of the right chest wall compatible with prior surgery. No acute osseous abnormalities a re seen. IMPRESSION: 1. No evidence of pulmonary embolism. 2. No evidence of thoracic aortic aneurysm or dissection. 3. Extensive consolidative changes throughout the right lung is suspicious for pneumonia. 4. Small right pleural effusion. 5. Prior surgical changes as above.
[2023-05-23] MEDS ORDERED: MORPHINE SULFATE 4 MG/ML SYRINGE IV PRN (17:25)
[2023-05-23] MEDS ORDERED: NALOXONE 0.4 MG/ML 1 ML VIAL IV PRN (17:25)
[2023-05-23] MEDS ORDERED: ONDANSETRON 4 MG/2 ML VIAL IVP PRN (17:25)
[2023-05-23] MEDS: SODIUM CHLORIDE 0.9% 1,000 ML IV SCH (18:40)
[2023-05-23] MEDS ORDERED: ALBUTEROL NEBULIZED 2.5 MG/3 ML INHALATION PRN (19:14)
[2023-05-23] MEDS ORDERED: ALBUTEROL NEBULIZED 2.5 MG/3 ML INHALATION SCH (20:00)
[2023-05-24] MEDS ORDERED: BUTALB/APAP/CAFF 50-325-40MG TAB PO PRN (05:54)
[2023-05-24] MEDS ORDERED: BACLOFEN 10 MG TAB PO PRN (05:54)
[2023-05-24] MEDS ORDERED: IPRATROPIUM 0.5 MG/2.5 ML NEBU INHALATION SCH (08:00)
--- NOTE | 2023-05-24 08:04 | XR ---
EXAMINATION TYPE: XR chest 1V portable DATE OF EXAM: 05/24/2023 COMPARISON: 05/23/2023 INDICATION: Respiratory failure TECHNIQUE: Single frontal view of the chest is obtained. FINDINGS: The heart size is mildly prominent. The pulmonary vasculature is prominent. Diffuse increased lung markings are present. This is worsening of the left lung base. Postthoracotomy changes are present on the right. Diffuse infiltrates to the residual right lung is present. IMPRESSION: 1. Worsening left lower lobe infiltrate. Diffuse infiltrates through the remaining lung mendes appear stable.
[2023-05-24] MEDS: MORPHINE SULFATE 2 MG/ML SYRINGE IV PRN ×3 (08:34→21:09)
[2023-05-24] MEDS ORDERED: ASPIRIN 81 MG PO SCH (09:00)
[2023-05-24] MEDS ORDERED: MEGESTROL 40 MG TAB PO SCH (09:00)
[2023-05-24] MEDS ORDERED: AZITHROMYCIN 500 MG TAB PO SCH (09:00)
[2023-05-24] MEDS: guaiFENesin 600 MG TABLET.ER PO SCH ×2 (09:03→21:09)
[2023-05-24] MEDS: GABAPENTIN 300 MG CAP PO SCH ×3 (09:03→21:09)
[2023-05-24] MEDS: PANTOPRAZOLE 40 MG/10 ML VIAL IV SCH (09:03)
[2023-05-24] MEDS: methylPREDNISolone SOD SUCCI 40 MG/ML 1 ML VIAL IV SCH ×2 (09:04→21:08)
[2023-05-24] MEDS ORDERED: PNEUMONIA PROTOCOL UTILIZED 1 EACH MISC PO PRN (09:12)
[2023-05-24] MEDS ORDERED: AMPICILLIN-SULBACTAM 3 GM in SODIUM CHLORIDE 0.9% 100 ML IVPB SCH (09:15)
[2023-05-24] MEDS ORDERED: IPRATROPIUM-ALBUTEROL 3 ML NEB INHALATION PRN (09:19)
--- NOTE | 2023-05-24 10:45 | P.CNPUL ---
History of Present Illness Consult date: 05/24/23 Requesting physician: Carmen Smith Reason for consult: dyspnea, cough, COPD, hypoxemia, pneumonia, abnormal CXR/CT Chief complaint: Shortness of breath. History of present illness: Pulmonary consult dated 05/24/2023. 62-year-old male well-known to our service. He has a history of very severe C OPD, oxygen dependent, chronic tobacco dependence, non-small cell lung cancer, previous right upper lobe resection, and chronic pain syndrome. The patient was recently inpatient, in April,. The patient presented usual complaints of shortness of breath, cough, chest congestion, and phlegm production. The patient's chest x-ray and CAT scan suggested a right basilar pneumonia. There is no evidence of pulmonary embolus some. Currently, he's on 15 L high flow oxygen with saturations in the low 90s high 80s. The patient was on Unasyn and azithromycin. There were discontinued in favor of Zosyn. We added Symbicort. Will check a pro-calcitonin level. He is not receiving any IV fluids. Current laboratory data includes a white count 8.4, hemoglobin 12.3, hematocrit 38.2, and a normal platelet count. PT/INR PTT were all normal. Sodium 137, potassium 4.4, chlorides 93, CO2 36, BUN 28, and creatinine 0.76. Lactic acid was 2.1. Repeat was 0.6. ALT was 582. N-terminal proBNP was elevated at 3430. Testing for influenza A/B, RSV, and coronavirus, were all negative. Chest x-ray shows a right basilar opacity. CT angiogram was negative for PE, and showed a extensive consolidative process, at the right lung base. There is a small right-sided pleural effusion. Review of Systems REVIEW OF SYSTEMS: CONSTITUTIONAL: [Negative.] NEUROLOGIC: [ Negative.] HEENT: [ Negative.] CARDIAC: [Negative.] PULMONARY: Shortness of breath, chest congestion, cough, and phlegm production. GI: [Negative.] : [Negative.] RHEUMATOLOGIC: [ Negative.] IMMUNOLOGIC: [ Negative.] ENDOCRINE: [Negative. ] DERMATOLOGIC: [Negative.] Past Medical History Past Medical History: Cancer, COPD, Myocardial Infarction ([place]) Additional Past Medical History / Comment(s): history of non-small cell lung cancer with a previous right upper lobe resection/radiation, advanced emphysema, chest deformity related to previous thoracic surgery, chronic pain Involving the back in addition to brachial plexus disorder related to previous thoracic surgery. Last Myocardial Infarction Date:: 05/12/23 History of Any Multi-Drug Resistant Organisms: None Reported Past Surgical History: Appendectomy, Heart Catheterization Additional Past Surgical History / Comment(s): right upper lobectomy d/t CA, multiple surgeries on right hand d/t accident, pain stimulator left lower back Past Anesthesia/Blood Transfusion Reactions: No Reported Reaction Past Psychological History: No Psychological Hx Reported Smoking Status: Former smoker Past Alcohol Use History: None Reported Past Drug Use History: None Reported - Past Family History Mother Family Medical History: Diabetes Mellitus, Hypertension Medications and Allergies Home Medications Medication Instructions Recorded Confirmed Type Gabapentin [Neurontin] 300 mg PO TID 03/26/19 05/23/23 History Morphine Sulfate ER [Ms Contin] 30 mg PO BID 03/26/19 05/23/23 History Morphine Sulfate [Ms Contin] 60 mg PO BID 03/26/19 05/23/23 History oxyCODONE-APAP 10-325MG [Percocet 1 tab PO BID PRN 03/26/19 05/23/23 History 10-325 mg] Baclofen [Lioresal] 10 mg PO TID PRN 11/11/20 05/23/23 History Fluticasone/Umeclidin/Vilanter 1 puff INHALATION RT-DAILY 11/11/20 05/23/23 History [Trelegy Ellipta 100-62.5-25] Ipratropium-Albuterol Nebulize 3 ml INHALATION RT-DAILY@1800 11/11/20 05/23/23 History [Duoneb 0.5 mg-3 mg/3 ml Soln] Butalb/APAP/Caff 50-325-40Mg 1 tab PO TID PRN 05/12/23 05/23/23 History [Fioricet 50-325-40] Aspirin 81 mg PO DAILY 30 Days #30 tab 05/15/23 05/23/23 Rx Atorvastatin [Lipitor] 40 mg PO HS 30 Days #30 tab 05/15/23 05/23/23 Rx Megestrol Acetate 20 mg PO DAILY 05/23/23 05/23/23 History Allergies Allergy/AdvReac Type Severity Reaction Status Date / Time No Known Allergies Allergy Verified 05/23/23 14:34 Physical Exam Osteopathic Statement: *. No significant issues noted on an osteopathic struc tural exam other than those noted in the History and Physical/Consult. Vitals: Vital Signs Temp Pulse Pulse Resp BP BP Pulse Ox 05/24/23 09:09 88 05/24/23 08:58 80 81 L 05/24/23 08:00 86 20 90/44 05/24/23 06:00 85 20 110/57 90 L 05/24/23 05:00 87 20 121/60 92 L 05/24/23 04:50 97.8 F 86 20 100/61 88 L 05/24/23 04:18 108 H 05/24/23 04:10 104 H 05/24/23 04:00 104 H 24 134/77 74 L 05/24/23 03:00 81 26 H 111/68 90 L 05/24/23 02:00 65 14 116/72 92 L 05/24/23 01:00 56 L 15 95/64 92 L 05/24/23 00:02 58 L 16 95/64 95 05/24/23 00:00 57 L 13 107/69 94 L 05/23/23 23:00 60 12 101/56 91 L 05/23/23 22:00 61 12 103/65 97 05/23/23 21:00 61 18 103/65 94 L 05/23/23 20:00 66 18 121/79 94 L 05/23/23 18:33 98.8 F 67 18 98/70 94 L 05/23/23 16:51 61 18 05/23/23 16:48 61 18 92/55 97 05/23/23 16:40 68 18 05/23/23 15:37 97.9 F 68 18 102/59 97 05/23/23 14:49 64 18 05/23/23 14:39 55 L 18 05/23/23 14:05 68 18 95/56 99 05/23/23 13:53 18 05/23/23 13:43 99.6 F 88 32 H 81/47 92 L Intake and Output 05/23/23 05/24/23 05/24/23 22:59 06:59 14:59 Intake Total 100 Output Total 300 Balance -200 Intake: Oral 100 Output: Urine 300 Other: Weight 45.359 kg Mild respiratory distress, oriented, currently on 15 L high flow oxygen. HEENT examination is grossly unremarkable. Mucous membranes are moist. No oral lesions. Neck supple. Full range of motion. No adenopathy thyromegaly or neck vein distention. Cardiovascular examination reveals regular rhythm rate. S1-S2 normal. No S3 or S4. No discernible murmur noted. Heart sounds are distant. Heart rate 88 bpm. Lungs reveal scattered crackles, right lung base. Diffuse inspiratory and expiratory rhonchi are noted. No distinct wheezes. Saturations are in the high 80s. Abdomen soft bowel sounds are heard. No masses or tenderness. Extremities are intact. No cyanosis clubbing or edema. Skin is without rash or lesion. Neurologic examination is brief but nonfocal. Results - Laboratory Findings CBC and BMP: 05/23/23 14:16 05/23/23 14:16 PT/INR, D-dimer PT 11.5 sec (10.0-12.5) 05/23/23 14:16 INR 1.1 (<1.2) 05/23/23 14:16 Abnormal lab findings: Abnormal Labs 05/23/23 05/23/23 05/23/23 14:16 14:16 14:16 RBC 3.85 L Hgb 12.3 L Hct 38.2 L Lymphocytes # 0.5 L Chloride 93 L Carbon Dioxide 36 H BUN 28 H Plasma Lactic Acid Alber 2.1 H* Magnesium 1.5 L ALT 582 H Albumin 3.4 L Amylase <30 L Lipase 19 L 05/23/23 17:39 RBC Hgb Hct Lymphocytes # Chloride Carbon Dioxide BUN Plasma Lactic Acid Alber 0.6 L Magnesium ALT Albumin Amylase Lipase - Diagnostic Findings Chest x-ray: image reviewed CT scan - chest: image reviewed Assessment and Plan Assessment: Acute on chronic hypoxemic and hypercapnic respiratory failure, secondary to COPD exacerbation, [place] by right basilar pneumonia. Severe COPD, oxygen dependent, with an FEV1 is 41% of predicted. History of non-small cell lung cancer, status post right upper lobectomy, 2017. Chronic thoracic pain and brachial plexus disorder. History of chronic and ongoing tobacco dependence of more than 50 years. Recent hospitalization for ST segment elevation myocardial infarction. Anorexia/cachexia syndrome of chronic illness. Poor functional status. Plan: Plan dated 05/24/2023. The patient will be placed on appropriate medications, including albuterol, ipratropium bromide, corticosteroids, and antibiotics. In fact his Unasyn and Zithromax was switched to Zosyn. We added Symbicort 160/4.5, 2 puffs twice a day. The patient will have a pro-calcitonin level checked. Additional recommendations and suggestions are forthcoming. The patient is a DO NOT INTUBATE patient. Overall prognosis remains very guarded. Time with Patient: Greater than 30
[2023-05-24 11:03] LABS: HCT 37.8 % (39.0-53.0); HGB 11.5 gm/dL (13.0-17.5); Hypochromasia Moderate; MCH 30.8 pg (25.0-35.0); MCHC 30.5 g/dL (31.0-37.0); Macrocytosis Slight; Mean Platelet Volume 9.2; Platelet Count 213 k/uL (150-450); RBC 3.74 m/uL (4.30-5.90); RDW 14.7 % (11.5-15.5); WBC 3.6 k/uL (3.8-10.6)
[2023-05-24 11:27] LABS: ALT 367 U/L (4-49); AST 26 U/L (17-59); African American GFR (CKD) >90 (>60 ml/min/1.73 sqM); Albumin 2.6 g/dL (3.5-5.0); Alkaline Phosphatase 74 U/L (38-126); Anion Gap 9 mmol/L; Blood Urea Nitrogen 20 mg/dL (9-20); Carbon Dioxide 32 mmol/L (22-30); Chloride 97 mmol/L (98-107); Glucose 86 mg/dL (74-99); Magnesium 1.3 mg/dL (1.6-2.3); Non-African American GFR(CKD) >90 (>60 ml/min/1.73 sqM); Phosphorus 3.1 mg/dL (2.5-4.5); Potassium 4.1 mmol/L (3.5-5.1); Sodium 138 mmol/L (137-145); Total Bilirubin 0.9 mg/dL (0.2-1.3); Total Protein 5.3 g/dL (6.3-8.2)
--- NOTE | 2023-05-24 11:57 | P.HPIM ---
History of Present Illness H&P Date: 05/24/23 Chief Complaint: Shortness of breath * 62-year-old patient with past medical history significant for chronic hypoxic respiratory failure, history of non-small cell lung cancer with right upper lobe resection, history of radiation, severe emphysema, chronic pain, presented to the emergency department with complains of shortness of breath. Patient was recently admitted in the hospital and been treated for acute on chronic hypoxic respiratory failure, severe COPD with FEV1 predicted of 41% * At the time of presentation in ER patient was noted to have severe hypoxia patient was placed on high flow oxygen,. Workup initiated in ER included CT angiogram chest which was negative for pulmonary embolism extensive consolidative changes throughout the right lung was noted concern for pneumonia * Blood work obtained in ER included WBC which showed hemoglobin of 12.3 CBC with WBC count of 8.4 platelet count 229, serum chemistry sodium 137 potassium 4.4, potassium 30 6B on 28 creatinine 0.76 lactate of 2.1, magnesium of 1.5, AST of 45 ALT of 582 * Patient tested negative for influenza, RSV and Covid * While in ER patient was given breathing treatment with DuoNeb, IV Solu-Medrol, IV Protonix and 2 L of normal saline bolus * Patient admitted to medical floor with consultation from pulmonary medicine REVIEW OF SYSTEMS: Cough, shortness of breath CONSTITUTIONAL: No fever, no malaise, no fatigue. HEENT: No recent visual problems or hearing problems. Denied any sore throat. CARDIOVASCULAR: No chest pain, orthopnea, PND, no palpitations, no syncope. PULMONARY: Cough, shortness of breath GASTROINTESTINAL: No diarrhea, no nausea, no vomiting, no abdominal pain. NEUROLOGICAL: No headaches, no weakness, no numbness. HEMATOLOGICAL: Denies any bleeding or petechiae. GENITOURINARY: Denies any burning micturition, frequency, or urgency. MUSCULOSKELETAL/RHEUMATOLOGICAL: Denies any joint pain, swelling, or any muscle pain. ENDOCRINE: Denies any polyuria or polydipsia. The rest of the 14-point review of systems is negative. PHYSICAL EXAMINATION: GENERAL: The patient is alert and oriented x3, ill appearance, nasal cannula in place, underweight HEENT: Pupils are round and equally reacting to light. EOMI. No scleral icterus. CARDIOVASCULAR: S1 and S2 present. No murmurs, rubs, or gallops. PULMONARY: Decreased breath sounds bilaterally, flow nasal cannula ABDOMEN: Soft, nontender, nondistended, normoactive bowel sounds. No palpable organomegaly. MUSCULOSKELETAL: No joint swelling or deformity. EXTREMITIES: No cyanosis, clubbing, or pedal edema. NEUROLOGICAL: Gross neurological examination did not reveal any focal deficits. SKIN: No rashes. Past Medical History Past Medical History: Cancer, COPD, Myocardial Infarction ([place]) Additional Past Medical History / Comment(s): history of non-small cell lung cancer with a previous right upper lobe resection/radiation, advanced emphysema, chest deformity related to previous thoracic surgery, chronic pain Involving the back in addition to brachial plexus disorder related to previous thoracic surgery. Last Myocardial Infarction Date:: 05/12/23 History of Any Multi-Drug Resistant Organisms: None Reported Past Surgical History: Appendectomy, Heart Catheterization Additional Past Surgical History / Comment(s): right upper lobectomy d/t CA, multiple surgeries on right hand d/t accident, pain stimulator left lower back Past Anesthesia/Blood Transfusion Reactions: No Reported Reaction Past Psychological History: No Psychological Hx Reported Smoking Status: Former smoker Past Alcohol Use History: None Reported Past Drug Use History: None Reported - Past Family History Mother Family Medical History: Diabetes Mellitus, Hypertension Medications and Allergies Home Medications Medication Instructions Recorded Confirmed Type Gabapentin [Neurontin] 300 mg PO TID 03/26/19 05/23/23 History Morphine Sulfate ER [Ms Contin] 30 mg PO BID 03/26/19 05/23/23 History Morphine Sulfate [Ms Contin] 60 mg PO BID 03/26/19 05/23/23 History oxyCODONE-APAP 10-325MG [Percocet 1 tab PO BID PRN 03/26/19 05/23/23 History 10-325 mg] Baclofen [Lioresal] 10 mg PO TID PRN 11/11/20 05/23/23 History Fluticasone/Umeclidin/Vilanter 1 puff INHALATION RT-DAILY 11/11/20 05/23/23 History [Trelegy Ellipta 100-62.5-25] Ipratropium-Albuterol Nebulize 3 ml INHALATION RT-DAILY@1800 11/11/20 05/23/23 History [Duoneb 0.5 mg-3 mg/3 ml Soln] Butalb/APAP/Caff 50-325-40Mg 1 tab PO TID PRN 05/12/23 05/23/23 History [Fioricet 50-325-40] Aspirin 81 mg PO DAILY 30 Days #30 tab 05/15/23 05/23/23 Rx Atorvastatin [Lipitor] 40 mg PO HS 30 Days #30 tab 05/15/23 05/23/23 Rx Megestrol Acetate 20 mg PO DAILY 05/23/23 05/23/23 History Allergies Allergy/AdvReac Type Severity Reaction Status Date / Time No Known Allergies Allergy Verified 05/23/23 14:34 Physical Exam Vitals: Vital Signs Temp Pulse Pulse Resp BP BP Pulse Ox 05/24/23 06:00 85 20 110/57 90 L 05/24/23 05:00 87 20 121/60 92 L 05/24/23 04:50 97.8 F 86 20 100/61 88 L 05/24/23 04:18 108 H 05/24/23 04:10 104 H 05/24/23 04:00 104 H 24 134/77 74 L 05/24/23 03:00 81 26 H 111/68 90 L 05/24/23 02:00 65 14 116/72 92 L 05/24/23 01:00 56 L 15 95/64 92 L 05/24/23 00:02 58 L 16 95/64 95 05/24/23 00:00 57 L 13 107/69 94 L 05/23/23 23:00 60 12 101/56 91 L 05/23/23 22:00 61 12 103/65 97 05/23/23 21:00 61 18 103/65 94 L 05/23/23 20:00 66 18 121/79 94 L 05/23/23 18:33 98.8 F 67 18 98/70 94 L 05/23/23 16:51 61 18 05/23/23 16:48 61 18 92/55 97 05/23/23 16:40 68 18 05/23/23 15:37 97.9 F 68 18 102/59 97 05/23/23 14:49 64 18 05/23/23 14:39 55 L 18 05/23/23 14:05 68 18 95/56 99 05/23/23 13:53 18 05/23/23 13:43 99.6 F 88 32 H 81/47 92 L Intake and Output 05/23/23 05/24/2323 22:59 06:59 14:59 Output Total 300 Balance -300 Output: Urine 300 Other: Weight 45.359 kg Results CBC & Chem 7: 05/23/23 14:16 05/24/23 09:56 Labs: Abnormal Lab Results - Last 24 Hours (Table) 05/23/23 05/23/23 05/23/23 Range/Units 14:16 14:16 14:16 RBC 3.85 L (4.30-5.90) m/uL Hgb 12.3 L (13.0-17.5) gm/dL Hct 38.2 L (39.0-53.0) % Lymphocytes # 0.5 L (1.0-4.8) k/uL Chloride 93 L (98-107) mmol/L Carbon Dioxide 36 H (22-30) mmol/L BUN 28 H (9-20) mg/dL Plasma Lactic Acid Alber 2.1 H* (0.7-2.0) mmol/L Magnesium 1.5 L (1.6-2.3) mg/dL ALT 582 H (4-49) U/L Albumin 3.4 L (3.5-5.0) g/dL Amylase <30 L (30-110) U/L Lipase 19 L (23-300) U/L 05/23/23 Range/Units 17:39 RBC (4.30-5.90) m/uL Hgb (13.0-17.5) gm/dL Hct (39.0-53.0) % Lymphocytes # (1.0-4.8) k/uL Chloride (98-107) mmol/L Carbon Dioxide (22-30) mmol/L BUN (9-20) mg/dL Plasma Lactic Acid Alber 0.6 L (0.7-2.0) mmol/L Magnesium (1.6-2.3) mg/dL ALT (4-49) U/L Albumin (3.5-5.0) g/dL Amylase (30-110) U/L Lipase (23-300) U/L Thrombosis Risk Factor Assmnt - Choose All That Apply Any of the Below Risk Factors Present?: Yes Each Factor Represents 1 point: Abnormal pulmonary function (COPD), Acute [place], Medical pt on bed rest, Serious lung disease incl. pneumonia (< 1month) Each Risk Factor Represents 2 Points: Age 61-74 years Other congenital or acquired thrombophilia - If yes, enter type in comment: No Thrombosis Risk Factor Assessment Total Risk Factor Score: 6 Thrombosis Risk Factor Assessment Level: High Risk Assessment and Plan Assessment: Assessment and plan * Acute on chronic hypoxic hypercapnic respiratory failure * Sepsis on admission secondary to right lower lobe pneumonia * Right lower lobe pneumonia * History of non-small cell lung cancer status post right upper lobectomy/radiation 2006 * History of chronic back pain * History of coronary artery disease * Failure to thrive * In regards to acute on chronic hypoxic respiratory failure continue patient on oxygen supplementation, follow-up chest x-ray obtained, CT chest reviewed negative for pulmonary embolism right lower lobe consolidation noted * In regards to COPD exacerbation, continue patient on IV Solu-Medrol, continue breathing treatments, continue Mucinex * In regards to right lower lobe pneumonia, CT chest reviewed, continue patient on IV Unasyn and azithromycin, continue Mucinex * In regards to history of coronary artery disease continue patient on aspirin, Lipitor * In regards to failure to thrive patient will need physical therapy occupational therapy evaluation * CODE STATUS is no code Time with Patient: Greater than 30
[2023-05-24] MEDS: IPRATROPIUM-ALBUTEROL 3 ML NEB INHALATION SCH ×3 (12:09→20:31)
[2023-05-24 13:25] VITALS: BMI 15.6
[2023-05-24] MEDS: MAGNESIUM SULFATE-D5W PMX 1 GM in DEXTROSE/WATER 1 100ML.BAG IVPB SCH ×2 (13:39→14:58)
[2023-05-24] MEDS: SODIUM CHLORIDE 0.9% 1,000 ML IV SCH (13:41)
[2023-05-24 16:30] LABS: Band Neutrophils % 30 %; Lymphocytes # (M) 0.29 k/uL (1.0-4.8); Monocytes # (M) 0.22 k/uL (0-1.0); Neutrophils % (M) 56 %; Nucleated Red Blood Cells 0 /100 WBC (0-0); Total Cells Counted 100
[2023-05-24] MEDS: ACETAMINOPHEN TAB 325 MG TAB PO PRN (16:47)
[2023-05-24] MEDS: PIPERACILLIN-TAZOBACTAM 3.375 GM in SODIUM CHLORIDE 0.9% 100 ML IVPB SCH (17:15)
[2023-05-24] MEDS ORDERED: IPRATROPIUM-ALBUTEROL 3 ML NEB INHALATION SCH (20:00)
[2023-05-24] MEDS: SYMBICORT 160-4.5 MCG INHALER INHALATION SCH (20:31)
[2023-05-24] MEDS ORDERED: ATORVASTATIN 40 MG TAB PO SCH (21:00)
[2023-05-25] MEDS: MORPHINE SULFATE 2 MG/ML SYRINGE IV PRN ×2 (00:27→06:27)
[2023-05-25] MEDS: PIPERACILLIN-TAZOBACTAM 3.375 GM in SODIUM CHLORIDE 0.9% 100 ML IVPB SCH ×2 (00:29→09:25)
[2023-05-25 02:18] VITALS: TEMP 97
[2023-05-25] MEDS: SYMBICORT 160-4.5 MCG INHALER INHALATION SCH (08:38)
[2023-05-25] MEDS: IPRATROPIUM-ALBUTEROL 3 ML NEB INHALATION SCH ×2 (08:38→11:56)
[2023-05-25] MEDS: PANTOPRAZOLE 40 MG/10 ML VIAL IV SCH (09:24)
--- NOTE | 2023-05-25 11:01 | P.PN ---
Subjective Progress Note Date: 05/25/23 Principal diagnosis: Shortness of breath. Pulmonary consult dated 05/24/2023. 62-year-old male well-known to our service. He has a history of very severe COPD, oxygen dependent, chronic tobacco dependence, non-small cell lung cancer, previous right upper lobe resection, and chronic pain syndrome. The patient was recently inpatient, in April,. The patient presented usual complaints of shortness of breath, cough, chest congestion, and phlegm production. The patient's chest x-ray and CAT scan suggested a right basilar pneumonia. There is no evidence of pulmonary embolus some. Currently, he's on 15 L high flow oxygen with saturations in the low 90s high 80s. The patient was on Unasyn and azithromycin. There were discontinued in favor of Zosyn. We added Symbicort. Will check a pro-calcitonin level. He is not receiving any IV fluids. Current laboratory data includes a white count 8.4, hemoglobin 12.3, hematocrit 38.2, and a normal platelet count. PT/INR PTT were all normal. Sodium 137, potassium 4.4, chlorides 93, CO2 36, BUN 28, and creatinine 0.76. Lactic acid was 2.1. Repeat was 0.6. ALT was 582. N-terminal proBNP was elevated at 3430. Testing for influenza A/B, RSV, and coronavirus, were all negative. Chest x-ray shows a right basilar opacity. CT angiogram was negative for PE, and showed a extensive consolidative process, at the right lung base. There is a small right-sided pleural effusion. Progress note dated 05/25/2023. 62-year-old male well-known to our service, seen in consultation yesterday. Please see the note above. He has a history of very severe COPD, which is oxygen dependent, and non-small cell lung cancer. The patient is seen today in room 352. He is on a nonrebreather mask, with saturations between 77 and 83%. He is getting saline at 75 mL an hour. I've asked respiratory therapy to place him on BiPAP, with settings of 12/5, and 100%. In addition, Solu-Medrol is increased to 40 mg every 6 hours, and Symbicort, this changed to budesonide 1 mg and formoterol 20 g, twice a day. Bella count is 3.6, hemoglobin 11.5, hematocrit 37.8, and platelet count is normal. Sodium 138, potassium 4.1, chlo rides 97, CO2 32, BUN 20, and creatinine 0.61. Pro-calcitonin level is 2.28. Chest x-ray shows diffuse bilateral changes. Objective - Vital Signs Vital signs: Vital Signs Temp 97.0 F L 05/25/23 04:00 Pulse 86 05/25/23 08:53 Resp 20 05/25/23 04:00 BP 127/71 05/25/23 04:00 Pulse Ox 93 L 05/25/23 08:41 FiO2 100 05/25/23 09:27 Intake & Output 05/24/23 05/25/23 05/25/23 18:59 06:59 18:59 Intake Total 308 240 Output Total 625 1400 375 Balance -317 -1400 -135 Weight 45.359 kg 44.8 kg Intake: Oral 308 240 Output: Urine 625 1400 375 - Exam Moderate respiratory distress, oriented, currently on a nonrebreather mass. HEENT examination is grossly unremarkable. Mucous membranes are moist. No oral lesions. Neck supple. Full range of motion. No adenopathy thyromegaly or neck vein distention. Cardiovascular examination reveals regular rhythm rate. S1-S2 normal. No S3 or S4. No discernible murmur noted. Heart sounds are distant. Heart rate 92 bpm. Lungs reveal scattered crackles, right lung base. Diffuse inspiratory and expiratory rhonchi are noted. No distinct wheezes. Saturations are in the 70s and 80s. Abdomen soft bowel sounds are heard. No masses or tenderness. Extremities are intact. No cyanosis clubbing or edema. Skin is without rash or lesion. Neurologic examination is brief but nonfocal. - Labs CBC & Chem 7: 05/24/23 09:56 05/24/23 09:56 Labs: Abnormal Lab Results - Last 24 Hours (Table) 05/24/23 05/24/23 05/24/23 Range/Units 09:56 09:56 09:56 WBC 3.6 L (3.8-10.6) k/uL RBC 3.74 L (4.30-5.90) m/uL Hgb 11.5 L (13.0-17.5) gm/dL Hct 37.8 L (39.0-53.0) % MCV 101.0 H (80.0-100.0) fL MCHC 30.5 L (31.0-37.0) g/dL Lymphocytes # (Manual) 0.29 L (1.0-4.8) k/uL Chloride 97 L (98-107) mmol/L Carbon Dioxide 32 H (22-30) mmol/L Creatinine 0.61 L (0.66-1.25) mg/dL Calcium 8.0 L (8.4-10.2) mg/dL Magnesium 1.3 L (1.6-2.3) mg/dL ALT 367 H (4-49) U/L Total Protein 5.3 L (6.3-8.2) g/dL Albumin 2.6 L (3.5-5.0) g/dL Procalcitonin 2.28 H (0.02-0.09) ng/mL Assessment and Plan Assessment: Acute on chronic hypoxemic and hypercapnic respiratory failure, secondary to COPD exacerbation, complicated by right basilar pneumonia. Severe COPD, oxygen dependent, with an FEV1 is 41% of predicted. History of non-small cell lung cancer, status post right upper lobectomy, 2017. Chronic thoracic pain and brachial plexus disorder. History of chronic and ongoing tobacco dependence of more than 50 years. Recent hospitalization for ST segment elevation myocardial infarction. Anorexia/cachexia syndrome of chronic illness. Poor functional status. Plan: Plan dated 05/24/2023. The patient will be placed on appropriate medications, including albuterol, ipratropium bromide, corticosteroids, and antibiotics. In fact his Unasyn and Zithromax was switched to Zosyn. We added Symbicort 160/4.5, 2 puffs twice a day. The patient will have a pro-calcitonin level checked. Additional recommendations and suggestions are forthcoming. The patient is a DO NOT INTUBATE patient. Overall prognosis remains very guarded. Plan dated 05/25/2023. The patient was switched, to a BiPAP device, as his saturations were quite low o n a nonrebreather. The patient is a DO NOT INTUBATE/DO NOT RESUSCITATE patient. Also, instead of Solu-Medrol 40 mg every 12 hours, we increase this to 40 mg every 6 hours, and change the patient's Symbicort, 2 budesonide and formoterol. The patient's getting saline at 75 mL an hour. He continues on Zosyn. And his pro-calcitonin level was elevated. Labs, x-rays, and medications are reviewed. Prognosis is very guarded. Time with Patient: Less than 30
[2023-05-25 11:18] VITALS: BP 121/69; RESP 22
[2023-05-25] MEDS: ACETAMINOPHEN TAB 325 MG TAB PO PRN (11:44)
[2023-05-25] MEDS ORDERED: methylPREDNISolone SOD SUCCI 40 MG/ML 1 ML VIAL IV SCH (12:00)
--- NOTE | 2023-05-25 12:01 | P.PN ---
Subjective Progress Note Date: 05/25/23 * 62-year-old patient with past medical history significant for chronic hypoxic respiratory failure, history of non-small cell lung cancer with right upper lobe resection, history of radiation, severe emphysema, chronic pain, presented to the emergency department with complains of shortness of breath. Patient was recently admitted in the hospital and been treated for acute on chronic hypoxic respiratory failure, severe COPD with FEV1 predicted of 41% * At the time of presentation in ER patient was noted to have severe hypoxia patient was placed on high flow oxygen,. Workup initiated in ER included CT angiogram chest which was negative for pulmonary embolism extensive consolidative changes throughout the right lung was noted concern for pneumonia * Blood work obtained in ER included WBC which showed hemoglobin of 12.3 CBC with WBC count of 8.4 platelet count 229, serum chemistry sodium 137 potassium 4.4, potassium 30 6B on 28 creatinine 0.76 lactate of 2.1, magnesium of 1.5, AST of 45 ALT of 582 * Patient tested negative for influenza, RSV and Covid * While in ER patient was given breathing treatment with DuoNeb, IV Solu-Medrol, IV Protonix and 2 L of normal saline bolus * Patient admitted to medical floor with consultation from pulmonary medicine * 05/25/2023: Patient seen and evaluated bedside, patient continued to remain in, patient had discussion with pulmonary medicine and has opted for comfort measures/hospice. Secondary to advanced COPD and multiple comorbidities, patient continued to remain on high flow oxygen, patient does complain of fatigue, shortness of breath. PHYSICAL EXAMINATION: GENERAL: The patient is alert and oriented x3, ill appearance, nasal cannula in place, underweight HEENT: Pupils are round and equally reacting to light. EOMI. No scleral icterus. CARDIOVASCULAR: S1 and S2 present. No murmurs, rubs, or gallops. PULMONARY: Decreased breath sounds bilaterally, flow nasal cannula ABDOMEN: Soft, nontender, nondistended, normoactive bowel sounds. No palpable organomegaly. MUSCULOSKELETAL: No joint swelling or deformity. EXTREMITIES: No cyanosis, clubbing, or pedal edema. NEUROLOGICAL: Gross neurological examination did not reveal any focal deficits. SKIN: No rashes. Objective - Vital Signs Vital signs: Vital Signs Temp 97.0 F L 05/25/23 04:00 Pulse 86 05/25/23 08:53 Resp 22 05/25/23 08:00 BP 121/69 05/25/23 08:00 Pulse Ox 93 L 05/25/23 08:41 FiO2 100 05/25/23 09:27 Intake & Output 05/24/23 05/25/23 05/25/23 18:59 06:59 18:59 Intake Total 308 240 Output Total 625 1400 375 Balance -317 -1400 -135 Weight 45.359 kg 44.8 kg Intake: Oral 308 240 Output: Urine 625 1400 375 - Labs CBC & Chem 7: 05/24/23 09:56 05/24/23 09:56 Labs: Abnormal Lab Results - Last 24 Hours (Table) 05/24/23 05/24/23 Range/Units 09:56 09:56 WBC 3.6 L (3.8-10.6) k/uL RBC 3.74 L (4.30-5.90) m/uL Hgb 11.5 L (13.0-17.5) gm/dL Hct 37.8 L (39.0-53.0) % MCV 101.0 H (80.0-100.0) fL MCHC 30.5 L (31.0-37.0) g/dL Lymphocytes # (Manual) 0.29 L (1.0-4.8) k/uL Procalcitonin 2.28 H (0.02-0.09) ng/mL Assessment and Plan Assessment: Assessment and plan * Acute on chronic hypoxic hypercapnic respiratory failure * Sepsis on admission secondary to right lower lobe pneumonia * Right lower lobe pneumonia * History of non-small cell lung cancer status post right upper lobectomy/radiation 2006 * History of chronic back pain * History of coronary artery disease * Failure to thrive * In regards to acute on chronic hypoxic respiratory failure continue patient on oxygen supplementation, CT chest reviewed negative for pulmonary embolism right lower lobe consolidation noted>> patient ultimately transitioned to comfort measures/hospice * In regards to COPD exacerbation, received IV Solu-Medrol, and this time patient transition to comfort measures/comfort measures initiated * In regards to right lower lobe pneumonia, CT chest reviewed, was started on IV Zosyn, discontinue transition to comfort measures/hospice * In regards to history of coronary artery disease , was on aspirin, Lipitor which is discontinued transition to hospice * Patient transition to comfort measures hospice Time with Patient: Greater than 30
[2023-05-25 12:26] VITALS: PULSE 88
--- NOTE | 2023-05-25 14:18 | XR ---
EXAMINATION TYPE: XR chest 1V portable DATE OF EXAM: 05/25/2023 8:52 AM CLINICAL INDICATION:Male, 62 years old with history of Resp failure; [facility] COMPARISON: Chest radiograph 05/24/2023. TECHNIQUE: XR chest 1V portable Frontal view of the chest. FINDINGS: There is redemonstration of mild prominence of the cardiac mediastinal silhouette. The pulmonary vasc ulature stable in appearance. Redemonstration of diffuse bilateral hazy and coarse opacities througho ut the lungs, there is mild interval improvement in left lower lung aeration as well as right upper l carmelo aeration. Postthoracotomy changes are present on the right. Suggestion of small bilateral pleural effusions is identified. Extensive postsurgical clips are noted throughout the right aspect of the mediastinum. IMPRESSION: Mild interval improvement of right and left lower lung aeration with persistent bilateral hazy and co arse airspace opacities.
[2023-05-25] MEDS ORDERED: BUDESONIDE 1 MG/2 ML NEBU INHALATION SCH (20:00)
[2023-05-25] MEDS ORDERED: FORMOTEROL FUMARATE 20 MCG/2 ML NEBU INHALATION SCH (20:00)
== END 2023-05-25 12:21 | disposition hospice, inpatient (51) | DRG 871 ==
LOC: EC 13:31 → 3SCARD 17:26
PROVIDERS: ADMIT Hospitalist; ATTEND Hospitalist
DX: A41.9 Sepsis, unspecified organism (principal); J18.9 Pneumonia, unspecified organism; J96.21 Acute and chronic respiratory failure with hypoxia; J96.22 Acute and chronic respiratory failure with hypercapnia; R64 Cachexia; Z68.1 Body mass index [BMI] 19.9 or less, adult; J43.9 Emphysema, unspecified; R62.7 Adult failure to thrive; F17.200 Nicotine dependence, unspecified, uncomplicated; G54.0 Brachial plexus disorders; Z66 Do not resuscitate; G89.4 Chronic pain syndrome; I25.10 Atherosclerotic heart disease of native coronary artery without angina pectoris; Z51.5 Encounter for palliative care; I25.2 Old myocardial infarction; Z85.118 Personal history of other malignant neoplasm of bronchus and lung; Z79.82 Long term (current) use of aspirin; Z79.899 Other long term (current) drug therapy; Z90.2 Acquired absence of lung [part of]; Z92.3 Personal history of irradiation; Z99.81 Dependence on supplemental oxygen
CPT/HCPCS: 36415; 71045; 71275; 80053; 82150; 83605; 83690; 83735; 83880; 84100; 84145; 84484; 85025; 85610; 85730; 87449; 87636; 93005; 94640; 94660; 94760; 96361; 96374; 96375; 99285

== ENCOUNTER 2023-05-25 11:57 | Inpatient (IN) | payer MEDICAID ==
[2023-05-25] MEDS ORDERED: MORPHINE CONC SOLN 10mg/0.5mL ORAL SYRG PO PRN (12:10)
[2023-05-25] MEDS ORDERED: LORazepam 0.5 MG TAB PO PRN (12:11)
[2023-05-25] MEDS ORDERED: MORPHINE CONC SOLN 10mg/0.5mL ORAL SYRG PO SCH (12:15)
[2023-05-25] MEDS ORDERED: MORPHINE ORAL SOLN 10 MG/5 ML CUP PO PRN (12:50)
[2023-05-25] MEDS ORDERED: ACETAMINOPHEN TAB 325 MG TAB PO PRN (13:26)
[2023-05-25] MEDS ORDERED: BACLOFEN 10 MG TAB PO PRN (13:27)
[2023-05-25] MEDS: MORPHINE SULFATE 4 MG/ML SYRINGE IVP PRN (15:07)
[2023-05-25] MEDS: IPRATROPIUM-ALBUTEROL 3 ML NEB INHALATION SCH ×2 (15:48→20:17)
[2023-05-25] MEDS: MORPHINE ORAL SOLN 10 MG/5 ML CUP PO SCH ×3 (17:11→23:50)
[2023-05-25] MEDS: FORMOTEROL FUMARATE 20 MCG/2 ML NEBU INHALATION SCH (20:17)
[2023-05-25] MEDS: BUDESONIDE 1 MG/2 ML NEBU INHALATION SCH (20:17)
[2023-05-25] MEDS: guaiFENesin 600 MG TABLET.ER PO SCH (20:46)
[2023-05-25] MEDS: GABAPENTIN 300 MG CAP PO SCH (20:46)
[2023-05-26] MEDS: MORPHINE ORAL SOLN 10 MG/5 ML CUP PO SCH ×3 (03:10→11:28)
[2023-05-26] MEDS: MORPHINE SULFATE 4 MG/ML SYRINGE IVP PRN ×2 (03:20→09:40)
[2023-05-26] MEDS: FORMOTEROL FUMARATE 20 MCG/2 ML NEBU INHALATION SCH ×2 (08:31→20:20)
[2023-05-26] MEDS: IPRATROPIUM-ALBUTEROL 3 ML NEB INHALATION SCH ×4 (08:31→20:20)
[2023-05-26] MEDS: BUDESONIDE 1 MG/2 ML NEBU INHALATION SCH ×2 (08:31→20:20)
[2023-05-26] MEDS: guaiFENesin 600 MG TABLET.ER PO SCH ×2 (09:39→20:18)
[2023-05-26] MEDS: GABAPENTIN 300 MG CAP PO SCH ×3 (09:39→21:05)
[2023-05-26] MEDS: MEGESTROL 40 MG TAB PO SCH (09:40)
[2023-05-26 12:01] VITALS: BMI 15.5
[2023-05-26] MEDS ORDERED: GLYCOPYRROLATE 0.2 MG/ML 2 ML VIAL IVP PRN (12:13)
[2023-05-26] MEDS: MORPHINE SULFATE (100 MG/2 ML) 100 MG in SODIUM CHLORIDE 0.9% 100 ML IV SCH (12:50)
[2023-05-26] MEDS ORDERED: SCOPOLAMINE 1 MG/72 HR PATCH TRANSDERM SCH (13:00)
[2023-05-26] MEDS ORDERED: SENNOSIDES 8.6 MG TAB PO PRN (20:04)
[2023-05-26 20:51] VITALS: BP 120/70; TEMP 97.6
[2023-05-27] MEDS: MORPHINE SULFATE (100 MG/2 ML) 100 MG in SODIUM CHLORIDE 0.9% 100 ML IV SCH (02:41)
[2023-05-27] MEDS: guaiFENesin 600 MG TABLET.ER PO SCH (08:22)
[2023-05-27] MEDS: GABAPENTIN 300 MG CAP PO SCH ×4 (08:22→17:26)
[2023-05-27] MEDS: FORMOTEROL FUMARATE 20 MCG/2 ML NEBU INHALATION SCH (08:44)
[2023-05-27] MEDS: BUDESONIDE 1 MG/2 ML NEBU INHALATION SCH (08:44)
[2023-05-27] MEDS: IPRATROPIUM-ALBUTEROL 3 ML NEB INHALATION SCH ×3 (08:44→15:30)
[2023-05-27] MEDS: MEGESTROL 40 MG TAB PO SCH (09:20)
--- NOTE | 2023-05-27 10:12 | P.PN ---
Subjective Progress Note Date: 05/26/23 Patient transitioned to [facility] hospice on 05/25/2023, in a patient with past medical history significant for recent STEMI ,non-small cell lung cancer status post right upper lobectomy 2017 , chronic thoracic pain and brachial plexus disorder , ongoing extensive nicotine dependence of greater than 50 years, a norexic admitted with acute on chronic hypoxic and hypercapnic respiratory failure secondary to COPD exacerbation, complicated by right basilar pneumonia. Patient is a severe, advanced COPD O2 dependent, pulmonary reporting FEV1 of 41% of predicted. Denies chest pain, palpitations. Hospice adjusting pulmonary/ pain management to comfort. Objective - Vital Signs Vital signs: Vital Signs Temp 97.6 F 05/26/23 20:00 Pulse 74 05/27/23 09:08 Resp 20 05/27/23 02:00 BP 120/70 05/26/23 20:00 Pulse Ox 92 L 05/27/23 08:58 FiO2 Intake & Output 05/26/23 05/27/23 05/27/23 18:59 06:59 18:59 Intake Total 21.607 65.896 34.782 Output Total 0 225 Balance 21.607 -159.104 34.782 Weight 44.8 kg Intake: IV 10 0.9 10 Intake, IV Titration 21.607 55.896 34.782 Amount Morphine Sulfate (100 mg/ 21.607 55.896 34.782 2 ml) 100 mg In Sodium Chloride 0.9% 100 ml @ 1 MG/HR 1.02 mls/hr IV . Q24H [facility] Rx#:[id number] Output: Urine 0 225 Other: Voiding Method Urinal - Exam PHYSICAL EXAM: VITAL SIGNS: [Temperature 98.8, pulse 81, respiratory rate 34, blood pressure 128/73, maintaining O2 sats of 85% on 12 L high flow nasal cannula] GENERAL: Cachexic, Alert and oriented 3, Sitting up in bed, moderate respiratory distress, positive generalized generalized pain CARDIOVASCULAR: S1, S2 regular. No murmur RESPIRATION: Labored, scattered rhonchi throughout. ABDOMEN: Soft, nontender . No guarding. Positive bowel sounds. NERVOUS SYSTEM: NIX Assessment and Plan Assessment: * Acute on chronic hypoxic hypercapnic respiratory failure secondary to COPD exacerbation, complicated by right basilar pneumonia * Sepsis on admission secondary to right lower lobe pneumonia * History of non-small cell lung cancer status post right upper lobectomy/radiation 2006 * History of chronic back pain, chronic thoracic and brachial plexus disorder * History of coronary artery disease * Failure to thrive, anorexia, cachexia secondary to chronic illness * Severe protein calorie malnutrition, BMI 15.5 * Ongoing nicotine dependence for greater than 50 years * Recent hospitalization for STEMI * No code, No CPR, no intubation * Hospice Plan: Continue on current medication regime ,monitoring and symptomatic treatment. Respiratory and pain management currently being adjusted. Titrate to comfort. Questions and concerns addressed. Support given. Prognosis poor. The impression and plan of care has been dictated as directed. : I performed a history and examination of this patient, discussed the same with the dictator. I agree with the dictator's note ,documented as a scribe. Any additional findings or plans will be noted.
--- NOTE | 2023-05-27 10:28 | P.PN ---
Subjective Progress Note Date: 05/27/23 Patient transitioned to [facility] hospice on 05/25/2023, in a patient with past medical history significant for recent STEMI ,non-small cell lung cancer status post right upper lobectomy 2017 , chronic thoracic pain and brachial plexus disorder , ongoing extensive nicotine dependence of greater than 50 years, a norexic admitted with acute on chronic hypoxic and hypercapnic respiratory failure secondary to COPD exacerbation, complicated by right basilar pneumonia. Patient is a severe, advanced COPD O2 dependent, pulmonary reporting FEV1 of 41% of predicted. Denies chest pain, palpitations. Hospice adjusting pulmonary/ pain management to comfort. 05/27/2023 pain better controlled currently on morphine drip, respiratory rate improved, 20. Currently maintaining O2 sats of 92% on 12 L high flow nasal cannula. Both patient and expressed Like to go home with hospice. Objective - Vital Signs Vital signs: Vital Signs Temp 97.6 F 05/26/23 20:00 Pulse 74 05/27/23 09:08 Resp 20 05/27/23 02:00 BP 120/70 05/26/23 20:00 Pulse Ox 92 L 05/27/23 08:58 FiO2 Intake & Output 05/26/23 05/27/23 05/27/23 18:59 06:59 18:59 Intake Total 21.607 65.896 34.782 Output Total 0 225 Balance 21.607 -159.104 34.782 Weight 44.8 kg Intake: IV 10 0.9 10 Intake, IV Titration 21.607 55.896 34.782 Amount Morphine Sulfate (100 mg/ 21.607 55.896 34.782 2 ml) 100 mg In Sodium Chloride 0.9% 100 ml @ 1 MG/HR 1.02 mls/hr IV . Q24H [facility] Rx#:[id number] Output: Urine 0 225 Other: Voiding Method Urinal - Exam PHYSICAL EXAM: VITAL SIGNS: as above GENERAL: Cachexic, Alert and oriented 3, Sitting up in bed, comfortable CARDIOVASCULAR: S1, S2 regular. No murmur. RESPIRATION: scattered rhonchi throughout. ABDOMEN: Soft, nontender . No guarding. Positive bowel sounds. Assessment and Plan Assessment: * Acute on chronic hypoxic hypercapnic respiratory failure secondary to COPD exacerbation, complicated by right basilar pneumonia * Sepsis on admission secondary to right lower lobe pneumonia * History of non-small cell lung cancer status post right upper lobectomy/radiation 2006 * History of chronic back pain, chronic thoracic and brachial plexus disorder * History of coronary artery disease * Failure to thrive, anorexia, cachexia secondary to chronic illness * Severe protein calorie malnutrition, BMI 15.5 * Ongoing nicotine dependence for greater than 50 years * Recent hospitalization for STEMI * No code, No CPR, no intubation * Hospice Plan: Continue on current medication regime ,monitoring and symptomatic treatment. On patient and requesting to go home with hospice, discussed with [facility]. They will have [facility] infusion dose a pain pump. Patient will be discharged home today with hospice. Prognosis poor. The impression and plan of care has been dictated as directed. : I performed a history and examination of this patient, discussed the same with the dictator. I agree with the dictator's note ,documented as a scribe. Any additional findings or plans will be noted.
[2023-05-27] MEDS ORDERED: polyethylene glycoL 3350 17 GM POWD.PACK PO SCH (10:30)
--- NOTE | 2023-05-27 11:06 | P.DS ---
Providers Date of admission: 05/25/23 12:27 Expected date of discharge: 05/27/23 Attending physician: Terrance Murdock MD Primary care physician: Terrance Murdock MD Hospital Course: Final Diagnoses: * Acute on chronic hypoxic hypercapnic respiratory failure secondary to COPD exacerbation, complicated by right basilar pneumonia * Sepsis on admission secondary to right lower lobe pneumonia * History of non-small cell lung cancer status post right upper lobectomy/radiation 2006 * History of chronic back pain, chronic thoracic and brachial plexus disorder * History of coronary artery disease * Failure to thrive, anorexia, cachexia secondary to chronic illness * Severe protein calorie malnutrition, BMI 15.5 * Ongoing nicotine dependence for greater than 50 years * Recent hospitalization for STEMI * No code, No CPR, no intubation * Hospice Hospital course:Patient transitioned to [facility] hospice on 05/25/2023, in a patient with past medical history significant for recent STEMI ,non-small cell lung cancer status post right upper lobectomy 2016 , chronic thoracic pain and brachial plexus disorder , ongoing extensive nicotine dependence of greater than 50 years, anorexic admitted with acute on chronic hypoxic and hypercapnic respiratory failure secondary to COPD exacerbation, complicated by right basilar pneumonia. Patient is a severe, advanced COPD O2 dependent, pulmonary reporting FEV1 of 41% of predicted. Denies chest pain, palpitations. Hospice adjusting pulmonary/ pain management to comfort. 05/27/2023 pain better controlled currently on morphine drip, respiratory rate improved, 20. Currently maintaining O2 sats of 92% on 12 L high flow nasal cannula. Both patient and expressed Like to go home with hospice. Patient will be discharged home with hospice today. Pain management as per [facility]- pain pump. Prognosis poor. The impression and plan of care has been dictated as directed. : I performed a history and examination of this patient, discussed the same with the dictator. I agree with the dictator's note ,documented as a scribe. Any additional findings or plans will be noted. Patient Condition at Discharge: Stable Plan - Discharge Summary New Discharge Prescriptions: New guaiFENesin [Mucinex] 600 mg PO Q12HR tab Scopolamine 1 mg/72 Hr Patch [TransDerm Scop] 1 patch TRANSDERM Q72H patch Acetaminophen Tab [Tylenol] 650 mg PO Q6HR PRN tab PRN Reason: Fever And/ Or Pain polyethylene glycoL 3350 [Miralax] 17 gm PO DAILY packet Sennosides [Senokot] 8.6 mg PO BID PRN tab PRN Reason: Constipation Continue Gabapentin [Neurontin] 300 mg PO TID Baclofen [Lioresal] 10 mg PO TID PRN PRN Reason: Muscle Spasm Butalb/APAP/Caff 50-325-40Mg [Fioricet 50-325-40] 1 tab PO TID PRN PRN Reason: Migraine Headache Fluticasone/Umeclidin/Vilanter [Trelegy Ellipta 100-62.5-25] 1 puff INHALATION RT-DAILY Changed Ipratropium-Albuterol Nebulize [Duoneb 0.5 mg-3 mg/3 ml Soln] 3 ml INHALATION QID #0 Discontinued oxyCODONE-APAP 10-325MG [Percocet 10-325 mg] 1 tab PO BID PRN PRN Reason: Breakthrough Pain Morphine Sulfate [Ms Contin] 60 mg PO BID Morphine Sulfate ER [Ms Contin] 30 mg PO BID Aspirin 81 mg PO DAILY 30 Days #30 tab Atorvastatin [Lipitor] 40 mg PO HS 30 Days #30 tab Megestrol Acetate 20 mg PO DAILY Discharge Medication List Gabapentin [Neurontin] 300 mg PO TID 03/26/19 [History] Baclofen [Lioresal] 10 mg PO TID PRN 11/11/20 [History] Fluticasone/Umeclidin/Vilanter [Trelegy Ellipta 100-62.5-25] 1 puff INHALATION RT-DAILY 11/11/20 [History] Butalb/APAP/Caff 50-325-40Mg [Fioricet 50-325-40] 1 tab PO TID PRN 05/12/23 [History] Acetaminophen Tab [Tylenol] 650 mg PO Q6HR PRN tab 05/27/23 [Rx] Ipratropium-Albuterol Nebulize [Duoneb 0.5 mg-3 mg/3 ml Soln] 3 ml INHALATION QID #0 05/27/23 [Rx] Scopolamine 1 mg/72 Hr Patch [TransDerm Scop] 1 patch TRANSDERM Q72H patch 05/27/23 [Rx] Sennosides [Senokot] 8.6 mg PO BID PRN tab 05/27/23 [Rx] guaiFENesin [Mucinex] 600 mg PO Q12HR tab 05/27/23 [Rx] polyethylene glycoL 3350 [Miralax] 17 gm PO DAILY packet 05/27/23 [Rx] Follow up Appointment(s)/Referral(s): Terrance Murdock MD [Primary Care Provider] - As Needed Activity/Diet/Wound Care/Special Instructions: Pain management/morphine pain pump as per [facility] hospice Discharge Disposition: HOME WITH HOSPICE
[2023-05-27 14:39] VITALS: RESP 13
[2023-05-27 15:50] VITALS: PULSE 68
== END 2023-05-27 20:10 | disposition hospice, home (50) | DRG 951 ==
LOC: 3SCARD 12:27
PROVIDERS: ADMIT Family Medicine; ATTEND Family Medicine
DX: Z51.5 Encounter for palliative care (principal); A41.9 Sepsis, unspecified organism; E43 Unspecified severe protein-calorie malnutrition; J96.21 Acute and chronic respiratory failure with hypoxia; J96.22 Acute and chronic respiratory failure with hypercapnia; I21.3 ST elevation (STEMI) myocardial infarction of unspecified site; J18.9 Pneumonia, unspecified organism; J44.1 Chronic obstructive pulmonary disease with (acute) exacerbation; J44.0 Chronic obstructive pulmonary disease with (acute) lower respiratory infection; Z68.1 Body mass index [BMI] 19.9 or less, adult; E88.A Wasting disease (syndrome) due to underlying condition; G54.0 Brachial plexus disorders; R62.7 Adult failure to thrive; Z99.81 Dependence on supplemental oxygen; Z66 Do not resuscitate; I25.10 Atherosclerotic heart disease of native coronary artery without angina pectoris; G89.29 Other chronic pain; F17.210 Nicotine dependence, cigarettes, uncomplicated; M54.6 Pain in thoracic spine; Z90.2 Acquired absence of lung [part of]; Z85.118 Personal history of other malignant neoplasm of bronchus and lung; Z92.3 Personal history of irradiation; Z97.8 Presence of other specified devices
CPT/HCPCS: 94640; 94760